=== PATIENT | male | born 1985 | race African-American/Black ===

== ENCOUNTER → 2016-12-22 | Day surgery (SDC) | payer OTHER ==
[~2016-12-22] VITALS: Ht 185.4 cm; Wt 101.6 kg
[~2016-12-22] MED LIST: ACETAMINOPHEN TAB 650MG DOSE (2X325MG) PO PRN; AMBI10TA PO; AMIT100TA PO; AMIT75TA PO; AMLO5TAB2 PO; ATEN25TA PO; D5W/0.2% SODIUM CHLORIDE 250 ML IV SCH; FISH500C PO; FLOM5CAP PO; HYDR-3713 PO; HYDR12.55 PO; LIDOCAINE 1% SDV INJ 30 ML VIAL As Ordered ONE; LIDOCAINE 1% SDV INJ 30 ML VIAL XX ONE; LIDOCAINE 2% INJ 100 MG/5 ML SDV (FOR ANES.) As Ordered ONE; LOTR10CA2 PO; LR 1,000 ML IV SCH; MELA0.02 PO; METF500T PO; METOCLOPRAMIDE INJ 10MG/2ML VIAL (J2765) IV PRN; MIDAZOLAM INJ 5 MG/ML VIAL (J2250) As Ordered ONE; MILK300C PO; MUSCLE RELAXER PO; NATU400T PO; NEUR300C PO; ONDANSETRON 4MG/2ML VIAL (J2405) IV PRN; OXYC1TAB23 PO; PERCOCET 5MG/325MG TAB PO PRN; PROPOFOL 200 MG/20 ML VIAL As Ordered ONE; VITA500046 PO; ZOLO100T PO; [UNRECOGNIZED DRUG - OTHER] PO; fentaNYL 100 MCG/2 ML INJECTION (J3010) As Ordered ONE; fentaNYL 100 MCG/2 ML INJECTION (J3010) IV PRN
--- NOTE | 2016-12-22 14:17 | RO ---
DATE OF PROCEDURE: 12/22/2016 PREOPERATIVE DIAGNOSIS: Recurrent unexplained syncope. POSTOPERATIVE DIAGNOSIS: Recurrent unexplained syncope. PROCEDURE PERFORMED: Implantation of a Medtronic Reveal LINQ implantable loop recorder. SURGEON: Dr. Allen Mercado PARTY DEMONSTRATOR: None. ANESTHESIA: Lidocaine 1% local/monitored anesthetic care. FINDINGS: Recurrent unexplained syncope. SPECIMENS: None. ESTIMATED BLOOD LOSS: Less than 3 mL. BLOOD PRODUCTS REPLACED: None. DRAINS: None. COMPLICATIONS: None. PROCEDURE DESCRIPTION: The patient was prepped and draped over the left anterior chest and sternum. Lidocaine 1% was used for local anesthetic. An incision approximately 1 cm in length was made with a #15 blade through the skin at approximately the fourth interspace one inch lateral to the left parasternal border. The insertion tool with loop recorder was placed so that the guide traveled in the subcutaneous fat roughly parallel to the anterior chest wall at an approximately 45 degree angle from the long axis of the sternum in a caudal-left lateral direction. The insertion tool was rotated 180 degrees and the loop recorder was advanced into the subcutaneous fat using the insertion tool plunger. The plunger was removed and then the insertion tool was removed leaving the loop recorder in place. The initial R wave amplitude was 0.63 mV. The initial settings for the device were VT detection zone 32 beats to 200 beats per minute, bradycardia 30 beats per minute for 12 beats, asystole 4.5 seconds. The implantable loop recorder implanted was a Medtronic Reveal LINQ Model # LNQ11 with serial # [id number].
[2016-12-22 14:45] VITALS: BP 108/57
== END | disposition home or self-care (01) ==
LOC: M SDC 09:52
PROVIDERS: ATTEND Internal Medicine Cardiovascular Disease
DX: R55 Syncope and collapse (principal); I10 Essential (primary) hypertension; G47.30 Sleep apnea, unspecified; F43.10 Post-traumatic stress disorder, unspecified; Z79.899 Other long term (current) drug therapy
CPT/HCPCS: 33282; C1764; J0690; J2250; J3010

== ENCOUNTER → 2017-02-18 | Outpatient (REF) | payer OTHER ==
[~2017-02-18] MED LIST changes: -ACETAMINOPHEN TAB 650MG DOSE (2X325MG) PO PRN; -D5W/0.2% SODIUM CHLORIDE 250 ML IV SCH; -LIDOCAINE 1% SDV INJ 30 ML VIAL As Ordered ONE; -LIDOCAINE 1% SDV INJ 30 ML VIAL XX ONE; -LIDOCAINE 2% INJ 100 MG/5 ML SDV (FOR ANES.) As Ordered ONE; -LR 1,000 ML IV SCH; -METOCLOPRAMIDE INJ 10MG/2ML VIAL (J2765) IV PRN; -MIDAZOLAM INJ 5 MG/ML VIAL (J2250) As Ordered ONE; -ONDANSETRON 4MG/2ML VIAL (J2405) IV PRN; -PERCOCET 5MG/325MG TAB PO PRN; -PROPOFOL 200 MG/20 ML VIAL As Ordered ONE; -fentaNYL 100 MCG/2 ML INJECTION (J3010) As Ordered ONE; -fentaNYL 100 MCG/2 ML INJECTION (J3010) IV PRN
== END ==
LOC: M LAB REF 17:00
PROVIDERS: ATTEND Internal Medicine Nephrology
DX: M62.82 Rhabdomyolysis (principal)

== ENCOUNTER 2017-07-02 09:55 | Emergency (ER) | payer OTHER ==
[~2017-07-02] VITALS: Ht 185.4 cm; Wt 110.5 kg
[2017-07-02 09:55] VITALS: BP 158/97
[~2017-07-02 09:55] MED LIST changes: -MELA0.02 PO; +MELA3TAB49 PO; -METF500T PO; +METF500T13 PO
[2017-07-02] MEDS ORDERED: SUMA5SPR (10:02)
[2017-07-02] MEDS ORDERED: LYRI75CA PO (10:02)
[2017-07-02] MEDS ORDERED: TETRACAINE 0.5% OPHTH SOLN 4ML OD ONE (10:15)
[2017-07-02] MEDS ORDERED: FLUORESCEIN OPHTH 1 MG STRIP OD ONE (10:15)
[2017-07-02] MEDS ORDERED: ERYTHROMYCIN OPHTH OINT OD ONE (10:30)
[2017-07-02] MEDS ORDERED: POLYSOL OP (10:31)
== END 2017-07-02 10:42 | disposition home or self-care (01) ==
LOC: M ED 09:55
DX: S05.01XA Injury of conjunctiva and corneal abrasion without foreign body, right eye, initial encounter (principal); I10 Essential (primary) hypertension; G47.33 Obstructive sleep apnea (adult) (pediatric); G43.909 Migraine, unspecified, not intractable, without status migrainosus; F41.0 Panic disorder [episodic paroxysmal anxiety]; F43.10 Post-traumatic stress disorder, unspecified; Z79.84 Long term (current) use of oral hypoglycemic drugs; Z79.899 Other long term (current) drug therapy; X58.XXXA Exposure to other specified factors, initial encounter; Y92.9 Unspecified place or not applicable; Y99.9 Unspecified external cause status; Y93.9 Activity, unspecified

== ENCOUNTER 2020-12-24 10:47 | Emergency (ER) | payer OTHER ==
[~2020-12-24] VITALS: Ht 185.4 cm; Wt 107.4 kg
[~2020-12-24 10:47] MED LIST changes: +AMLO1TAB24 PO; -AMLO5TAB2 PO; +FLOM0.4C39 PO; -FLOM5CAP PO; +LYRI75CA PO; +POLYSOL OP; +SUMA5SPR
--- OUTSIDE RECORDS SUMMARY | 2020-12-24 10:56 | CCD | Continuity of Care Document ---
Author Author Clint PRITCHARD Organization Unknown Address [id number] [address] [place] [address] Phone [phone] Care Team Providers Care Windows Support Engineer Name Role Phone [facility] [phone] Social History Type Date Description Comments Sex Unknown Assessments Date Code Description Provider 11/12/2020 Z03.818 Encounter for observ ation for suspected exposure to other biological agents ruled out DANIEL Nieves
--- OUTSIDE RECORDS SUMMARY | 2020-12-24 10:58 | CCD ---
Author Author [facility] Organization [facility] Address Unknown Phone Unavailable Care Team Providers Care Payroll Coordinator Name Role Phone Osmin'Jeannette S Brandyn FRANCIS Unavailable Unavailable O'Jeannette, S Brandyn FRANCIS Unavailable Unavailable O'Jeannette, S Brandyn FRANCIS Unavailable Unavailable O'Jeannette, S Brandyn FRANCIS Unavailable Unavailable O'Jeannette, S Brandyn FRANCIS Unavailable Unavailable O'Jeannette, S Brandyn FRANCIS Unavailable Unavailable O'Jeannette, S Brandyn FRANCIS Unavailable Unavailable O'Jeannette, S Brandyn FRANCIS Unavailable Unavailable O'Jeannette, S Brandyn FRANCIS Unavailable Unavailable O'Jeannette, S Brandyn FRANCIS Unavailable Unavailable O'Ejannette, S Brandyn FRANCIS Unavailable Unavailable O'Jeannette, S Brandyn FRANCIS Unavailable Unavailable O'Jeannette, S Brandyn FRANCIS Unavailable Unavailable O'Jeannette, S Brandyn FRANCIS Unavailable Unavailable O'Jeannette, S Brandyn FRANCIS Unavailable Unavailable O'Jeannette, S Brandyn FRANCIS Unavailable Unavailable O'Jeannette, S Brandyn FRANCIS Unavailable Unavailable O'Jeannette, S Brandyn FRANCIS Unavailable Unavailable O'Jeannette, S Brandyn FRANCIS Unavailable Unavailable O'Jeannette, S Brandyn FRANCIS Unavailable Unavailable O'Jeannette, S Brandyn FRANCIS Unavailable Unavailable O'Jeannette, S Brandyn MD Unavailable Unavailable Nereida Prajapati MD Unavailable Unavailable Nereida Prajapati MD Unavailable Unavailable Nereida Prajapati MD Unavailable Unavailable Nereida Prajapati MD Unavailable Unavailable Nereida Prajapati MD Unavailable Unavailable Nereida Prajapati MD Unavailable Unavailable Nereida Prajapati MD Unavailable Unavailable Nereida Prajapati MD Unavailable Unavailable Nereida Prajapati MD Unavailable Unavailable Nereida Prajapati MD Unavailable Unavailable Nereida Prajapati MD Unavailable Unavailable Nereida Prajapati MD Unavailable Unavailable Nereida Prajapati MD Unavailable Unavailable Nereida Prajapati MD Unavailable Unavailable Nereida Prajapati MD Unavailable Unavailable Nereida Prajapati MD Unavailable Unavailable Nereida Prajapati MD Unavailable Unavailable Nereida Prajapati MD Unavailable Unavailable Nereida Prajapati MD Unavailable Unavailable Nereida Prajapati MD Unavailable Unavailable Nereida Prajapati MD Unavailable Unavailable Nereida Prajapati MD Unavailable Unavailable Nereida Prajapati MD Unavailable Unavailable Nereida Prajapati MD Unavailable Unavailable Nereida Prajapati MD Unavailable Unavailable Nereida Prajapati MD Unavailable Unavailable Nereida Prajapati MD Unavailable Unavailable Nereida Prajapati MD Unavailable Unavailable Nereida Prajapati MD Unavailable Unavailable Nereida Prajapati MD Unavailable Unavailable Nereida Prajapati MD Unavailable Unavailable Nereida Prajapati MD Unavailable Unavailable Gore, W Fernandez RPA-C Unavailable Unavailable Gore, W Fernandez RPA-C Unavailable Unavailable Gore, W Fernandez RPA-C Unavailable Unavailable Gore, W Fernandez RPA-C Unavailable Unavailable Gore, W Fernandez RPA-C Unavailable Unavailable Gore, W Fernandez RPA-C Unavailable Unavailable Gore, W Fernandez RPA-C Unavailable Unavailable Gore, W Fernandez RPA-C Unavailable Unavailable Gore, W Fernandez RPA-C Unavailable Unavailable Gore, W Fernandez RPA-C Unavailable Unavailable Gore, W Fernandez RPA-C Unavailable Unavailable Gore, W Fernandez RPA-C Unavailable Unavailable Gore, W Fernandez RPA-C Unavailable Unavailable Goer, W Fernandez RPA-C Unavailable Unavailable Gore, W Fernandez RPA-C Unavailable Unavailable Gore, W Fernandez RPA-C Unavailable Unavailable PONCE, URIAH Unavailable Unavailable PONCE, URIAH Unavailable Unavailable KYLIE HERNÁNDEZ Unavailable Unavailable RADHA, Tiffanie CATHERINE MD Unavailable Unavailable RADHA, Tiffanie CATHERINE MD Unavailable Unavailable RADHA, Tiffanie CATHERINE MD Unavailable Unavailable RADHA, Tiffanie CATHERINE MD Unavailable Unavailable RADHA, Tiffanie CATHERINE MD Unavailable Unavailable RADHA, Tiffanie CATHERINE MD Unavailable Unavailable RADHA, Tiffanie CATHERINE MD Unavailable Unavailable RADHA, Tiffanie CATHERINE MD Unavailable Unavailable RADHA, Tiffanie CATHERINE MD Unavailable Unavailable RADHA, Tiffanie CATHERINE MD Unavailable Unavailable RADHA, Tiffanie CATHERINE MD Unavailable Unavailable RADHA, Tiffanie CATHERINE MD Unavailable Unavailable RADHA, Tiffanie CATHERINE MD Unavailable Unavailable RADHA, Tiffanie CATHERINE MD Unavailable Unavailable RADHA, Tiffanie CATHERINE MD Unavailable Unavailable RADHA, Tiffanie CATHERINE MD Unavailable Unavailable RADHA, Tiffanie CATHERINE MD Unavailable Unavailable RADHA, Tiffanie CATHERINE MD Unavailable Unavailable RADHA, Tiffanie CATHERINE MD Unavailable Unavailable RADHA, Tiffanie CATHERINE MD Unavailable Unavailable RADHA, Tiffanie CATHERINE MD Unavailable Unavailable RADHA, Tiffanie CATHERINE MD Unavailable Unavailable RADHA, Tiffanie CATHERINE MD Unavailable Unavailable RADHA, Tiffanie CATHERINE MD Unavailable Unavailable RADHA, Tiffanie CATHERINE MD Unavailable Unavailable RADHA, Tiffanie CATHERINE MD Unavailable Unavailable RADHA, Tiffanie CATHERINE MD Unavailable Unavailable RADHA, Tiffanie CATHERINE MD Unavailable Unavailable RADHA, Tiffanie CATHERINE MD Unavailable Unavailable RADHA, Tiffanie CATHERINE MD Unavailable Unavailable RADHA, Tiffanie CATHERINE MD Unavailable Unavailable RADHA, Tiffanie CATHERINE MD Unavailable Unavailable RADHA, Tiffanie CATHERINE MD Unavailable Unavailable RADHA, Tiffanie CATHERINE MD Unavailable Unavailable RADHA, Tiffanie CATHERINE MD Unavailable Unavailable RADHA, Tiffanie CATHERINE MD Unavailable Unavailable RADHA, Tiffanie CATHERINE MD Unavailable Unavailable RADHA, Tiffanie CATHERINE MD Unavailable Unavailable RADHA, Tiffanie CATHERINE MD Unavailable Unavailable RADHA, Tiffanie CATHERINE MD Unavailable Unavailable RADHA, Tiffanie CATHERINE MD Unavailable Unavailable RADHA, Tiffanie CATHERINE MD Unavailable Unavailable RADHA, Tiffanie CATHERINE MD Unavailable Unavailable RADHA, Tiffanie CATHERINE MD Unavailable Unavailable RADHA, Tiffanie CATHERINE MD Unavailable Unavailable RADHA, Tiffanie CATHERINE MD Unavailable Unavailable RADHA, Tiffanie CATHERINE MD Unavailable Unavailable RADHA, Tiffanie CATHERINE MD Unavailable Unavailable RADHA, Tiffanie CATHERINE MD Unavailable Unavailable RADHA, Tiffanie CATHERINE MD Unavailable Unavailable RADHA, Tiffanie CATHERINE MD Unavailable Unavailable RADHA, Tiffanie CATHERINE MD Unavailable Unavailable RADHA, Tiffanie CATHERINE MD Unavailable Unavailable RADHA, Tiffanie CATHERINE MD Unavailable Unavailable RADHA, Tiffanie CATHERINE MD Unavailable Unavailable RADHA, Tiffanie CATHERINE MD Unavailable Unavailable RADHA, Tiffanie CATHERINE MD Unavailable Unavailable RADHA, Tiffanie CATHERINE MD Unavailable Unavailable RADHA, Tiffanie CATHERINE MD Unavailable Unavailable RADHA, Tiffanie CATHERINE MD Unavailable Unavailable RADHA, Tiffanie CATHERINE MD Unavailable Unavailable RADHA, Tiffanie CATHERINE MD Unavailable Unavailable RADHA, Tiffanie CATHERINE MD Unavailable Unavailable RADHA, Tiffanie CATHERINE MD Unavailable Unavailable RADHA, Tiffanie CATHERINE MD Unavailable Unavailable RADHA, Tiffanie CATHERINE MD Unavailable Unavailable RADHA, Tiffanie CATHERINE MD Unavailable Unavailable RADHA, Tiffanie CATHERINE MD Unavailable Unavailable RADHA, Tiffanie CATHERINE MD Unavailable Unavailable RADHA, Tiffanie CATHERINE MD Unavailable Unavailable RADHA, Tiffanie CATHERINE MD Unavailable Unavailable RADHA, Tiffanie CATHERINE MD Unavailable Unavailable Simona, Shubekchha Unavailable Unavailable Simona, Shubekchha Unavailable Unavailable RAZA CARRASCO MD, MBBS Unavailable Unavailable RAZA CARRASCO MD, MBBS Unavailable Unavailable RAZA CARRASCO MD, MBBS Unavailable Unavailable RAZA CARRASCO MD, MBBS Unavailable Unavailable RAZA CARRASCO MD, MBBS Unavailable Unavailable RAZA CARRASCO MD, MBBS Unavailable Unavailable RAZA CARRASCO MD, MBBS Unavailable Unavailable RAZA CARRASCO MD, MBBS Unavailable Unavailable RAZA CARRASCO MD, MBBS Unavailable Unavailable RAZA CARRASCO MD, MBBS Unavailable Unavailable RAZA CARRASCO MD, MBBS Unavailable Unavailable RAZA CARRASCO MD, MBBS Unavailable Unavailable CARRASCO, RAZA MD, MBBS Unavailable Unavailable CARRASCO, RAZA MD, MBBS Unavailable Unavailable CARRASCO, RAZA MD, MBBS Unavailable Unavailable CARRASCO, RAZA MD, MBBS Unavailable Unavailable CARRASCO, RAZA MD, MBBS Unavailable Unavailable CARRASCO, RAZA MD, MBBS Unavailable Unavailable CARRASCO, RAZA MD, MBBS Unavailable Unavailable CARRASCO, RAZA MD, MBBS Unavailable Unavailable CARRASCO, RAZA MD, MBBS Unavailable Unavailable CARRASCO, RAZA MD, MBBS Unavailable Unavailable CARRASCO, RAZA MD, MBBS Unavailable Unavailable CARRASCO, RAZA MD, MBBS Unavailable Unavailable CARRASCO, RAZA MD, MBBS Unavailable Unavailable CARRASCO, RAZA MD, MBBS Unavailable Unavailable CARRASCO, RAZA MD, MBBS Unavailable Unavailable CARRASCO, RAZA MD, MBBS Unavailable Unavailable CARRASCO, RAZA MD, MBBS Unavailable Unavailable CARRASCO, RAZA MD, MBBS Unavailable Unavailable El-Khally, A Ziad MD Unavailable Unavailable El-Khally, A Ziad MD Unavailable Unavailable El-Khally, A Ziad MD Unavailable Unavailable El-Khally, A Ziad MD Unavailable Unavailable El-Khally, A Ziad MD Unavailable Unavailable El-Khally, A Ziad MD Unavailable Unavailable El-Khally, A Ziad MD Unavailable Unavailable El-Khally, A Ziad MD Unavailable Unavailable El-Khally, A Ziad MD Unavailable Unavailable El-Khally, A Ziad MD Unavailable Unavailable El-Khally, A Ziad MD Unavailable Unavailable El-Khally, A Ziad MD Unavailable Unavailable El-Khally, A Ziad MD Unavailable Unavailable El-Khally, A Ziad MD Unavailable Unavailable El-Khally, A Ziad MD Unavailable Unavailable El-Khally, A Ziad MD Unavailable Unavailable El-Khally, A Ziad MD Unavailable Unavailable El-Khally, A Ziad MD Unavailable Unavailable El-Khally, A Ziad MD Unavailable Unavailable El-Khally, A Ziad MD Unavailable Unavailable El-Khally, A Ziad MD Unavailable Unavailable El-Khally, A Ziad MD Unavailable Unavailable El-Khally, A Ziad MD Unavailable Unavailable El-Khally, A Ziad MD Unavailable Unavailable El-Khally, A Ziad MD Unavailable Unavailable El-Khally, A Ziad MD Unavailable Unavailable El-Khally, A Ziad MD Unavailable Unavailable El-Khally, A Ziad MD Unavailable Unavailable El-Khally, A Ziad MD Unavailable Unavailable El-Khally, A Ziad MD Unavailable Unavailable El-Khally, A Ziad MD Unavailable Unavailable El-Khally, A Ziad MD Unavailable Unavailable El-Khally, A Ziad MD Unavailable Unavailable El-Khally, A Ziad MD Unavailable Unavailable El-Khally, A Ziad MD Unavailable Unavailable El-Khally, A Ziad MD Unavailable Unavailable El-Khally, A Ziad MD Unavailable Unavailable El-Khally, A Ziad MD Unavailable Unavailable El-Khally, A Ziad MD Unavailable Unavailable IFEANYI, KRISTIE MARCK PA Unavailable Unavailable IFEANYI, KRISTIE MARCK PA Unavailable Unavailable IFEANYI, KRISTIE MARCK PA Unavailable Unavailable IFEANYI, KRISTIE MARCK PA Unavailable Unavailable IFEANYI, KRISTIE MARCK PA Unavailable Unavailable IFEANYI, KRISTIE MARCK PA Unavailable Unavailable IFEANYI, KRISTIE MARCK PA Unavailable Unavailable IFEANYI, KRISTIE MARCK PA Unavailable Unavailable IFEANYI, KRISTIE MARCK PA Unavailable Unavailable IFEANYI, KRISTIE MARCK PA Unavailable Unavailable IFEANYI, KRISTIE MARCK PA Unavailable Unavailable IFEANYI, KRISTIE MARCK PA Unavailable Unavailable IFEANYI, KRISTIE MARCK PA Unavailable Unavailable IFEANYI, KRISTIE MARCK PA Unavailable Unavailable IFEANYI, KRISTIE MARCK PA Unavailable Unavailable IFEANYI, KRISTIE MARCK PA Unavailable Unavailable IFEANYI, KRISTIE MARCK PA Unavailable Unavailable IFEANYI, KRISTIE MARCK PA Unavailable Unavailable IFEANYI, KRISTIE MARCK PA Unavailable Unavailable IFEANYI, KRISTIE MARCK PA Unavailable Unavailable IFEANYI, KRISTIE MARCK PA Unavailable Unavailable Nghia, Walt SCHOOL BUS DISPATCHER Unavailable Unavailable Nghia, Walt SCHOOL BUS DISPATCHER Unavailable Unavailable Nghia, Walt SCHOOL BUS DISPATCHER Unavailable Unavailable Nghia, Walt SCHOOL BUS DISPATCHER Unavailable Unavailable Nghia, Walt SCHOOL BUS DISPATCHER Unavailable Unavailable Nghia, Walt SCHOOL BUS DISPATCHER Unavailable Unavailable Re-disclosure Warning The records that you are about to access may contain information from federally-assisted alcohol or drug abuse programs. If such information is present, then the following federally mandated warning applies: This information has been disclosed to you from records protected by federal confidentiality rules (42 CFR part 2). The federal rules prohibit you from making any further disclosure of this information unless further disclosure is expressly permitted by the written consent of the person to whom it pertains or as otherwise permitted by 42 CFR part 2. A general authorization for the release of medical or other information is NOT sufficient for this purpose. The Federal rules restrict any use of the information to criminally investigate or prosecute any alcohol or drug abuse patient.The records that you are about to access may contain highly sensitive health information, the redisclosure of which is protected by Article 27-F of the [facility] Public Health law. If you continue you may have access to information: Regarding HIV / AIDS; Provided by facilities licensed or operated by the [facility] Office of Mental Health; or Provided by the [facility] Office for People With Developmental Disabilities. If such information is present, then the following [facility] mandated warning applies: This information has been disclosed to you from confidential records which are protected by state law. State law prohibits you from making any further disclosure of this information without the specific written consent of the person to whom it pertains, or as otherwise permitted by law. Any unauthorized further disclosure in violation of state law may result in a fine or long term sentence or both. A general authorization for the release of medical or other information is NOT sufficient authorization for further disc losure. Allergies and Adverse Reactions Type Description Substance Reaction Status Data Source(s ) Drug Class NO KNOWN ALLERGIES NO KNOWN ALLERGIES [facility] Family History Family Member Name Family Member Gender Family Member Status Date o f Status Description Data Source(s) Unknown Female Problem MEDENT ([facility] Unknown Female Problem MEDENT ([facility] Unknown Unknown Problem MEDENT ([facility]) Unknown Unknown Problem MEDENT ([facility] Encounters Encounter Providers Location Date Indications Data Source(s ) Emergency Attender: MARCK SANCHEZ EMERGENCY ROOM-ER 06/10/2020 12:53:00 PM EDT - 06/10/2020 02:35:00 PM EDT [facility] Patient discharged. Inpatient Attender: Antonella Simpson MDA dmitter: Antonella Simpson MDReferrer: Antonella Simpson MD [id number] 06/09/2020 11:14:00 AM EDT - 06/09/2020 05:40:00 PM EDT [facility] Patient discharged. Emergency Attender: MOHINI HERNÁNDEZ EMERGENCY ROOM-ER 2019 03:25:00 AM EDT - 06/09/2020 09:00:00 AM [facility] Patient discharged. Outpatient Attender: URIAH RUIZttender : URIAH Vieiraender: Zelda JarvisAdmitter: Zelda JarvisReferrer: Waltnj Agrawal CARMINA [id number] 05/25/2020 11:34:44 AM EDT - 05/26/2020 05:51:00 PM EDT [facility] Patient discharged. Emergency Attender: MOHINI HERNÁNDEZ EMERGENCY ROOM-ER 2019 06:07:00 AM EDT - 05/25/2020 09:40:00 AM [facility] Patient discharged. Emergency Attender: eFrnandez CASTILLO EMERGENCY ROOM-ER 0 04/12/2020 11:34:00 AM EDT - 04/12/2020 04:55:00 PM [facility] Patient discharged. Inpatient Attender: RAZA CARRASCO MD, M BBSAttender: Brandyn Prajapati MDAdmitter: Brandyn Prajapati MDReferrer: Fernandez THOMASCConsultant: FLORIN GARCIA MD [id number] 04/12/2020 12:00:00 AM EDT - 04/14/2020 01:30:00 PM ED T Essential (primary) hypertension [facility] Essential (primary) hypertension Patient discharged. Emergency Attender: Fernandez CASTILLO EMERGENCY ROOM-ER 0 02/20/2017 12:51:00 PM EDT - 02/19/2017 08:24:00 PM [facility] Medications Medication Brand Name Start Date Product Form Dose Route Admi nistrative Instructions Pharmacy Instructions Status Indications Reaction Description Data Source(s) Spironolactone 25 MG Oral Tablet spironolactone (ALDAC TONE) 25 MG tablet spironolactone (ALDACTONE) 25 MG tablet 06/12/2020 12:00:00 AM EDT 12.5 mg Oral active Take 0.5 tablets (12 .5 mg total) by mouth daily [facility] Hydrochlorothiazide 25 MG Oral Tablet hy drochlorothiazide (HYDRODIURIL) 25 MG tablet hydrochlorothiazide (HYDRODIURIL) 25 MG tablet 12:00:00 AM EDT 25 mg Oral active Take 1 tablet (25 mg total) by mouth daily [facility] Lisinopril 20 MG Oral Tablet lisinopril (PRINIVIL,ZEST RIL) 20 MG tablet lisinopril (PRINIVIL,ZESTRIL) 20 MG tablet 06/12/2020 12:00:00 AM EDT 40 mg Oral active Hypertension Take 2 tablets (4 0 mg total) by mouth daily [facility] Hypertension Aspirin 81 MG Delayed Release Oral Tablet aspirin EC t ablet 81 mg aspirin EC tablet 81 mg 06/10/2020 09:00:00 AM EDT 81 mg Oral activ e 81 mg, Oral, Daily, First dose on Tue06/10/20 at 0900 [facility] Medication administered onsite sodium chloride 0.9% (NS) infusion 3231-1085-85 06/09/2020 04:00:00 P M EDT Intravenous active at 100 mL/hr, Intravenous, Continuous, Starting Tue06/09/20 at 1600, For 2 hours, Post-op [facility] Medication administered onsite iopamidol (ISOVUE-370) 76 % [id number] 06/09/2020 03:20:58 PM EDT active As needed, Starting Tue06/09/20 at 1520, Intra-Procedu re [facility] Medication administered onsite 1 ML heparin sodium, porcine 1000 UNT/ML Injection hep christin (porcine) injection heparin (porcine) injection 06/09/2020 03:12:25 PM EDT active As needed, Starting Tue06/09/20 at 1512, Intra-Procedure [facility] Medication administered onsite 4 ML Verapamil hydrochloride 2.5 MG/ML Injection verap angel (ISOPTIN) injection verapamil (ISOPTIN) injection 06/09/2020 03:12:10 PM EDT active As needed, Starting Tue06/09/20 at 1512, Intra-Procedure [facility] Medication administered onsite 2 ML Midazolam 1 MG/ML Injection midazolam (VERSED) in jection midazolam (VERSED) injection 06/09/2020 03:03:56 PM EDT active As needed, Starting Tue06/09/20 at 1503, Intra-Procedure [facility] Medication administered onsite fentaNYL Citrate (PF) (SUBLIMAZE) injection 4056-1708-42 06/09/2020 03:03:41 PM EDT active As neede d, Starting Tue06/09/20 at 1503, Intra-Procedure [facility] Medication administered onsite normal saline flush 0.9 % injection 3 mL [id number] 06/09/2020 02:00:00 PM EDT 3 mL Intravenous active 3 mL , Intravenous, Every 8 hours (scheduled), First dose on Tue06/09/20 at 1400
flush per protocol, D/C Main IV fluid if appropriate
[facility] Medication administered onsite duloxetine 20 MG Delayed Release Oral Ca psule DULoxetine (CYMBALTA) DR capsule 20 mg DULoxetine (CYMBALTA) DR capsule 20 mg 06/09/2020 01:00:00 PM EDT 20 mg Oral active 20 mg, Oral, 2 times daily, First dose on Tue06/09/20 at 1300 [facility] Medication administered onsite atorvastatin 40 MG Oral Tablet atorvastatin (LIPITOR) tablet 40 mg atorvastatin (LIPITOR) tablet 40 mg 06/09/2020 01:00:00 PM EDT 40 mg Oral active 40 mg, Oral, Daily, First dose on Tue06/09/20 at 1300 [facility] Medication administered onsite clopidogrel 300 MG Oral Tablet clopidogrel (PLAVIX) ta blet 600 mg clopidogrel (PLAVIX) tablet 600 mg 06/09/2020 01:00:00 PM EDT 600 mg Oral completed 600 mg, Oral, Once, Tue06/09/20 at 1300, For [address] [facility] Medication administered onsite sodium chloride 0.9% (NS) infusion 0179-3162-67 06/09/2020 12:00:00 P M EDT Intravenous completed at 100 mL/hr, Intravenous, Continuous, Starting Tue06/09/20 at 1200, For 2 hours [facility] Medication administered onsite Nitroglycerin 0.4 MG Sublingual Tablet n itroglycerin (NITROSTAT) SL tablet 0.4 mg nitroglycerin (NITROSTAT) SL tablet 0.4 mg 06/09/2020 11:53:08 A M EDT 0.4 mg Sublingual active 0.4 mg, S ublingual, Every 5 min PRN, chest pain, Starting Tue06/09/20 at 1153
May administer up to 3 doses per episode.
[facility] Medication administered onsite ondansetron (ZOFRAN) injection 4 mg [id number] 06/09/2020 11:32:4 2 AM EDT 4 mg Intravenous active 4 mg, In travenous, Every 4 hours PRN, nausea, vomiting, Starting Tue06/09/20 at 1132 [facility] Medication administered onsite 10 ML Atropine Sulfate 0.1 MG/ML Prefill ed Syringe atropine sulfate injection 0.5 mg atropine sulfate injection 0.5 mg 06/09/2020 11:32:41 AM EDT 0.5 mg active 0.5 mg, Intrave nous Push, Every 5 min PRN, other, As needed, for heart rate less than 60 BPM and the patient is hemodynamically unstable and/or SBP is less than 90mmHg, Starting Tue06/09/20 at 1132, For 1 day
Not to exceed a total of 3 mg or 0.04 mg/kg.Max of 6 doses
[facility] Medication administered onsite technetium sestamibi (CARDIOLITE) injection 33.2 millicurie 05/26/2020 02:00:00 PM EDT 33.2 mCi Intravenous completed 33.2 millicurie, Intravenous, Once, Tue05/26/20 at 1400, For 1 dose [facility] Medication administered onsite technetium sestamibi (CARDIOLITE) injection 11.1 millicurie 05/26/2020 02:00:00 PM EDT 11.1 mCi Intravenous completed 11.1 millicurie, Intravenous, Once, Tue05/26/20 at 1400, For 1 dose [facility] Medication administered onsite regadenoson (LEXISCAN) solution 0.4 mg [id number] 05/26/2020 06:0 0:00 AM EDT 0.4 mg Intravenous completed 0.4 mg, Intravenous, Once, 05/26/20 at 0600, For 1 dose, [employer]
No Caffeine, Theophylline, or Dipyridamole (Aggrenox) for 12 hours prior to dose. If patient has had any of these, contact MD immediately
[facility] Medication administered onsite Amoxicillin 250 MG Oral Capsule amoxicillin (AMOXIL) c apsule 500 mg amoxicillin (AMOXIL) capsule 500 mg 05/25/2020 10:00:00 PM EDT 500 mg Oral active 500 mg, Oral, 3 times daily, Indications: Prophylaxis for dental procedure that needs to be done but has been delayed due to COVID, First dose on 05/25/20 at 2200 [facility] Medication administered onsite Lisinopril 20 MG Oral Tablet lisinopril (PRINIVIL,ZEST RIL) tablet 40 mg lisinopril (PRINIVIL,ZESTRIL) tablet 40 mg 05/25/2020 07:00:00 PM EDT 40 mg Oral active Hypertension 40 mg, Oral, Daily, First dose on 05/25/20 at 1900 [facility] Hypertension Medication administered onsite Famotidine 20 MG Oral Tablet famotidine (PEPCID) table t 20 mg famotidine (PEPCID) tablet 20 mg 05/25/2020 07:00:00 PM EDT 20 mg Oral active 20 mg, Oral, Daily, First dose on 05/25/20 at 1900 [facility] Medication administered onsite sodium chloride 0.9% (NS) infusion [id number] 05/25/2020 07:00:00 P M EDT Intravenous active at 75 mL/hr, Intravenous, Continuous, Starting 05/25/20 at 1900 [facility] Medication administered onsite Cholecalciferol 1000 UNT Oral Tablet Vit perez D (CHOLECALCIFEROL) tablet 2,000 Units Vitamin D (CHOLECALCIFEROL) tablet 2,000 Units 05/25/2020 07 :00:00 PM EDT 2000 U Oral active 2,000 Units, Ora l, Daily, First dose on 05/25/20 at 1900 [facility] Medication administered onsite duloxetine 30 MG Delayed Release Oral Ca psule DULoxetine (CYMBALTA) DR capsule 30 mg DULoxetine (CYMBALTA) DR capsule 30 mg 05/25/2020 07:00:00 PM EDT 30 mg Oral active 30 mg, Oral, Daily, First dose on 05/25/20 at 1900 [facility] Medication administered onsite atorvastatin 40 MG Oral Tablet atorvastatin (LIPITOR) tablet 40 mg atorvastatin (LIPITOR) tablet 40 mg 05/25/2020 07:00:00 PM EDT 40 mg Oral active 40 mg, Oral, Daily, First dose on 05/25/20 at 1900 [facility] Medication administered onsite Insulin Lispro 100 UNT/ML Injectable Connie ution insulin lispro (HumaLOG) injection 1-6 Units insulin lispro (HumaLOG) injection 1-6 Units 0 05:00:00 PM EDT Subcutaneous active 1-6 Units, Subcutaneous, MEALSS, First dose on Tue05/25/20 at 1700
Frail 3 units Nutritional and Correction Insulin ScaleBlood Glucose (mg/dl) <70 start hypoglycemiaprotocolGlucose Eats >=50% Eats <50%Eats Nothing (mg/dl) of meal of mealor [id number] units 1 units 0 [id number]- 1703 units 2 units 0 [id number] units 2 units 1 - 2704 units 3 units 1 [id number] units 3 units 2 [id number]- 3705 units 4 units 2 [id number] units 4 units 3 units>420 call MD6 units 5 units 3 unitsTest glucose within 30 minutes of insulin administration.Administer insulin within 15 minutes (before or after) of the patient starting to eat.For patients that are NPO, use theNPO (correction) scale to cover POC glucose at 08:00, 12:00, 17:00.
[facility] Medication administered onsite heparin (porcine) injection 5,000 Units [id number] 05/25/20 20 03:00:00 PM EDT 5000 U Subcutaneous active 5,000 Units , Subcutaneous, Every 12 hours (scheduled), First dose on 05/25/20 at 1500
If platelet count is less than 100 or hematocrit is less than 25, or if there is a 5 point decrease in hematocrit, do not give the dose and call physician/designee.
[facility] Medication administered onsite normal saline flush 0.9 % injection 3 mL [id number] 05/25/2020 03:00:00 PM EDT 3 mL Intravenous active 3 mL , Intravenous, Every 8 hours (scheduled), First dose on 05/25/20 at 1500
flush per protocol, D/C Main IV fluid if appropriate
[facility] Medication administered onsite Lorazepam 0.5 MG Oral Tablet LORazepam (ATIVAN) tablet 0.5 mg LORazepam (ATIVAN) tablet 0.5 mg 05/25/2020 02:17:49 PM EDT 0.5 mg Oral acti ve 0.5 mg, Oral, Every 12 hours PRN, anxiety, sleep, Starting 05/25/20 at 1417, For 7 days [facility] Medication administered onsite 30 mg 04/17/2020 12:00:00 AM EDT capsule,delayed release (DR/EC) 90 TAKE ONE CAPSULE BY MOUTH EVERY DAY TAKE ONE CAPSULE BY MOUTH EVERY DAY SOLD: 04/19/2020 [facility] 50 mcg (2,000 unit) 04/17/2020 12:00:00 AM EDT capsule 90 TAKE ONE CAPSULE BY MOUTH EVERY DAY TAKE ONE CAPSULE BY MOUTH EVERY DAY SOLD: 04/19/2020 [facility] Hydrochlorothiazide 25 MG Oral Tablet hy drochlorothiazide (HYDRODIURIL) tablet 25 mg hydrochlorothiazide (HYDRODIURIL) tablet 25 mg 04/15/2020 09 :00:00 AM EDT 25 mg Oral active 25 mg, Oral, Maribel ly Standard, First dose (after last modification) on Tue04/15/20 at 0900, For 30 doses [facility] Medication administered onsite Lisinopril 20 MG Oral Tablet lisinopril (ZESTRIL) tabl et 20 mg lisinopril (ZESTRIL) tablet 20 mg 04/15/2020 09:00:00 AM EDT 20 mg Oral active 20 mg, Oral, Daily Standard, First dose (after last modification) on Tue04/15/20 at 0900, For 30 doses [facility] Medication administered onsite Hydrochlorothiazide 25 MG Oral Tablet hy droCHLOROthiazide 25 MG Oral Tablet (HYDRODIURIL) hydroCHLOROthiazide 25 MG Oral Tablet (HYDRODIURIL) 12:00:00 AM EDT 25 mg Oral active Take 1 t ablet by mouth daily [facility] Aspirin 81 MG Delayed Release Oral Table t Aspirin 81 MG Oral Tablet Delayed Release Aspirin 81 MG Oral Tablet Delayed Release 04/15/2020 12:00:00 AM EDT 81 mg Oral active Take 1 tablet by mouth [facility] Lisinopril 20 MG Oral Tablet Lisinopril 20 MG Oral Tab let (ZESTRIL) Lisinopril 20 MG Oral Tablet (ZESTRIL) 04/15/2020 12:00:00 AM EDT 20 mg Oral active Take 1 tablet by mouth daily [facility] Spironolactone 25 MG Oral Tablet spironolactone (ALDAC TONE) tablet 12.5 mg spironolactone (ALDACTONE) tablet 12.5 mg 04/14/2020 11:00:00 AM EDT 12.5 mg Oral active 12.5 mg, Oral, Daily Standard, First dose on Tue04/14/20 at 1100, For 30 days [facility] Medication administered onsite 24 HR Diltiazem Hydrochloride 120 MG Ext ended Release Oral Capsule dilTIAZem (CARDIZEM CD) 24 hr capsule 120 mg dilTIAZem (CARDIZEM CD) 24 hr capsule 120 mg 04/14/2020 10:15:00 AM EDT 120 mg Oral active 120 mg, Oral, Every 24 hours Standard (Daily), First dose on Tue04/14/20 at 1015, For 30 days [facility] Medication administered onsite atorvastatin 40 MG Oral Tablet Atorvastatin Calcium 40 MG Oral Tablet (LIPITOR) Atorvastatin Calcium 40 MG Oral Tablet (LIPITOR) 04/14/2020 12:00:00 AM EDT 40 mg Oral active Take 1 tablet by mouth e very evening [facility] Famotidine 20 MG Oral Tablet Famotidine 20 MG Oral Tab let (PEPCID) Famotidine 20 MG Oral Tablet (PEPCID) 04/14/2020 12:00:00 AM EDT 20 mg Oral active Take 1 tablet by mouth Two Times Daily [facility] Spironolactone 25 MG Oral Tablet Spironolactone 25 MG Oral Tablet (ALDACTONE) Spironolactone 25 MG Oral Tablet (ALDACTONE) 04/14/2020 12:00:00 AM EDT 12.5 mg Oral active Take 0.5 tablets by mout h daily [facility] Hydrochlorothiazide 25 MG Oral Tablet hy drochlorothiazide (HYDRODIURIL) tablet 12.5 mg hydrochlorothiazide (HYDRODIURIL) tablet 12.5 mg 04/13 09:00:00 PM EDT 12.5 mg Oral aborted 12.5 mg, Oral, 2 Times Daily, First dose (after last modification) on 04/13/20 at 2100, For 30 days [facility] Medication administered onsite Lisinopril 10 MG Oral Tablet lisinopril (ZESTRIL) tabl et 10 mg lisinopril (ZESTRIL) tablet 10 mg 04/13/2020 09:00:00 PM EDT 10 mg Oral aborted 10 mg, Oral, 2 Times Daily, First dose (after last modification) on 04/13/20 at 2100, For 30 doses [facility] Medication administered onsite Monobasic potassium phosphate 0.0408 MEQ /ML Oral Solution potassium phosphate (monobasic) (K-PHOS ORIGINAL) tablet 500 mg potassium phosphate (monobasic) (K- PHOS ORIGINAL) tablet 500 mg 04/13/2020 11:45:00 AM EDT 500 mg Oral completed 500 mg, Oral, Once, 04/13/20 at 1145, For 1 dose
Dissolve tablets in 6-8 oz of water; for best results, soak tablets in water for 2-5 minutes, then stir and give to patient.
Each 500 mg tablet contains: elemental phosphorous 114 mg and potassium 144 mg (3.7 mEq)
[facility] Medication administered onsite Aspirin 81 MG Delayed Release Oral Tablet aspirin EC E C tablet 81 mg aspirin EC EC tablet 81 mg 04/13/2020 09:00:00 AM EDT 81 mg Oral ac tive 81 mg, Oral, Daily Standard, First dose on 04/13/20 at 0900, For 30 days
Do not crush or chew
[facility] Medication administered onsite Lisinopril 10 MG Oral Tablet lisinopril (ZESTRIL) tabl et 10 mg lisinopril (ZESTRIL) tablet 10 mg 04/13/2020 09:00:00 AM EDT 10 mg Oral aborted 10 mg, Oral, Daily Standard, First dose on 04/13/20 at 0900, For 30 days [facility] Medication administered onsite Famotidine 20 MG Oral Tablet famotidine (PEPCID) table t 20 mg famotidine (PEPCID) tablet 20 mg 04/13/2020 09:00:00 AM EDT 20 mg Oral active 20 mg, Oral, 2 Times Daily, First dose on 04/13/20 at 0900, For 30 days [facility] Medication administered onsite duloxetine 30 MG Delayed Release Oral Ca psule DULoxetine (CYMBALTA) DR capsule 30 mg DULoxetine (CYMBALTA) DR capsule 30 mg 04/13/2020 09:00:00 AM EDT 30 mg Oral active 30 mg, Oral, D aily Standard, First dose on 04/13/20 at 0900, For 30 days
Do not crush or chew
[facility] Medication administered onsite potassium chloride (K-DUR) dissolvable tablet 40 mEq 01344-7 [id number] 04/13/2020 09:00:00 AM EDT 40 meq Oral completed 40 mEq, Oral, Once, 04/13/20 at 0900, For 1 dose
May be dissolved in water for patients with a G-Tube or unable to swallow. If concern for clogging G-Tube, may contact Pharmacy to switch formulation to a powder packet.
[facility] Medication administered onsite Hydrochlorothiazide 25 MG Oral Tablet hy drochlorothiazide (HYDRODIURIL) tablet 12.5 mg hydrochlorothiazide (HYDRODIURIL) tablet 12.5 mg 04/13 09:00:00 AM EDT 12.5 mg Oral aborted 12.5 mg, Oral, Daily Standard, First dose on 04/13/20 at 0900, For 30 days [facility] Medication administered onsite Calcium Chloride 0.0014 MEQ/ML / Potassi um Chloride 0.004 MEQ/ML / Sodium Chloride 0.103 MEQ/ML / Sodium Lactate 0.028 MEQ/ML Injectable Solution lactated ringers infusion lactated ringers infusion 04/13/2020 07:45:00 AM EDT 75 mL/h Intravenous aborted at 75 mL/hr, Intravenous, Continuous, Starting 04/13/20 at 0745, For 12 hours [facility] Medication administered onsite Acetaminophen 325 MG Oral Tablet acetaminophen (TYLENO L) tablet 650 mg acetaminophen (TYLENOL) tablet 650 mg 04/13/2020 03:00:00 AM EDT 65 0 mg Oral active 650 mg, Oral, E very 8 hours, First dose (after last modification) on 04/13/20 at 0300, For 89 doses
Maximum daily dose of acetaminophen is 3,000 mg from all sources in 24 hours.
[facility] Medication administered onsite 500 ML heparin sodium, porcine 50 UNT/ML Injection heparin in NaCl 0.45 % infusion 50 units/mL heparin in NaCl 0.45 % infusion 50 units/mL 04/12/2020 09:45:00 PM EDT 1000 U/h Intravenous aborted 1,000 Units/hr (20 mL/hr), Intravenous, at 20 mL/hr, Continuous, Starting 04/12/20 at 2145, For 30 days
Adult Low Dose / With Bolus Protocol.
[facility] Medication administered onsite 1 ML heparin sodium, porcine 1000 UNT/ML Injection heparin (porcine) 1000 units/mL injection 5,000 Units heparin (porcine) 1000 units/mL injectio n 5,000 Units 04/12/2020 09:30:00 PM EDT 5000 U Intravenous comple magda 5,000 Units, Intravenous, Once, 04/12/20 at 2145, For 1 dose
Adult Low Dose / With Bolus Protocol.
[facility] Medication administered onsite atorvastatin 40 MG Oral Tablet atorvastatin (LIPITOR) tablet 40 mg atorvastatin (LIPITOR) tablet 40 mg 04/12/2020 09:00:00 PM EDT 40 mg Oral active 40 mg, Oral, Every evening, First dose on 04/12/20 at 2100, For 30 days [facility] Medication administered onsite Hydralazine Hydrochloride 20 MG/ML Injec table Solution hydrALAZINE (APRESOLINE) injection 10 mg hydrALAZINE (APRESOLINE) injection 10 mg 04/12/2020 07 :45:00 PM EDT 10 mg Intravenous completed 10 mg, Intravenous, Once, 04/12/20 at 1945, For 1 dose
Dilute in 25-50 ml normal saline. Administer over 30 minutes.
[facility] Medication administered onsite Famotidine 0.4 MG/ML Injectable Solution famotidine (PEPCID) in sodium chloride 0.9 % IVPB 20 mg (premix) famotidine (PEPCID) in sodium chloride 0 .9 % IVPB 20 mg (premix) 04/12/2020 07:30:00 PM EDT 20 mg Intravenous a borted 20 mg, Intravenous, Administer over 15 Minutes, Daily Standard, First dose (after last modification) on 04/12/20 at 1930, For 30 days [facility] Medication administered onsite Acetaminophen 325 MG / butalbital 50 MG / Caffeine 40 MG Oral Tablet ygfewbxrpf-ryriqdhzfixfk-jcgwfzgq (FIORICET) per tablet 1 tablet qhybcvjufq-qmuaxtoqgwczj-wvtpukma (FIORICET) per tablet 1 tablet 04/12/2020 07:00:00 PM EDT 1 {tbl} Oral completed 1 tablet, Oral, Once, 04/12/20 at 1900, For 1 dose
Maximum daily dose of acetaminophen is 3,000 mg from all sources in 24 hours.
[facility] Medication administered onsite 24 HR Diltiazem Hydrochloride 120 MG Ext ended Release Oral Capsule dilTIAZem (CARDIZEM CD) 24 hr capsule 120 mg dilTIAZem (CARDIZEM CD) 24 hr capsule 120 mg 04/12/2020 07:00:00 PM EDT 120 mg Oral aborted 120 mg, Oral, Every 24 hours, First dose on 04/12/20 at 1900, For 30 days
Do not crush or chew
[facility] Medication administered onsite magnesium sulfate in dextrose 5 % infusion (premix) 8 mEq [id number] 04/12/2020 07:00:00 PM EDT 8 meq Intravenous completed 8 mEq, Intravenous, Administer over 60 Minutes, Once, 04/12/20 at 1900, For 1 dose
each 8 mEq equivalent to 1 gm
[facility] Medication administered onsite 2 ML Metoclopramide 5 MG/ML Prefilled Sy ringe metoclopramide (REGLAN) injection 10 mg metoclopramide (REGLAN) injection 10 mg 04/12/2020 07:00:00 PM E DT 10 mg Intravenous aborted 10 mg, I ntravenous, Every 6 hours, First dose on 04/12/20 at 1900, For 30 days [facility] Medication administered onsite Benazepril hydrochloride 40 MG Oral Tablet benazepril (LOTENSIN) 40 MG tablet benazepril (LOTENSIN) 40 MG tablet 04/07/2019 12:00:00 AM EDT 40 mg Oral active Take 1 tablet by mouth daily [facility] 24 HR Diltiazem Hydrochloride 120 MG Ext ended Release Oral Capsule dilTIAZem (CARDIZEM CD) 120 MG 24 hr capsule dilTIAZem (CARDIZEM CD) 120 MG 24 hr capsule 04/06/2019 12:00:00 AM EDT 120 mg Oral active Take 1 capsule by mouth every 24 (twenty-four) hours [facility] Docusate Sodium 50 MG / sennosides, MCFP 8.6 MG Oral Tablet senna-docusate (PERICOLACE) 8.6-50 MG senna-docusate (PERICOLACE) 8.6-50 MG 08/29/2017 12:00 :00 AM EDT 1 {tbl} Oral aborted Take 1 t ablet by mouth 2 (two) times a day [facility] methylPREDNISolone (MEDROL) 4 MG tablet [id number] 08/29/20 17 12:00:00 AM EDT aborted follow package d irections [facility] 0.65 ML exenatide 3.08 MG/ML Pen Injector Exenatide ER 2 MG PEN Exenatide ER 2 MG PEN 2 mg Subcutaneous aborted Inj ect 2 mg under the skin once a week on Tuesday [facility] pregabalin 100 MG Oral Capsule pregabalin (LYRICA) 100 MG capsule pregabalin (LYRICA) 100 MG capsule 100 mg Oral aborted Take 100 mg by mouth 2 (two) times a day [facility] Bifidobacterium Infantis 4 MG Oral Capsu le [Align] Probiotic Product (ALIGN) capsule Probiotic Product (ALIGN) capsule 1 {capsule} Oral aborted Take 1 capsule by mouth 2 (two) times a day [facility] zolmitriptan 5 MG/ACTUAT Nasal [place] ZOLMitriptan (ZOM IG) 5 MG nasal solution ZOLMitriptan (ZOMIG) 5 MG nasal solution 1 {spray} Nasal aborted 1 spray into each nostril as needed for migraine [facility] Hydrochlorothiazide 25 MG Oral Tablet hy drochlorothiazide (HYDRODIURIL) 25 MG tablet hydrochlorothiazide (HYDRODIURIL) 25 MG tablet 25 mg O ral aborted Take 25 mg by mouth daily [facility] sildenafil 50 MG Oral Tablet sildenafil (VIAGRA) 50 MG tablet sildenafil (VIAGRA) 50 MG tablet 50 mg Oral aborted Take 50 mg by mouth daily as needed for erectile dysfunction [facility] Tamsulosin hydrochloride 0.4 MG Oral Capsule tamsulosi n (FLOMAX) 0.4 MG CAPS tamsulosin (FLOMAX) 0.4 MG CAPS 0.8 mg Oral aborte d Take 0.8 mg by mouth nightly [facility] 24 HR Metformin hydrochloride 500 MG Ext ended Release Oral Tablet metFORMIN (GLUCOPHATE-XR) 500 MG 24 hr tablet metFORMIN (GLUCOPHATE-XR) 500 MG 24 hr tablet 1000 mg Oral aborted Take 1,000 mg b y mouth daily [facility] POLYETHYLENE GLYCOL 3350 142 MG/ML Oral Solution polyethylene glycol (GLYCOLAX) packet polyethylene glycol (GLYCOLAX) packet 17 g Oral aborted Take 17 g by mouth daily as needed (for constipation) [facility] Atenolol 25 MG Oral Tablet atenolol (TENORMIN) 25 MG t ablet atenolol (TENORMIN) 25 MG tablet 25 mg Oral aborted Take 25 mg by mouth daily [facility] Famotidine 20 MG Oral Tablet famotidine (PEPCID) 20 MG tablet famotidine (PEPCID) 20 MG tablet 20 mg Oral aborted Ta ke 20 mg by mouth daily [facility] Amoxicillin 250 MG Oral Capsule amoxicillin (AMOXIL) 2 50 MG capsule amoxicillin (AMOXIL) 250 MG capsule 500 mg Oral aborted Take 500 mg by mouth 3 (three) times a day [facility] Amlodipine 10 MG / Benazepril hydrochlor abiola 40 MG Oral Capsule amLODIPine- benazepril (LOTREL) 10-40 MG per capsule amLODIPine-benazepril (LOTREL) 10-40 MG per capsule 1 {capsule} Oral aborted Take 1 capsule by mouth daily [facility] Zolpidem tartrate 10 MG Oral Tablet zolpidem (AMBIEN) 10 MG tablet zolpidem (AMBIEN) 10 MG tablet 10 mg Oral aborted Take 10 mg by mouth nightly [facility] ammonium lactate 120 MG/ML Topical Lotio n ammonium lactate (AMMONIUM LACTATE) 12 % lotion ammonium lactate (AMMONIUM LACTATE) 12 % lotion 1 {application} Topical aborted Apply 1 application topically daily [facility] Spironolactone 25 MG Oral Tablet spironolactone (ALDAC TONE) 25 MG tablet spironolactone (ALDACTONE) 25 MG tablet 12.5 mg Oral aborted Take 12.5 mg by mouth daily [facility] Ranitidine 150 MG Oral Tablet ranitidine (ZANTAC) 150 MG tablet ranitidine (ZANTAC) 150 MG tablet 150 mg Oral aborted Take 150 mg by mouth Two Times Daily [facility] Lisinopril 20 MG Oral Tablet lisinopril (PRINIVIL,ZEST RIL) 20 MG tablet lisinopril (PRINIVIL,ZESTRIL) 20 MG tablet 40 mg Oral aborted Hypertension Take [address] [facility] Hypertension Amitriptyline Hydrochloride 100 MG Oral Tablet amitriptyline (ELAVIL) 100 MG tablet amitriptyline (ELAVIL) 100 MG tablet 100 mg Oral aborted Take 100 mg by mouth nightly [facility] Insurance Providers Payer name Policy type / Coverage type Policy ID Covered alliance party ID Covered alliance party's relationship to pickard Policy Pickard Plan Information [facility] [id number] S [id number] Tomasa [id number] U [id number] Self [id number] U [id number] Self [id number] [facility] [id number] S [id number] [facility] [id number] S [id number] [facility] AD[facility] [id number] S [id number] U [id number] Self [id number] [facility] [id number] S [id number] [facility] Claims F [id number] SELF [id number] Tomasa [id number] PI PI [id number] Tomasa [id number] ACTIVE DUTY [id number] SP [id number] [place] F [id number] SELF [id number] 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 Commercial Self [employer] [id number] 0 [id number] [facility] COS[facility] O [id number] S [id number] Problems, Conditions, and Diagnoses Code Display Name Description Problem Type Effective Dates Data Source(s) R07.89 Chest tightness Chest tightness [id number] 06/09/2020 12:0 0:00 AM EDT [facility] R79.89 Troponin level elevated Troponin level elevated [id number] 01 05/25/2020 12:00:00 AM EDT [facility] G43.909 Migraines Migraines [id number] 05/25/2020 12:00:00 AM ED T [facility] R07.9 Chest pain Chest pain [id number] 05/25/2020 12:00:00 AM ED T [facility] F41.9 Anxiety Anxiety [id number] 05/25/2020 12:00:00 AM ED T [facility] F32.9 Depression Depression [id number] 05/25/2020 12:00:00 AM ED T [facility] K21.9 GERD (gastroesophageal reflux disease) G ERD (gastroesophageal reflux disease) [id number] 05/25/2020 12:00:00 AM EDT [facility] I10 Hypertension Hypertension [id number] 05/25/2020 12:00:00 A M EDT [facility] F41.1 Generalized anxiety disorder GENERALIZED ANXIETY DISOR RYAN Diagnosis 06/10/2020 12:53:00 PM [facility] M54.16 Radiculopathy, lumbar region RADICULOPATHY, LUMBAR REG ION Diagnosis 06/10/2020 12:53:00 PM [facility] M54.12 Radiculopathy, cervical region RADICULOPATHY, CERVICAL REGION Diagnosis 06/10/2020 12:53:00 PM [facility] R07.89 Other chest pain OTHER CHEST PAIN Diagnosis 06/10/2020 12 :53:00 PM [facility] R42 Dizziness and giddiness DIZZINESS AND GIDDINESS Diagno sis 06/10/2020 12:53:00 PM [facility] I21.9 Acute myocardial infarction, unspecified Acute myocardial infarction, unspecified Diagnosis 06/09/2020 11:14:00 AM [facility] Z79.899 Other longterm (current) drug therapy 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 Diagnosis 06/09/2020 03:25:00 AM [facility] l Z95.0 Presence of cardiac pacemaker 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 Diagnosis 06/09/2020 03:25:00 AM [facility] 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 ENVIRONMENTAL RESOURCE SPECIALIST (CU RRENT) USE OF ASPIRIN Diagnosis 06/09/2020 03:25:00 AM [facility] 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.2 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 L MONALISA TERM (CURRENT) USE OF ANTIBIOTICS Diagnosis 06/09/2020 03:25:00 AM [facility] l I20.0 Unstable angina UNSTABLE ANGINA Diagnosis 06/09/2020 03:2 5:00 AM [facility] I25.2 Old myocardial infarction OLD MYOCARDIAL INFARCTION Di agnosis 06/09/2020 03:25:00 AM [facility] E11.9 Type 2 diabetes mellitus without complic ations TYPE 2 DIABETES MELLITUS WITHOUT COMPLICATIONS Diagnosis 06/09/2020 03:25:00 AM EDT [facility] [address] I10 Essential (primary) hypertension ESSENTIAL (PRIMARY) H YPERTENSION Diagnosis 06/09/2020 03:25:00 AM [facility] I21.4 Non-ST elevation (NSTEMI) myocardial inf arction NON-ST ELEVATION (NSTEMI) MYOCARDIAL INFARCTION Diagnosis 06/09/2020 03:25:00 AM EDT [facility] [address] R07.9 Chest pain, unspecified CHEST PAIN, UNSPECIFIED Diagno sis 06/09/2020 03:25:00 AM [facility] R07.9 Chest pain, unspecified Chest pain, unspecified Diagno sis 05/25/2020 11:34:44 AM EDT [facility] I21.3 ST elevation (STEMI) myocardial infarcti on of unspecified site ST elevation (STEMI) myocardial infarcti Diagnosis 05/25/2020 11:34:44 AM EDT [facility] I10 Essential (primary) hypertension Essential (primary) h ypertension Diagnosis 04/12/2020 06:55:25 PM EDT [facility] cocaine induced ischemia, elevated trop cocaine induced ischemia, elevated trop Diagnosis 04/12/2020 06:22:30 PM EDT [facility] I11.9 Hypertensive heart disease without heart failure HYPERTENSIVE HEART DISEASE WITHOUT HEART FAILURE Diagnosis 04/12/2020 11:34:00 AM EDT [facility] Surgeries/Procedures Procedure Description Date Indications Data Source(s) CARDIAC CATHETERIZATION CARDIAC CATHETERIZATION Routine 06/09/2020 3:19 PM EDT Acute myocardial infarction 06/09/2020 07:19:25 PM EDT Acute myocardial infarction [facility] Acute myocardial infarction TROPONIN QUANTITATIVE TROPONIN I Timed 06/09/2020 11:52 AM EDT 06/09/2020 03:52:00 PM EDT [facility] BASIC METABOLIC PANEL CALCIUM TOTAL BASIC METABOLIC PANEL STAT 06/09/2020 11:52 AM EDT 06/09/2020 03:52:00 PM EDT [facility] ECG ROUTINE ECG W/LEAST 12 LDS TRCG ONLY W/O I&R ECG 12-LEAD Routine 06/09/2020 11:46 AM EDT 06/09/2020 03:46:59 PM EDT [facility] 2019 NCOV AMPLIFIED 2019 NCOV AMPLIFIED Routine 06/09/2020 11:20 AM EDT 06/09/2020 03:20:00 PM EDT [facility] GLUC BLD GLUC MNTR DEV CLEARED FDA SPEC HOME USE POCT GLUCOSE Routine 05/26/2020 1:40 PM EDT 05/26/2020 05:40:00 PM EDT [facility] MYOCARDIAL SPECT MULTIPLE STUDIES NM CARDIAC GATED SPEC IMG EFW M Routine 05/26/2020 1:07 PM EDT 05/26/2020 05:07:03 PM EDT [facility] GLUC BLD GLUC MNTR DEV CLEARED FDA SPEC HOME USE POCT GLUCOSE Routine 05/26/2020 9:25 AM EDT 05/26/2020 01:25:00 PM EDT [facility] TROPONIN QUANTITATIVE TROPONIN I Routine 05/26/2020 6:59 AM EDT 05/26/2020 10:59:00 AM EDT [facility] TROPONIN QUANTITATIVE TROPONIN I Add-On 05/26/2020 2:05 AM EDT 05/26/2020 06:05:00 AM EDT [facility] BLOOD COUNT COMPLETE AUTOMATED CBC Routine 05/26/2020 2:05 A M EDT 05/26/2020 06:05:00 AM EDT [facility] BASIC METABOLIC PANEL CALCIUM TOTAL BASIC METABOLIC PANEL Routi ne 05/26/2020 2:05 AM EDT 05/26/2020 06:05:00 AM EDT [facility] CV STRS TST XERS&/OR RX CONT ECG PHYS SI&R STRESS TEST, CARDIOV ASCULAR Routine 05/26/2020 1:31 AM EDT 05/26/2020 05:31:06 AM EDT [facility] GLUC BLD GLUC MNTR DEV CLEARED FDA SPEC HOME USE POCT GLUCOSE Routine 05/25/2020 6:35 PM EDT 05/25/2020 10:35:00 PM EDT [facility] URINE CULTURE HOLD SPECIMEN URINE CULTURE HOLD SPECIMEN Routine 05/25/2020 3:30 PM EDT 05/25/2020 07:30:00 PM EDT [facility] DRUG SCR QUAL 1 DRUG CLASS METH EA DRUG CLASS DRUGS O F ABUSE, URINE (STAT, ER/INPATIENT) Routine 05/25/2020 3:30 PM EDT 05/25/2020 0 7:30:00 PM EDT [facility] URNLS DIP STICK/TABLET RGNT AUTO W/O MICROSCOPY URINALYSIS W/O MICRO Routine 05/25/2020 3:30 PM EDT 05/25/2020 07:30:00 PM EDT [facility] GLUC BLD GLUC MNTR DEV CLEARED FDA SPEC HOME USE POCT GLUCOSE Routine 05/25/2020 2:51 PM EDT 05/25/2020 06:51:00 PM EDT [facility] NT PRO BNP NT PRO BNP Routine 05/25/2020 12:59 PM EDT 05/25/2020 04:59:00 PM EDT [facility] TROPONIN QUANTITATIVE TROPONIN I Routine 05/25/2020 12:59 PM EDT 05/25/2020 04:59:00 PM EDT [facility] THROMBOPLASTIN TIME PARTIAL PLASMA/WHOLE BLOOD APTT Routine 05/25/2020 12:59 PM EDT 05/25/2020 04:59:00 PM EDT [facility] SEDIMENTATION RATE RBC AUTOMATED SEDIMENTATION RATE Add-On 05/25/2020 12:59 PM EDT 05/25/2020 04:59:00 PM EDT [facility] PROTHROMBIN TIME PROTIME-INR Routine 05/25/2020 12:59 PM EDT 05/25/2020 04:59:00 PM EDT [facility] FIBRIN DGRADJ PRODUCTS D-DIMER QUANTITATIVE D-DIMER, QUANTITATI VE Routine 05/25/2020 12:59 PM EDT 05/25/2020 04:59:00 PM EDT [facility] BLOOD COUNT COMPLETE AUTO&AUTO DIFRNTL WBC COUNT CBC AND DIFFER ENTIAL Routine 05/25/2020 12:59 PM EDT 05/25/2020 04:59:00 PM EDT [facility] THYROID STIMULATING HORMONE TSH TSH Routine 05/25/2020 12:59 PM EDT 05/25/2020 04:59:[address] [facility] [place] THYROXINE FREE T4, FREE Routine 05/25/2020 12:59 PM EDT 05/25/2020 04:59:00 PM EDT [facility] HEMOGLOBIN GLYCOSYLATED A1C HEMOGLOBIN A1C Add-On 05/25/2020 12:59 PM EDT 05/25/2020 04:59:00 PM EDT [facility] CREATINE KINASE TOTAL CK Routine 05/25/2020 12:59 PM EDT 05/25/2020 04:59:00 PM EDT [facility] COMPREHENSIVE METABOLIC PANEL COMPREHENSIVE METABOLIC PANEL Rou shawn 05/25/2020 12:59 PM EDT 05/25/2020 04:59:00 PM EDT [facility] XR CHEST PORTABLE XR CHEST PORTABLE Routine 05/25/2020 12:40 PM EDT 05/25/2020 04:40:31 PM EDT [facility] ECG ROUTINE ECG W/LEAST 12 LDS TRCG ONLY W/O I&R ECG 12-LEAD Routine 05/25/2020 12:03 PM EDT 05/25/2020 04:03:47 PM EDT [facility] ECG ROUTINE ECG W/LEAST 12 LDS W/I&R ECG 12-LEAD Routine 05/25/2020 11:35 AM EDT 05/25/2020 03:35:17 PM EDT [facility] PHOSPHORUS INORGANIC PHOSPHORUS LEVEL Routine 04/14/2020 3:31 AM E DT 04/14/2020 07:31:00 AM [facility] MAGNESIUM MAGNESIUM LEVEL Routine 04/14/2020 3:31 AM EDT 04/14/2020 07:31:00 AM [facility] HEMOGLOBIN GLYCOSYLATED A1C HEMOGLOBIN A1C Routine 04/14/2020 3:31 AM EDT 04/14/2020 07:31:00 AM [facility] LIPID PANEL LIPID PANEL Routine 04/14/2020 3:31 AM EDT 04/14/2020 07:31:00 AM [facility] BASIC METABOLIC PANEL CALCIUM TOTAL BASIC METABOLIC PANEL Routi ne 04/14/2020 3:31 AM EDT 04/14/2020 07:31:[address] [facility] ECHOCARDIOGRAM STRESS TEST ECHOCARDIOGRAM STRESS TEST Routine 04/14/2020 12:15 AM EDT 04/14/2020 04:15:[address] [facility] ECHO TTHRC R-T 2D W/WOM-MODE COMPL SPEC&COLR DOP ECHOCARDIO GRAM 2D COMPLETE Routine 04/13/2020 7:22 AM EDT 04/13/2020 11:22:45 AM [facility] TROPONIN QUANTITATIVE TROPONIN T Timed 04/13/2020 6:12 AM EDT 04/13/2020 10:12:00 AM [facility] PHOSPHORUS INORGANIC PHOSPHORUS LEVEL Routine 04/13/2020 6:12 AM E DT 04/13/2020 10:12:00 AM [facility] MAGNESIUM MAGNESIUM LEVEL Routine 04/13/2020 6:12 AM EDT 04/13/2020 10:12:00 AM [facility] BASIC METABOLIC PANEL CALCIUM TOTAL BASIC METABOLIC PANEL Routi ne 04/13/2020 6:12 AM EDT 04/13/2020 10:12:[address] [facility] HEPARIN ASSAY ANTI-XA UNFRACTIONATED HEPARIN LEVEL Routine 04/13/2020 4:19 AM EDT 04/13/2020 08:19:[address] [facility] PROTHROMBIN TIME PROTIME INR Routine 04/13/2020 4:19 AM EDT 04/13/2020 08:19:00 AM [facility] BLOOD COUNT COMPLETE AUTOMATED CBC Timed 04/13/2020 4:19 A M EDT 04/13/2020 08:19:00 AM [facility] TROPONIN QUANTITATIVE TROPONIN T Timed 04/13/2020 12:14 AM EDT 04/13/2020 04:14:[address] [facility] [address] HEAD/BRAIN W/O CONTRAST MATERIAL CT HEAD WITHOUT CONTRAST 70 450 STAT 04/12/2020 10:41 PM EDT 04/13/2020 02:41:39 AM [facility] XR CHEST FRONTAL ONLY [id number] XR CHEST FRONTAL ONLY [id number] Urgent 04/12/2020 9:02 PM EDT 04/13/2020 01:02:[address] [facility] EKG 12-LEAD - CMAXX REPORT EKG 12-LEAD - CMAXX REPORT 04/12/2020 7:21 PM EDT 04/12/2020 11:21:[address] [facility] EKG 12-LEAD - CMAXX REPORT EKG 12-LEAD - CMAXX REPORT 04/12/2020 7:21 PM EDT 04/12/2020 11:21:26 PM EDT [facility] EKG 12-LEAD EKG 12-LEAD STAT 04/12/2020 7:21 PM EDT 04/12/2020 11:21:26 PM [facility] URNLS DIP STICK/TABLET REAGENT AUTO MICROSCOPY URINAL YSIS WITH REFLEX URINE CULTURE STAT 04/12/2020 7:08 PM EDT 04/12/2020 11:08 :00 PM [facility] DRUGS OF ABUSE, URINE DRUGS OF ABUSE, URINE Routine 04/12/2020 7 :08 PM EDT 04/12/2020 11:08:00 PM T [facility] PROTHROMBIN TIME PROTIME INR STAT 04/12/2020 7:08 PM EDT 04/12/2020 11:08:00 PM [facility] BLOOD COUNT COMPLETE AUTO&AUTO DIFRNTL WBC COUNT CBC AND DIFFER ENTIAL STAT 04/12/2020 7:08 PM EDT 04/12/2020 11:08:00 PM [facility] TROPONIN QUANTITATIVE TROPONIN T STAT 04/12/2020 7:08 PM EDT 04/12/2020 11:08:00 PM [facility] PHOSPHORUS INORGANIC PHOSPHORUS LEVEL STAT 04/12/2020 7:08 PM E DT 04/12/2020 11:08:00 PM [facility] MAGNESIUM MAGNESIUM LEVEL STAT 04/12/2020 7:08 PM EDT 04/12/2020 11:08:00 PM [facility] COMPREHENSIVE METABOLIC PANEL COMPREHENSIVE METABOLIC PANEL STA T 04/12/2020 7:08 PM EDT 04/12/2020 11:08:[address] [facility] GLUCOSE QUANTITATIVE BLOOD XCPT REAGENT STRIP POCT GLUCOSE, DOC KED Routine 04/12/2020 6:31 PM EDT 04/12/2020 10:31:00 PM [facility] Results ID Date Data Source [id number] 12/01/2020 12:00:00 AM EST [facility] Name Value Range Interpretation Code Description Data Sophie rce(s) Supporting Document(s) SARS-CoV2 Rapid Antigen [facility] This lab was ordered by [facility] and reported by [facility]. ID Date Data Source 0511/12/2020 12:00:00 AM EST [facility] Name Value Range Interpretation Code Description Data Sophie rce(s) Supporting Document(s) SARS-CoV2 Rapid Antigen [facility] This lab was ordered by [facility] and reported by Guru Akbar MD. ID Date Data Source [id number] 10/16/2020 12:00:00 AM EST [facility] Name Value Range Interpretation Code Description Data Sophie rce(s) Supporting Document(s) SARS-CoV2 Rapid Antigen [facility] This lab was ordered by [facility] and reported by [facility]. ID Date Data Source [id number] 07/11/2020 10:55:00 PM EDT [facility] Patient: CLINT ESTRELLA [facility].VisitID: [id number] [place] [address] [phone], MRegistration Date/Time: 06/09/2020 02:37 Weight:95.2 kg (S). Height/Length:73 inches (S). 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 Additional Surgeries:4 cm mass removed from left testicle.Bunion.Dental.Had back surgery- [facility] 08/25/2017.Hammer toe operation.Pacemaker.Ulnar surgery. (B/l nerve replacement with carpal tunnel relief)Vasectomy. Medications:Aspirin Oral 81 mg, daily, last dose yesterday.busPIRone HCl Oral 10 mg, 2x a day as needed, last dose yesterday.Amoxicillin Oral (Capsule 500 mg) 1 capsule, 3x a day, last dose yesterday.Atorvastatin Calcium Oral 40 mg, daily, last dose yesterday.DULoxetine HCl Oral (Capsule Delayed Release Particles 20 mg) 1 capsule, 2x a day, last dose yesterday.hydroCHLOROthiazide Oral (Tablet 25 mg) 1 tablet, daily, last dose yesterday.Lisinopril Oral (Tablet 40 mg) 1 tablet, daily, last dose yesterday.Spironolactone Oral (Tablet 25 mg) 1/2 tablet, daily, last dose yesterday.Vitamin D Oral 5,000 units , 2x a day, last dose yesterday. Allergies:NO KNOWN DRUG ALLERGIES - NKDA. (DONT GIVE NSAIDS DUE TO RHABDOMYOLYSIS). FAMILY HISTORYNo significant family medical history. (Electronically signed by Mohini Hernández M.D. 07/11/2020 22:25) Weight:95.2 kg (S). Height/Length:73 inches (S). BMI:27.7 (Electronically signed by Marck Carroll P.A. 06/09/2020 17:58) Name Value Range Interpretation Code Description Data Sophie rce(s) Supporting Document(s) ID Date Data Source [id number] 06/11/2020 12:43:00 AM EDT [facility] Patient: CLINT ESTRELLA [facility].VisitID: [id number] [place] [address] [phone], MRegistration Date/Time: 06/10/2020 11:17 Weight:95.2 kg (S). Height/Length:73 inches (S). BMI:27.7 PAST HISTORYProblems:Anxiety Reaction [Chronic].Adjustment Disorder [Chronic]."Kidney problems" [Chronic].Pos t-Concussive Syndrome [Chronic].Pacemaker placement [Chronic].PTSD [Chronic].Traumatic Brain Injury [Chronic].Sleep Apnea [Chronic].Hypertension [Chronic].Gastroesophageal Reflux Disease [Chronic].Ventral hernia [Chronic].Migraine Headache [Chronic].Liver dysfunction [Chronic].Back Pain.Arrhythmia.Knee Injury.Dysphagia.Diabetes Mellitus.Chest Pain.Heart Disease.Hypertension.Sick Contact.Recent Travel.Abdominal Pain.Unstable Angina.Tinnitus.Migraine Headache.Hypotension.Acute Myocardial Infarction.Acute Coronary Syndrome.Anxiety Reaction.Syncope [Intermittent].Hypovolemia [Resolved].Rhabdomyolysis [Resolved].Hemorrhoids [Inactive]. Additional Surgeries:4 cm mass removed from left testicle.Bunion.Cardiac Catheterization [06/09/2020].Dental.Had back surgery-DCS 08/25/2017.Hammer toe operation.Pace maker.Ulnar surgery. (B/l nerve replacement with carpal tunnel relief)Vasectomy. Medications:Amoxicillin Oral (Capsule 500 mg) 1 capsule, 3x a day, last dose yesterday.Aspirin Oral 81 mg, daily, last dose 2 days ago on Tuesday.Atorvastatin Calcium Oral 40 mg, daily, last dose 2 days ago on Tuesday.busPIRone HCl Oral 10 mg, 2x a day as needed, last dose 2 days ago on Tuesday.DULoxetine HCl Oral (Capsule Delayed Release Particles 20 mg) 1 capsule, 2x a day, last dose 2 days ago on Tuesday.hydroCHLOROthiazide Oral (Tablet 25 mg) 1 tablet, daily, last dose 2 days ago on Tuesday.Lisinopril Oral (Tablet 20 mg) 2 tablets, daily, last dose 2 days ago on Tuesday.Spironolactone Oral (Tablet 25 mg) 1/2 tablet, daily, last dose 2 days ago on Tuesday.Vitamin D Oral 5,000 units , 2x a day, last dose 2 days ago on Tuesday. Allergies:NO KNOWN DRUG ALLERGIES - NKDA. (DONT GIVE NSAIDS DUE TO RHABDOMYOLYSIS). FAMILY HISTORYNo significant family medical history. (Electronically signed by Marck Carroll P.A. 06/11/2020 00:12) Name Value Range Interpretation Code Description Data [facility](s) Supporting Document(s) ID Date Data Source [id number] 06/10/2020 12:52:00 PM T [facility] BRAIN W/O CONTRAST HISTORY: [place] TECHNIQUE: This CT exam was performed using the following dose reduction techniques:automatic exposure control, adjustment of mA and/or kV according to thepatient's size, and use of iterative reconstruction technique. Standard contiguous axial spiral imaging was obtained from the skull basethrough the vertex without contrast administration and with coronalreformatting. FINDINGS: BRAIN: Ventricles and sulci are normal in size. There are no parenchymal massesmass effect or midline shift nor any extra-axial collections. IMPRESSION: Unremarkable CT scan of the brain Electronically signed in [id number] by: Leatha Connor M.D. 06/10/2020 12:46 EDT Name Value Range Interpretation Code Description Data Sophie rce(s) Supporting Document(s) ID Date Data Source [id number] 06/10/2020 01:52:00 PM EDT [facility] TSYSORDER [id number] Name Value Range Interpretation Code Description Data [facility] rce(s) Supporting Document(s) URINE AMPHETAMINES NEGATIVE <1000 ng/mL [facility] pital THC,URINE NEGATIVE <50 ng/mL [facility] URINE BARBITURATES NEGATIVE <300 ng/mL [facility] ital PCP,URINE NEGATIVE <25 ng/mL [facility] COCAINE, URINE NEGATIVE <300 ng/mL [facility] URINE,OPIATES NEGATIVE <300 ng/mL [facility] URINE,TCA NEGATIVE <1000 ng/mL [facility] IF A NEGATIVE RESULT IS OBTAINED AND ING ESTION OF TRICYCLICANTIDEPRESSANTS IS SUSPECTED, A SERUM SAMPLE SHOULD BEOBTAINED AND TESTED USING AN APPROPRIATE METHOD. URINE BENZODIAZEPINES NEGATIVE <300 ng/mL [facility] ospital THESE TESTS ARE PERFORMED USING AN IMMU NOASSAY FOR THEQUALITATIVE DETERMINATION OF THE PRESENCE OF THE MAJORMETABOLITES OF DRUGS OF ABUSE. THESE TESTS ARE ONLY ASCREENING AND NOT CONFIRMATORY. CLINICAL CONSIDERATION ANDPROFESSIONAL JUDGMENT MUST BE APPLIED TO ANY DRUG OF ABUSETEST RESULT. ID Date Data Source [id number] 06/10/2020 01:41:00 PM EDT [facility] ital TSYSORDER [id number] Name Value Range Interpretation Code Description Data [facility] rce(s) Supporting Document(s) URINE COLOR. PALE [facility] URINE APPEARANCE CLEAR [facility] SPECIFIC GRAVITY,URINE <= 1.005 1.001-1.035 [facility] URINE LEUKOCYTE ESTERASE NEGATIVE NEGATIVE [facility] URINE NITRATE NEGATIVE NEGATIVE [facility] PH,URINE 5.5 5.0-9.0 [facility] URINE PROTEIN NEGATIVE mg/dL NEGATIVE [facility] GLUCOSE (UA) NEGATIVE mg/dL NEGATIVE [facility] URINE KETONE NEGATIVE mg/dL NEGATIVE [facility] al URINE UROBILINOGEN NORMAL(0.2-1) mg/dL 0-1 R [facility] URINE BILIRUBIN NEGATIVE NEGATIVE [facility] URINE BLOOD NEGATIVE NEGATIVE [facility] ID Date Data Source [id number] 06/10/2020 12:38:00 PM EDT [facility] TSYSORDER [id number] Name Value Range Interpretation Code Description Data Sophie rce(s) Supporting Document(s) MAGNESIUM 2.1 mg/dL 1.8-2.4 [facility] ID Date Data Source [id number] 06/10/2020 12:46:00 PM EDT [facility] TSYSORDER [id number] Name Value Range Interpretation Code Description Data Sophie rce(s) Supporting Document(s) CREATINE PHOSPHOKINASE 556 U/L 39-308 H [facility] ospital ID Date Data Source [id number] 06/10/2020 12:38:00 PM EDT [facility] [id number] Name Value Range Interpretation Code Description Data Sophie rce(s) Supporting Document(s) TROPONIN I 0.125 ng/mL 0.0-0.056 *H [facility] CALLED TO ER ([facility]), BY Angela Mac , AT 1238. ID Date Data Source [id number] 06/10/2020 12:38:00 PM EDT [facility] TSYSORDER [id number] Name Value Range Interpretation Code Description Data Sophie rce(s) Supporting Document(s) LIPASE 124 U/L 73-393 [facility] ID Date Data Source [id number] 06/10/2020 12:38:00 PM EDT [facility] TSYSORDER [id number] Name Value Range Interpretation Code Description Data Sophie rce(s) Supporting Document(s) GLUCOSE 144 mg/dL 74-106 H [facility] BLOOD UREA NITROGEN 15 mg/dL 7-18 [facility] CREATININE 1.6 mg/dL 0.7-1.3 H [facility] SODIUM 137 mmol/L 136-145 [facility] POTASSIUM 3.8 mmol/L 3.5-5.1 [facility] CHLORIDE 100 mmol/L 98-107 [facility] CO2 29 mmol/L 21-32 [facility] CALCIUM 9.6 mg/dL 8.5-10.1 [facility] ANION GAP 8.0 mmol/L 5-12 [facility] GLOMERULAR FILTRATION RATE 49 mL/min [facility] GFR IS CALCULATED IN mL/min/1.73m2 BRITTA L FUNCTION: >90MILDLY DECREASED: 60-89MILDY TO MODERATELY DECREASED: 45-59 MODERATELY TO SEVERELY DECREASED: 30-44SEVERELY DECREASED: 15-29RENAL FAILURE: <15 AST 34 U/L 15-37 [facility] ALT 53 U/L 12-78 [facility] ALKALINE PHOSPHATASE 80 U/L 46-116 [facility] pital TOTAL BILIRUBIN 0.7 mg/dL 0.2-1.0 [facility] TOTAL PROTEIN 7.9 g/dl 6.4-8.2 [facility] ALBUMIN 4.0 gm/dL 3.4-5.0 [facility] ID Date Data Source [id number] 06/10/2020 12:22:00 PM EDT [facility] TSYSORDER [id number] Name Value Range Interpretation Code Description Data Sophie rce(s) Supporting Document(s) TSH 1.07 uIU/mL 0.36-3.74 [facility] ID Date Data Source [id number] 06/10/2020 12:09:00 PM EDT [facility] TSYSORDER [id number] Name Value Range Interpretation Code Description Data Sophie rce(s) Supporting Document(s) PARTIAL THROMBOPLASTIN TIME 25.7 SECONDS 21.4-30.2 [facility] ID Date Data Source [id number] 06/10/2020 12:09:00 PM EDT [facility] TSYSORDER [id number] Name Value Range Interpretation Code Description Data Sophie rce(s) Supporting Document(s) PROTHROMBIN TIME (PATIENT) 9.9 SECONDS 9.2-11.6 [facility] INR 0.95 0.87-1.06 [facility] ID Date Data Source [id number] 06/10/2020 12:04:00 PM EDT [facility] TSYSORDER [id number] Name Value Range Interpretation Code Description Data Sophie rce(s) Supporting Document(s) WHITE BLOOD COUNT 4.2 K/mm3 4.0-10.0 [facility] al RED BLOOD COUNT 5.10 M/mm3 4.50-6.00 [facility] HEMOGLOBIN 14.9 gm/dL 14.0-18.0 [facility] HEMATOCRIT 42.5 % 42.0-54.0 [facility] MEAN CELL VOLUME 83.3 fl 80-96 [facility] MEAN CORPUSCULAR HEMOGLOBIN 29.2 pg 27.0-31.0 [facility] MEAN CORPUSCULAR HGB CONC 35.1 g/dl 32.0-36.0 [facility] RED CELL DISTRIBUTION WIDTH 11.7 % 10.0-14.5 [facility] PLATELET COUNT 218 K/mm3 172-450 [facility] MEAN PLATELET VOLUME 10.1 fl 9.0-13.0 [facility] pital GRAN % 37.5 % 50-80.0 L [facility] IG% 0.0 % 0.0-0.2 [facility] LYMPH % 53.0 % 25.0-50.0 H [facility] MONO % 6.7 % 2.0-10.0 [facility] EOS % 2.6 % 0-5.0 [facility] BASO % 0.2 % 0.0-2.0 [facility] GRAN # 1.6 K/mm3 2.0-8.00 L [facility] IG# 0.0 K/mm3 0.0-0.2 [facility] LYMPH # 2.2 K/mm3 1.0-5.0 [facility] MONO # 0.3 K/mm3 0.10-1.20 [facility] EOS # 0.1 K/mm3 0.0-0.5 [facility] BASO # 0.0 K/mm3 0.0-0.2 [facility] ID Date Data Source [id number] 06/09/2020 03:23:16 PM EDT [facility] Name Value Range Interpretation Code Description Data Sophie rce(s) Supporting Document(s) &PDF [facility] JSLPNy0gNtCUVpZg56/COVjhKXAgh4TaFWlhIWe8ZPxwIOOjE1KeiKewBQVBNAOSQBaZCWISRgJZZQHY hdG [file] ICAgICAgICAgICAgICAgICAgICAgICAgICAgICAgICAgICAgICAgICAgICAgICAgICAgICAgICAgICAg ICAgICANCiAgICAgICAgICAgICAgICAgICAgICAgIC AgICAgICAgICAgICAgICAgICAgICAgICAgICAgICAgICAgICAgICAgICAgICAgICAgICAgICAgICAgIC AgICAgICAgICAgICAgICANCiAgICAgICAgICAgICAgICAgICAgICAgICAgICAgICAgICAgICAgICAgIC AgICAgICAgICAgICAgICAgICAgICAgICAgICAgICAg ICAgICAgICAgICAgICAgICAgICAgICAgICANCiAgICAgICAgICAgICAgICAgICAgICAgICAgICAgICAg ICAgICAgICAgICAgICAgICAgICAgICAgICAgICAgICAgICAgICAgICAgICAgICAgICAgICAgICAgICAg ICAgICAgICANCiAgICAgICAgICAgICAgICAgICAgIC AgICAgICAgICAgICAgICAgICAgICAgICAgICAgICAgICAgICAgICAgICAgICAgICAgICAgICAgICAgIC AgICAgICAgICAgICAgICAgICANCiAgICAgICAgICAgICAgICAgICAgICAgICAgICAgICAgICAgICAgIC AgICAgICAgICAgICAgICAgICAgICAgICAgICAgICAg ICAgICAgICAgICAgICAgICAgICAgICAgICAgICANCiAgICAgICAgICAgICAgICAgICAgICAgICAgICAg ICAgICAgICAgICAgICAgICAgICAgICAgICAgICAgICAgICAgICAgICAgICAgICAgICAgICAgICAgICAg ICAgICAgICAgICANCiAgICAgICAgICAgICAgICAgIC AgICAgICAgICAgICAgICAgICAgICAgICAgICAgICAgICAgICAgICAgICAgICAgICAgICAgICAgICAgIC AgICAgICAgICAgICAgICAgICAgICANCiAgICAgICAgICAgICAgICAgICAgICAgICAgICAgICAgICAgIC AgICAgICAgICAgICAgICAgICAgICAgICAgICAgICAg ICAgICAgICAgICAgICAgICAgICAgICAgICAgICAgICANCiAgICAgICAgICAgICAgICAgICAgICAgICAg ICAgICAgICAgICAgICAgICAgICAgICAgICAgICAgICAgICAgICAgICAgICAgICAgICAgICAgICAgICAg ICAgICAgICAgICAgICANCjw/uUSpZ0hbzGDczfI0L8 rqBe1JJm4NZO9uf8IhYTIpQEnsxcIrNrdZGiWaUERvIlmNVni4MGwvJJ5NhLGpU1MvF5SpBZlmCM4QKJ WcWLKplMOpKAHrCQVrJyE3BKDaXJzsKG2YcQJyZFzvEZOdLKCxDaOdLBMdDVFuYILzCB7PDAJtZ931mj JxUq9IRa7NPnBiFK4usq7LWbZwLUZoJijHPnm7SEhf HW4PdPVqbUGqWqMdAQTYNrQaQ9fhl1EdEdPmGLOBZZqdYY5Er0OddGVqDTs+Ia7AAR1ak3FyBQmtJcDw NM7css5CGYgEVpThO8MttAqeGPmtgDwatbBaFR5EJIQbHPFckFGhRUqqOKTKZS4ANDajMYY3ZABafgHt cQHvTRjaPE0JXVDwzhDmIuFjBPJSBYi+Bg1QLT3az0 ZcNHgcLLQnBN9bng5LMAoKGpGcT8O9iAFtT3D6EHxlWl2EHJAqMNUnMoLeIYTJPJvnGK3UJJ1hnxZ9JN 1RxPJjXSJtOUEpnFXcJJd9J74ouRZyQTipFW8ZIVF+Rommel+Rh8XWRFfJGFuVVQuOsTcXCQFPvJgJ1YjQ7 FMs1OmI1MaLH23mUevqkKyUNiyRL0ABP2wYZLvTQSZ IY6OaRMicV3lkrWyKiPzWCKENyYaX04bvIYtTORsILPwXKVvMz4ZMKBqV8MpmjRgbJtojgSaQFFsQGPW JX8THVkuadKgbPJgrRvnGJ73kKmfMP4AOg1CAdRmXX4wrd3LvUIhZs5CBNQvFU3GAFLhBXHcKIWsBGC4 CPPiOhSxRCrmLOKjHDJvHQE0VVRdRHMwNF0BOdRjHR ZdWwK8NvBpTPObTBCscx3EPYBpDCVeAtXzXWNaGXTwOXDrQXobACFtBJGgHBo2UAPjYMSmOR8IVuQrMU OkTPP5YuOtRAXmESUakh2WHCKgORRjSiuwVATwAYXoIDIzDStgLYShGBS7BsfpGDDsUJUjKZ4YUlNlIG UvHXU3RfNcTTPkXPRusb1DFPNpDXPzTdvlHZIfMIHu WNRaYJluMTDoPDK3MGZtJHNwAPFvDI2QPhNvQXSnGAi1VFZoAOErYRScip3IMHAcUSIcMEE5XQPqTGQj HVEsLIkdOALjUTP7DcFgKYZpUMNnRF6UEvTmSMOoMQbxNyXsQFTsFYXuzu0XXPIkMOAqYFLnXNEtOVRa NRUaINbpTJGeHUZ0YbSqDTLhDRFpTQ9DYzGnYXFsUR L9WOLbITVpJZZudx3IZZXmVDQrZFMjEHUxHQVdSCTeOEuvQFXwCHO7PtSuOMPxPGGxUY5WAgBkISFqUj I4DGCsPWTrZJQiuk3XWRJeNUHcMMp5SGUtQDAbUYZqHFrhXCFyUGI7EzX2LSMjGUNgKI9LAvLeYYHhTs R8SASmKRRdLYLlaf0BMXNiVCEbHqLeDFHrSFMcNWIs TTx1lvVysKKuGHg2GG9VC8PxljSkPzESBs9Sm000MSP2QBUyOb8FT4jcOt7mZDPoHXJQQo7HXUo1HCj5 VYUoOHR9ObF6OYP9VdRnRPJsCPxjENKfBCIbPAx+NPo4ViciSHT2DUZzDDE2CgheJqLsMNDgAVQsZjB5 IRHiZW0xBCBMNz0+DCagpEOcgPeeUHLYEpF4DpP8ZKwiPIKZOh4X ID Date Data Source [id number] 06/09/2020 03:31:32 PM EDT [facility] NT INFORMATIONPatient MRN Name Date of Age Gend*PT [id number] Clint Estrella 1985 34 years M SDCXPT Location Admission Date/Time Visit ID Attending [id number] 06/09/20 1114 --- Antonella Simpson MD([id number]) EPI ID CSN Admitting Provider [id number] Antonella Simpson MD([id number])34-year-old man with history of cocaine use and chest pain with elevatedtroponin level 2 weeks ago when he had a stress test that was negative forischemia and showed normal systolic function who presents again with anotherepisode of chest pain. His troponin level was borderline elevated and hisd-dimer was negative. Coronary angiography showed the following1. No angiographic coronary artery disease.2. Normal left ventricular systolic function.The patient will be discharged today to follow with medicine as an outpatient.He has normal coronaries and his d- dimer level is normal. Clint Estrella Medication Instructions LEE ANN:[id number] Printed on:06/09/20 1530Medication Informationaspirin EC 81 MG EC tabletTake 81 mg by mouth dailyatorvastatin (LIPITOR) 40 MG tabletTake 40 mg by mouth dailybusPIRone (BUSPAR) 10 MG tabletTake 10 mg by mouth 2 (two) times a day As neededCholecalciferol (VITAMIN D3) 5000 UNITS capsuleTake 2,000 Units by mouth dailyDULoxetine (CYMBALTA) 30 MG capsuleTake 20 mg by mouth 2 (two) times a dayhydrochlorothiazide (HYDRODIURIL) 25 MG tabletTake 1 tablet (25 mg total) by mouth dailylisinopril (PRINIVIL,ZESTRIL) 20 MG tabletTake 2 tablets (40 mg total) by mouth dailyspironolactone (ALDACTONE) 25 MG tabletTake 0.5 tablets (12.5 mg total) by mouth dailyHe will hold his diuretics and lisinopril for 3 days because of the renalinsufficiency. Name Value Range Interpretation Code Description Data Sophie rce(s) Supporting Document(s) ID Date Data Source [id number] 06/09/2020 01:36:04 PM EDT [facility]PAT[facility] NT INFORMATIONPatient MRN Name Date of Age Gend*PT [id number] Clint Estrella 1985 34 years M SDCXPT Location Admission Date/Time Visit ID Attending [id number] 06/09/20 1114 --- Antonella Simpson MD([id number]) EPI ID CSN Admitting Provider [id number] Antonella Simpson MD([id number]) Attestation signed by Antonella Simpson MD at 06/09/2020 1:36 PMSignature: JODIE Rodriguezate: June 09, 2020Time: 1:35 PM --HISTORY AND PHYSICALName: Clint Estrella Gender: maleDate of : 1985 Age: 34 yearsDate/Time of Admit: 06/09/2020 11:14 AM Code Status: Full CodePrimary Care Provider / Referring Physician: No primary care provider on file.Informant:Current HistoryChief Complaint: Chest burningHPI:This patient is a 34 years old male with the following past medical history:1. Heart block: Pacemaker inserted . Chronic back pain: Status post spine stimulator3. Hypertension4. Rhabdomyolysis5. Anxiety6. Migraines7. GERD8. Diabetes9. CKD stage IIPatient states that yesterday afternoon he noticed some chest tightness leftside of his chest which went away after drinking fluids and resting. At about2:30 AM he woke up with left-sided chest tightness with tingling down the leftarm. States that the chest tightness and burning sensation felt like an "[place]." He also reports some associated nausea without any vomiting. Denies anypalpitations, lightheadedness, dizziness, shortness of breath or difficultybreathing. Patient states he felt great after discharge from the hospital acouple weeks ago. During last hospitalization 2 weeks ago patient stated thathe used cocaine in the previous 2 to 3 weeks. Again patient denies any cocaineuse, last using about 4 to 5 weeks ago. Patient states that he has not triedany nitro to relieve the chest tightness and burning sensation. Outsidefacility gave patient 325 of aspirin and Zofran.Review of Systems:Negative for review of all 10 systems, except as noted above.Past HistoryPast Medical History:Diagnosis Date IKER (acute kidney injury) Anxiety CKD (chronic kidney disease) stage 2, GFR 60-89 ml/min Colon polyp DDD (degenerative disc disease), lumbar Depression Diabetes mellitus Elevated CK Fatty liver GERD (gastroesophageal reflux disease) Hemorrhoids Hypertension Lumbar herniated disc Migraines Panic disorder Peripheral neuropathy Rhabdomyolysis Sleep apnea CPAP Spondylolisthesis, lumbar region SyncopePast Surgical History:Procedure Laterality Date ATRIAL CARDIAC PACEMAKER INSERTION 11/28/2017 BUNIONECTOMY Bilateral CARPAL TUNNEL RELEASE 2016 COLONOSCOPY W/ POLYPECTOMY IMPLANT/EXPLANT LOOP RECORDER implanted 2016 PAIN PROCEDURE N/A 08/25/2017 Procedure: THORICAL LUMBAR SPINAL CORD STIMULATOR IMPLANTATION W GENERATORLEAD AND C ARM; Surgeon: Jonel Henry MD; Laterality: N/A; SPINAL CORD STIMULATOR IMPLANT 11/28/2016 TESTICLAR CYST EXCISION Left VASECTOMY WISDOM TOOTH EXTRACTION 4 of 4Family HistoryProblem Relation Age of Onset Liver cancer Father Diabetes Paternal Grandmother Malig Hyperthermia Neg HxSocial HistorySocial History Narrative Not on fileSocial HistorySocioeconomic History Marital status: Spouse name: Not on file Number of children: Not on file Years of education: Not on file Highest education level: Not on fileOccupational History Not on fileSocial Needs Financial resource strain: Not on file Food insecurity: Worry: Not on file Inability: Not on file Transportation needs: Medical: Not on file Non-medical: Not on fileTobacco Use Smoking status: Never Smoker Smokeless tobacco: Current User Types: Chew Tobacco comment: chewing since 17yrsSubstance and Sexual Activity Alcohol use: Yes Comment: weekend 4-5 glasses Drug use: Yes Types: Cocaine Comment: Have not used 2-3weeks Sexual activity: Not on fileLifestyle Physical activity: Days per week: Not on file Minutes per session: Not on file Stress: Not on fileRelationships Social connections: Talks on phone: Not on file Gets together: Not on file Attends anabaptism service: Not on file Active member of club or organization: Not on file Attends meetings of clubs or organizations: Not on file Relationship status: Not on file Intimate partner violence: Fear of current or ex partner: Not on file Emotionally abused: Not on file Physically abused: Not on file Forced sexual activity: Not on fileOther Topics Concern Not on fileSocial History Narrative Not on fileMedications and AllergiesALLERGIES/SENSITIVITIES:AllergiesAllergen Reactions Acetaminophen Other (See Comments) Contraindicated d/t liver and kidney diseaseScheduled Meds:Continuous Infusions:PRN Meds:.PhysicalBlood Pressure: BP: (!) 147/99 Pulse: Heart Rate: 63Temperature: Temp: 98.2 F Respirations: Resp: 16Admission Weight: Weight: 95.2 kg (209 lb 14.1 oz) O2 Saturation: SpO2: 100 %Today's Weight: Weight: 95.2 kg (209 lb 14.1 oz)Physical ExamPleasant, comfortable, not in acute distress.Awake, alert, oriented times 3.Moves all extremities.Neck: no carotid bruit and no JVDLungs: Clear to auscult ation bilaterally.Chest wall: no tendernessHeart: regular rate and rhythm, S1, S2 normal, no murmur, click, rub or gallopExtremities: No edema.DiagnosticsLabs outside facility:Glucose 104BUN 16Creatinine 1.6Sodium 136Potassium 3.5Chloride 99CO2 31Calcium 9.3Anion gap 6.0GFR 49D-dimer less than 0.19Troponin 0.083, repeat 0.085AST 37ALT T 59Alkaline phosphatase 133WBC 7.2RBC 5.05Hemoglobin 15.0Hematocrit 42.2Platelet 243EKG outside facility: Atrial paced rhythm, some ST elevation in V1 V2 V3 [id number] could be early repolarizationEKG on arrival 06/09/2020: Heart rate 60, unchanged ST segments from outsidefacilityLexiscan nuclear stress test 05/25/2020:Findings: Myocardial Perfusion Imaging: There are no fixed or reversible perfusionabnormalities. Left ventricular chamber size is normal in stress and rest.There is no evidence of transient ischemic dilation. Gated Wall Motion Study and Ejection Fraction: The left ventricular ejectionfraction measures 52 %. There are no focal or diffuse wall motion abnormalitiesidentified. IMPRESSIONIMPRESSION: No evidence of infarct or ischemia. Normal left ventricular wallmotion. Left ventricular ejection fraction is 52 %. Report electronically signed by: LIEN EUCEDA On 05/26/2020 1:50 PMAssessment & PlanPrincipal Problem: Chest tightness1. Chest tightness / unstable angina / troponin elevation: Troponin elevation ismild, 0.083, 0.085. EKG normal sinus rhythm with some ST changes in theprecordial leads which is unchanged from [facility] to EKG on arrival to [facility]. He does report the chest tightness currently. Patient ishemodynamically stable. Patient was given 325 aspirin today. He has not beengiven any other antiplatelets. He has not been started on a heparin drip.Patient does have CKD stage II, creatinine level outside facility 1.6.1. Nitro sublingual2. N.p.o.3. Normal saline 100 mL for 2 hours prior to cath4. Troponin x25. BMP6. Dr. Morena Ibarra will see patient for cardiac catheterization.Signature: [place] PA-C -- CardiologyDate: June 09, 2020Time: 11:39 AMThis document or parts of this document, were dictated using AMDL dictationsoftware. A reasonable attempt at proofreading has been made to minimize errors.Please call with any questions or corrections. Name Value Range Interpretation Code Description Data [facility] Supporting Document(s) ID Date Data Source [id number] 06/09/2020 12:19:05 PM EDT [facility] Name Value Range Interpretation Code Description Data Sophie [facility](s) Supporting Document(s) EKG [facility] [id number] [file] [id number] ID Date Data Source [id number] 06/09/2020 01:54:15 PM EDT [facility] [place] [facility] Name Value Range Interpretation Code Description Data Sophie rce(s) Supporting Document(s) TROPONIN I 0.09 ng/mL (<0.05) H [facility] [place] [facility] Less than 0.05: Myocardial injury unlike lyGreater than or equal to 0.05: Highly suggestive of myocardial injuryCorrelation with rise and/or fall ofserial troponins, clinical symptomsand ECG changes is necessary. ID Date Data Source [id number] 06/09/2020 01:49:48 PM EDT [facility] [place] [facility] Name Value Range Interpretation Code Description Data Sophie rce(s) Supporting Document(s) SODIUM 138 mmol/L (136-145) [facility] [place] [facility] POTASSIUM 5.4 mmol/L (3.6-5.2) H [facility] [place] [facility] CHLORIDE 103 mmol/L (100-108) [facility] [place] [facility] CO2 31 mmol/L (22-31) [facility] [place] [facility] ANION GAP 4 mmol/L (7-16) L [facility] [place] [facility] UREA NITROGEN 14 mg/dL (7-24) [facility] [place] [facility] CREATININE 1.49 mg/dL (0.80-1.30) H [facility] [place] [facility] BUN/CREAT RATIO 9.4 RATIO (10.0-20.0) L [facility] [place] [facility] GLUCOSE 83 mg/dL (70-99) [facility] [place] [facility] CALCIUM 9.4 mg/dL (8.4-10.2) [facility] [place] [facility] GFR 54 ml/min/1.73m2 (>59) L [facility] [place] [facility] GFR ( AMER) >60 ml/min/1.73m2 (>59) [facility] [place] [facility] GFR INTERPRETATION Lab [facility] [place] --NORMAL KIDNEY FUNCTION OR MILD DISEASE - GFR >OR= 60CHRONIC KIDNEY DISEASE - GFR 15 - 59RENAL FAILURE - GFR <15 Est. GFR calculation based on the MDRDstudy equation, which assumes a steadystate for creatinine. Est. GFR should notbe used for medication dosing. ID Date Data Source [id number] 06/09/2020 11:20:00 AM [facility] Name Value Range Interpretation Code Description Data [facility]) Supporting Document(s) SARS coronavirus 2 RNA [Presence] in Res piratory specimen by JAS with probe detection [facility] This lab was reported by [facility] [place] [facility]. ID Date Data Source [id number] 06/09/2020 03:13:47 PM EDT [facility] [place] Name Value Range Interpretation Code Description Data [facility]) Supporting Document(s) SPECIMEN DESCRIPTION Lab [facility] [place] COVID19 RESULT (NDET) Lab [facility] THIS ASSAY AMPLIFIES AND DETECTSTHE TARG ET RNA USING REAL-TIME PCR.NEGATIVE 2019_NCOV RT-PCR RESULTS DONOT PRECLUDE 2019_NCOV INFECTION ANDSHOULD NOT BE USED THE SOLE BASISFOR PATIENT MANAGEMENT DECISIONS. COMMENT [facility] [place] [facility] UNDER AN EMERGENCY USE AUTHORIZATION(EUA ) FOR THE DETECTION AND/OR DIAGNOSISOF THE VIRUS THAT CAUSES COVID-19.EMAILED TO AT 14:46 ON 06/09/20 [id number]. ID Date Data Source [id number] 06/09/2020 06:16:00 AM EDT [facility] TSYS[facility] [id number] Name Value Range Interpretation Code Description Data Sophie rce(s) Supporting Document(s) TROPONIN I 0.085 ng/mL 0.0-0.056 *H [facility] ID Date Data Source [id number] 06/09/2020 03:36:00 AM EDT [facility] [id number] Name Value Range Interpretation Code Description Data Sophie rce(s) Supporting Document(s) DDIMER < 0.19 mg/LFEU 0.19-0.60 L [facility] ID Date Data Source [id number] 06/09/2020 03:27:00 AM EDT [facility] TSYSORDER [id number] Name Value Range Interpretation Code Description Data Sophie rce(s) Supporting Document(s) TROPONIN I 0.083 ng/mL 0.0-0.056 *H [facility] ID Date Data Source [id number] 06/09/2020 03:27:00 AM EDT [facility] TSYSORDER [id number] Name Value Range Interpretation Code Description Data Sophie rce(s) Supporting Document(s) GLUCOSE 104 mg/dL 74-106 [facility] BLOOD UREA NITROGEN 16 mg/dL 7-18 [facility] ital CREATININE 1.6 mg/dL 0.7-1.3 H [facility] SODIUM 136 mmol/L 136-145 [facility] POTASSIUM 3.5 mmol/L 3.5-5.1 [facility] CHLORIDE 99 mmol/L 98-107 [facility] CO2 31 mmol/L 21-32 [facility] CALCIUM 9.3 mg/dL 8.5-10.1 [facility] ANION GAP 6.0 mmol/L 5-12 [facility] GLOMERULAR FILTRATION RATE 49 mL/min [facility] GFR IS CALCULATED IN mL/min/1.73m2 BRITTA L FUNCTION: >90MILDLY DECREASED: 60-89MILDY TO MODERATELY DECREASED: 45-59 MODERATELY TO SEVERELY DECREASED: 30-44SEVERELY DECREASED: 15-29RENAL FAILURE: <15 AST 37 U/L 15-37 [facility] ALT 59 U/L 12-78 [facility] ALKALINE PHOSPHATASE 133 U/L 46-116 H [facility] TOTAL BILIRUBIN 0.4 mg/dL 0.2-1.0 [facility] TOTAL PROTEIN 7.8 g/dl 6.4-8.2 [facility] ALBUMIN 4.0 gm/dL 3.4-5.0 [facility] ID Date Data Source [id number] 06/09/2020 03:05:00 AM EDT [facility] TSYSORDER [id number] Name Value Range Interpretation Code Description Data Sophie rce(s) Supporting Document(s) WHITE BLOOD COUNT 7.2 K/mm3 4.0-10.0 [facility] al RED BLOOD COUNT 5.05 M/mm3 4.50-6.00 [facility] HEMOGLOBIN 15.0 gm/dL 14.0-18.0 [facility] HEMATOCRIT 42.2 % 42.0-54.0 [facility] MEAN CELL VOLUME 83.6 fl 80-96 [facility] MEAN CORPUSCULAR HEMOGLOBIN 29.7 pg 27.0-31.0 [facility] MEAN CORPUSCULAR HGB CONC 35.5 g/dl 32.0-36.0 [facility] RED CELL DISTRIBUTION WIDTH 11.7 % 10.0-14.5 [facility] PLATELET COUNT 243 K/mm3 172-450 [facility] MEAN PLATELET VOLUME 9.7 fl 9.0-13.0 [facility] pital GRAN % 29.5 % 50-80.0 L [facility] IG% 0.0 % 0.0-0.2 [facility] LYMPH % 59.6 % 25.0-50.0 H [facility] MONO % 7.5 % 2.0-10.0 [facility] EOS % 3.1 % 0-5.0 [facility] BASO % 0.3 % 0.0-2.0 [facility] GRAN # 2.1 K/mm3 2.0-8.00 [facility] IG# 0.0 K/mm3 0.0-0.2 [facility] LYMPH # 4.3 K/mm3 1.0-5.0 [facility] MONO # 0.5 K/mm3 0.10-1.20 [facility] EOS # 0.2 K/mm3 0.0-0.5 [facility] BASO # 0.0 K/mm3 0.0-0.2 [facility] ID Date Data Source [id number] 05/29/2020 08:29:00 PM EDT [facility] Patient: CLINT ESTRELLA [facility].VisitID: [id number] [place] [address] [phone], MRegistration Date/Time: 05/25/2020 05:10 Weight:95.2 kg (S). Height/Length:73 inches (S). BMI:27.7 FAMILY HISTORYNo significant family medical history. (Electronically signed by Mohini Hernández M.D. 05/29/2020 20:25) Weight:95.2 kg (S). Height/Length:73 inches (S). BMI:27.7 PAST HISTORYProblems:"Kidney problems" [Chronic].Adjustment Disorder [Chronic].Anxiety Reaction [Chronic].PTSD [Chronic].Post-Concussive Syndrome [Chronic].Sleep Apnea [Chronic].Ventral hernia [Chronic].Traumatic Brain Injury [Chronic].Pacemaker placement [Chronic].Gastroesophageal Reflux Disease [Chronic].Hemorrhoids [Chronic].Hypertension [Chronic].Migraine Headache [Chronic].Liver dysfunction [Chronic]. Additional Surgeries:4 cm mass removed from left testicle.Bunion.Dental.Had back surgery-DCS 08/25/2017.Hammer toe operation.Pacemaker.Vasectomy. Medications:Amoxicillin Oral (Capsule 500 mg) 1 capsule, 3x a day, last dose 05/24/20pm.Famotidine Oral (Tablet 20 mg) 1 tablet, daily, last dose 05/24/20.Atorvastatin Calcium Oral 40 mg, daily, last dose 05/24/20.Spironolactone Oral (Tablet 25 mg) 1 tablet, daily, last dose 05/24/20.hydroCHLOROthiazide Oral (Tablet 25 mg) 1 tablet, daily, last dose 05/24/20.Lisinopril Oral (Tablet 40 mg) 1 tablet, daily, last dose 05/24/20.DULoxetine HCl Oral (Capsule Delayed Release Particles 30 mg), daily, last dose 05/24/20.Lotrel Oral (Capsule 10-40 mg) 1 capsule, daily, last dose 05/24/20 (Patient has been off of this medication since November, restarted 2 days ago ).Vitamin D Oral 5,000 units , 2x a day, last dose 05/24/20. Allergies:NO KNOWN DRUG ALLERGIES - NKDA. (DONT GIVE NSAIDS DUE TO RHABDOMYOLYSIS). (Electronically signed by Leana Whitney 05/25/2020 14:12) Name Value Range Interpretation Code Description Data Sophie rce(s) Supporting Document(s) ID Date Data Source [id number] 05/27/2020 11:32:18 AM EDT [facility] NT INFORMATIONPatient MRN Name Date of Age Gend*PT [id number] SameerClint 1985 34 years M OBSPT Location Admission Date/Time Visit ID Attending [id number] 05/25/20 1134 --- --- EPI ID CSN Admitting Provider [id number] Zelda Jarvis MD([id number]) [facility] DISCHARGE SUMMARYPatient Name: Clint Estrella of : 1985 Age 34 yearsPrimary Physician: Antonio Stanton MD PCP Ckxupdlug Date: 05/25/2020 Discharge Date: 05/26/2020He will be discharged from [facility] to [facility] Diagnoses:Principal Problem: Chest painActive Problems: Chronic low back pain CKD (chronic kidney disease) Type 2 diabetes mellitus with complication, without long-term current use ofinsulin PTSD (post-traumatic stress disorder) Hypertension GERD (gastroesophageal reflux disease) Depression Anxiety Migraines Troponin level elevatedResolved Problems: * No resolved hospital problems. *Discharge Medications:Discharge Medication List as of 05/26/2020 3:54 PMCONTINUE these medications which have NOT CHANGED DetailsamLODIPine- benazepril (LOTREL) 10-40 MG per capsule Take 1 capsule by mouthdaily, Until Discontinued, Historical Medamoxicillin (AMOXIL) 250 MG capsule Take 500 mg by mouth 3 (three) times a day,Historical Medatorvastatin (LIPITOR) 40 MG tablet Take 40 mg by mouth daily, Historical MedCholecalciferol (VITAMIN D3) 5000 UNITS capsule Take 5,000 Units by mouth Twicedaily after meals , Historical MedDULoxetine (CYMBALTA) 30 MG capsule Take 30 mg by mouth daily, Historical Medfamotidine (PEPCID) 20 MG tablet Take 20 mg by mouth daily, Historical Medhydrochlorothiazide (HYDRODIURIL) 25 MG tablet Take 25 mg by mouth daily, UntilDiscontinued, Historical Medlisinopril (PRINIVIL,ZESTRIL) 20 MG tablet Take 40 mg by mouth daily, HistoricalMedspironolactone (ALDACTONE) 25 MG tablet Take 25 mg by mouth daily, HistoricalMedFollow Up Instructions:The patient was given an after visit summary.Patient will follow up with PMD in 7 days.Items needing special attention: noneBrief Hospital Course:34 year old male with medical history significant for history of syncope likelyrelated to sinus node dysfunction s/p PPM in 2018, sleep apnea, CKD,rhabdomyolysis, hypertension, type 2 diabetes, PTSD/anxiety /depression,migraine, cocaine use disorder patient was a transfer from [facility]. Hestates for the past 3 days whenever he goes up the stairs which is about 8-10steps he developed chest tightness, dizziness and nausea, with tingliness in hisleft arm and sometimes leg, which resolved with rest. This morning around 4 AMhe woke up and smelled burning toast, his boyfriend was concerned that he washaving a stroke and he decided to go to the hospital for evaluation. Chestx-ray was negative, EKG did showed EKG changes, troponin was 0.109 (0.0-0.056)case was discussed with pan shover Dr Salgado, who [facility] Patient has history of cocaine use, urinetox was positive for cocaine he states he last used it 2 to 3 weeks ago. Healso chews tobacco. He denies chest pain, nausea, vomiting, abdominal pain,dizziness, headache.Patient was admitted for evaluation of chest pain. EKG changes with mildlyelevated troponin. Stress test was performed, negative for infarct or ischemia.He remained asymptomatic. Cardiology cleared patient. He will f/u with PMDwithin 1 week after discharge.Discharge Exam:Blood Pressure: BP: 128/68 Pulse: Heart Rate: 60Temperature: Temp: 97.6 F Respirations: Resp: 18Admission Weight: Weight: 95.3 kg (210 lb) O2 Saturation: SpO2: 100 %Discharge Weight: Weight: 95.3 kg (210 lb) BMI: Body mass index is 27.71 kg/m .Physical Exam General well developed, well nourished, in no apparent distress HEENT PERRLA, EOMI, fundi benign Lungs clear to auscultation Heart regular rate and rhythm Abdomen soft, non-tender, non-distended, no organomegaly or masses Musculoskeletal Spine ROM normal. Muscular strength intact. Neuro normal without focal findings, mental status, speech normal, alert andoriented x3, MICHAELA and reflexes normal and symmetricOther Pertinent Findings: noneDiagnostics:Imaging:Nm Cardiac Gated Spect Imaging With Ef And WmResult Date: 05/26/2020IMPRESSION: No evidence of infarct or ischemia. Normal left ventricular wallmotion. Left ventricular ejection fraction is 52 %. Report electronicallysigned by: LIEN EUCEDA On 05/26/2020 1:50 PM Workstation ID: [id number] Chest PortableResult Date: 05/25/2020IMPRESSION: No acute disease in the chest. Report electronically signed by:LIEN EUCEDA On 05/25/2020 1:21 PM Workstation ID: [id number]:Stress testConsultants:CardiologyRecent Labs:BMP:Lab ResultsComponent Value Date NA 138 05/26/2020 K 4.2 05/26/2020 CL 106 05/26/2020 CO2 26 05/26/2020 ANIONGAP 6 (L) 05/26/2020 CALCIUM 8.5 05/26/2020 GLU 86 05/26/2020 BUN 19 05/26/2020 CREATININE 1.62 (H) 05/26/2020 GFRAA 59 (L) 05/26/2020 GFRNONAA 49 (L) 05/26/2020CBC with Diff:Lab ResultsComponent Value Date WBC 5.6 05/26/2020 RBC 4.69 05/26/2020 HGB 14.0 05/26/2020 HCT 40.0 (L) 05/26/2020 MCV 85.4 05/26/2020 MCH 29.8 05/26/2020 MCHC 34.9 05/26/2020 RDW 12.3 05/26/2020 PLT 231 05/26/2020 MPV 7.7 05/26/2020 LYMPHOPCT 55.3 (H) 05/25/2020 MONOPCT 6.7 05/25/2020 EOSPCT 1.9 05/25/2020 BASOPCT 0.9 05/25/2020 NEUTROABS 2.0 05/25/2020 MONOABS 0.4 05/25/2020 BASOSABS 0.1 05/25/2020Uriah Ponce MD11:30 AMTotal time spent for discharge on date of discharge: >45 minutes Name Value Range Interpretation Code Description Data Sophie rce(s) Supporting Document(s) ID Date Data Source [id number] 05/26/2020 01:50:24 PM EDT [address] [address]Pesnefh Name: CLINT ESTRELLADOB: 1985Sex: MOrdering Provider: MT Bush Prov: MT Macias Provider: Procedure Performed: NM CARDIAC GATED SPEC IMG EFWMExam Date: 05/26/2020 13:07MRN: [id number] Number: [id number] Class: OutpatientAccount #: [id number] for Exam: Chest tightness or burning, high prob, uninterpretable ECG or cannot exerciseTechnique: Pharmacologic stress test was performed. LEXISCAN was administered under the direction of the Cardiology Department. For the resting study the patient received 11.1 mCi of CARDIOLITE intravenously. For the pharmacologic stress portion the patient received 33.2 mCi of CARDIOLITE intravenously. SPECT imaging was performed at rest and stress (gated).Gated wall motion study and ejection fraction were also performed.Comparison: NoneFindings:Myocardial Perfusion Imaging: There are no fixed or reversible perfusion abnormalities. Left ventricular chamber size is normal in stress and rest. There is no evidence of transient ischemic dilation.Gated Wall Motion Study and Ejection Fraction: The left ventricular ejection fraction measures 52 %. There are no focal or diffuse wall motion abnormalities identified.IMPRESSION: No evidence of infarct or ischemia. Normal left ventricular wall motion. Left ventricular ejection fraction is 52 %.Report electronically signed by: LIEN EUCEDA On 05/26/2020 1:50 PMWorkstation ID: [id number] Name Value Range Interpretation Code Description Data Sophie rce(s) Supporting Document(s) ID Date Data Source [id number] 05/26/2020 02:13:22 PM EDT [facility] Name Value Range Interpretation Code Description Data Sophie rce(s) Supporting Document(s) POC NOVA GLU 86 mg/dL (70-99) [facility] PERFORMED BY [facility] CLINICAL STAFF ID Date Data Source [id number] 05/26/2020 09:26:45 AM EDT [facility] Name Value Range Interpretation Code Description Data Sophie rce(s) Supporting Document(s) POC NOVA GLU 69 mg/dL (70-99) L [facility] BY [facility] CLINICAL STAFF ID Date Data Source [id number] 05/26/2020 08:40:54 AM EDT [facility] Name Value Range Interpretation Code Description Data Sophie rce(s) Supporting Document(s) EKG [facility] LTWVBr1oPuPVHqXdz5KxWnBjYFOfGB9kkrb2P6S1dLWkI7ZqmKMmq7maR3MsO9OzZDNzVRCNDG4ZqASt jb2 [file] CRO7BEGOYKPQNZDqPDNrCADyPUVvBWJ5JNE9HCCUZAVXUNWjIIYuFVPvVPAeMIT6XZT3GPWFIIUHQUBy FOInPPZkMLBeMND7IYV9PXTJRCOHUNFsPCJvRWZtODQwHTQ3ATV5EEPBGCTZEJAxFOIxIQZrSOMmHRK0 KGX7HZPYMSLGNMIpAQQvMUQvSHWpMJY0GJL2QYQXTL YVREMnVPOoPWZuBPXoXSU0JJB3EJBPKPHGAzuTtvJtiPg96QQEH+1rAjt3wsK7WFbOMWKYrX2nFHprXz JwAAjqaRjZp2oDJA5U0VGnSrbfGSoRs0pPf5eBWD2P5UUTV3mLUnoRp6hIj3kL8R/L67OMpitZJKtajU ZIj5E2Zo5Z8HbzpMt473Gqag55bwVYW/FnKZyI+NJB pJ+uGBZHYLH4jPgNhhe0EIKMOHI1w+zVnuSF2n/qkEjuMwZ9eJUZw1YsNWKwH+gZrGlDSA4IOvDkmzpV TTST+2w1a13ct0Nc8c/cuQlvEgMtrJRMR9F4JKSoD/gCkJcnTNQMNiUD2fyZmrtj1+9zF1i20lczP/Sod Farmer [file] tzEFGKJ1WoACbP5CgAVy/PlQQKcbUhKT2+0wLvl9kA11+Sarthak/GBacMcTXKzBBX4/8xjHS8Yqx1k/mhFe XkIxxI4yUP4kUscare8f2kmqi+yhF6IIrjWB0QoJtnm5p91NdR5m/XekPoOcLmibwfOv3LsZJeSWXHRD 6gyD7SSwfNJt+hGHCpfyye2xoTcMaJhz5M4MZ2J139 vJ76o3+XrQzdK/HzKspP8jQ/abOMfADrUivAovVFwTsajIvDR11frEtjPB0O7gjVificaW5zS01hHzYG 7l+1ZTw1GeItvWdZZTtXrSVuLv2PYXiCi+FkrPP1FHkkeXqfN9UQiWfLFrJbR7QfiIWeAuGn1Frv1Vfs wMNZigRvRTglCgYwzIrIg9bBKmHxI0lWta/ABELAu4 jNMSKA20JcGc6I2ANOwbZmFVWP8B8I26ZG4/ITF6sYiYV10OidBMEuwOHMg68M7FteeDBbOTAGspGvZs jQ7I4nwBpNBs9uXbwFVi/ggmzJskbOiIwlNJSJn7ZiVI7n2aut2kMXmCj4JNLSYOCXb9kqRubOJ0srPR MPxAHRHu5wkYFfPiWwBPfEgFMfR1kSBR1suLDiEl9U 6QhogxlYXRDqazm3kCGGXq+PcaOmS2ddDqsZ1HJeMD6jjALo0RcCdXMZV7TCDl1nAPhoIKPIssRfpgHR 2LQ9RJc6Kx6GlD9nl8OSNzwnPSipLCOwSS4rTF7EjWzn60stKyFytr8YgN10moObwE7DMAdKBo78qCo6 u1xp+fuwWeak5AS/nlir6Uy0JBoh9rmL/s3llUO33P NdmHbb6iEFzzlMw1dJSfza29mXaHn6Ym4n3zk3B+8GdVJ/R/vws1mzVK5AfljxGw4VrytF4qSYSh/1NE 6uyn1Gany1f25GZ8egvfQEqjqSIj0Hce0gIttxXSmT+r1XV//Sg+X+1Vpk2XF76NObxElCzIeXYVUqz tcpnnQUmB2lIE/hpCavM9S6LcSfL2X29Z0TgC0FG6I xp94Vu8lhuZ+h4B5OYeliRaoTZdKVZ24QBJZx/R+mJz9pYmJs6BbfH66y5bz/GgR70Z/U+VJvBujXmkO X4EyoLfqIRywRK98Uuo9scxj1xwR0GhJKbb9dh4XAWUeLi3ysn62hTSXFakT6IPf6gQ66L58icZFh73z oHGSNU/myJ72AF1jb9Dzc2em6vsG5HwGJi/5sTo5u1 Ym5Xp8iCwgXIS/WckUU2T07Ovyi9571jp9s4BbX3R5Xu30a6/w76K/rfHGtZO+[place]/uCt7mBh6wd7lvO+ 0hS0I1WVhJeNxpTs4vpJK+wLzyjEYgu0OulV0xWPus7iq+XeoE/aiF6FBuu8R/3iioR7f7ltLA3MrbBF 7WQCNobtwZAc1AymT/7orj411n4Hcyrk+Y3dDundre UxnjZY7DKV2DAOG8lg3v82u3rbL203H+ip9uVxBV8tyCgSq4I+1YVr9dC0psVCYV6XCyuy0hjz1V+GC1 tB6YLls+CpmO34AsC96ni8v4JK/t5qzGGHJZS+96dzRWKpt0k41ivptze46Pdaf3XwLmNP574f0EDghP 9O8CiW/6dy+lf4ezxGnKj+7TtHK1ib5wv2gA5dL3hm +aqSkFoar1LHK6mLx0CzZNcAgwYalGMmKvj8tVKf8fCdSQ0cKZz/b6beLhbmaR3jF8uw+w0/lecturer in marketing/l3d/ Nv7lEGp/lgOHdzy434R+IsAOloaS1aB93sg+498dI+0ti9s8f7k8oCI1/6Qrwbvc/T0ad8VFjz0PbD5h V+0jiPrt/VqHqZhFrA155zcB7UBO802Q7c+SU3hBpc DUq/z7fd1VrrxtMc2lUOt+zLSHIZ+w8LSztKR9+g65E4NjwoxEQLzXFb9Yp7rCtTt3DoNnemDmJL2J15 xS/cyn6M1txa/Kpt1p6d/e3jx81E6mNhh1UeJ4SYvoqhDWqMd5R6vQjD2rHhGyq/8cqug665nbrruVN7 e5WoNZUlnOeS1Ljl5QMcR74Ym/bUuNrmezXOj+/V4F dHlG8zOEa3UYWIcxxCuctaCj2vhZIfOq30I1dx4O7dSm4k5QktMgzywd9G90zTYoeO9zX3Nd/G/IB3H2 Irp5j33ixX6qkddpbVejgpgx2fmuLa9JqzO0tML/dWWUfP1g185Fe2c9Slfm+p9iAR1fFBgSANq6gU9J 1+703/bvQA/67rHg574xqy6njItz/YFjo8gSkDfbCy HNHpwy1fkCnjEFw+m6DSCaCqPbeGpSuNE4HNlT+18v9hIcyfxjZrlq7g/I1wKrQWZjEjFRlOo/Q+7L1l G7uLf4iIet0qYXi6xrX2TkySV/MxaMP4eIPHi1VH0xUbSPdeSaVU35ovNoxvDs+Lai+/t9jvz7ejJsUjC [file] ID Date Data Source [id number] 05/26/2020 08:40:03 AM EDT [facility] Name Value Range Interpretation Code Description Data Sophie rce(s) Supporting Document(s) EKG [facility] BKZUXu7lDpDDNoCjh7OrQwHwSAEzRA5wdxo7Y3Z3bNJiR1QznGKgn8snI1HxU3AoJQOeQAQRKG8RsWNm jb2 [file] QgNSAwIFIKCj4+SqN7PHW6vKJaQojoINE6XsATUFIDJ2Z= ID Date Data Source [id number] 05/26/2020 08:45:36 AM EDT [facility] Name Value Range Interpretation Code Description Data Sophie rce(s) Supporting Document(s) TROPONIN I 0.09 ng/mL (<0.05) H [facility] Less than 0.05: Myocardial injury unlike lyGreater than or equal to 0.05: Highly suggestive of myocardial injuryCorrelation with rise and/or fall ofserial troponins, clinical symptomsand ECG changes is necessary. ID Date Data Source [id number] 05/26/2020 04:03:44 AM EDT [facility] Name Value Range Interpretation Code Description Data Sophie rce(s) Supporting Document(s) TROPONIN I 0.08 ng/mL (<0.05) H [facility] Less than 0.05: Myocardial injury unlike lyGreater than or equal to 0.05: Highly suggestive of myocardial injuryCorrelation with rise and/or fall ofserial troponins, clinical symptomsand ECG changes is necessary. ID Date Data Source [id number] 05/26/2020 03:31:07 AM EDT [facility] Name Value Range Interpretation Code Description Data Sophie rce(s) Supporting Document(s) SODIUM 138 mmol/L (136-145) [facility] POTASSIUM 4.2 mmol/L (3.6-5.2) [facility] CHLORIDE 106 mmol/L (100-108) [facility] CO2 26 mmol/L (22-31) [facility] ANION GAP 6 mmol/L (7-16) L [facility] UREA NITROGEN 19 mg/dL (7-24) [facility] CREATININE 1.62 mg/dL (0.80-1.30) H [facility] BUN/CREAT RATIO 11.7 RATIO (10.0-20.0) [facility] GLUCOSE 86 mg/dL (70-99) [facility] CALCIUM 8.5 mg/dL (8.4-10.2) [facility] GFR 49 ml/min/1.73m2 (>59) L [facility] GFR ( AMER) 59 ml/min/1.73m2 (>59) L [facility] GFR INTERPRETATION [facility] --NORMAL KIDNEY FUNCTION OR MILD DISEASE - GFR >OR= 60CHRONIC KIDNEY DISEASE - GFR 15 - 59RENAL FAILURE - GFR <15 Est. GFR calculation based on the MDRDstudy equation, which assumes a steadystate for creatinine. Est. GFR should notbe used for medication dosing. ID Date Data Source [id number] 05/26/2020 03:16:33 AM EDT [facility] Name Value Range Interpretation Code Description Data Sophie rce(s) Supporting Document(s) WBC 5.6 10*3/uL (4.1-11.0) [facility] RBC 4.69 10*6/uL (4.60-6.10) [facility] HGB 14.0 g/dL (13.5-18.0) [facility] HCT 40.0 % (41.0-53.0) L [facility] PERFORMED AT [address] [place] [address] N [place] [address] MCV 85.4 fL (80.0-95.0) [facility] MCH 29.8 pg (27.0-32.0) [facility] MCHC 34.9 g/dL (32.0-36.0) [facility] RDW 12.3 % (10.5-14.5) [facility] PLT 231 10*3/uL (150-450) [facility] MPV 7.7 fL (7.1-10.7) [facility] ID Date Data Source [id number] 05/25/2020 06:37:19 PM EDT [facility] Name Value Range Interpretation Code Description Data Sophie rce(s) Supporting Document(s) POC NOVA GLU 96 mg/dL (70-99) [facility] CLINICAL STAFF ID Date Data Source [id number] 05/25/2020 04:58:04 PM EDT [facility] NT INFORMATIONPatient MRN Name Date of Age Gend*PT [id number] Clint Estrella 1985 34 years M OBSPT Location Admission Date/Time Visit ID Attending [id number] 05/25/20 1134 --- Zelda Jarvis MD([id number]) EPI ID CSN Admitting Provider [id number] Zelda Jarvis MD([id number]) Attestation signed by Zelda Jarvis MD at 05/25/2020 4:58 PMEMR reviewed. Assessment and plan discussed with Cody Agrawal NPPatient presented here with chest pain. Will obtain serial troponin and stresstest . Cards on board. ------Inpatient History & PhysicalLuqurohini EstrellaMRN:[id number] and Plan:Principal Problem: Chest painActive Problems: Chronic low back pain CKD (chronic kidney disease) Type 2 diabetes mellitus with complication, without long-term current use ofinsulin PTSD (post-traumatic stress disorder) Hypertension GERD (gastroesophageal reflux disease) Depression Anxiety MigrainesHPI: Mr. Clint Estrella is a 34 year old male with medical history significant forhistory of syncope likely related to sinus node dysfunction s/p PPM in 2018,sleep apnea, CKD, rhabdomyolysis, hypertension, type 2 diabetes, PTSD/anxiety/depression, migraine, cocaine use disorder patient was a transfer from [facility]. He states for the past 3 days whenever he goes up the stairs which isabout 8-10 steps he developed chest tightness, dizziness and nausea, withtingliness in his left arm and sometimes leg, which resolved with rest. Thismorning around 4 AM he woke up and smelled burning toast, his boyfriend wasconcerned that he was having a stroke and he decided to go to the hospital forevaluation. Chest x-ray was negative, EKG did showed EKG changes, troponin was0.109 (0.0-0.056) case was discussed with pan shover Dr Salgado, who wantedpatient [facility]. Patient has history ofcocaine use, urine tox was positive for cocaine he states he last used it 2 to 3weeks ago. He also chews tobacco. He denies chest pain, nausea, vomiting,abdominal pain, dizziness, headache.Assessment and planChest pain-EKG changes with mildly elevated troponin,-Cardiology consulted, check d-dimer, lipid panel, TSH/Free T4, NT BNPDiabetes type 2-Get hemoglobin O0f-Wzpvs for scale insulin sliding scaleCKD-Renal function stableHypertension-Continue home meds after med recPTSD/anxiety/depression-Complaining of anxiety, PRN AtivanSleep apnea-Awaiting for his CPAP machine, needs to be authorized by VADVT prophylaxis: Heparin subqCode status: FCD/w Dr. Jarvis is in agreement with the above plan.Past Medical History:Past Medical History:Diagnosis Date IKER (acute kidney injury) Anxiety CKD (chronic kidney disease) stage 2, GFR 60-89 ml/min Colon polyp DDD (degenerative disc disease), lumbar Depression Diabetes mellitus Elevated CK Fatty liver GERD (gastroesophageal reflux disease) Hemorrhoids Hypertension Lumbar herniated disc Migraines Panic disorder Peripheral neuropathy Rhabdomyolysis Sleep apnea CPAP Spondylolisthesis, lumbar region SyncopePast Surgical History:Past Surgical History:Procedure Laterality Date ATRIAL CARDIAC PACEMAKER INSERTION 11/28/2017 BUNIONECTOMY Bilateral CARPAL TUNNEL RELEASE 2017 COLONOSCOPY W/ POLYPECTOMY IMPLANT/EXPLANT LOOP RECORDER implanted 2016 PAIN PROCEDURE N/A 08/25/2017 Procedure: THORICAL LUMBAR SPINAL CORD STIMULATOR IMPLANTATION W GENERATORLEAD AND C ARM; Surgeon: Jonel Henry MD; Laterality: N/A; SPINAL CORD STIMULATOR IMPLANT 11/28/2016 TESTICLAR CYST EXCISION Left VASECTOMY WISDOM TOOTH EXTRACTION 4 of 4Medications:Medications Prior to AdmissionMedication Sig Dispense Refill Last Dose amitriptyline (ELAVIL) 100 MG tablet Take 100 mg by mouth nightly Past Weekat Unknown time amLODIPine-benazepril (LOTREL) 10-40 MG per capsule Take 1 capsule by mouthdaily 08/24/2017 at 0900 ammonium lactate (AMMONIUM LACTATE) 12 % lotion Apply 1 application topicallydaily Unknown at Unknown time atenolol (TENORMIN) 25 MG tablet Take 25 mg by mouth daily 08/24/2017 at 0900 Cholecalciferol (VITAMIN D3) 5000 UNITS capsule Take 5,000 Units by mouthdaily Past Week at Unknown time Exenatide ER 2 MG PEN Inject 2 mg under the skin once a week on Tuesday PastWeek at Unknown time hydrochlorothiazide (HYDRODIURIL) 25 MG tablet Take 25 mg by mouth daily08/24/2017 at 0900 metFORMIN (GLUCOPHATE-XR) 500 MG 24 hr tablet Take 1,000 mg by mouth daily08/24/2017 at 0900 methylPREDNISolone (MEDROL) 4 MG tablet follow package directions 21 tablet 0 polyethylene glycol (GLYCOLAX) packet Take 17 g by mouth daily as needed (forconstipation) Unknown at Unknown time pregabalin (LYRICA) 100 MG capsule Take 100 mg by mouth 2 (two) times a day08/24/2017 at 2230 Probiotic Product (ALIGN) capsule Take 1 capsule by mouth 2 (two) times a day08/24/2017 at 2230 senna-docusate (PERICOLACE) 8.6-50 MG Take 1 tablet by mouth 2 (two) times aday 20 tablet 0 sildenafil (VIAGRA) 50 MG tablet Take 50 mg by mouth daily as needed forerectile dysfunction Unknown at Unknown time tamsulosin (FLOMAX) 0.4 MG CAPS Take 0.8 mg by mouth nightly 08/24/2017 [id number] ZOLMitriptan (ZOMIG) 5 MG nasal solution 1 spray into each nostril as neededfor migraine Unknown at Unknown time zolpidem (AMBIEN) 10 MG tablet Take 10 mg by mouth nightly 08/24/2017 at 2230Allergies:AcetaminophenFamily History:Family HistoryProblem Relation Age of Onset Liver cancer Father Diabetes Paternal Grandmother Malig Hyperthermia Neg HxSocial History:Social HistoryTobacco Use Smoking status: Never Smoker Smokeless tobacco: Current User Types: Chew Tobacco comment: chewing since 17yrsSubstance Use Topics Alcohol use: Yes Comment: weekend 4-5 glasses Drug use: Yes Types: Cocaine Comment: Have not used 2-3weeksReview of Systems:Review of SystemsNeurological: Negative for dizziness, weakness and light-headedness.Psychiatric/Behavioral: The patient is nervous/anxious.Physical Exam:Vital Signs: Temp: [97.8 F] 97.8 FPhysical ExamConstitutional: He is oriented to person, place, and time. No distress.HENT:Head: Normocephalic and atraumatic.Eyes: EOM are normal.Neck: Normal range of motion. Neck supple.Cardiovascular: Normal rate and regular rhythm.Pulmonary/Chest: Effort normal and breath sounds normal.Abdominal: Soft. Bowel sounds are normal.Musculoskeletal: He exhibits no edema.Neurological: He is alert and oriented to person, place, and time.Skin: Skin is warm and dry.Psychiatric: He has a normal mood and affect.Labs, Imaging and Other Diagnostics:Diagnostic tests reviewed:Signature: Walt AgrawalCARMINADate: May 25, 2020Time: 1:41 PMPhone number: [phone] Name Value Range Interpretation Code Description Data Sophie rce(s) Supporting Document(s) ID Date Data Source [id number] 05/25/2020 04:28:02 PM EDT [facility] Name Value Range Interpretation Code Description Data Sophie rce(s) Supporting Document(s) AMPHETAMINES,URINE (NEG) [facility] BARBITURATES,URINE (NEG) [facility] BENZODIAZEPINE,URINE (NEG) [facility] CANNABINOIDS,URINE (NEG) [facility] COCAINE,URINE (NEG) A [facility] OPIATES,URINE (NEG) [facility] NOTE: Oxycodone is not sufficientlydetec magda by this screening assay. A moresensitive assay is available upon request. PHENCYCLIDINE,URINE (NEG) [facility] PLEASE NOTE: [facility] ARE REPORTED POSITIVE WHEN THE RESULT SEXCEED THE THRESHOLD (CUTOFF) INDICATED. ALIST OF POTENTIAL INTERFERENCES FOR EACHMETHOD CAN BE MADE AVAILABLE UPON REQUEST.CONFIRMATION OF A POSITIVE SCREEN CAN BE PERFORMED BY A REFERENCE LABORATORY IFREQUEST IS MADE WITHIN 48 [place] [address] ID Date Data Source [id number] 05/25/2020 04:12:59 PM EDT [facility] Name Value Range Interpretation Code Description Data Sophie rce(s) Supporting Document(s) COLOR [facility] APPEARANCE [facility] SPEC GRAV URINE 1.025 (1.003-1.030) [facility] PH URINE 7.0 (5.0-7.5) [facility] LEUK ESTERASE (NEG) [facility] NITRITE URINE (NEG) [facility] PROTEIN URINE (NEG) [facility] GLUCOSE URINE (NEG) [facility] KETONE URINE (NEG) [facility] UROBILINOGEN 0.2 mg/dL (0-1.0) [facility] BILIRUBIN URINE (NEG) [facility] BLOOD/HGB URINE (NEG) [facility] ID Date Data Source [id number] 05/25/2020 04:04:02 PM EDT [facility] Name Value Range Interpretation Code Description Data Sophie rce(s) Supporting Document(s) URN CULTURE HOLD [facility] FOR ADD ON CULTURE ID Date Data Source [id number] 05/25/2020 02:58:15 PM EDT [facility] NT INFORMATIONPatient MRN Name Date of Age Gend*PT [id number] Clint Estrella Ameer 1985 34 years M OBSPT Location Admission Date/Time Visit ID Attending ProviderD-[id number] 05/25/20 1134 --- Zelda Jarvis MD([id number]) EPI ID CSN Admitting Provider [id number] Zelda Jarvis MD([id number]) Attestation signed by Gerardo Durham MD at 05/25/2020 2:58 PMI saw and evaluated the patient and reviewed Mt's note. I agree with thehistory, physical and medical decision making with the following additions,exceptions, and/or observations: I believe his ST segments represent earlyrepolarization or J-point elevation. They do not appear ischemic. Histroponin is only borderline elevated. With no history of coronary disease, julio negative stress test 2 years ago, if the troponin is no higher, I wouldrecommend repeating a nuclear stress test. If it shows further elevation, thencatheterization would be indicated. We will follow the patient with you.Signature: JODIE Hessate: May 25, 2020Time: 2:57 PM --Cardiology ConsultName: Clint Estrella Gender: maleDate of : 1985 Age: 34 yearsDate/Time of Admit: 05/25/2020 11:34 AM Code Status: PriorPrimary Care Provider / Referring Physician: No PCPInformant:Current HistoryChief Complaint: Episode of chest tightness while in the EDHPI:This patient is a 34 years male with the following past medical history:1. Heart block: Pacemaker inserted . Chronic back pain: Status post spine stimulator3. Hypertension4. Rhabdomyolysis5. Anxiety6. Migraines7. GERD8. Diabetes9. CKD [facility] 4 AM noticing the smell of burnttoast. His boyfriend thought that he may be having a stroke due to smellingburnt toast symptom. At that time patient had no episodes of chest pain, chesttightness, chest pressure, shortness of breath, palpitations, lightheadedness,dizziness, sweats, nausea or vomiting. The only symptom that prompted him to goto the emergency department was burnt toast and to be evaluated for stroke.Patient has since been ruled out for stroke. Patient states that while he wasinside the emergency department he noticed chest tightness. Patient states thathe has history of anxiety and thought that maybe he was very anxious. Statesthat he was certainly nervous about the possibility of having a stroke. Patientalso states that during interview he is experiencing some chest tightness whichhas gone away at completion of the interview after being reassured. Patient'stroponin at outside facility was 0.109, ST elevations located in V1, V2, V3, V4.Cannot visualize any pacer spikes. Patient also has history of cocaine use,last use was 3 weeks ago. Patient completely denies using cocaine in the lastday. Patient states that he has history of high blood pressure, was told thathe had high cholesterol, kidney disease, diabetes. Denies any history ofstroke, liver disease, or any family history of heart disease. Patient statesthat pacemaker was inserted in 2018 after having syncopal episodes and found tohave heart block. He states that around that time he had stress test which wasnegative. Patient's pan shover is the [place] system.Review of Systems:Negative for review of all 10 systems, except as noted above.Past HistoryPast Medical History:Diagnosis Date IKER (acute kidney injury) Anxiety CKD (chronic kidney disease) stage 2, GFR 60-89 ml/min Colon polyp DDD (degenerative disc disease), lumbar Depression Diabetes mellitus Elevated CK Fatty liver GERD (gastroesophageal reflux disease) Hemorrhoids Hypertension Lumbar herniated disc Migraines Panic disorder Peripheral neuropathy Rhabdomyolysis Sleep apnea CPAP Spondylolisthesis, lumbar region SyncopePast Surgical History:Procedure Laterality Date ATRIAL CARDIAC PACEMAKER INSERTION 11/28/2017 BUNIONECTOMY Bilateral CARPAL TUNNEL RELEASE 2017 COLONOSCOPY W/ POLYPECTOMY IMPLANT/EXPLANT LOOP RECORDER implanted 2016 PAIN PROCEDURE N/A 08/25/2017 Procedure: THORICAL LUMBAR SPINAL CORD STIMULATOR IMPLANTATION W GENERATORLEAD AND C ARM; Surgeon: Jonel Henry MD; Laterality: N/A; SPINAL CORD STIMULATOR IMPLANT 11/28/2016 TESTICLAR CYST EXCISION Left VASECTOMY WISDOM TOOTH EXTRACTION 4 of 4Family HistoryProblem Relation Age of Onset Liver cancer Father Diabetes Paternal Grandmother Malig Hyperthermia Neg HxSocial HistorySocial History Narrative Not on fileSocial HistorySocioeconomic History Marital status: Spouse name: Not on file Number of children: Not on file Years of education: Not on file Highest education level: Not on fileOccupational History Not on fileSocial Needs Financial resource strain: Not on file Food insecurity: Worry: Not on file Inability: Not on file Transportation needs: Medical: Not on file Non-medical: Not on fileTobacco Use Smoking status: Never Smoker Smokeless tobacco: Current User Types: Chew Tobacco comment: chewing since 17yrsSubstance and Sexual Activity Alcohol use: Yes Comment: weekend 4-5 glasses Drug use: Yes Types: Cocaine Comment: Have not used 2-3weeks Sexual activity: Not on fileLifestyle Physical activity: Days per week: Not on file Minutes per session: Not on file Stress: Not on fileRelationships Social connections: Talks on phone: Not on file Gets together: Not on file Attends anabaptism service: Not on file Active member of club or organization: Not on file Attends meetings of clubs or organizations: Not on file Relationship status: Not on file Intimate partner violence: Fear of current or ex partner: Not on file Emotionally abused: Not on file Physically abused: Not on file Forced sexual activity: Not on fileOther Topics Concern Not on fileSocial History Narrative Not on fileMedications and AllergiesALLERGIES/SENSITIVITIES:AllergiesAllergen Reactions Acetaminophen Other (See Comments) Contraindicated d/t liver and kidney diseaseScheduled Meds:Continuous Infusions:PRN Meds:.PhysicalBlood Pressure: Pulse:Temperature: Temp: 97.8 F Respirations:Admission Weight: Weight: 95.3 kg (210 lb) O2 Saturation:Today's Weight: Weight: 95.3 kg (210 lb)Physical ExamPleasant, comfortable, not in acute distress.Awake, alert, oriented times 3.Moves all extremities.Neck: no carotid bruit and no JVDLungs: Clear to auscultation bilaterally.Chest wall: no tendernessHeart: regular rate and rhythm, S1, S2 normal, no murmur, click, rub or gallopExtremities: No edema.Pulses: 2+ and symmetricThe remainder of the physical exam is noncontributory.DiagnosticsLabResults from last 7 daysLab Units 05/25/896791ZSI 10*3/uL 5.5HEMOGLOBIN g/dL 15.1HEMATOCRIT % 43.7PLATELETS 10*3/uL 239Results from last 7 daysLab Units 05/25/201259INR 1.04Invalid input(s): CREKG: Sinus with ST elevations V1, V2, V3, V4. Cannot visualize any pacingspikes.Assessment & PlanPrincipal Problem: Chest painActive Problems: Chronic low back pain CKD (chronic kidney disease) Type 2 diabetes mellitus with complication, without long-term current use ofinsulin PTSD (post-traumatic stress disorder) Hypertension GERD (gastroesophageal reflux disease) Depression Anxiety Migraines1. Troponin elevation: Troponin mildly elevated at outside facility, 0.109.Patient does have ST elevations V1, V2, V3, V4. This was evaluated by Dr Bronson prior to patient's transfer, not thought to be ST elevation MS. Patientexperienced chest tightness while he was in the emergency department. This wasthe reason troponin was drawn per patient. Patient never had episode of chestpain waking him up in the middle the night. Patient has history of anxiety andalso states that he was very nervous in the emergency department and thought hischest tightness was anxiety. He has a history of having negative stress test inthe last couple years per patient. This was after work-up for heart block whichhe received a pacemaker. Patient does have some risk factors including highblood pressure, kidney disease, diabetes.1. Trend troponins2. CK, ESR, CRP3. Continue aspirin 81 mg daily4. Continue amlodipine-benazepril5. Dr. Durham to see the patientPatient's pan shover is the [place] system.Signature: [place] PA-C -- CardiologyDate: May 25, 2020Time: 1:57 PM Name Value Range Interpretation Code Description Data Sophie rce(s) Supporting Document(s) ID Date Data Source [id number] 05/25/2020 02:53:15 PM EDT [facility] [place] Name Value Range Interpretation Code Description Data Sophie elias(s) Supporting Document(s) POC NOVA GLU 79 mg/dL (70-99) [facility] [place] [facility] PERFORMED BY [facility] CLINICAL STAFF ID Date Data Source [id number] 05/25/2020 01:21:23 PM EDT [address], [place] [address]Tgxblbl Name: CLINT ESTRELLADOB: 1985Sex: MOrdering Provider: WALT Leyva Prov: WALT Overton Provider: Procedure Performed: XR CHEST PORTABLEExam Date: 05/25/2020 12:40MRN: [id number] Number: [id number] Class: OutpatientAccount #: [id number] for Exam: chest painTechnique: AP portable view obtained.Comparison: NoneFindings: The lungs are clear of active disease. The cardiac and mediastinal contours are within normal limits for an AP portable radiograph of the chest. There are no pleural effusions. Dual-chamber cardiac pacemaker is in satisfactory position.Patient is status post dorsal column stimulator placement.IMPRESSION: No acute disease in the chest.Report electronically signed by: LIEN EUCEDA On 05/25/2020 1:21 PMWorkstation ID: [id number] Name Value Range Interpretation Code Description Data Sophie rce(s) Supporting Document(s) ID Date Data Source [id number] 05/26/2020 06:05:34 PM EDT [facility] [place] [facility] Name Value Range Interpretation Code Description Data Sophie rce(s) Supporting Document(s) CHOLESTEROL @ 118 mg/dL (0-200) [facility] [place] [facility] TRIGLYCERIDE @ 71 mg/dL (30-200) [facility] [place] [facility] HDL CHOLESTEROL @ 59 mg/dL (>40) [facility] [place] [facility] PER NCEP ATP III GUIDELINES:RESULTS LOWE R THAN 40 MG/DL ARE SUGGESTIVEOF INCREASED RISK FOR CORONARY ARTERYDISEASE. RESULTS > OR = TO 60 MG/DL ARECONSIDERED A NEGATIVE RISK FACTOR. CHOL/HDL RATIO 2.0 RATIO [facility] [place] [facility] INTERPRETATION OF CHOL-HDL RATIO CHD RISK FEMALE MALEVERY HIGH >8.3 >14.3HIGH 5.6- 8.3 6.7- 14.3AVERAGE 3.7- 5.6 4.0- 6.7BELOW AVERAGE 2.5- 3.7 2.7- 4.0PROTECTED <2.5 <2.7 LDL CHOL (CALC) 45 mg/dL (<130) [facility] [place] [facility] PER NCEP ATP III GUIDELINES: OPTIMAL < 100 NEAR OPTIMAL 100 - 129BORDERLINE HIGH 130 - 159 HIGH 160 - 189 VERY HIGH > 189 ID Date Data Source [id number] 05/26/2020 06:05:34 PM EDT [facility] [place] [facility] [place] Name Value Range Interpretation Code Description Data Sophie rce(s) Supporting Document(s) C REACTIVE PROTEIN @ <0.3 mg/dL (0.0-0.5) [facility] [facility] [place] ID Date Data Source [id number] 05/25/2020 03:27:32 PM EDT [facility] [place] [facility] [place] Name Value Range Interpretation Code Description Data Sophie rce(s) Supporting Document(s) ESR 0 mm/h (0-15) [facility] [place] [facility] [place] ID Date Data Source [id number] 05/25/2020 03:01:36 PM EDT [facility] [place] [facility] [place] Name Value Range Interpretation Code Description Data Sophie rce(s) Supporting Document(s) HEMOGLOBIN A1C @ 5.8 % (4.0-6.0) [facility] [place] [facility] Performed using Siemens Quinton immunoassa y.Care must be taken when interpreting [id number] in patients with a hemoglobin variantor decreased erythrocyte lifespan. Values 5.7 - 6.4% suggest prediabetes.Values >=6.5% are diagnostic for diabetes.REFERENCE: DIABETES CARE 2018: 41(S13-S27).PERFORMED AT [address] [place] [address] EST AVERAGE GLUCOSE 120 mg/dL [facility] [place] ID Date Data Source [id number] 05/25/2020 02:19:29 PM EDT [facility] [place] [facility] [place] Name Value Range Interpretation Code Description Data Sophie rce(s) Supporting Document(s) TSH,ULTRASENSITIVE @ 0.596 mIU/L (0.360-4.170) [facility] [place] [facility] [place] PERFORMED AT [address] [place] [address] Y [address] ID Date Data Source [id number] 05/25/2020 02:07:48 PM EDT [facility] [place] [facility] [place] Name Value Range Interpretation Code Description Data Sophie rce(s) Supporting Document(s) NT PRO BNP 64 pg/mL (0-125) [facility] [place] [facility] [place] ID Date Data Source [id number] 05/25/2020 02:07:48 PM EDT [facility] [place] [facility] [place] Name Value Range Interpretation Code Description Data Sophie rce(s) Supporting Document(s) FREE THYROXINE @ 1.07 ng/dL (0.76-1.46) [facility] [place] [facility] PERFORMED AT [address] [place] [address] [place] [address] ID Date Data Source [id number] 05/25/2020 02:07:48 PM EDT [facility] [place] [facility] Name Value Range Interpretation Code Description Data Sophie rce(s) Supporting Document(s) TROPONIN I 0.08 ng/mL (<0.05) H [facility] [place] [facility] Less than 0.05: Myocardial injury unlike lyGreater than or equal to 0.05: Highly suggestive of myocardial injuryCorrelation with rise and/or fall ofserial troponins, clinical symptomsand ECG changes is necessary. ID Date Data Source [id number] 05/25/2020 02:07:48 PM EDT [facility] [place] [facility] Name Value Range Interpretation Code Description Data Sophie rce(s) Supporting Document(s) CK 544 U/L (39-308) H [facility] [place] [facility] ID Date Data Source [id number] 05/25/2020 02:07:48 PM EDT [facility] [place] [facility] Name Value Range Interpretation Code Description Data Sophie rce(s) Supporting Document(s) SODIUM 138 mmol/L (136-145) [facility] [place] [facility] POTASSIUM 3.8 mmol/L (3.6-5.2) [facility] [place] [facility] CHLORIDE 105 mmol/L (100-108) [facility] [place] [facility] CO2 28 mmol/L (22-31) [facility] [place] [facility] ANION GAP 5 mmol/L (7-16) L [facility] [place] [facility] UREA NITROGEN 20 mg/dL (7-24) [facility] [place] [facility] CREATININE 1.64 mg/dL (0.80-1.30) H [facility] [place] [facility] BUN/CREAT RATIO 12.2 RATIO (10.0-20.0) [facility] GLUCOSE 95 mg/dL (70-99) [facility] [place] [facility] CALCIUM 9.3 mg/dL (8.4-10.2) [facility] [place] [facility] TOTAL PROTEIN 8.2 g/dL (6.4-8.2) [facility] [place] [facility] ALBUMIN 4.0 g/dL (3.5-4.6) [facility] [place] [facility] GLOBULIN 4.2 g/dL (2.7-4.3) [facility] [place] [facility] ALB/GLOB RATIO 1.0 RATIO [facility] [place] [facility] ALKALINE PHOSPHATASE 90 U/L (45-117) [facility] [place] BILIRUBIN,TOTAL 1.1 mg/dL (0.0-1.0) H [facility] [place] [facility] PLEASE NOTE:Total bilirubin results may be falselyelevated in patients taking Eltrombopag. AST (SGOT) 33 U/L (11-39) [facility] [place] [facility] ALT (SGPT) 55 U/L (12-78) [facility] [place] [facility] GFR 48 ml/min/1.73m2 (>59) L [facility] [place] [facility] GFR ( AMER) 58 ml/min/1.73m2 (>59) L [facility] [place] [facility] GFR INTERPRETATION Lab [facility] [place] --NORMAL KIDNEY FUNCTION OR MILD DISEASE - GFR >OR= 60CHRONIC KIDNEY DISEASE - GFR 15 - 59RENAL FAILURE - GFR <15 Est. GFR calculation based on the MDRDstudy equation, which assumes a steadystate for creatinine. Est. GFR should notbe used for medication dosing. ID Date Data Source [id number] 05/25/2020 01:51:00 PM EDT Lab [facility] [place] Name Value Range Interpretation Code Description Data [facility] rce(s) Supporting Document(s) D-DIMER,SENSITIVE <0.19 mg/L (<0.50) [facility] [place] [place] ID Date Data Source [id number] 05/25/2020 01:51:00 PM EDT [facility] [place] [facility] [place] Name Value Range Interpretation Code Description Data Sophie rce(s) Supporting Document(s) PT 10.9 s (9.2-11.9) [facility] [place] [facility] [place] INR 1.04 [facility] [place] [facility] [place] SUGGESTED THERAPEUTIC RANGES USING INR F ORSTABILIZED ANTICOAGULATED PATIENTS:STANDARD DOSE THERAPY INR 2.0-3.0 DVT, PE, PREVENT DVT OR EMBOLISMHIGH DOSE THERAPY INR 2.5-3.5 PREVENT EMBOLISM FROM MECHANICAL HEART VALVE ID Date Data Source [id number] 05/25/2020 01:51:00 PM EDT [facility] [place] [facility] Name Value Range Interpretation Code Description Data Sophie rce(s) Supporting Document(s) APTT 28.0 s (22.0-34.3) [facility] [place] [facility] ID Date Data Source [id number] 05/25/2020 01:37:17 PM EDT [facility] [place] [facility] Name Value Range Interpretation Code Description Data Sophie rce(s) Supporting Document(s) WBC 5.5 10*3/uL (4.1-11.0) [facility] [place] [facility] [place] RBC 5.12 10*6/uL (4.60-6.10) [facility] [place] [facility] HGB 15.1 g/dL (13.5-18.0) [facility] [place] [facility] HCT 43.7 % (41.0-53.0) [facility] [place] [facility] PERFORMED AT [address] [place] [address] [place] [address] MCV 85.4 fL (80.0-95.0) [facility] [place] [facility] MCH 29.5 pg (27.0-32.0) [facility] [place] [facility] MCHC 34.5 g/dL (32.0-36.0) [facility] [place] [facility] RDW 12.7 % (10.5-14.5) [facility] [place] [facility] PLT 239 10*3/uL (150-450) [facility] [place] [facility] MPV 7.7 fL (7.1-10.7) [facility] [place] [facility] NEUT % 35.2 % (35.0-75.0) [facility] [place] [facility] LYMPH % 55.3 % (16.0-52.0) H [facility] [place] [facility] MONO % 6.7 % (0.0-8.0) [facility] [place] [facility] EOS % 1.9 % (0.0-5.0) [facility] [place] [facility] BASO % 0.9 % (0.0-4.0) [facility] [place] [facility] NEUT # 2.0 10*3/uL (1.8-7.7) [facility] [place] [facility] LYMPH # 3.1 10*3/uL (1.2-4.8) [facility] [place] [facility] MONO # 0.4 10*3/uL (0.0-0.8) [facility] [place] [facility] Eosinophils [#/volume] in Blood by Automated count 0.1 10*3/uL (0.0-0 .5) [facility] [place] [facility] [place] BASO # 0.1 10*3/uL (0.0-0.2) [facility] [place] [facility] ID Date Data Source [id number] 05/25/2020 09:23:00 AM EDT [facility] TSYSORDER [id number] Results called to HONEA PATHTiffanie on [facility] Name Value Range Interpretation Code Description Data Sophie rce(s) Supporting Document(s) TROPONIN I 0.127 ng/mL 0.0-0.056 *H [facility] ID Date Data Source [id number] 05/25/2020 08:21:00 AM EDT [facility] DATE OF EXAMINATION: 05/25/2020 7:15 EDT CHEST 1 VIEW HISTORY: Chest pain TECHNIQUE: Single frontal radiograph of chest COMPARISON: 12/23/2018 FINDINGS: Dual-lead pacemaker in stable position. Epidural stimulator at the mid thoraciclevel. No evidence of focal consolidation, pneumothorax or large pleuraleffusion. Lungs are clear. Mediastinal structures are unremarkable. Noaggressive osseous lesions. IMPRESSION: No focal consolidation. Electronically signed in [id number] by: Ryan Ron M.D. 05/25/2020 8:14 EDT Name Value Range Interpretation Code Description Data Sophie rce(s) Supporting Document(s) ID Date Data Source [id number] 05/25/2020 07:55:00 AM EDT [facility] TSYSORDER [id number] Name Value Range Interpretation Code Description Data Sophie rce(s) Supporting Document(s) Adenovirus Not Detected Detected [facility] Coronavirus 229E Not Detected Detected Not [facility] Coronavirus HKU1 Not Detected Detected Not [facility] Coronavirus NL63 Not Detected Detected Not [facility] Coronavirus OC43 Not Detected Detected Not [facility] Sars Cov 2 Not Detected Detected [facility] Metapneumovirus Not Detected Detected Not [facility] Human Rhinovirus Not Detected Detected Not [facility] Influenza A Not Detected Detected Not [facility] Influenza B Not Detected Detected Not [facility] Parainfluenza Virus 1 Not Detected Detected Not [facility] Parainfluenza Virus 2 Not Detected Detected Not [facility] Parainfluenza Virus 3 Not Detected Detected Not [facility] Parainfluenza Virus 4 Not Detected Detected Not [facility] Respiratory Syncytial Virus Not Detected Detected Not [facility] Bordetella parapertus ([id number]) Not Detected Detected Not [facility] Bordetella pertussis (ptxP) Not Detected Detected Not [facility] Chlamydia pneumoniae Not Detected Detected Not [facility] Mycoplasma pneumoniae Not Detected Detected Not [facility] The Above results have been determined b y using the [facility] FilmArray system.FilmArray is an automated in vitro diagnostic system thatutilizes nested multiplex Polymerase Chain Reaction (PCR)and high-resolution melting analysis to detect and identifymultiple nucleic acid targets from clinical specimens. ID Date Data Source [id number] 05/25/2020 07:18:00 AM EDT [facility] TSYSORDER [id number] Name Value Range Interpretation Code Description Data Sophie rce(s) Supporting Document(s) URINE AMPHETAMINES NEGATIVE <1000 ng/mL [facility] pital THC,URINE NEGATIVE <50 ng/mL [facility] URINE BARBITURATES NEGATIVE <300 ng/mL [facility] ital PCP,URINE NEGATIVE <25 ng/mL [facility] COCAINE, URINE POSITIVE <300 ng/mL H [facility] URINE,OPIATES NEGATIVE <300 ng/mL [facility] URINE,TCA NEGATIVE <1000 ng/mL [facility] IF A NEGATIVE RESULT IS OBTAINED AND ING ESTION OF TRICYCLICANTIDEPRESSANTS IS SUSPECTED, A SERUM SAMPLE SHOULD BEOBTAINED AND TESTED USING AN APPROPRIATE METHOD. URINE BENZODIAZEPINES NEGATIVE <300 ng/mL [facility] ospital THESE TESTS ARE PERFORMED USING AN IMMU NOASSAY FOR THEQUALITATIVE DETERMINATION OF THE PRESENCE OF THE MAJORMETABOLITES OF DRUGS OF ABUSE. THESE TESTS ARE ONLY ASCREENING AND NOT CONFIRMATORY. CLINICAL CONSIDERATION ANDPROFESSIONAL JUDGMENT MUST BE APPLIED TO ANY DRUG OF ABUSETEST RESULT. ID Date Data Source [id number] 05/25/2020 09:22:00 AM EDT [facility] TSYSORDER [id number] Name Value Range Interpretation Code Description Data Sophie rce(s) Supporting Document(s) CREATINE PHOSPHOKINASE 610 U/L 39-308 [facility] ID Date Data Source [id number] 05/25/2020 06:16:00 AM EDT [facility] [id number] Name Value Range Interpretation Code Description Data Sophie rce(s) Supporting Document(s) TROPONIN I 0.109 ng/mL 0.0-0.056 *H [facility] ID Date Data Source [id number] 05/25/2020 06:16:00 AM EDT [facility] TSYSORDER [id number] Name Value Range Interpretation Code Description Data Sophie rce(s) Supporting Document(s) GLUCOSE 104 mg/dL 74-106 [facility] BLOOD UREA NITROGEN 24 mg/dL 7-18 H [facility] ital CREATININE 1.8 mg/dL 0.7-1.3 H [facility] SODIUM 138 mmol/L 136-145 [facility] POTASSIUM 3.6 mmol/L 3.5-5.1 [facility] CHLORIDE 99 mmol/L 98-107 [facility] CO2 33 mmol/L 21-32 H [facility] CALCIUM 9.7 mg/dL 8.5-10.1 [facility] ANION GAP 6.0 mmol/L 5-12 [facility] GLOMERULAR FILTRATION RATE 43 mL/min [facility] GFR IS CALCULATED IN mL/min/1.73m2 BRITTA L FUNCTION: >90MILDLY DECREASED: 60-89MILDY TO MODERATELY DECREASED: 45-59 MODERATELY TO SEVERELY DECREASED: 30-44SEVERELY DECREASED: 15-29RENAL FAILURE: <15 AST 39 U/L 15-37 H [facility] ALT 54 U/L 12-78 [facility] ALKALINE PHOSPHATASE 102 U/L 46-116 [facility] pital TOTAL BILIRUBIN 0.4 mg/dL 0.2-1.0 [facility] TOTAL PROTEIN 7.5 g/dl 6.4-8.2 [facility] ALBUMIN 4.0 gm/dL 3.4-5.0 [facility] ID Date Data Source [id number] 05/25/2020 05:40:00 AM T [facility] TSYSORDER [id number] Name Value Range Interpretation Code Description Data Sophie rce(s) Supporting Document(s) WHITE BLOOD COUNT 7.1 K/mm3 4.0-10.0 [facility] RED BLOOD COUNT 4.95 M/mm3 4.50-6.00 [facility] HEMOGLOBIN 14.3 gm/dL 14.0-18.0 [facility] HEMATOCRIT 41.4 % 42.0-54.0 L [facility] MEAN CELL VOLUME 83.6 fl 80-96 [facility] MEAN CORPUSCULAR HEMOGLOBIN 28.9 pg 27.0-31.0 [facility] MEAN CORPUSCULAR HGB CONC 34.5 g/dl 32.0-36.0 [facility] RED CELL DISTRIBUTION WIDTH 11.5 % 10.0-14.5 [facility] PLATELET COUNT 251 K/mm3 172-450 [facility] MEAN PLATELET VOLUME 9.4 fl 9.0-13.0 [facility] pital GRAN % 31.0 % 50-80.0 L [facility] IG% 0.0 % 0.0-0.2 [facility] LYMPH % 58.6 % 25.0-50.0 H [facility] MONO % 8.2 % 2.0-10.0 [facility] EOS % 2.1 % 0-5.0 [facility] BASO % 0.1 % 0.0-2.0 [facility] GRAN # 2.2 K/mm3 2.0-8.00 [facility] IG# 0.0 K/mm3 0.0-0.2 [facility] LYMPH # 4.2 K/mm3 1.0-5.0 [facility] MONO # 0.6 K/mm3 0.10-1.20 [facility] EOS # 0.2 K/mm3 0.0-0.5 [facility] BASO # 0.0 K/mm3 0.0-0.2 [facility] ID Date Data Source [id number] 05/25/2020 12:00:00 AM EDT [facility] Name Value Range Interpretation Code Description Data Sophie rce(s) Supporting Document(s) 2019 Novel Coronavirus RNA [facility] This lab was ordered by [facility] L aboratory and reported by [facility] Laboratory. ID Date Data Source [id number] 04/16/2020 11:33:55 PM EDT [facility] Name Value Range Interpretation Code Description Data Sophie rce(s) Supporting Document(s) Discharge Summary [facility] MEFVCz4qElSSQqMe68/TQJxyOWDyi2SwZHqlCUx4DWmiFTLcF6JzOWR4fS6gDHJ7PNoTAnYeDrAsCOT[facility] TgZkmBEyLbYZVwBgnEUkUjPCehQysaeWMpLR2SzZG6QMMpL87cXBCdRRCeM0QmFZRaNSR+Vh1NOJRsrT HgTV0MFuhT3D2Ja8l4Na1zan7JuIvq0VTghTefyE39XasWCdh9bO1KTAEcUMh4vAcFrv4M+T4kn8d93V eBBCnFk+TBQhFEo+7fsXGEew32PZ4Oo5Jcieryiuzm Ft2j8w3/G8G0nw65GZ8DS/KPpErxnZ7Opwgv4uy+ckBBL7yqVd4tPhgHs3RlEdKlgZdkPGy9FO0ipd/E +/Lb5BNqQvVum1QxR+I0fJkI3aTq1+Lyv+H4url2PMXj+x5vsL4IxfKgpSDulrrqMWci1P6jQxu3xpDM o730qmrvdNkpZ5zs+2IhaAtoGkJQDHUfMC1THOawTM 6v8q7W2FugQfIeuByXv+UKnsLLdvOb4PdL/Tra7OewYxLZ+v6qxUboYM1EarTVK0+CZYjlBwnhPPZnkY iBnxDPKhQjQ+g2EM6YtwoQm2nhvR9x1NbVR6bggeY2bG1dnDqrj6GwqAYSAHWO3jwPrbApb1/mUMmHzl HA8pUdLf0buZo848+QX0OzJ2HsrWpa8CIyzMk3bMJE 8AOwFoiSi6QadkmJQZriGeCjHm5z7/eD3y8/kWtQ64Y0fWgvOgrt1udpJgI5eSDgmXqQtpeU97Ik/[place] [file] r9KF2KYCGtBOAkUTQTLrQpMVOeLE6CHSItOdDyHLMB MiChQFDrCK9PYcKvALCzUIHCDxXfSZAyWM1OEkXtSlSiXVS+Ua4ZJKLkZD9SK1BkORQ2SHf9FP9+DQog JELuV6A4eKkPmEJ0JAF3YC2GSmIPLeXoAZd0G4E0kOLqF2C5nOdDnSS1TX3GEH2DKOYeHR0+YmIxH8FT SPsKVHE1YQ6ReFDpBF9BnBMKT3FbxCKzIh0vVFBbfV lwbHk+CeCbR3SDAAKBOTA1VV2RtDReIV9PhTPRA3SgnLMeJs5dXGqqInMgKH5sHE9+LY9GFXJCRzJUAf BvQHkrCZomDAAeTHs4I6L4DGUxK0JWH9Y8P2x5q1fuey0+CL9UGIWfMV0GPiTZCJfNGII3OW2RaCMlWQ 4PoIQPH5RxsPGrSg8mUXgvcAKvxx7+PG9HMXEsRGX+ Le6PCBB+Wz9ZYM4xb7EkRJyqUVYcQF7xym9ABNqnMOBvD5OiQJAqBWqbG9LmjMrjZA4VKOadKSlzUV9C SCPiAGY9DI7+SHvsxMRmZI7JZxs/nUDhK9dlzPBvSEowcf0f52g/GvMjKI4fQeWLOR3oA6ZbpLz1rsRM cp5TF8xdOkeiFg0+CFhjTDx6FygkeK9xiRJhyXs4pV W3vd5qNv4pVAdePWimkE1syqZ5yF5uGGBlKdS8udQ8eMM8UK5pRl3AXZFtQMwwPUN2LmSWTDqxbO3aMl NwIq6bfMM4cZzxW2q4zh61Zt8gwyvnJHz5BW9gVx8fHk8lMLPfp9zycES7UJ3kGyf+JEqwSUWuAJ3tXA L1SiBPAu1UEMB7A4m2kV1csDT4WW3OEhYaNBShFSLv ICAgICAgICAgICAgICAgICAgICAgICAgICAgICAgICAgICAgICAgICAgICAgICAgICAgICAgICAgICAg ICAgICAgICAgICAgICAgICAgICAgICAgICAgICAgICANCiAgICAgICAgICAgICAgICAgICAgICAgICAg ICAgICAgICAgICAgICAgICAgICAgICAgICAgICAgIC AgICAgICAgICAgICAgICAgICAgICAgICAgICAgICAgICAgICAgICAgICANCiAgICAgICAgICAgICAgIC AgICAgICAgICAgICAgICAgICAgICAgICAgICAgICAgICAgICAgICAgICAgICAgICAgICAgICAgICAgIC AgICAgICAgICAgICAgICAgICAgICAgICANCiAgICAg ICAgICAgICAgICAgICAgICAgICAgICAgICAgICAgICAgICAgICAgICAgICAgICAgICAgICAgICAgICAg ICAgICAgICAgICAgICAgICAgICAgICAgICAgICAgICAgICANCiAgICAgICAgICAgICAgICAgICAgICAg ICAgICAgICAgICAgICAgICAgICAgICAgICAgICAgIC AgICAgICAgICAgICAgICAgICAgICAgICAgICAgICAgICAgICAgICAgICAgICANCiAgICAgICAgICAgIC AgICAgICAgICAgICAgICAgICAgICAgICAgICAgICAgICAgICAgICAgICAgICAgICAgICAgICAgICAgIC AgICAgICAgICAgICAgICAgICAgICAgICAgICANCiAg ICAgICAgICAgICAgICAgICAgICAgICAgICAgICAgICAgICAgICAgICAgICAgICAgICAgICAgICAgICAg ICAgICAgICAgICAgICAgICAgICAgICAgICAgICAgICAgICAgICANCiAgICAgICAgICAgICAgICAgICAg ICAgICAgICAgICAgICAgICAgICAgICAgICAgICAgIC AgICAgICAgICAgICAgICAgICAgICAgICAgICAgICAgICAgICAgICAgICAgICAgICANCiAgICAgICAgIC AgICAgICAgICAgICAgICAgICAgICAgICAgICAgICAgICAgICAgICAgICAgICAgICAgICAgICAgICAgIC AgICAgICAgICAgICAgICAgICAgICAgICAgICAgICAN CiAgICAgICAgICAgICAgICAgICAgICAgICAgICAgICAgICAgICAgICAgICAgICAgICAgICAgICAgICAg ICAgICAgICAgICAgICAgICAgICAgICAgICAgICAgICAgICAgICAgICANCjw/oTJjM2nfbCBgiuP3O8bg Cg4NHh5QMH0xa2CuEJXjHRrukoRuGhjOIdYiTSXxMb pTIir0NHgyLR0CsMSiO1QrQ7CkQTqsKE0YQRPiXDYthIMcVBEjOHOlLfF2DBTmMSqaQX0RiTEtLSelWQ QqJFQpKbOnDFYqZUYnGUOcNWQhXMBRBF9KAwEeQ3MwcV08ERNUTj0+PZwzbkSmKdbPVvV5GIFfw8CwJX d2BT3CLBOmHzypg7LhMminQCEWWYhdUX1HBEF6BLX3 XQAwAc8IRIGkP739mrGySK1POu2BYgBoZJ0rmq4VPtcfRGTbXlxDScp6RBjyLP1ZuVMbGKlBpWVotHUa O1LuC0ZdeCWasLWnjFNVv93xG6QrUaIJIIPphGwbSIMeFKBaGL8rBM7sHWMmIOZtMmNnXLZAAZ0NHNWc EFHzfQEpOKCzHYPGMK7KVOwlOGP9LWZopaGljQKmSM cmPV8UNQAtwgSgLmYtZUTFIIg+Cn6CDW6ls7EdFNthJMJiLV2csu1GGHqYYgHtK2H8uAGmE1M5WSzfSk 4GSSBnXZXwXaYsPXBKEZaiMP6KEQ2viiN4HO8DtJDjJESoBTWkpSXdMVp4V07qjPGfRQsnFW5DQCG+Pi A+Kc6RQTSzQMIhBXMfOeVyUMAITrMeZ6SbG4FVs6Eb R3ImER75jWmrbtBiIDbjPT1URI1tDDRtTFHTHZ4JwEAsjE5foiNyIaDgHVIREgSiJ14vyHJyLZPuHDO7 HUTnGf8QGUMsP9DywuVvwNxfykWmFURqHQEGUR9XOUdzvwErnZTimFxfPO13dOadSS1RDl6QNfJfKF0m qs0BgMCwQi1LLKYrHB9NJQJeSUUaDEEtTHJ1NACrVy ChRDhwWRSaZQFtICH6OTCsRGBbEG5PUtSsEIScEiGvHQBzSHXpJTIfjz8WTGRbFSPsFHk1LEHfMLBzQQ NcOAblCKWpMQQeRVE9DAEaIBKzDD7GPuXrUJGyRFNpFZOyYCRjEWBmww8THGIbHYJbSLO9PdYiLWKdHB WuSTbpQREbGHP8WXv4GJGcDSWjVZ6QPaJtRBHpWYkr PVnfMZZyWSNjlu9NIMLeNGIjTFx2FVFyZUCcSHFuKRslJEBfACTjSQWeGBXmKEBuBQ2DFmQcUZYbGUY7 IBLrMRToLPLbru0WLFNuUQQoCEd6NwYnOBKuTPXjBRtgLGTfIUO8UxP2XIClBKKpHE6HAbYjGRIzVYD1 OGQnREEbKBJhpp3HDILsHMUgKdDiGyMbGPXiAIXgFV mqPZYfTVV8YHx2ZNEaIYZtDH8DBlRhHTAcNGibEBiuSUNqHDIfho9RAEJpIOJvTkG8IuTkGYDeRSUzYC dyKPJoOVQ6VOM1EHHtQJWaNO4RDpWoAKEyZCv7LLExCZRxHMLhgr3IAPUqNKQyMWbcEoZwQQGwGRGwMZ epWDXrTTN3Hfk5DRLlMFTcGZ9CCpFbUDXdDQa9VSQt IEJmDASehv9BIPLqJYGfMOC0FSOcHNLkIZRbVYxtGZVtETLhYmBnYOAtYNUtIA3QJfTdIWUmAgZaWkvf BZVmZLEvaz8IZWErOQUtBfE3RIZsXCPjODSdWWncYRIxLVDnTwVsFUWqDZKgPP6OUlAoLKkiSFDWEqz3 TBonI5o7JEKpHU8ZD6Zis5KjIutfKVURSJjhIS0kcd AbJWHfMp8KD6gLZnxfZpMxFuyzOPdxQLZsGXD8FrDdW9F2JWCqRLezZBJ6Ox3nKZR1OoY7BYAhK6L7ZG Q3MRWyOJZxWfenRMY9ROXeGbs1OrNiPC9BMh0LQrX0HCX6ySFyWh0ERtH7RKXPRcNlQR8DGUu= ID Date Data Source [id number] 04/14/2020 12:45:37 PM EDT [facility] Name Value Range Interpretation Code Description Data Sophie rce(s) Supporting Document(s) Consultation [facility] BCHLQm1lMlKPJdQc47/XTEokCCUks6KiJUfhXPz7CQcxCZJxW5SvWTV8hD3uJDT2LOfBTyWtXjHjLHF4 lbm [file] IdNxZOQyJjVvGA9zFKQZPr0+KPyxbHWcuCizLKZSHkmkTDSZKmQyJC6GLMa= ID Date Data Source [id number] 04/14/2020 04:16:07 AM [facility] Value Range Interpretation Code Description Data Sophie rce(s) Supporting Document(s) Cholesterol [Mass/volume] in Serum or Plasma 154 mg/dL <200 [facility] Triglyceride [Mass/volume] in Serum or Plasma 87 mg/dL <150 [facility] Cholesterol in HDL [Mass/volume] in Serum or Plasma 62 mg/dL >40 [facility] Cholesterol in LDL [Mass/volume] in Serum or Plasma by calcu lation 74 mg/dL <100 [facility] Cholesterol in VLDL [Mass/volume] in Serum or Plasma by calc ulation 17 mg/dl 16-42 [facility] Cholesterol non HDL [Mass/volume] in Serum or Plasma 92 mg/dL <130 [facility] ID Date Data Source [id number] 04/14/2020 04:16:07 AM [facility] Value Range Interpretation Code Description Data Sophie rce(s) Supporting Document(s) Magnesium [Mass/volume] in Serum or Plasma 2.3 mg/dL 1.6-2.6 [facility] ID Date Data Source [id number] 04/14/2020 04:16:07 AM [facility] Value Range Interpretation Code Description Data Sophie rce(s) Supporting Document(s) Phosphate [Mass/volume] in Serum or Plasma 3.2 mg/dL 2.5-4.5 [facility] ID Date Data Source [id number] 04/14/2020 08:02:49 AM [facility] Value Range Interpretation Code Description Data Sophie rce(s) Supporting Document(s) Bicarbonate [Moles/volume] in Serum 22 mmol/L 22-29 [facility] Chloride [Moles/volume] in Serum or Plasma 98 mmol/L 98-107 [facility] Creatinine [Mass/volume] in Serum or Plasma 1.65 mg/dL 0.70-1.20 H [facility] Glucose [Mass/volume] in Serum or Plasma 101 mg/dL 70-140 [facility] Potassium [Moles/volume] in Serum or Plasma 3.7 mmol/L 3.4-5.1 [facility] Sodium [Moles/volume] in Serum or Plasma 135 mmol/L 136-145 L [facility] Urea nitrogen [Mass/volume] in Serum or Plasma 15 mg/dL 6-20 [facility] Anion gap 3 in Serum or Plasma 15 mmol/L 8-15 [facility] Osmolality of Serum or Plasma by calculation 281 mosm/kg 275-300 [facility] Creatinine/Urea nitrogen [Mass Ratio] in Serum or Plasma 9 [facility] Calcium [Mass/volume] in Serum or Plasma 8.7 mg/dL 8.6-10.0 [facility] Glomerular filtration rate/1.73 sq M pre dicted among non-blacks [Volume Rate/Area] in Serum or Plasma by Creatinine-based formula (MDRD) 52 mL/min/1.73m2 >60 L [facility] Glomerular filtration rate/1.73 sq M pre dicted among blacks [Volume Rate/Area] in Serum or Plasma by Creatinine-based formula (MDRD) 61 mL/min/1.73m2 >60 [facility] ID Date Data Source [id number] 04/14/2020 04:05:47 AM [facility] Name Value Range Interpretation Code Description Data Sophie rce(s) Supporting Document(s) Hemoglobin A1c/Hemoglobin.total in Blood by HPLC 5.7 % 4.0-6.0 [facility] (NOTE)<5.7% Average risk of diabetes (ADA)5.7-6.4% Increased risk of diabetes(ADA)>/= 6.5% Diagnostic for diabetes(ADA) Glucose mean value [Mass/volume] in Blood Estimated fr om glycated hemoglobin 117 mg/dL <126 [facility] ID Date Data Source [id number] 04/13/2020 05:19:00 PM [facility] Name Value Range Interpretation Code Description Data Sophie rce(s) Supporting Document(s) History and Physical [facility] DZXBKj4rFlJICaYh24/RGSjaVWPft0VkOGiaJMt2VJhhGUVvW5ErBHY8lK6lKNY4PLlOJgZqDjQaWXG6 lbm [file] ICAgICAgICAgICAgICAgICAgICAgICAgICAgICAgIC AgICAgICAgICAgICAgICAgICAgICAgICAgICANCiAgICAgICAgICAgICAgICAgICAgICAgICAgICAgIC AgICAgICAgICAgICAgICAgICAgICAgICAgICAgICAgICAgICAgICAgICAgICAgICAgICAgICAgICAgIC AgICAgICAgICANCiAgICAgICAgICAgICAgICAgICAg ICAgICAgICAgICAgICAgICAgICAgICAgICAgICAgICAgICAgICAgICAgICAgICAgICAgICAgICAgICAg ICAgICAgICAgICAgICAgICAgICANCiAgICAgICAgICAgICAgICAgICAgICAgICAgICAgICAgICAgICAg ICAgICAgICAgICAgICAgICAgICAgICAgICAgICAgIC AgICAgICAgICAgICAgICAgICAgICAgICAgICAgICANCiAgICAgICAgICAgICAgICAgICAgICAgICAgIC AgICAgICAgICAgICAgICAgICAgICAgICAgICAgICAgICAgICAgICAgICAgICAgICAgICAgICAgICAgIC AgICAgICAgICAgICANCiAgICAgICAgICAgICAgICAg ICAgICAgICAgICAgICAgICAgICAgICAgICAgICAgICAgICAgICAgICAgICAgICAgICAgICAgICAgICAg ICAgICAgICAgICAgICAgICAgICAgICANCiAgICAgICAgICAgICAgICAgICAgICAgICAgICAgICAgICAg ICAgICAgICAgICAgICAgICAgICAgICAgICAgICAgIC AgICAgICAgICAgICAgICAgICAgICAgICAgICAgICAgICANCiAgICAgICAgICAgICAgICAgICAgICAgIC AgICAgICAgICAgICAgICAgICAgICAgICAgICAgICAgICAgICAgICAgICAgICAgICAgICAgICAgICAgIC AgICAgICAgICAgICAgICANCiAgICAgICAgICAgICAg ICAgICAgICAgICAgICAgICAgICAgICAgICAgICAgICAgICAgICAgICAgICAgICAgICAgICAgICAgICAg ICAgICAgICAgICAgICAgICAgICAgICAgICANCiAgICAgICAgICAgICAgICAgICAgICAgICAgICAgICAg ICAgICAgICAgICAgICAgICAgICAgICAgICAgICAgIC AgICAgICAgICAgICAgICAgICAgICAgICAgICAgICAgICAgICANCjw/eRNpH0jwwGZaviN1N6zyEc4MBx 1IYE3zu0XyIHMuATvviqAzTshJAvPzGJClJsrBTht5GJnaLE8GrJIrE8LxH7IfWGmfRJ7DFFDmGUBikU XqEVYlNKZuMzS0OMSuNGpfRX2EuCEyLYsmSILvYMVf KzYnZPXvEFZoWOXsWMFbFEHQOUWtBBKkKtLvFEknCT7Vc6OqwPK3QYn+Vl9WAL7lj3KjHNgyDzUoXB5l zr7DPXbBVeDdJ0YycdI0KGI6LYEnUa7KRZKpFJXfdGOqDjQyGUNHEeJsJ6SaaP80IDZZNf6+DQplbmRv AeoLAbK6PWFnm7BiCRo1HP0NGHUzUGv4mPCeRBNETV A5XMXwewbgfbciF0EjBUZxaaxcAIMTYhUqwGZ7OxF7NdUqNfGkUDB7UUdrMB3eTTpxTY9JUWW7NZmyBF JqQMIbW8jYJfVaYMWwWfWdiNceNT5UKxYcV6XiziHorYRtFuOiCEVXEc6+XBkyrpUlZlqMEyK5XTSud4 LiEGi6HY6IAAIhZTvxWN5HEFWucW8xCAnxZE9IIkXs MRDeNLEXRjHgT02jrHXdXKj4L3BeRcZbUANeZbcoWMHkFYhoLwRpKFRwTxIiVYrfAY8+ID4+GVqnYX8A NZwndyCgYRPoOs8XEWDeCMLnCL0zHUEgGFNzK1A2wPieWPPBStKsK6vzrhagKT9gQRIrH225gZlnbzAf CZU3CYJeFh6AXYXjUBF9QQQykWNxEyQeDYQBZEejCM 3RmQQzKRQ7xI5rJChxTCOaJPKnF8fZWpFylLpiBH16wJnwufKvuPOvNQy+Tw7UEM8cx5JrMZx5hhNqXC ynJNG8IXrcJHVpEQOtPSCbNYY5JTH1UKHEPeXnRTIjCMOdQTymLMOhBVMagl0OOPElKXDxLls2SaQkIF NyROSxWVvkBAXzPHU1ZrOzERTdJGAhFZ4KMmQxJGMw LRHfNVvxIPQjUYSotk6ERNEfTOSgPGW4ZNZjWMIwZAXzXKfyCVFoUGV6Whu7YMAbYVAmNJ8VLaJnMDFg ORd4JAegLZFmNTBibb2MERWuJYBvVRR3GhFlUACrRYRaBOgzYWJgAXBpVVa5KCIaWTVvVW1QWuPjQDUo LCNtOFhkDMZjVVClvv6JVUTzODSbCVD1AQEoODPjTY KcDUfsICRyQMJ7Nmv4WFZyXCUcAO0GUkOcUPEbINu1XsNjBRLlLEWvba5VWVYbPTUuZxc3RRQbDAVsBR WoTKnpMRGcDDJ3AYF3EUBkOYRwJP8YVnXcNWZeSYvjJsQlRNIvJWDyqj9KABGhQQVqCXPnOIHoXNFyPA GpYZjfNFFiKAJmFxS7UZHiXZQbSD5TLcWtESNwNxH1 BiAmBIPvYFUrqf0OAFNxGYPgNZM0WPFvPWUxDGQgDErqPJTfXFAxMaM0ICSxTAJjMT0LBaUvTWAfLcL2 ACOdSESoPTStkt3BYMVgMRFiKTy1RBGiFWLfOHFnMDhsJDAlCBYzSnmuKAGfRENePS4TAbTbROAkXaE6 OZYkXEKaAGUfqh1PLDTvGHZwAfxrCPUiDYDnZNDsWB rrUXUeAKB8GWK6IBBsJZZcKV8RUnXiCGDmRhNeEBGnTOXaVGWadx7VNGMqNYJcVARqXLScDEFpQSAjYK olGAPePLJ6WND0EXTsAJVgKQ7PItBuKDSqWtF2OBZkSOClJYIpjr9YMRPvHTVdEmY5OVNlOPHiGANtKL tsODIbXXO2HqWwNEZuNHSzTA0DSmRlYZRyByQ3KfFi VEBcASCarz1GJLZhFWYuWyE1VcDnGIPpDUIaFLkbACDwEMB3TWP1MECyIPHiYE3DMxThCBWmOjl8JKfk GTFeEQJpte6UZKMmKNUbQSS1EUAhDMThLIIgFJv1jwQosQUdSAv4UP0CA6TfjnDdSbjUKf5Pz662ZYR6 VXRwVy6PO8inHf8dYTBfHRPSUn0GUFh5HsJnOfykXm VhOTljYzlhNzcwNjYzNzgwOTVkMDFkNzk+QYc8CfDdINSkKGJ0HWBcFRP9RwY2WjA5GOK3ORGxCXV5UV 6pHXJVVh2+EVkwaTNlbYcjFXVENoD3BitcVUzeTDBFEs1H ID Date Data Source [id number] 04/13/2020 03:41:[address] [facility] CONTRAST [id number] RESU LTInterpreted by:Penelope Ruth MBBSEXAMINATION: CT head without contrastCLINICAL INDICATION: Evaluate for bleed .TECHNIQUE: Contiguous axial CT images of the head were acquired from the base of the skull to the vertex without intravenous contrast administration and submitted for interpretation. Automated dose lowering techniques and/or adjustment according to patient size were utilized for this examination.COMPARISON: None at our institution at the time of this dictation.FINDINGS: The brain parenchyma is normal in attenuation. There is no a cute intracranial hemorrhage or evidence of acute territorial infarction. No shift of the midline structures or extra-axial abnormalities are shown. The ventricles and sulci are normal in size and configuration. The basal cisterns are patent. Slightly prominent retrocerebellar CSF space is seen. Minimal mucosal thickening is seen in ethmoidal air cells. Imaged portions of the remaining paranasal sinuses and mastoid air cells are clear. There are no intraocular or extraocular masses shown. Bony calvarium is intact.IMPRESSION: No acute intracranial abnormality seen.Mildly prominent retrocerebellar CSF space could a small arachnoid cyst, less likely pankaj cisterna magna.This document has been electronically signed by JACKI Ruth on 04/13/2020 3:39 PM Name Value Range Interpretation Code Description Data Sophie rce(s) Supporting Document(s) ID Date Data Source [id number] 04/13/2020 11:24:32 AM [facility] Name Value Range Interpretation Code Description Data Sophie rce(s) Supporting Document(s) [facility] MDNGVc0dHkMRJwCiu3OlUfHbADHzVF3kgfp9W3I5ySAiV1LfxYJci1nwX9XcG3NiAAQhSEKVCC8VhDNf jb2 [file] gpPUSO5TRLG4IXTD4AMCUSGCVWggK7rNRrcjKN5DWgHqKUVQXLhyBFCxEZkP9AQqZfUJcBQAVArQUANL EkF0bEwH5aRURLMvivYPrJKrYe2PQ+JE0A8c+36Zye9NFk/LUyASRILIJIJ+7WsxwS221+kZm7pQLBxq cODsovnx2qhyxL311+iFj21Sg1UhKuLEhCib5nwBVb XXKvB8XUu0VUo7MHr9MRj7BZq3KXt5QTe8XZd7KXt1KHsbjYKYerqBIGrrFykVwP4L4V+U/MFYB0QwMF fEjrBokYmUeCTnW2WLeCyNFABuWG8IcCk00LZixtjNZ295bwMElEfWFq2VvMq13OU4sbZmsSYLAp8dBN qadKZC4qZarBsDQ1wphvPTFPrpSAFZaCEBLMy4gz12 6oWa8iHl1vKs0sOj1cKm9pXo6bVr3oDdw14wLz0GyxqLrx+dnftYnPtYnN+dnd+dnd+dnd+dnd+dnd+d VMp80Bcs1caQojmTkjmEhgmHteuMnhjJmrca9xceTs1OvmYrVrtAkaNmv0P7lzz823W1hFblYWQsNyCX 6YRYhkZ8oCxJwZyOWdRWfOqbzXR+egKaPp4GKK+Zj6 WEqMzHkpErNPOxlPaU+TiY9295MMZJTe1B1ykrT8azu5yMbRQpuKeUxkUaWjaLGwCgkYUm+TeJhZ20MW bAsQPGcrJF3O+UN6b3NvajGGqz19fSUn/k5iW7IM7/cddn+Dn2vnqPHWX/02AOKj7IOoHxN7xaqU+lvi 4cKdMjEow9WKjoQ+BqoC6GrP5od6d4xhM4NgUXSk0B 0090+leY640U095MuWnUb3HjKwNkx3OFEgzHyCoTCeCRwEFRpVLlZVzMPDTXCOQLQI6rNr/LKRARIkJE tNWiB6grHh260ghPD0t80lFiU7vv3xju4AHxZQzll15J3E6tYw12c858bal3FffjmG//3iipnu8qo//2 6f98e//rku2LML3NmQGldr55269+9vbNj//847sP+N WKb3p+2iTQN2ldOT1PT/rG5cZd5uInT//23W9+oeShrvv5KnPE8ew71nfJs//13XowT40/v3m0s39/ff v+q6+/zBmO233gbh96+48/fP3pNz+QT294eT948osKS007//bx/aePX7//2sdpqtMT67T3P/uMbt6qKy MdrCt9/eHHH94+/hr6e3235oi/uMy0ouH2X0H53lt/ 6hp3nQy/+bbyiues33287/7tm/f/1Bsx5rq4Ejs9/sM37z7+4b929m18+ht/larhxx8+/e6i3039++eP b9+/+/Tp/ccPb19/hIo7cs5//vKX73/33Cmkp3/4e90vt49p9iPDM/21Qdhju463+OrHLz99/d2Ht6/e f/PuNz89/YrodZ9+3RD/d5zNxw29//13L9PX/9u7dc J3v/vv6dap418oUbiztSD0UELcn7t++Swny4udnxd+/Zdf/4ZBX086Kkzp3+/x/6/f//BT429+dt/9D1 9/9u7g9epcBe52MCjgx6fy7bfNT7n6o/d/k/oVwPb+yT712/svf/z0emT3ERiH/uVX7z+8rvzt9+8+vv 8qK/76w9t3//G2vorJRu9W/sLiZ3/jNPfI+0kv+dW7 B782ylt44cfG6679/+Jdp767tBBC0j/9y/7tu//1/bhjgw5eQ7dB6+Vf/vzvf/jrn37/b2///X++/frr g70T4zA0w94+9gynGr55++rdh6/ff/P2r/9N4l///u1jd36as1Auk1xcaPnkaC3mWcecw/+ls8u+VfU/ /ekf/4PXniEHlusF/+eRnK6QVF2b7gwN/wtwvY4+4P pP4z2F4PCq1Nbnl/mS54hdc2NoIl4+7MKkKO4Ro9563P36B3Nrjg0Ie//33//1r4uxL+6x/4v3Hz+9/f QyREc7Eeh06H+H51/c/ynyDgggj76eTz4w2XtdMyRRYGEHowesRohQxg45H//jU7f50bl/+osMhx0qXL 4mFqL9pk+qpNy8XM+u8tOzb/D7j29/+PN//v6v//dv //g3Tr8Z/ho9bl8WS/6Ne9/YP3/84e3f/sfr3v/wlz//5UPosw4NAu+neLB//vSP//cvl8hkrMgyrot/ Pcily23sE7stpW/r36Wb7Z08GqYjH1GEf2/e1sa+//kQa984++3/8/v/+K+Z13k4w27+4btf//yOPvMa gK9n9P/867/+/U9+vRvi29/+8bMGnp+hv/jjb3/3f/ 9ve8tdRY/480//+4yWa/7xv//X/v16zgcHO/26glgCmiTkH7c2/eYvv/jUVuWa9BNmeyi/8On3v/s//v yH3/3ht3/+4vLbh3m00a8Y//LZcz5/v7Kq5O//6b4g2a8mqedqi3uK0NdbO0f7cZQlafv8alk71YYknx sL+f//yf3OqW+jHl/f//Z///2dhX6y58/kMy/hdl6e SeIj9p0i5rb37++/+hXVBv8i+u2J16fEm0pSI6vZl8IR913YI10650iOm7/u/FplNhEn7X2kc4xr0Vuq ncDpmNHkUK1HRD5vi5YjFlH6WLDnk9HaEDoqMPw3oAGyHGvxgaIzb6GlmkbvB1Kfb9MwWzIiFJHuXtUz Qlf6DDYfYnX7oEHgMuSxEHHoR4FkSPKsUbX9ShSgTD JKFT2PNWJjeeUwMyNgYIN+GhOrKS1pgcupIZNyy7HbVZnoWRxcAVUxJ9W2qLdkTVSbD3FsxS69VAScP5 LpntE2VYI4JJItSeTnLPAqrHRzIJHeBEK+KrRfML2vnpeuFCEcs5MsAUjbOUW7sW4dKFxJWPURXHoPEL mxWpX7e97dslXHDKMaCUSlFD9PabBblUukysTtzTTc ALU8TeOhISW1PHjnNVM2TUCAEWOmXGGmQKEaTAEtV1SmkVwtLPoHTRLAHHyLLYvxSaLfc9G7QITsjfAA YSmMGCzkIYYCLNNUNOK9EyG1OJWdHN3DbXMdBLH0DIkMSXALCSvWVBnzGkZww3J2XUAyD8YrCLDzwgEx PUEGIEjkDrcfWO0bgQqfwcykF4RwbXMjRPHBXYZnPI JxRLJcTVCrG4Req3M6P9AyEVzYLWIWMPjSKBgvKpB4h58navGMZLKxWCBmIC8+TA2go3SsIu0ZVUPmGB 3rsnk9LN3BqDGxCZ9TQWbguhDrF6xxwyKcFsZkKKTRGY4cI4KbeP90JUU+TzBpMR6yqff5fuJpWvZmPL KjOQBvRXDzCUwzCODqIDGvLEHoGEK3KMC1YEQjWcQa MLGhPmL6IWJeZYQbPMMvvsNMGXHqPEB1IXXiZBWcFYRjKSVzFZabLVZhHXO3QsooUZVtXXPdZZ5kWxVz YRPwVGZhXHBdGaJ2WyJlRqPPPTYjPLYaRXLfJhAzXWGlVOOyIVmlPTGfOFGeIAw6QWMvIZZgFE8dEhEp OPGrJPXxPGXgIGBaJCYioiLBPZDjLOJyMDD0CYIcAJ WeNUHvERgkNGMiFRKfNCI6FFNlXOXpHG6bJdRsPFWoDLM0BeJbRHQdFIOggsJTRMElEIRsJJX1KYSrYY ZgQHSlJLzxAYQsCOJpLjN8KOFkILYqSC4mOhDuQHFuXNF9TKMfDAUjIVYzoxUSQNFtOGKiBPb0WyQfYM PxBXGkXBkrNQEhDZTpDDoyMXIeSSVdJW3rCpJvZDWt HGSyJCObUTHtFEHrdaHTEDYtDNKdHPN2NsRkZVYsGECzWMvbFAYsOTLmINF0DYGfYVExRN4mYeTyLSYk SuXcQsTdFOFmUIGdmdCPWLJbSUSeFAKyHFIfAGLaKILtJYxgHHOdLZCsXhJ9RHUuWVOgMT3aYeTvAJGe YNF3MSXbFPVgTELxeoDUVQUaOROhNMTnNPK7ZVMcYC DhICe0tkJvhKEgQzc2Er9FnBroDRC2Em8LchXySDRoFIBCGg9Io025LIMzBZQRSms+PgpzdGFydHhyZW YJJfY7TAMSOTRFF8C= ID Date Data Source [id number] 04/13/2020 06:54:21 AM EDT [facility] Name Value Range Interpretation Code Description Data Sophie rce(s) Supporting Document(s) Troponin T.cardiac [Mass/volume] in Serum or Plasma <0.01 [facility] ID Date Data Source [id number] 04/13/2020 07:03:10 AM [facility] Name Value Range Interpretation Code Description Data Sophie rce(s) Supporting Document(s) Bicarbonate [Moles/volume] in Serum 25 mmol/L 22-29 [facility] Chloride [Moles/volume] in Serum or Plasma 102 mmol/L 98-107 [facility] Creatinine [Mass/volume] in Serum or Plasma 1.57 mg/dL 0.70-1.20 H [facility] Glucose [Mass/volume] in Serum or Plasma 105 mg/dL 70-140 [facility] Potassium [Moles/volume] in Serum or Plasma 3.4 mmol/L 3.4-5.1 [facility] Sodium [Moles/volume] in Serum or Plasma 139 mmol/L 136-145 [facility] Urea nitrogen [Mass/volume] in Serum or Plasma 16 mg/dL 6-20 [facility] Anion gap 3 in Serum or Plasma 13 mmol/L 8-15 [facility] Osmolality of Serum or Plasma by calculation 289 mosm/kg 275-300 [facility] Creatinine/Urea nitrogen [Mass Ratio] in Serum or Plasma 10 [facility] Calcium [Mass/volume] in Serum or Plasma 8.8 mg/dL 8.6-10.0 [facility] Glomerular filtration rate/1.73 sq M pre dicted among non-blacks [Volume Rate/Area] in Serum or Plasma by Creatinine-based formula (MDRD) 56 mL/min/1.73m2 >60 L [facility] Glomerular filtration rate/1.73 sq M pre dicted among blacks [Volume Rate/Area] in Serum or Plasma by Creatinine-based formula (MDRD) 64 mL/min/1.73m2 >60 [facility] ID Date Data Source [id number] 04/13/2020 08:37:14 AM [facility] Name Value Range Interpretation Code Description Data Sophie rce(s) Supporting Document(s) Magnesium [Mass/volume] in Serum or Plasma 2.4 mg/dL 1.6-2.6 [facility] ID Date Data Source [id number] 04/13/2020 08:37:14 AM [facility] Value Range Interpretation Code Description Data Sophie rce(s) Supporting Document(s) Phosphate [Mass/volume] in Serum or Plasma 2.5 mg/dL 2.5-4.5 [facility] ID Date Data Source [id number] 04/13/2020 04:53:09 AM [facility] Value Range Interpretation Code Description Data Sophie rce(s) Supporting Document(s) Leukocytes [#/volume] in Blood by Automated count 9.7 10*3/uL 4-10 [facility] Erythrocytes [#/volume] in Blood by Automated count 4.77 10*6/uL 4.6- 6.1 [facility] Hemoglobin [Mass/volume] in Blood 14.6 g/dL 13.5-18 [facility] Hematocrit [Volume Fraction] of Blood by Automated count 41.7 % 4 1-53 [facility] Erythrocyte mean corpuscular volume [Entitic volume] by Auto mated count 87.4 fL 80-96 [facility] Erythrocyte mean corpuscular hemoglobin [Entitic mass] by Automated count 30.5 pg 27-33 [facility] Erythrocyte mean corpuscular hemoglobin concentration [Mass/volume] by Automated count 34.9 g/[facility] 32.0-[facility] width [Ratio] by Automated count 13.0 % 11.5-14.5 [facility] Platelets [#/volume] in Blood by Automated count 220 10*3/uL 150-400 [facility] ID Date Data Source [id number] 04/13/2020 05:01:14 AM [facility] Value Range Interpretation Code Description Data Sophie rce(s) Supporting Document(s) Prothrombin time (PT) 12.9 s 12.5-14.9 [facility] INR in Platelet poor plasma by Coagulation assay 0.97 [facility] Routine intensity oral anticoagulation I NR is typically 2.0-3.0. Target INR must be clinically individualized. ID Date Data Source [id number] 04/13/2020 05:06:38 AM EDT [facility] Name Value Range Interpretation Code Description Data Sophie rce(s) Supporting Document(s) Heparin unfractionated [Units/volume] in Platelet poor plasma by Chromogenic method 0.38 U/ml [facility] ID Date Data Source [id number] 04/13/2020 01:53:00 AM EDT [facility] Patient: CLINT ESTRELLA [facility].VisitID: [id number] [place] [address] [phone], MRegistration Date/Time: 04/12/2020 11:16 Weight:95.2 kg (S). Height/Length:73 inches (S). BMI:27.7 FAMILY HISTORYNo significant family medical history. (Electronically signed by Fernandez Gore PA 04/13/2020 01:49) Name Value Range Interpretation Code Description Data Sophie rce(s) Supporting Document(s) ID Date Data Source [id number] 04/13/2020 12:56:32 AM EDT [facility] Name Value Range Interpretation Code Description Data Sophie rce(s) Supporting Document(s) Troponin T.cardiac [Mass/volume] in Serum or Plasma <0.01 [facility] ID Date Data Source [id number] 04/12/2020 10:11:36 PM EDT [facility] XR CHEST FRONTAL ONLY [id number] RESULTI nterpreted by:Nannette Quick, MDPROCEDURE INFORMATION: Exam: XR Chest, 1 View Exam date and time: 04/12/2020 8:52 PM Age: 34 years old Clinical indication: Other: Evaluate for pneumonia TECHNIQUE: Imaging protocol: XR of the chest Views: 1 view. COMPARISON: CR Chest 04/12/2020 11:43 AM FINDINGS: Tubes, catheters and devices: Pacemaker is present, with right atrial and right ventricular leads. Lungs: Lungs are diffusely hypoexpanded. No evidence of pulmonary edema. No focal consolidation or parenchymal lung mass. Pleural space: No pleural effusion. No pneumothorax. Heart/Mediastinum: Heart and mediastinal contours are normal, given the degree of inflation. Bones/joints: Osseous structures show no concerning abnormality. Soft tissues: No asymmetry of the extrathoracic soft tissues. Other findings: Spinal stimulator device is present. IMPRESSION: No acute or concerning focal thoracic abnormalityTHIS DOCUMENT HAS BEEN ELECTRONICALLY SIGNED BY NANNETTE QUICK MDThis document has been electronically signed by Nannette Quick MD on 04/12/2020 10:11 PM Name Value Range Interpretation Code Description Data Sophie rce(s) Supporting Document(s) ID Date Data Source [id number] 04/12/2020 07:29:41 PM [facility] Name Value Range Interpretation Code Description Data Sophie rce(s) Supporting Document(s) Leukocytes [#/volume] in Blood by Automated count 7.2 10*3/uL 4-10 [facility] Erythrocytes [#/volume] in Blood by Automated count 4.71 10*6/uL 4.6- 6.1 [facility] Hemoglobin [Mass/volume] in Blood 14.1 g/dL 13.5-18 [facility] Hematocrit [Volume Fraction] of Blood by Automated count 41.0 % 4 1-53 [facility] Erythrocyte mean corpuscular volume [Entitic volume] by Auto mated count 87.2 fL 80-96 [facility] Erythrocyte mean corpuscular hemoglobin [Entitic mass] by Automated count 30.0 pg 27-33 [facility] Erythrocyte mean corpuscular hemoglobin concentration [Mass/volume] by Automated count 34.4 g/dL 32.0-[facility] width [Ratio] by Automated count 12.8 % 11.5-14.5 [facility] Platelets [#/volume] in Blood by Automated count 200 10*3/uL 150-400 [facility] Differential cell count method - Blood [facility] Neutrophils/100 leukocytes in Blood by Automated count 52 % [facility] Lymphocytes/100 leukocytes in Blood by Automated count 37 % [facility] Monocytes/100 leukocytes in Blood by Automated count 9 % [facility] Eosinophils/100 leukocytes in Blood by Automated count 1 % [facility] Basophils/100 leukocytes in Blood by Automated count 1 % [facility] Neutrophils [#/volume] in Blood by Automated count 3.73 10*3/uL 1.8-7 .0 [facility] Lymphocytes [#/volume] in Blood by Automated count 2.67 10*3/uL 1.2-4 .0 [facility] Monocytes [#/volume] in Blood by Automated count 0.67 10*3/uL 0-0.8 [facility] Eosinophils [#/volume] in Blood by Automated count 0.09 10*3/uL 0-0.5 [facility] Basophils [#/volume] in Blood by Automated count 0.07 10*3/uL 0-0.2 [facility] Nucleated erythrocytes/100 leukocytes [Ratio] in Blood by Automated count 0 /100{WBCs} 0-0 [facility] ID Date Data Source [id number] 04/12/2020 07:47:34 PM [facility] Name Value Range Interpretation Code Description Data Sophie rce(s) Supporting Document(s) Prothrombin time (PT) 13.6 s 12.5-14.9 [facility] INR in Platelet poor plasma by Coagulation assay 1.03 [facility] Routine intensity oral anticoagulation I NR is typically 2.0-3.0. Target INR must be clinically individualized. ID Date Data Source [id number] 04/12/2020 07:53:11 PM [facility] Value Range Interpretation Code Description Data Sophie rce(s) Supporting Document(s) Albumin [Mass/volume] in Serum or Plasma by Bromocresol green (BCG) dye binding method 4.4 g/dL 3.5-5.2 [facility] Bilirubin.total [Mass/volume] in Serum or Plasma 2.1 mg/dL <1.2 [facility] Calcium [Mass/volume] in Serum or Plasma 8.6 mg/dL 8.6-10.0 [facility] Chloride [Moles/volume] in Serum or Plasma 100 mmol/L 98-107 [facility] Creatinine [Mass/volume] in Serum or Plasma 1.60 mg/dL 0.70-1.20 [facility] Glucose [Mass/volume] in Serum or Plasma 88 mg/dL 70-140 [facility] Alkaline phosphatase [Enzymatic activity/volume] in Serum or Plasma 89 U/L 40-129 [facility] Potassium [Moles/volume] in Serum or Plasma 3.8 mmol/L 3.4-5.1 [facility] Hemolyzed Protein [Mass/volume] in Serum or Plasma 7.4 g/dL 6.4-8.3 [facility] Sodium [Moles/volume] in Serum or Plasma 140 mmol/L 136-145 [facility] Aspartate aminotransferase [Enzymatic activity/volume] in Serum or Plasma 44 U/L <40 [facility] Hemolyzed Urea nitrogen [Mass/volume] in Serum or Plasma 15 mg/dL 6-20 [facility] Osmolality of Serum or Plasma by calculation 290 mosm/kg 275-300 [facility] Creatinine/Urea nitrogen [Mass Ratio] in Serum or Plasma 9 [facility] Bicarbonate [Moles/volume] in Serum 25 mmol/L 22-29 [facility] Alanine aminotransferase [Enzymatic activity/volume] in Seru m or Plasma 31 U/L <41 [facility] Hemolyzed Anion gap 3 in Serum or Plasma 15 mmol/L 8-15 [facility] Albumin/Globulin [Mass Ratio] in Serum or Plasma 1.5 [facility] Glomerular filtration rate/1.73 sq M pre dicted among non-blacks [Volume Rate/Area] in Serum or Plasma by Creatinine-based formula (MDRD) 54 mL/min/1.73m2 >60 L [facility] Glomerular filtration rate/1.73 sq M pre dicted among blacks [Volume Rate/Area] in Serum or Plasma by Creatinine-based formula (MDRD) 63 mL/min/1.73m2 >60 [facility] ID Date Data Source [id number] 04/12/2020 07:53:11 PM [facility] Name Value Range Interpretation Code Description Data Sophie rce(s) Supporting Document(s) Magnesium [Mass/volume] in Serum or Plasma 2.2 mg/dL 1.6-2.6 [facility] ID Date Data Source [id number] 04/12/2020 07:53:11 PM [facility] Name Value Range Interpretation Code Description Data Sophie rce(s) Supporting Document(s) Troponin T.cardiac [Mass/volume] in Serum or Plasma <0.01 [facility] ID Date Data Source [id number] 04/12/2020 07:53:11 PM [facility] Name Value Range Interpretation Code Description Data Sophie rce(s) Supporting Document(s) Phosphate [Mass/volume] in Serum or Plasma 2.7 mg/dL 2.5-4.5 [facility] ID Date Data Source [id number] 04/12/2020 07:31:21 PM [facility] Name Value Range Interpretation Code Description Data Sophie rce(s) Supporting Document(s) Color of Urine [facility] Clarity of Urine [facility] Specific gravity of Urine by Refractometry automated 1.020 1.003 -1.030 [facility] pH of Urine by Automated test strip 6.0 5.0-8.0 [facility] Protein [Mass/volume] in Urine by Automated test strip 30 mg/dL Neg [facility] Glucose [Mass/volume] in Urine by Automated test strip Neg [facility] Ketones [Mass/volume] in Urine by Automated test strip 20 mg/dL Neg [facility] Bilirubin.total [Presence] in Urine by Automated test strip Negative [facility] Hemoglobin [Presence] in Urine by Automated test strip Neg [facility] Leukocyte esterase [Presence] in Urine by Automated test strip Negative [facility] Nitrite [Presence] in Urine by Automated test strip Negati [facility] Leukocytes [#/area] in Urine sediment by Automated count 0 /HPF 0 -5 [facility] Erythrocytes [#/area] in Urine sediment by Automated count 7 /HPF 0-3 H [facility] Service comment [facility] Epithelial cells.squamous [#/area] in Urine sediment by Automate d count None [facility] Mucus [#/area] in Urine sediment by Microscopy low power field None [facility] ID Date Data Source [id number] 04/12/2020 07:47:06 PM [facility] Name Value Range Interpretation Code Description Data Sophie rce(s) Supporting Document(s) Amphetamine [Presence] in Urine by Screen method Negative [facility] (NOTE)Positive results are presumptive a nd unconfirmed;confirmatorytesting can be ordered at the [facility] at [phone] [facility] at [phone] within 5 days of collection. Benzodiazepines [Presence] in Urine by Screen method Negat [facility] Cannabinoids [Presence] in Urine by Screen method Negative [facility] Benzoylecgonine [Presence] in Urine by Screen method [facility] ([facility])Positive results are presumptive a nd unconfirmed;confirmatorytesting can be ordered at the [facility] at [phone] [place] [address] at [phone] within 5 days of collection. Methadone [Presence] in Urine by Screen method Negative [facility] Opiates [Presence] in Urine by Screen method Negative [facility] (NOTE)Positive results are presumptive a nd unconfirmed;confirmatorytesting can be ordered at the [facility] at [facility] [place] [address] at [phone] within 5 days of collection. Oxycodone [Presence] in Urine by Screen method Negative [facility] Fentanyl+Norfentanyl [Presence] in Urine by Screen method Negative [facility] (NOTE)Positive results are presumptive a nd unconfirmed;confirmatorytesting can be ordered at the [facility] at [facility] [place] [address] at [phone] within 5 days of collection. Service comment [facility] Results below the indicated cutoff (ng/m L), are reported as"Negative." Note: for medical purposes only; not valid for legalor employment testing. ID Date Data Source [id number] 04/12/2020 06:33:23 PM EDT [facility] Name Value Range Interpretation Code Description Data Sophie rce(s) Supporting Document(s) Glucose [Mass/volume] in Capillary blood by Glucometer 90 mg/dL 70- 140 [facility] ID Date Data Source [id number] 04/12/2020 04:10:35 PM [facility] Name Value Range Interpretation Code Description Data Sophie rce(s) Supporting Document(s) Progress Note [facility] [id number] [file] [id number] ID Date Data Source [id number] 04/12/2020 03:43:00 PM EDT [facility] TSYSORDER [id number] Name Value Range Interpretation Code Description Data Sophie rce(s) Supporting Document(s) POTASSIUM 3.3 mmol/L 3.5-5.1 [facility] ID Date Data Source [id number] 04/12/2020 01:01:00 PM EDT [facility] DATE OF EXAMINATION: 04/12/2020 11:26 EDT CHEST 1 VIEW HISTORY: Chest pain TECHNIQUE: Single frontal radiograph of chest COMPARISON: 04/05/2019 FINDINGS: No evidence of focal consolidation, pneumothorax or large pleural effusion.Lungs are clear. Mediastinal structures are unremarkable. No aggressive osseouslesions. Left-sided dual-lead pacer as well as dorsal column stimulators arenoted. Calcified granulomas are seen scattered within both lungs. IMPRESSION: No focal consolidation. Electronically signed in PS360 by: Leatha Connor M.D. 04/12/2020 12:55 EDT Name Value Range Interpretation Code Description Data Sophie rce(s) Supporting Document(s) ID Date Data Source [id number] 04/12/2020 12:29:00 PM EDT [facility] TSYSORDER [id number] Name Value Range Interpretation Code Description Data Sophie rce(s) Supporting Document(s) URINE RBC 0-1 /hpf 0-3 [facility] ID Date Data Source [id number] 04/12/2020 12:15:00 PM EDT [facility] TSYSORDER [id number] Name Value Range Interpretation Code Description Data Sophie rce(s) Supporting Document(s) URINE COLOR. [facility] URINE APPEARANCE CLEAR [facility] SPECIFIC GRAVITY,URINE 1.010 1.001-1.035 [facility] URINE LEUKOCYTE ESTERASE NEGATIVE NEGATIVE [facility] URINE NITRATE NEGATIVE NEGATIVE [facility] PH,URINE 7.0 5.0-9.0 [facility] URINE PROTEIN NEGATIVE mg/dL NEGATIVE [facility] GLUCOSE (UA) NEGATIVE mg/dL NEGATIVE [facility] URINE KETONE NEGATIVE mg/dL NEGATIVE [facility] UROBILINOGEN NORMAL(0.2-1) mg/dL 0-1 R [facility] URINE BILIRUBIN NEGATIVE NEGATIVE [facility] URINE BLOOD TRACE NEGATIVE [facility] ID Date Data Source [id number] 04/12/2020 12:19:00 PM EDT [facility] TSYSORDER [id number] Name Value Range Interpretation Code Description Data Sophie rce(s) Supporting Document(s) URINE AMPHETAMINES NEGATIVE <1000 ng/mL [facility] pital THC,URINE NEGATIVE <50 ng/mL [facility] URINE BARBITURATES NEGATIVE <300 ng/mL [facility] ital PCP,URINE NEGATIVE <25 ng/mL [facility] COCAINE, URINE POSITIVE <300 ng/mL [facility] URINE,OPIATES NEGATIVE <300 ng/mL [facility] URINE,TCA NEGATIVE <1000 ng/mL [facility] IF A NEGATIVE RESULT IS OBTAINED AND ING ESTION OF TRICYCLICANTIDEPRESSANTS IS SUSPECTED, A SERUM SAMPLE SHOULD BEOBTAINED AND TESTED USING AN APPROPRIATE METHOD. URINE BENZODIAZEPINES NEGATIVE <300 ng/mL [facility] ospital THESE TESTS ARE PERFORMED USING AN IMMU NOASSAY FOR THEQUALITATIVE DETERMINATION OF THE PRESENCE OF THE MAJORMETABOLITES OF DRUGS OF ABUSE. THESE TESTS ARE ONLY ASCREENING AND NOT CONFIRMATORY. CLINICAL CONSIDERATION ANDPROFESSIONAL JUDGMENT MUST BE APPLIED TO ANY DRUG OF ABUSETEST RESULT. ID Date Data Source [id number] 04/12/2020 12:54:00 PM EDT [facility] CALLED K+ TO KRISTIE 1231 Name Value Range Interpretation Code Description Data Sophie rce(s) Supporting Document(s) ETHYL ALCOHOL 0.00 % 0-0.01 [facility] ID Date Data Source [id number] 04/12/2020 12:54:00 PM EDT [facility] CALLED K+ TO K[place]STIE 1231 Name Value Range Interpretation Code Description Data Sophie rce(s) Supporting Document(s) MAGNESIUM 2.3 mg/dL 1.8-2.4 [facility] ID Date Data Source [id number] 04/12/2020 12:54:00 PM [facility] [place] [id number] Name Value Range Interpretation Code Description Data Sophie rce(s) Supporting Document(s) TROPONIN I 0.289 ng/mL 0.0-0.056 *H [facility] ID Date Data Source [id number] 04/12/2020 12:54:00 PM [facility] CALL[facility] K+ TO [place] [id number] Name Value Range Interpretation Code Description Data Sophie rce(s) Supporting Document(s) GLUCOSE 119 mg/dL 74-106 H [facility] BLOOD UREA NITROGEN 21 mg/dL 7-18 H [facility] CREATININE 1.9 mg/dL 0.7-1.3 H [facility] SODIUM 135 mmol/L 136-145 L [facility] POTASSIUM 2.8 mmol/L 3.5-5.1 L [facility] CHLORIDE 96 mmol/L 98-107 L [facility] CO2 28 mmol/L 21-32 [facility] CALCIUM 9.2 mg/dL 8.5-10.1 [facility] ANION GAP 11.0 mmol/L 5-12 [facility] GLOMERULAR FILTRATION RATE 41 mL/min [facility] GFR IS CALCULATED IN mL/min/1.73m2 BRITTA L FUNCTION: >90MILDLY DECREASED: 60-89MILDY TO MODERATELY DECREASED: 45-59 MODERATELY TO SEVERELY DECREASED: 30-44SEVERELY DECREASED: 15-29RENAL FAILURE: <15 AST 43 U/L 15-37 H [facility] ALT 45 U/L 12-78 [facility] ALKALINE PHOSPHATASE 107 U/L 46-116 [facility] pital TOTAL BILIRUBIN 1.5 mg/dL 0.2-1.0 H [facility] TOTAL PROTEIN 8.4 g/dl 6.4-8.2 H [facility] ALBUMIN 4.4 gm/dL 3.4-5.0 [facility] ID Date Data Source [id number] 04/12/2020 12:09:00 PM EDT [facility] [id number] Name Value Range Interpretation Code Description Data Sophie rce(s) Supporting Document(s) PROTHROMBIN TIME (PATIENT) 10.6 SECONDS 9.2-11.6 [facility] INR 1.02 0.87-1.06 [facility] ID Date Data Source [id number] 04/12/2020 11:54:00 AM EDT [facility] [id number] Name Value Range Interpretation Code Description Data Sophie rce(s) Supporting Document(s) WHITE BLOOD COUNT 5.3 K/mm3 4.0-10.0 [facility] RED BLOOD COUNT 4.98 M/mm3 4.50-6.00 [facility] HEMOGLOBIN 14.9 gm/dL 14.0-18.0 [facility] HEMATOCRIT 41.2 % 42.0-54.0 L [facility] MEAN CELL VOLUME 82.7 fl 80-96 [facility] MEAN CORPUSCULAR HEMOGLOBIN 29.9 pg 27.0-31.0 [facility] MEAN CORPUSCULAR HGB CONC 36.2 g/dl 32.0-36.0 H [facility] RED CELL DISTRIBUTION WIDTH 11.9 % 10.0-14.5 [facility] PLATELET COUNT 231 K/mm3 172-450 [facility] MEAN PLATELET VOLUME 10.3 fl 9.0-13.0 [facility] pital GRAN % 51.6 % 50-80.0 [facility] IG% 0.2 % 0.0-0.2 [facility] LYMPH % 35.8 % 25.0-50.0 [facility] MONO % 11.8 % 2.0-10.0 H [facility] EOS % 0.2 % 0-5.0 [facility] BASO % 0.4 % 0.0-2.0 [facility] GRAN # 2.8 K/mm3 2.0-8.00 [facility] IG# 0.0 K/mm3 0.0-0.2 [facility] LYMPH # 1.9 K/mm3 1.0-5.0 [facility] MONO # 0.6 K/mm3 0.10-1.20 [facility] EOS # 0.0 K/mm3 0.0-0.5 [facility] BASO # 0.0 K/mm3 0.0-0.2 [facility] Procedure Social History Code Duration Value Status Description Data Source(s ) Alcohol intake 06/09/2020 12:00:00 AM EDT Yes completed [facility] Smoking 06/09/2020 12:00:00 AM EDT Never smoker completed Never [facility] Alcohol intake 05/25/2020 12:00:00 AM EDT Yes completed [facility] Smoking 05/25/2020 12:00:00 AM EDT Never smoker completed Never [facility] Alcohol intake 04/12/2020 12:00:00 AM EDT Current drinker of al cohol (finding) completed Current drinker of alcohol (finding) [facility] Smoking 04/12/2020 12:00:00 AM EDT Never smoker completed Never [facility] Vital Signs ID Date Data Source [id number] Name Value Range Interpretation Code Description Data Source(s) Oxygen saturation in Arterial blood by Pulse oximetry 98 % 98 % [facility] Respiratory rate 18 /min 18 /min [facility] Body temperature 36.17 Meg 36.17 Meg [facility] Heart rate 60 /min 60 /min [facility] Diastolic blood pressure 81 mm[Hg] 81 mm[Hg] [facility] Systolic blood pressure 129 mm[Hg] 129 mm[Hg] [facility] Body mass index (BMI) [Ratio] 27.69 kg/m2 27.69 kg/m2 [facility] Body weight 95.2 kg 95.2 kg [facility] Body height 185.4 cm 185.4 cm [facility] Oxygen saturation in Arterial blood by Pulse oximetry 100 % 100 % [facility] Body temperature 36.44 Meg 36.44 Meg [facility] Heart rate 60 /min 60 /min [facility] Diastolic blood pressure 68 mm[Hg] 68 mm[Hg] [facility] Systolic blood pressure 128 mm[Hg] 128 mm[Hg] [facility] Respiratory rate 18 /min 18 /min [facility] Body mass index (BMI) [Ratio] 27.71 kg/m2 27.71 kg/m2 [facility] Body weight 95.255 kg 95.255 kg [facility] Body height 185.4 cm 185.4 cm [facility] ID Date Data Source [id number] 04/17/2020 02:18:11 PM [facility] Name Value Range Interpretation Code Description Data Source(s) WEIGHT RECORDED 209 lb 209 lb [facility] Body height Measured 73 in 73 in [facility] Patient Treatment Plan of Care Planned Activity Planned Date Details Description Data Source (s) Spironolactone 25 MG Oral Tablet 06/12/2020 12:00:00 AM [facility] Hydrochlorothiazide 25 MG Oral Tablet 06/12/2020 12:00:00 AM [facility] Lisinopril 20 MG Oral Tablet 06/12/2020 12:00:00 AM [facility] Lisinopril 20 MG Oral Tablet 04/15/2020 09:00:00 AM [facility] Hydrochlorothiazide 25 MG Oral Tablet 04/15/2020 09:00:00 AM [facility] Lisinopril 20 MG Oral Tablet 04/15/2020 12:00:00 AM [facility] Hydrochlorothiazide 25 MG Oral Tablet 04/15/2020 12:00:00 AM [facility] Aspirin 81 MG Delayed Release Oral Tablet 04/15/2020 12:00:00 AM [facility] Spironolactone 25 MG Oral Tablet 04/14/2020 12:00:00 AM [facility] atorvastatin 40 MG Oral Tablet 04/14/2020 12:00:00 AM [facility] Famotidine 20 MG Oral Tablet 04/14/2020 12:00:00 AM [facility] Benazepril hydrochloride 40 MG Oral Tablet 04/07/2019 12:00:00 AM [facility] 24 HR Diltiazem Hydrochloride 120 MG Extended Release Oral Capsule 04/06/2019 12:00:[address] [facility] ospital Docusate Sodium 50 MG / sennosides, MCFP 8.6 MG Oral Ta blet 08/29/2017 12:00:00 AM EDT [facility] methylPREDNISolone (MEDROL) 4 MG tablet 08/29/2017 12:00:00 AM EDT [facility] Amoxicillin 250 MG Oral Capsule [facility] Famotidine 20 MG Oral Tablet [facility] Spironolactone 25 MG Oral Tablet [facility] Lisinopril 20 MG Oral Tablet [facility] Hydrochlorothiazide 25 MG Oral Tablet [facility] Amlodipine 10 MG / Benazepril hydrochloride 40 MG Oral Capsule [facility] Amitriptyline Hydrochloride 100 MG Oral Tablet [facility] zolmitriptan 5 MG/ACTUAT Nasal [place] [facility] Tamsulosin hydrochloride 0.4 MG Oral Capsule [facility] sildenafil 50 MG Oral Tablet [facility] 0.65 ML exenatide 3.08 MG/ML Pen Injector [facility] Bifidobacterium Infantis 4 MG Oral Capsule [Align] [facility] pregabalin 100 MG Oral Capsule [facility] POLYETHYLENE GLYCOL 3350 142 MG/ML Oral Solution [facility] 24 HR Metformin hydrochloride 500 MG Extended Release Oral Tablet [facility] Atenolol 25 MG Oral Tablet S [facility] ammonium lactate 120 MG/ML Topical Lotion [facility] Zolpidem tartrate 10 MG Oral Tablet [facility] Ranitidine 150 MG Oral Tablet [facility]
[2020-12-24] MEDS ORDERED: LISI30TA4 (11:25)
[2020-12-24] MEDS ORDERED: NAPR220C14 PO (11:25)
[2020-12-24] MEDS ORDERED: ONDANSETRON 4MG/2ML VIAL IV ONE (11:45)
[2020-12-24] MEDS ORDERED: NS 1,000 ML IV ONE (11:45)
--- NOTE | 2020-12-24 11:49 | REP ---
INDICATION: abd distention, slowed bowel movements. 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 TECHNIQUE: Single view supine abdomen. KUB. FINDINGS: Bowel gas pattern is normal. Psoas margins and flank stripes are intact. No mass, organomegaly, or pathologic calcification is seen. The power plant for what appears to be a dorsal column stimulator is seen projecting over the left flank. IMPRESSION: Normal bowel gas pattern. Power plant for dorsal column stimulator visible. <Electronically signed by Nickolas Chandler > 12/24/20 [id number]
[2020-12-24 12:08] LABS: BASO # 0.1 10^3/uL (0.0-0.2); BASO % 1.1 % (0.0-1.0); EOS # 0.1 10^3/uL (0.0-0.5); EOS % 1.9 % (0.0-3.0); HEMATOCRIT 50.1 % (42.0-52.0); HEMOGLOBIN 16.6 g/dl (13.5-17.5); LYMPH # 2.3 10^3/uL (1.5-5.0); LYMPH % 49.5 % (24.0-44.0); MEAN CORPUSCULAR HEMOGLOBIN 28.9 pg (27.0-33.0); MEAN CORPUSCULAR HGB CONC 33.1 g/dl (32.0-36.5); MEAN CORPUSCULAR VOLUME 87.1 fl (80.0-96.0); MONO # 0.5 10^3/uL (0.0-0.8); NEUTROPHILS # 1.8 10^3/uL (1.5-8.5); NEUTROPHILS % 37.3 % (36.0-66.0); PLATELET COUNT, AUTOMATED 245 10^3/uL (150-450); RED BLOOD COUNT 5.75 10^6/uL (4.30-6.10); WHITE BLOOD COUNT 4.7 10^3/uL (4.0-10.0)
--- NOTE | 2020-12-24 12:23 | REP ---
INDICATION: ruq pain, nausea r/o gallbladder disease COMPARISON: None. TECHNIQUE: Real time jackson scale ultrasound examination using curved array transducer. FINDINGS: Liver appears hyperechoic suggesting fatty infiltration with focal fatty sparing adjacent to the gallbladder fossa less likely representing mass. Liver measures 17 cm in craniocaudal length. Gallbladder is without wall thickening, gallstones or pericholecystic fluid. No biliary ductal dilatation is appreciated and the common bile duct measures 3 mm diameter. The pancreas is incompletely evaluated due to interposed bowel gas but visualized portions appear normal. The right kidney is normal in reniform shape without hydronephrosis and measures 10.0 x 5.7 x 5.7 cm. No ascites. IMPRESSION: 1. Hepatosteatosis. Low-density area adjacent to the gallbladder fossa likely represents focal fatty sparing and less likely mass lesion. Consider follow-up contrast-enhanced CT of the abdomen if necessary. 2. No gallstones, or evidence for acute cholecystitis by ultrasound. <Electronically signed by Ryan Ron > 12/24/20 [id number]
--- OUTSIDE RECORDS SUMMARY | 2020-12-24 12:32 | CCD ---
Author Author [facility] Organization [facility] Address Unknown Phone Unavailable Care Team Providers Care Heavy Equipment Plumbing Supervisor Name Role Phone Osmin'Nereida Machado MD Unavailable Unavailable O'Jeannette, S Brandyn FRANCIS Unavailable Unavailable O'Jeannette, S Brandyn FRANCIS Unavailable Unavailable O'Jeannette, S Brandyn FRANCIS Unavailable Unavailable O'Jeannette, S Brandyn FRANCIS Unavailable Unavailable O'Jeannette, S Brandyn FRANCIS Unavailable Unavailable O'Jeannette, S Brandyn FRANCIS Unavailable Unavailable O'Jeannette, S Brandyn FRANCIS Unavailable Unavailable O'Jenanette, S Brandyn FRANCIS Unavailable Unavailable O'Jeannette, S [...] Unavailable O'Jeannette, S Brandyn FRANCIS Unavailable Unavailable Nereida Prajapati MD Unavailable Unavailable [...] KRISTIE MARCK PA Unavailable Unavailable Nghia, Walt PACKAGE LIFT OPERATOR Unavailable Unavailable Nghia, Walt PACKAGE LIFT OPERATOR Unavailable Unavailable Nghia, Walt PACKAGE LIFT OPERATOR Unavailable Unavailable Nghia, Walt PACKAGE LIFT OPERATOR Unavailable Unavailable Nghia, Wlat PACKAGE LIFT OPERATOR Unavailable Unavailable Nghia, Walt PACKAGE LIFT OPERATOR Unavailable Unavailable Re-disclosure Warning The records that [...] is protected by Article 27-F of the [facility] Public Health law. If you continue you may have access to information: Regarding HIV / AIDS; Provided by facilities licensed or operated by the [facility] Office of Mental Health; or Provided by the [facility] Office for People With Developmental Disabilities. If such information is present, then the following [facility] mandated warning applies: This information has been [...] law may result in a fine or alf sentence or both. A general authorization for the release of medical or other information is NOT sufficient authorization for further disc losure. Allergies and Adverse Reactions Type Description Substance Reaction Status Data Source(s ) Drug Class NO KNOWN ALLERGIES NO KNOWN ALLERGIES [facility] Family History Family Member Name Family Member Gender Family Member Status Date o f Status Description Data Source(s) Unknown Female Problem MEDENT ([facility] Unknown Female Problem MEDENT ([facility] Unknown Unknown Problem MEDENT ([facility] Unknown Unknown Problem MEDENT ([facility] Encounters Encounter Providers Location Date Indications Data Source(s ) Emergency Attender: MARCK SANCHEZ EMERGENCY ROOM-ER 06/10/2020 12:53:00 PM EDT - 06/10/2020 02:35:00 PM EDT [facility] Patient discharged. Inpatient Attender: Antonella Simpson MDA dmitter: Antonella Simpson MDReferrer: Antonella Simpson MD [id number] 06/09/2020 11:14:00 AM EDT - 06/09/2020 05:40:00 PM EDT [facility] Patient discharged. Emergency Attender: MOHINI HERNÁNDEZ EMERGENCY ROOM-ER 2019 03:25:00 AM EDT - 06/09/2020 09:00:00 AM [facility] Patient discharged. Outpatient Attender: URIAH Vieiraender : URIAH Vieiraender: Zelda JarvisAdmitter: Zelda JarvisReferrer: Walt Agrawal NP [id number] 05/25/2020 11:34:44 AM EDT - 05/26/2020 05:51:00 PM EDT [facility] Patient discharged. Emergency Attender: MOHINI HERNÁNDEZ EMERGENCY ROOM-ER 2019 06:07:00 AM EDT - 05/25/2020 09:40:00 AM [facility] Patient discharged. Emergency Attender: Fernandez CASTILLO EMERGENCY ROOM-ER 0 04/12/2020 11:34:00 AM EDT - 04/12/2020 04:55:00 PM [facility] Patient discharged. Inpatient Attender: RAZA CARRASCO MD, M BBSAttender: Brandyn Prajapati MDAdmitter: Brandyn Prajapati MDReferrer: Fernandez THOMASCConsultant: FLORIN GARCIA MD [id number] 04/12/2020 12:00:00 AM EDT - 04/14/2020 01:30:00 PM ED T Essential (primary) hypertension [facility] Essential (primary) hypertension Patient discharged. Emergency Attender: [...] (12 .5 mg total) by mouth daily [facility] Hydrochlorothiazide 25 MG Oral Tablet hy drochlorothiazide (HYDRODIURIL) 25 MG tablet hydrochlorothiazide (HYDRODIURIL) 25 MG tablet 12:00:00 AM EDT 25 mg Oral active Take 1 tablet (25 mg total) by mouth daily [facility] Lisinopril 20 MG Oral Tablet lisinopril (PRINIVIL,ZEST RIL) 20 MG tablet lisinopril (PRINIVIL,ZESTRIL) 20 MG tablet 06/12/2020 12:00:00 AM EDT 40 mg Oral active Hypertension Take 2 tablets (4 0 mg total) by mouth daily [facility] Hypertension Aspirin 81 MG Delayed Release Oral Tablet aspirin EC t ablet 81 mg aspirin EC tablet 81 mg 06/10/2020 09:00:00 AM EDT 81 mg Oral activ e 81 mg, Oral, Daily, First dose on Tue06/10/20 at 0900 [facility] Medication administered onsite sodium chloride 0.9% (NS) infusion 9960-5502-63 06/09/2020 04:00:00 P M EDT Intravenous active at 100 mL/hr, Intravenous, Continuous, Starting Tue06/09/20 at 1600, For 2 hours, Post-op [facility] Medication administered onsite iopamidol (ISOVUE-370) 76 % [id number] 06/09/2020 03:20:58 PM EDT active As needed, Starting Tue06/09/20 at 1520, Intra-Procedu re [facility] Medication administered onsite 1 ML heparin sodium, porcine 1000 UNT/ML Injection hep christin (porcine) injection heparin (porcine) injection 06/09/2020 03:12:25 PM EDT active As needed, Starting Tue06/09/20 at 1512, Intra-Procedure [facility] Medication administered onsite 4 ML Verapamil hydrochloride 2.5 MG/ML Injection verap angel (ISOPTIN) injection verapamil (ISOPTIN) injection 06/09/2020 03:12:10 PM EDT active As needed, Starting Tue06/09/20 at 1512, Intra-Procedure [facility] Medication administered onsite 2 ML Midazolam 1 MG/ML Injection midazolam (VERSED) in jection midazolam (VERSED) injection 06/09/2020 03:03:56 PM EDT active As needed, Starting Tue06/09/20 at 1503, Intra-Procedure [facility] Medication administered onsite fentaNYL Citrate (PF) (SUBLIMAZE) injection [id number] 06/09/2020 03:03:41 PM EDT active As neede d, Starting Tue06/09/20 at 1503, Intra-Procedure [facility] Medication administered onsite normal saline flush 0.9 % injection 3 mL [id number] 06/09/2020 02:00:00 PM EDT 3 mL Intravenous active 3 mL , Intravenous, Every 8 hours (scheduled), First dose on Tue06/09/20 at 1400
flush per protocol, D/C Main IV fluid if appropriate
[facility] Medication administered onsite duloxetine 20 MG Delayed Release Oral Ca psule DULoxetine (CYMBALTA) DR capsule 20 mg DULoxetine (CYMBALTA) DR capsule 20 mg 06/09/2020 01:00:00 PM EDT 20 mg Oral active 20 mg, Oral, 2 times daily, First dose on Tue06/09/20 at 1300 [facility] Medication administered onsite atorvastatin 40 MG Oral Tablet atorvastatin (LIPITOR) tablet 40 mg atorvastatin (LIPITOR) tablet 40 mg 06/09/2020 01:00:00 PM EDT 40 mg Oral active 40 mg, Oral, Daily, First dose on Tue06/09/20 at 1300 [facility] Medication administered onsite clopidogrel 300 MG Oral Tablet clopidogrel (PLAVIX) ta blet 600 mg clopidogrel (PLAVIX) tablet 600 mg 06/09/2020 01:00:00 PM EDT 600 mg Oral completed 600 mg, Oral, Once, Tue06/09/20 at 1300, For 1 dose [facility] Medication administered onsite sodium chloride 0.9% (NS) infusion [id number] 06/09/2020 12:00:00 P M EDT Intravenous completed at 100 mL/hr, Intravenous, Continuous, Starting Tue06/09/20 at 1200, For 2 hours [facility] Medication administered onsite Nitroglycerin 0.4 MG Sublingual Tablet n itroglycerin (NITROSTAT) SL tablet 0.4 mg nitroglycerin (NITROSTAT) SL tablet 0.4 mg 06/09/2020 11:53:08 A M EDT 0.4 mg Sublingual active 0.4 mg, S ublingual, Every 5 min PRN, chest pain, Starting Tue06/09/20 at 1153
May administer up to 3 doses per episode.
[facility] Medication administered onsite ondansetron (ZOFRAN) injection 4 mg [id number] 06/09/2020 11:32:4 2 AM EDT 4 mg Intravenous active 4 mg, In travenous, Every 4 hours PRN, nausea, vomiting, Starting Tue06/09/20 at 1132 [facility] Medication administered onsite 10 ML Atropine [...] mg or 0.04 mg/kg.Max of 6 doses
[facility] Medication administered onsite technetium sestamibi (CARDIOLITE) injection 33.2 millicurie 05/26/2020 02:00:00 PM EDT 33.2 mCi Intravenous completed 33.2 millicurie, Intravenous, Once, Tue05/26/20 at 1400, For 1 dose [facility] Medication administered onsite technetium sestamibi (CARDIOLITE) injection 11.1 millicurie 05/26/2020 02:00:00 PM EDT 11.1 mCi Intravenous completed 11.1 millicurie, Intravenous, Once, Tue05/26/20 at 1400, For 1 dose [facility] Medication administered onsite regadenoson (LEXISCAN) solution 0.4 mg [id number] 05/26/2020 06:0 0:00 AM EDT 0.4 mg Intravenous completed 0.4 mg, Intravenous, Once, 05/26/20 at 0600, For 1 dose, Pigment Pusher
No Caffeine, Theophylline, or Dipyridamole (Aggrenox) for 12 hours prior to dose. If patient has had any of these, contact MD immediately
[facility] Medication administered onsite Amoxicillin 250 MG Oral Capsule amoxicillin (AMOXIL) c apsule 500 mg amoxicillin (AMOXIL) capsule 500 mg 05/25/2020 10:00:00 PM EDT 500 mg Oral active 500 mg, Oral, 3 times daily, Indications: Prophylaxis for dental procedure that needs to be done but has been delayed due to COVID, First dose on 05/25/20 at 2200 [facility] Medication administered onsite Lisinopril 20 MG Oral Tablet lisinopril (PRINIVIL,ZEST RIL) tablet 40 mg lisinopril (PRINIVIL,ZESTRIL) tablet 40 mg 05/25/2020 07:00:00 PM EDT 40 mg Oral active Hypertension 40 mg, Oral, Daily, First dose on 05/25/20 at 1900 [facility] Hypertension Medication administered onsite Famotidine 20 MG Oral Tablet famotidine (PEPCID) table t 20 mg famotidine (PEPCID) tablet 20 mg 05/25/2020 07:00:00 PM EDT 20 mg Oral active 20 mg, Oral, Daily, First dose on 05/25/20 at 1900 [facility] Medication administered onsite sodium chloride 0.9% (NS) infusion [id number] 05/25/2020 07:00:00 P M EDT Intravenous active at 75 mL/hr, Intravenous, Continuous, Starting 05/25/20 at 1900 [facility] Medication administered onsite Cholecalciferol 1000 UNT Oral Tablet Vit perez D (CHOLECALCIFEROL) tablet 2,000 Units Vitamin D (CHOLECALCIFEROL) tablet 2,000 Units 05/25/2020 07 :00:00 PM EDT 2000 U Oral active 2,000 Units, Ora l, Daily, First dose on 05/25/20 at 1900 [facility] Medication administered onsite duloxetine 30 MG Delayed Release Oral Ca psule DULoxetine (CYMBALTA) DR capsule 30 mg DULoxetine (CYMBALTA) DR capsule 30 mg 05/25/2020 07:00:00 PM EDT 30 mg Oral active 30 mg, Oral, Daily, First dose on 05/25/20 at 1900 [facility] Medication administered onsite atorvastatin 40 MG Oral Tablet atorvastatin (LIPITOR) tablet 40 mg atorvastatin (LIPITOR) tablet 40 mg 05/25/2020 07:00:00 PM EDT 40 mg Oral active 40 mg, Oral, Daily, First dose on 05/25/20 at 1900 [facility] Medication administered onsite Insulin Lispro 100 UNT/ML Injectable Connie ution insulin lispro (HumaLOG) injection 1-6 Units insulin lispro (HumaLOG) injection 1-6 Units 0 05:00:00 PM EDT Subcutaneous active 1-6 Units, Subcutaneous, MEALSS, First dose on Tue05/25/20 at 1700
Frail 3 units Nutritional and Correction Insulin ScaleBlood Glucose (mg/dl) <70 start hypoglycemiaprotocolGlucose Eats >=50% Eats <50%Eats Nothing (mg/dl) of meal of mealor [id number] units 1 units 0 [id number]- 1703 units 2 units 0 [id number] units 2 units 1 bziec914- 2704 units 3 units 1 -3527 units 3 units 2 [id number]- 3705 units 4 units 2 -8287 units 4 units 3 units>420 call MD6 units 5 units 3 unitsTest glucose within 30 minutes of insulin administration.Administer insulin within 15 minutes (before or after) of the patient starting to eat.For patients that are NPO, use theNPO (correction) scale to cover POC glucose at 08:00, 12:00, 17:00.
[facility] Medication administered onsite heparin (porcine) injection 5,000 Units [id number] 05/25/20 20 03:00:00 PM EDT 5000 U Subcutaneous active 5,000 Units , Subcutaneous, Every 12 hours (scheduled), First dose on 05/25/20 at 1500
If platelet count is less than 100 or hematocrit is less than 25, or if there is a 5 point decrease in hematocrit, do not give the dose and call physician/designee.
[facility] Medication administered onsite normal saline flush 0.9 % injection 3 mL [id number] 05/25/2020 03:00:00 PM EDT 3 mL Intravenous active 3 mL , Intravenous, Every 8 hours (scheduled), First dose on 05/25/20 at 1500
flush per protocol, D/C Main IV fluid if appropriate
[facility] Medication administered onsite Lorazepam 0.5 MG Oral Tablet LORazepam (ATIVAN) tablet 0.5 mg LORazepam (ATIVAN) tablet 0.5 mg 05/25/2020 02:17:49 PM EDT 0.5 mg Oral acti ve 0.5 mg, Oral, Every 12 hours PRN, anxiety, sleep, Starting 05/25/20 at 1417, For 7 days [facility] Medication administered onsite 30 mg 04/17/2020 [...] on Tue04/15/20 at 0900, For 30 doses [facility] Medication administered onsite Lisinopril 20 MG Oral Tablet lisinopril (ZESTRIL) tabl et 20 mg lisinopril (ZESTRIL) tablet 20 mg 04/15/2020 09:00:00 AM EDT 20 mg Oral active 20 mg, Oral, Daily Standard, First dose (after last modification) on Tue04/15/20 at 0900, For 30 doses [facility] Medication administered onsite Hydrochlorothiazide 25 MG Oral Tablet hy droCHLOROthiazide 25 MG Oral Tablet (HYDRODIURIL) hydroCHLOROthiazide 25 MG Oral Tablet (HYDRODIURIL) 12:00:00 AM EDT 25 mg Oral active Take 1 t ablet by mouth daily [facility] Aspirin 81 MG Delayed Release Oral Table t Aspirin 81 MG Oral Tablet Delayed Release Aspirin 81 MG Oral Tablet Delayed Release 04/15/2020 12:00:00 AM EDT 81 mg Oral active Take [facility] Lisinopril 20 MG Oral Tablet Lisinopril 20 MG Oral Tab let (ZESTRIL) Lisinopril 20 MG Oral Tablet (ZESTRIL) 04/15/2020 12:00:00 AM EDT 20 mg Oral active Take 1 tablet by mouth daily [facility] Spironolactone 25 MG Oral Tablet spironolactone (ALDAC TONE) tablet 12.5 mg spironolactone (ALDACTONE) tablet 12.5 mg 04/14/2020 11:00:00 AM EDT 12.5 mg Oral active 12.5 mg, Oral, Daily Standard, First dose on Tue04/14/20 at 1100, For 30 days [facility] Medication administered onsite 24 HR Diltiazem Hydrochloride 120 MG Ext ended Release Oral Capsule dilTIAZem (CARDIZEM CD) 24 hr capsule 120 mg dilTIAZem (CARDIZEM CD) 24 hr capsule 120 mg 04/14/2020 10:15:00 AM EDT 120 mg Oral active 120 mg, Oral, Every 24 hours Standard (Daily), First dose on Tue04/14/20 at 1015, For 30 days [facility] Medication administered onsite atorvastatin 40 MG Oral Tablet Atorvastatin Calcium 40 MG Oral Tablet (LIPITOR) Atorvastatin Calcium 40 MG Oral Tablet (LIPITOR) 04/14/2020 12:00:00 AM EDT 40 mg Oral active Take 1 tablet by mouth e very evening [facility] Famotidine 20 MG Oral Tablet Famotidine 20 MG Oral Tab let (PEPCID) Famotidine 20 MG Oral Tablet (PEPCID) 04/14/2020 12:00:00 AM EDT 20 mg Oral active Take 1 tablet by mouth Two Times Daily [facility] Spironolactone 25 MG Oral Tablet Spironolactone 25 MG Oral Tablet (ALDACTONE) Spironolactone 25 MG Oral Tablet (ALDACTONE) 04/14/2020 12:00:00 AM EDT 12.5 mg Oral active Take 0.5 tablets by mout h daily [facility] Hydrochlorothiazide 25 MG Oral Tablet hy drochlorothiazide (HYDRODIURIL) tablet 12.5 mg hydrochlorothiazide (HYDRODIURIL) tablet 12.5 mg 04/13 09:00:00 PM EDT 12.5 mg Oral aborted 12.5 mg, Oral, 2 Times Daily, First dose (after last modification) on 04/13/20 at 2100, For 30 days [facility] Medication administered onsite Lisinopril 10 MG Oral Tablet lisinopril (ZESTRIL) tabl et 10 mg lisinopril (ZESTRIL) tablet 10 mg 04/13/2020 09:00:00 PM EDT 10 mg Oral aborted 10 mg, Oral, 2 Times Daily, First dose (after last modification) on 04/13/20 at 2100, For 30 doses [facility] Medication administered onsite Monobasic potassium phosphate 0.0408 [...] mg and potassium 144 mg (3.7 mEq)
[facility] Medication administered onsite Aspirin 81 MG Delayed Release Oral Tablet aspirin EC E C tablet 81 mg aspirin EC EC tablet 81 mg 04/13/2020 09:00:00 AM EDT 81 mg Oral ac tive 81 mg, Oral, Daily Standard, First dose on 04/13/20 at 0900, For 30 days
Do not crush or chew
[facility] Medication administered onsite Lisinopril 10 MG Oral Tablet lisinopril (ZESTRIL) tabl et 10 mg lisinopril (ZESTRIL) tablet 10 mg 04/13/2020 09:00:00 AM EDT 10 mg Oral aborted 10 mg, Oral, Daily Standard, First dose on 04/13/20 at 0900, For 30 days [facility] Medication administered onsite Famotidine 20 MG Oral Tablet famotidine (PEPCID) table t 20 mg famotidine (PEPCID) tablet 20 mg 04/13/2020 09:00:00 AM EDT 20 mg Oral active 20 mg, Oral, 2 Times Daily, First dose on 04/13/20 at 0900, For 30 days [facility] Medication administered onsite duloxetine 30 MG Delayed Release Oral Ca psule DULoxetine (CYMBALTA) DR capsule 30 mg DULoxetine (CYMBALTA) DR capsule 30 mg 04/13/2020 09:00:00 AM EDT 30 mg Oral active 30 mg, Oral, D aily Standard, First dose on 04/13/20 at 0900, For 30 days
Do not crush or chew
[facility] Medication administered onsite potassium chloride (K-DUR) dissolvable tablet 40 mEq [id number] 04/13/2020 09:00:00 AM EDT 40 meq Oral completed 40 mEq, Oral, Once, 04/13/20 at 0900, For 1 dose
May be dissolved in water for patients with a G-Tube or unable to swallow. If concern for clogging G-Tube, may contact Pharmacy to switch formulation to a powder packet.
[facility] Medication administered onsite Hydrochlorothiazide 25 MG Oral Tablet hy drochlorothiazide (HYDRODIURIL) tablet 12.5 mg hydrochlorothiazide (HYDRODIURIL) tablet 12.5 mg 04/13 09:00:00 AM EDT 12.5 mg Oral aborted 12.5 mg, Oral, Daily Standard, First dose on 04/13/20 at 0900, For 30 days [facility] Medication administered onsite Calcium Chloride 0.0014 MEQ/ML / Potassi um Chloride 0.004 MEQ/ML / Sodium Chloride 0.103 MEQ/ML / Sodium Lactate 0.028 MEQ/ML Injectable Solution lactated ringers infusion lactated ringers infusion 04/13/2020 07:45:00 AM EDT 75 mL/h Intravenous aborted at 75 mL/hr, Intravenous, Continuous, Starting 04/13/20 at 0745, For 12 hours [facility] Medication administered onsite Acetaminophen 325 MG Oral Tablet acetaminophen (TYLENO L) tablet 650 mg acetaminophen (TYLENOL) tablet 650 mg 04/13/2020 03:00:00 AM EDT 65 0 mg Oral active 650 mg, Oral, E very 8 hours, First dose (after last modification) on 04/13/20 at 0300, For 89 doses
Maximum daily dose of acetaminophen is 3,000 mg from all sources in 24 hours.
[facility] Medication administered onsite 500 ML heparin sodium, porcine 50 UNT/ML Injection heparin in NaCl 0.45 % infusion 50 units/mL heparin in NaCl 0.45 % infusion 50 units/mL 04/12/2020 09:45:00 PM EDT 1000 U/h Intravenous aborted 1,000 Units/hr (20 mL/hr), Intravenous, at 20 mL/hr, Continuous, Starting 04/12/20 at 2145, For 30 days
Adult Low Dose / With Bolus Protocol.
[facility] Medication administered onsite 1 ML heparin sodium, porcine 1000 UNT/ML Injection heparin (porcine) 1000 units/mL injection 5,000 Units heparin (porcine) 1000 units/mL injectio n 5,000 Units 04/12/2020 09:30:00 PM EDT 5000 U Intravenous comple magda 5,000 Units, Intravenous, Once, 04/12/20 at 2145, For 1 dose
Adult Low Dose / With Bolus Protocol.
[facility] Medication administered onsite atorvastatin 40 MG Oral Tablet atorvastatin (LIPITOR) tablet 40 mg atorvastatin (LIPITOR) tablet 40 mg 04/12/2020 09:00:00 PM EDT 40 mg Oral active 40 mg, Oral, Every evening, First dose on 04/12/20 at 2100, For 30 days [facility] Medication administered onsite Hydralazine Hydrochloride 20 MG/ML Injec table Solution hydrALAZINE (APRESOLINE) injection 10 mg hydrALAZINE (APRESOLINE) injection 10 mg 04/12/2020 07 :45:00 PM EDT 10 mg Intravenous completed 10 mg, Intravenous, Once, 04/12/20 at 1945, For 1 dose
Dilute in 25-50 ml normal saline. Administer over 30 minutes.
[facility] Medication administered onsite Famotidine 0.4 MG/ML Injectable Solution famotidine (PEPCID) in sodium chloride 0.9 % IVPB 20 mg (premix) famotidine (PEPCID) in sodium chloride 0 .9 % IVPB 20 mg (premix) 04/12/2020 07:30:00 PM EDT 20 mg Intravenous a borted 20 mg, Intravenous, Administer over 15 Minutes, Daily Standard, First dose (after last modification) on 04/12/20 at 1930, For 30 days [facility] Medication administered onsite Acetaminophen 325 MG / butalbital 50 MG / Caffeine 40 MG Oral Tablet mvrasgfjqb-ducajzlyvfgtr-peshyyep (FIORICET) per tablet 1 tablet dxnycvqnhe-dxuncbyhhxhbn-bybuotth (FIORICET) per tablet 1 tablet 04/12/2020 07:00:00 PM EDT 1 {tbl} Oral completed 1 tablet, Oral, Once, 04/12/20 at 1900, For 1 dose
Maximum daily dose of acetaminophen is 3,000 mg from all sources in 24 hours.
[facility] Medication administered onsite 24 HR Diltiazem Hydrochloride 120 MG Ext ended Release Oral Capsule dilTIAZem (CARDIZEM CD) 24 hr capsule 120 mg dilTIAZem (CARDIZEM CD) 24 hr capsule 120 mg 04/12/2020 07:00:00 PM EDT 120 mg Oral aborted 120 mg, Oral, Every 24 hours, First dose on 04/12/20 at 1900, For 30 days
Do not crush or chew
[facility] Medication administered onsite magnesium sulfate in dextrose 5 % infusion (premix) 8 mEq [id number] 04/12/2020 07:00:00 PM EDT 8 meq Intravenous completed 8 mEq, Intravenous, Administer over 60 Minutes, Once, 04/12/20 at 1900, For 1 dose
each 8 mEq equivalent to 1 gm
[facility] Medication administered onsite 2 ML Metoclopramide 5 MG/ML Prefilled Sy ringe metoclopramide (REGLAN) injection 10 mg metoclopramide (REGLAN) injection 10 mg 04/12/2020 07:00:00 PM E DT 10 mg Intravenous aborted 10 mg, I ntravenous, Every 6 hours, First dose on 04/12/20 at 1900, For 30 days [facility] Medication administered onsite Benazepril hydrochloride 40 MG Oral Tablet benazepril (LOTENSIN) 40 MG tablet benazepril (LOTENSIN) 40 MG tablet 04/07/2019 12:00:00 AM EDT 40 mg Oral active Take 1 tablet by mouth daily [facility] 24 HR Diltiazem Hydrochloride 120 MG Ext ended Release Oral Capsule dilTIAZem (CARDIZEM CD) 120 MG 24 hr capsule dilTIAZem (CARDIZEM CD) 120 MG 24 hr capsule 04/06/2019 12:00:00 AM EDT 120 mg Oral active Take 1 capsule by mouth every 24 (twenty-four) hours [facility] Docusate Sodium 50 MG / sennosides, LONG-TERM 8.6 MG Oral Tablet senna-docusate (PERICOLACE) 8.6-50 MG senna-docusate (PERICOLACE) 8.6-50 MG 08/29/2017 12:00 :00 AM EDT 1 {tbl} Oral aborted Take 1 t ablet by mouth 2 (two) times a day [facility] methylPREDNISolone (MEDROL) 4 MG tablet [id number] 08/29/20 17 12:00:00 AM EDT aborted follow package d irections [facility] 0.65 ML exenatide 3.08 MG/ML Pen Injector Exenatide ER 2 MG PEN Exenatide ER 2 MG PEN 2 mg Subcutaneous aborted Inj ect 2 mg under the skin once a week on Tuesday [facility] pregabalin 100 MG Oral Capsule pregabalin (LYRICA) 100 MG capsule pregabalin (LYRICA) 100 MG capsule 100 mg Oral aborted Take 100 mg by mouth 2 (two) times a day [facility] Bifidobacterium Infantis 4 MG Oral Capsu le [Align] Probiotic Product (ALIGN) capsule Probiotic Product (ALIGN) capsule 1 {capsule} Oral aborted Take 1 capsule by mouth 2 (two) times a day [facility] zolmitriptan 5 MG/ACTUAT Nasal [place] ZOLMitriptan (ZOM IG) 5 MG nasal solution ZOLMitriptan (ZOMIG) 5 MG nasal solution 1 {spray} Nasal aborted 1 spray into each nostril as needed for migraine [facility] Hydrochlorothiazide 25 MG Oral Tablet hy drochlorothiazide (HYDRODIURIL) 25 MG tablet hydrochlorothiazide (HYDRODIURIL) 25 MG tablet 25 mg O ral aborted Take [address] [facility] sildenafil 50 MG Oral Tablet sildenafil (VIAGRA) 50 MG tablet sildenafil (VIAGRA) 50 MG tablet 50 mg Oral aborted Take 50 mg by mouth daily as needed for erectile dysfunction [facility] Tamsulosin hydrochloride 0.4 MG Oral Capsule tamsulosi n (FLOMAX) 0.4 MG CAPS tamsulosin (FLOMAX) 0.4 MG CAPS 0.8 mg Oral aborte d Take 0.8 mg by mouth nightly [facility] 24 HR Metformin hydrochloride 500 MG Ext ended Release Oral Tablet metFORMIN (GLUCOPHATE-XR) 500 MG 24 hr tablet metFORMIN (GLUCOPHATE-XR) 500 MG 24 hr tablet 1000 mg Oral aborted Take 1,000 mg b y mouth daily [facility] POLYETHYLENE GLYCOL 3350 142 MG/ML Oral Solution polyethylene glycol (GLYCOLAX) packet polyethylene glycol (GLYCOLAX) packet 17 g Oral aborted Take 17 g by mouth daily as needed (for constipation) [facility] Atenolol 25 MG Oral Tablet atenolol (TENORMIN) 25 MG t ablet atenolol (TENORMIN) 25 MG tablet 25 mg Oral aborted Take 25 mg by mouth daily [facility] Famotidine 20 MG Oral Tablet famotidine (PEPCID) 20 MG tablet famotidine (PEPCID) 20 MG tablet 20 mg Oral aborted Ta ke 20 mg by mouth daily [facility] Amoxicillin 250 MG Oral Capsule amoxicillin (AMOXIL) 2 50 MG capsule amoxicillin (AMOXIL) 250 MG capsule 500 mg Oral aborted Take 500 mg by mouth 3 (three) times a day [facility] Amlodipine 10 MG / Benazepril hydrochlor abiola 40 MG Oral Capsule amLODIPine- benazepril (LOTREL) 10-40 MG per capsule amLODIPine-benazepril (LOTREL) 10-40 MG per capsule 1 {capsule} Oral aborted Take 1 capsule by mouth daily [facility] Zolpidem tartrate 10 MG Oral Tablet zolpidem (AMBIEN) 10 MG tablet zolpidem (AMBIEN) 10 MG tablet 10 mg Oral aborted Take 10 mg by mouth nightly [facility] ammonium lactate 120 MG/ML Topical Lotio n ammonium lactate (AMMONIUM LACTATE) 12 % lotion ammonium lactate (AMMONIUM LACTATE) 12 % lotion 1 {application} Topical aborted Apply 1 application topically daily [facility] Spironolactone 25 MG Oral Tablet spironolactone (ALDAC TONE) 25 MG tablet spironolactone (ALDACTONE) 25 MG tablet 12.5 mg Oral aborted Take 12.5 mg by mouth daily [facility] Ranitidine 150 MG Oral Tablet ranitidine (ZANTAC) 150 MG tablet ranitidine (ZANTAC) 150 MG tablet 150 mg Oral aborted Take 150 mg by mouth Two Times Daily [facility] Lisinopril 20 MG Oral Tablet lisinopril (PRINIVIL,ZEST RIL) 20 MG tablet lisinopril (PRINIVIL,ZESTRIL) 20 MG tablet 40 mg Oral aborted Hypertension Take 40 mg by mouth daily [facility] Hypertension Amitriptyline Hydrochloride 100 MG Oral Tablet amitriptyline (ELAVIL) 100 MG tablet amitriptyline (ELAVIL) 100 MG tablet 100 mg Oral aborted Take 100 mg by mouth nightly [facility] Insurance Providers Payer name Policy type / Coverage type Policy ID Covered libertarian ID Covered libertarian's relationship to pickard Policy Pickard Plan Information ACTIVE DUTY [id number] [facility] [id number] S [id number] Tomasa [id number] U [id number] Self [id number] U [id number] Self [id number] [facility] [id number] S [id number] [facility] [id number] S [id number] [employer] [id number] S [id number] U [id number] Self [id number] [place] WPS [id number] S [id number] [place] Claims F [id number] SELF [id number] Tomasa [id number] PI PI [id number] Tomasa [id number] [place] F [id number] SELF [id number] 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 Commercial Self [employer] [id number] [facility] [place] [employer] O [id number] S [id number] Problems, Conditions, and Diagnoses Code Display Name Description Problem Type Effective Dates Data Source(s) R07.89 Chest tightness Chest tightness [id number] 06/09/2020 12:0 0:00 AM EDT [facility] R79.89 Troponin level elevated Troponin level elevated [id number] 05/25/2020 12:00:00 AM EDT [facility] G43.909 Migraines Migraines [id number] 05/25/2020 12:00:00 AM ED T [facility] R07.9 Chest pain Chest pain [id number] 05/25/2020 12:00:00 AM ED T [facility] F41.9 Anxiety Anxiety [id number] 05/25/2020 12:00:00 AM ED [facility] F32.9 Depression Depression [id number] 05/25/2020 12:00:00 AM ED T [facility] K21.9 GERD (gastroesophageal reflux disease) G ERD (gastroesophageal reflux disease) [id number] 05/25/2020 12:00:00 AM T [facility] I10 Hypertension Hypertension [id number] 05/25/2020 12:00:[facility] F41.1 Generalized anxiety disorder GENERALIZED ANXIETY [...] myocardial infarction, unspecified Diagnosis 06/09/2020 11:14:00 AM [facility] Z79.899 Other long-term (current) drug therapy O THER INTERMEDIATE (CURRENT) DRUG THERAPY Diagnosis 06/09/2020 03:25:00 AM [facility] l Z95.0 Presence of cardiac pacemaker 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 Diagnosis 06/09/2020 03:25:00 AM [facility] 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 INTERMEDIATE (CU RRENT) USE OF ASPIRIN Diagnosis 06/09/2020 03:25:00 AM [facility] Z79.2 MCFP (current) use of antibiotics L MONALISA TERM (CURRENT) USE OF ANTIBIOTICS Diagnosis 06/09/2020 03:25:00 AM [facility] l I20.0 Unstable angina UNSTABLE ANGINA Diagnosis 06/09/2020 03:2 5:00 AM [facility] I25.2 Old myocardial infarction OLD MYOCARDIAL INFARCTION Di agnosis 06/09/2020 03:25:00 AM [facility] E11.9 Type 2 diabetes mellitus without complic ations TYPE 2 DIABETES MELLITUS WITHOUT COMPLICATIONS Diagnosis 06/09/2020 03:25:00 AM EDT [facility] I10 Essential (primary) hypertension ESSENTIAL (PRIMARY) H YPERTENSION Diagnosis [facility]/09[facility]2020 [facility] Non-ST elevation (NSTEMI) myocardial inf arction NON-ST ELEVATION (NSTEMI) MYOCARDIAL INFARCTION Diagnosis 06/09/2020 03:25:00 AM EDT [facility] R07.9 Chest pain, unspecified CHEST PAIN, UNSPECIFIED Diagno sis 06/09/2020 03:25:00 AM [facility] R07.9 Chest pain, unspecified Chest pain, unspecified Diagno sis 05/25/2020 11:34:44 AM EDT [facility] I21.3 ST elevation (STEMI) myocardial infarcti on of unspecified site ST elevation (STEMI) myocardial infarcti Diagnosis 05/25/2020 11:34:44 AM EDT [facility] I10 Essential (primary) hypertension Essential (primary) h ypertension Diagnosis 04/12/2020 06:55:25 PM EDT [facility] cocaine induced ischemia, elevated trop cocaine induced ischemia, elevated trop Diagnosis 04/12/2020 06:22:30 PM EDT [facility] I11.9 Hypertensive heart disease without heart failure HYPERTENSIVE HEART DISEASE WITHOUT HEART FAILURE Diagnosis 04/12/2020 11:34:00 AM EDT [facility] Surgeries/Procedures Procedure Description Date Indications Data Source(s) CARDIAC CATHETERIZATION CARDIAC CATHETERIZATION Routine 06/09/2020 3:19 PM EDT Acute myocardial infarction 06/09/2020 07:19:25 PM EDT Acute myocardial infarction [facility] Acute myocardial infarction TROPONIN QUANTITATIVE TROPONIN I Timed 06/09/2020 11:52 AM EDT 06/09/2020 03:52:00 PM EDT [facility] BASIC METABOLIC PANEL CALCIUM TOTAL BASIC METABOLIC PANEL STAT 06/09/2020 11:52 AM EDT 06/09/2020 03:52:00 PM EDT [facility] ECG ROUTINE ECG W/LEAST 12 LDS TRCG ONLY W/O I&R ECG 12-LEAD Routine 06/09/2020 11:46 AM EDT 06/09/2020 03:46:59 PM EDT [facility] 2019 NCOV AMPLIFIED 2018 NCOV AMPLIFIED Routine 06/09/2020 11:20 AM EDT 06/09/2020 03:20:00 PM EDT [facility] GLUC BLD GLUC MNTR DEV CLEARED FDA SPEC HOME USE POCT GLUCOSE Routine 05/26/2020 1:40 PM EDT 05/26/2020 05:40:00 PM EDT [facility] MYOCARDIAL SPECT MULTIPLE STUDIES NM CARDIAC GATED SPEC IMG EFW M Routine 05/26/2020 1:07 PM EDT 05/26/2020 05:07:03 PM EDT [facility] GLUC BLD GLUC MNTR DEV CLEARED FDA SPEC HOME USE POCT GLUCOSE Routine 05/26/2020 9:25 AM EDT 05/26/2020 01:25:00 PM EDT [facility] TROPONIN QUANTITATIVE TROPONIN I Routine 05/26/2020 6:59 AM EDT 05/26/2020 10:59:00 AM EDT [facility] TROPONIN QUANTITATIVE TROPONIN I Add-On 05/26/2020 2:05 AM EDT 05/26/2020 06:05:00 AM EDT [facility] BLOOD COUNT COMPLETE AUTOMATED CBC Routine 05/26/2020 2:05 A M EDT 05/26/2020 06:05:00 AM EDT [facility] BASIC METABOLIC PANEL CALCIUM TOTAL BASIC METABOLIC PANEL Routi ne 05/26/2020 2:05 AM EDT 05/26/2020 06:05:00 AM EDT [facility] CV STRS TST XERS&/OR RX CONT ECG PHYS SI&R STRESS TEST, CARDIOV ASCULAR Routine 05/26/2020 1:31 AM EDT 05/26/2020 05:31:06 AM EDT [facility] GLUC BLD GLUC MNTR DEV CLEARED FDA SPEC HOME USE POCT GLUCOSE Routine 05/25/2020 6:35 PM EDT 05/25/2020 10:35:00 PM EDT [facility] URINE CULTURE HOLD SPECIMEN URINE CULTURE HOLD SPECIMEN Routine 05/25/2020 3:30 PM EDT 05/25/2020 07:30:00 PM EDT [facility] DRUG SCR QUAL 1 DRUG CLASS METH EA DRUG CLASS DRUGS O F ABUSE, URINE (STAT, ER/INPATIENT) Routine 05/25/2020 3:30 PM EDT 05/25/2020 0 7:30:00 PM EDT [facility] URNLS DIP STICK/TABLET RGNT AUTO W/O MICROSCOPY URINALYSIS W/O MICRO Routine 05/25/2020 3:30 PM EDT 05/25/2020 07:30:00 PM EDT [facility] GLUC BLD GLUC MNTR DEV CLEARED FDA SPEC HOME USE POCT GLUCOSE Routine 05/25/2020 2:51 PM EDT 05/25/2020 06:51:00 PM EDT [facility] NT PRO BNP NT PRO BNP Routine 05/25/2020 12:59 PM EDT 05/25/2020 04:59:00 PM EDT [facility] TROPONIN QUANTITATIVE TROPONIN I Routine 05/25/2020 12:59 PM EDT 05/25/2020 04:59:00 PM EDT [facility] THROMBOPLASTIN TIME PARTIAL PLASMA/WHOLE BLOOD APTT Routine 05/25/2020 12:59 PM EDT 05/25/2020 04:59:00 PM EDT [facility] SEDIMENTATION RATE RBC AUTOMATED SEDIMENTATION RATE Add-On 05/25/2020 12:59 PM EDT 05/25/2020 04:59:00 PM EDT [facility] PROTHROMBIN TIME PROTIME-INR Routine 05/25/2020 12:59 PM EDT 05/25/2020 04:59:00 PM EDT [facility] FIBRIN DGRADJ PRODUCTS D-DIMER QUANTITATIVE D-DIMER, QUANTITATI VE Routine 05/25/2020 12:59 PM EDT 05/25/2020 04:59:00 PM EDT [facility] BLOOD COUNT COMPLETE AUTO&AUTO DIFRNTL WBC COUNT CBC AND DIFFER ENTIAL Routine 05/25/2020 12:59 PM EDT 05/25/2020 04:59:00 PM EDT [facility] THYROID STIMULATING HORMONE TSH TSH Routine 05/25/2020 12:59 PM EDT 05/25/2020 04:59:00 PM EDT [facility] THYROXINE FREE T4, FREE Routine 05/25/2020 12:59 PM EDT 05/25/2020 04:59:00 PM EDT [facility] HEMOGLOBIN GLYCOSYLATED A1C HEMOGLOBIN A1C Add-On 05/25/2020 12:59 PM EDT 05/25/2020 04:59:00 PM EDT [facility] CREATINE KINASE TOTAL CK Routine 05/25/2020 12:59 PM EDT 05/25/2020 04:59:00 PM EDT [facility] COMPREHENSIVE METABOLIC PANEL COMPREHENSIVE METABOLIC PANEL Rou shawn 05/25/2020 12:59 PM EDT 05/25/2020 04:59:00 PM EDT [facility] XR CHEST PORTABLE XR CHEST PORTABLE Routine 05/25/2020 12:40 PM EDT 05/25/2020 04:40:31 PM EDT [facility] ECG ROUTINE ECG W/LEAST 12 LDS TRCG ONLY W/O I&R ECG 12-LEAD Routine 05/25/2020 12:03 PM EDT 05/25/2020 04:03:47 PM EDT [facility] ECG ROUTINE ECG W/LEAST 12 LDS W/I&R ECG 12-LEAD Routine 05/25/2020 11:35 AM EDT 05/25/2020 03:35:17 PM EDT [facility] PHOSPHORUS INORGANIC PHOSPHORUS LEVEL Routine 04/14/2020 3:31 AM E DT 04/14/2020 07:31:00 AM [facility] MAGNESIUM MAGNESIUM LEVEL Routine 04/14/2020 3:31 AM EDT 04/14/2020 07:31:00 AM [facility] HEMOGLOBIN GLYCOSYLATED A1C HEMOGLOBIN A1C Routine 04/14/2020 3:31 AM EDT 04/14/2020 07:31:00 AM [facility] LIPID PANEL LIPID PANEL Routine 04/14/2020 3:31 AM EDT 04/14/2020 07:31:00 AM [facility] BASIC METABOLIC PANEL CALCIUM TOTAL BASIC METABOLIC PANEL Routi ne 04/14/2020 3:31 AM EDT 04/14/2020 07:31:00 AM EDT [facility] ECHOCARDIOGRAM STRESS TEST ECHOCARDIOGRAM STRESS TEST Routine 04/14/2020 12:15 AM EDT 04/14/2020 04:15:10 AM EDT [facility] ECHO TTHRC R-T 2D W/WOM-MODE COMPL SPEC&COLR DOP ECHOCARDIO GRAM 2D COMPLETE Routine 04/13/2020 7:22 AM EDT 04/13/2020 11:22:45 AM [facility] TROPONIN QUANTITATIVE TROPONIN T Timed 04/13/2020 6:12 AM EDT 04/13/2020 10:12:00 AM [facility] PHOSPHORUS INORGANIC PHOSPHORUS LEVEL Routine 04/13/2020 6:12 AM E DT 04/13/2020 10:12:00 AM [facility] MAGNESIUM MAGNESIUM LEVEL Routine 04/13/2020 6:12 AM EDT 04/13/2020 10:12:00 AM [facility] BASIC METABOLIC PANEL CALCIUM TOTAL BASIC METABOLIC PANEL Routi ne 04/13/2020 6:12 AM EDT 04/13/2020 10:12:00 AM EDT [facility] HEPARIN ASSAY ANTI-XA UNFRACTIONATED HEPARIN LEVEL Routine 04/13/2020 4:19 AM EDT 04/13/2020 08:19:00 AM EDT [facility] PROTHROMBIN TIME PROTIME INR Routine 04/13/2020 4:19 AM EDT 04/13/2020 08:19:00 AM [facility] BLOOD COUNT COMPLETE AUTOMATED CBC Timed 04/13/2020 4:19 A M EDT 04/13/2020 08:19:00 AM [facility] TROPONIN QUANTITATIVE TROPONIN T Timed 04/13/2020 12:14 AM EDT 04/13/2020 04:14:00 AM [facility] CT HEAD/BRAIN W/O CONTRAST MATERIAL CT HEAD WITHOUT CONTRAST 70 450 STAT 04/12/2020 10:41 PM EDT 04/13/2020 02:41:39 AM [facility] XR CHEST FRONTAL ONLY 96419 XR CHEST FRONTAL ONLY 87380 Urgent 04/12/2020 9:02 PM EDT 04/13/2020 01:02:00 AM EDT [facility] EKG 12-LEAD - CMAXX REPORT EKG 12-LEAD - CMAXX REPORT 04/12/2020 7:21 PM EDT 04/12/2020 11:21:26 PM EDT [facility] EKG 12-LEAD - CMAXX REPORT EKG 12-LEAD - CMAXX REPORT 04/12/2020 7:21 PM EDT 04/12/2020 11:21:26 PM EDT [facility] EKG 12-LEAD EKG 12-LEAD STAT 04/12/2020 7:21 PM EDT 04/12/2020 11:21:26 PM [facility] URNLS DIP STICK/TABLET REAGENT AUTO MICROSCOPY URINAL YSIS WITH REFLEX URINE CULTURE STAT 04/12/2020 7:08 PM EDT 04/12/2020 11:08 :00 PM [facility] DRUGS OF ABUSE, URINE DRUGS OF ABUSE, URINE Routine 04/12/2020 7 :08 PM EDT 04/12/2020 [facility] PROTIME INR STAT 04/12/2020 7:08 PM EDT 04/12/2020 11:08:00 PM [facility] BLOOD COUNT COMPLETE AUTO&AUTO DIFRNTL WBC COUNT CBC AND DIFFER ENTIAL STAT 04/12/2020 7:08 PM EDT 04/12/2020 11:08:00 PM [facility] TROPONIN QUANTITATIVE TROPONIN T STAT 04/12/2020 7:08 PM EDT 04/12/2020 11:08:00 PM [facility] PHOSPHORUS INORGANIC PHOSPHORUS LEVEL STAT 04/12/2020 7:08 PM E DT 04/12/2020 11:08:00 PM [facility] MAGNESIUM MAGNESIUM LEVEL STAT 04/12/2020 7:08 PM EDT 04/12/2020 11:08:00 PM [facility] COMPREHENSIVE METABOLIC PANEL COMPREHENSIVE METABOLIC PANEL STA T 04/12/2020 7:08 PM EDT 04/12/2020 11:08:00 PM EDT [facility] GLUCOSE QUANTITATIVE BLOOD XCPT REAGENT STRIP POCT GLUCOSE, DOC KED Routine 04/12/2020 6:31 PM EDT 04/12/2020 10:31:00 PM [facility] Results ID Date Data Source [id number] 12/01/2020 12:00:00 AM EST [facility] Name Value Range Interpretation Code Description Data Sophie rce(s) Supporting Document(s) SARS-CoV2 Rapid Antigen [facility] This lab was ordered by [facility] and reported by [facility]. ID Date Data Source 0511/12/2020 12:00:00 AM EST [facility] Name Value Range Interpretation Code Description Data Sophie rce(s) Supporting Document(s) SARS-CoV2 Rapid Antigen [facility] This lab was ordered by [facility] and reported by Guru Akbar MD. ID Date Data Source [id number] 10/16/2020 12:00:00 AM EST [facility] Name Value Range Interpretation Code Description Data Sophie rce(s) Supporting Document(s) SARS-CoV2 Rapid Antigen [facility] This lab was ordered by [facility] and reported by [facility]. ID Date Data Source [id number] 07/11/2020 10:55:00 PM EDT [facility] Patient: CLINT ESTRELLA [facility] - [facility].VisitID: [id number] [place] [address] [phone], MRegistration Date/Time: 06/09/2020 02:37 Weight:95.2 kg (S). [...] rce(s) Supporting Document(s) ID Date Data Source [id number] 06/11/2020 12:43:00 AM EDT [facility] Patient: CLINT ESTRELLA Tiffanie Cruz eport - [facility].VisitID: [id number] [place] [address] [phone], MRegistration Date/Time: 06/10/2020 11:17 Weight:95.2 kg (S). [...] family medical history. (Electronically signed by Marck Carroll, PElbertAElbert 06/11/2020 00:12) Name Value Range Interpretation Code Description Data Sophie rce(s) Supporting Document(s) ID Date Data Source [id number] 06/10/2020 12:52:00 PM [facility] l BRAIN W/O CONTRAST HISTORY: Tingling TECHNIQUE: [...] rce(s) Supporting Document(s) ID Date Data Source [id number] 06/10/2020 01:52:00 PM EDT [facility] [id number] Name Value Range Interpretation Code Description Data [facility] rce(s) Supporting Document(s) URINE AMPHETAMINES NEGATIVE <1000 ng/mL [facility] pital THC,URINE NEGATIVE <50 ng/mL [facility] URINE BARBITURATES NEGATIVE <300 ng/mL [facility] ital PCP,URINE NEGATIVE <25 ng/mL [facility] COCAINE, URINE NEGATIVE <300 ng/mL [facility] URINE,OPIATES NEGATIVE <300 ng/mL [facility] URINE,TCA NEGATIVE <1000 ng/mL [facility] IF A NEGATIVE RESULT IS OBTAINED AND ING ESTION OF TRICYCLICANTIDEPRESSANTS IS SUSPECTED, A SERUM SAMPLE SHOULD BEOBTAINED AND TESTED USING AN APPROPRIATE METHOD. URINE BENZODIAZEPINES NEGATIVE <300 ng/mL [facility] ospital THESE TESTS ARE PERFORMED USING AN IMMU NOASSAY FOR THEQUALITATIVE DETERMINATION OF THE PRESENCE OF THE MAJORMETABOLITES OF DRUGS OF ABUSE. THESE TESTS ARE ONLY ASCREENING AND NOT CONFIRMATORY. CLINICAL CONSIDERATION ANDPROFESSIONAL JUDGMENT MUST BE APPLIED TO ANY DRUG OF ABUSETEST RESULT. ID Date Data Source [id number] 06/10/2020 01:41:00 PM EDT [facility] ital TSYSORDER [id number] Name Value Range Interpretation Code Description Data [facility] rce(s) Supporting Document(s) URINE COLOR. PALE [facility] URINE APPEARANCE CLEAR [facility] l SPECIFIC GRAVITY,URINE <= 1.005 1.001-1.035 [facility] URINE LEUKOCYTE ESTERASE NEGATIVE NEGATIVE [facility] URINE NITRATE NEGATIVE NEGATIVE [facility] PH,URINE 5.5 5.0-9.0 [facility] URINE PROTEIN NEGATIVE mg/dL NEGATIVE [facility] GLUCOSE (UA) NEGATIVE mg/dL NEGATIVE [facility] URINE KETONE NEGATIVE mg/dL NEGATIVE [facility] UROBILINOGEN NORMAL(0.2-1) mg/dL 0-1 R [facility] URINE BILIRUBIN NEGATIVE NEGATIVE [facility] URINE BLOOD NEGATIVE NEGATIVE [facility] ID Date Data Source [id number] 06/10/2020 12:38:00 PM EDT [facility] TSYSORDER [id number] Name Value Range Interpretation Code Description Data Sophie rce(s) Supporting Document(s) MAGNESIUM 2.1 mg/dL 1.8-2.4 [facility] ID Date Data Source [id number] 06/10/2020 12:46:00 PM EDT [facility] TSYSORDER [id number] Name Value Range Interpretation Code Description Data Sophie rce(s) Supporting Document(s) CREATINE PHOSPHOKINASE 556 U/L 39-308 H [facility] ospital ID Date Data Source [id number] 06/10/2020 12:38:00 PM EDT [facility] TSYSORDER [id number] Name Value Range Interpretation Code Description Data Sophie rce(s) Supporting Document(s) TROPONIN I 0.125 ng/mL 0.0-0.056 *H [facility] CALLED TO ER (MARCK), BY Angela Mac , AT 1238. ID Date Data Source [id number] 06/10/2020 12:38:00 PM EDT [facility] TSYSORDER [id number] Name Value Range Interpretation Code Description Data Sophie rce(s) Supporting Document(s) LIPASE 124 U/L 73-393 [facility] ID Date Data Source [id number] 06/10/2020 12:38:00 PM EDT [facility] TSYSORDER [id number] Name Value Range Interpretation Code Description Data Sophie rce(s) Supporting Document(s) GLUCOSE 144 mg/dL 74-106 H [facility] BLOOD UREA NITROGEN 15 mg/dL 7-18 [facility] ital CREATININE 1.6 mg/dL 0.7-1.3 H [facility] SODIUM 137 mmol/L 136-145 [facility] POTASSIUM 3.8 mmol/L 3.5-5.1 [facility] CHLORIDE 100 mmol/L 98-107 [facility] CO2 29 mmol/L 21-32 [facility] CALCIUM 9.6 mg/dL 8.5-10.1 [facility] ANION GAP 8.0 mmol/L 5-12 [facility] GLOMERULAR FILTRATION RATE 49 mL/min [facility] GFR IS CALCULATED IN mL/min/1.73m2 BRITTA L FUNCTION: >90MILDLY DECREASED: 60-89MILDY TO MODERATELY DECREASED: 45-59 MODERATELY TO SEVERELY DECREASED: 30-44SEVERELY DECREASED: 15-29RENAL FAILURE: <15 AST 34 U/L 15-37 [facility] ALT 53 U/L 12-78 [facility] ALKALINE PHOSPHATASE 80 U/L 46-116 [facility] pital TOTAL BILIRUBIN 0.7 mg/dL 0.2-1.0 [facility] TOTAL PROTEIN 7.9 g/dl 6.4-8.2 [facility] ALBUMIN 4.0 gm/dL 3.4-5.0 [facility] ID Date Data Source [id number] 06/10/2020 12:22:00 PM EDT [facility] l TSYSORDER [id number] Name Value Range Interpretation Code Description Data Sophie rce(s) Supporting Document(s) TSH 1.07 uIU/mL 0.36-3.74 [facility] ID Date Data Source [id number] 06/10/2020 12:09:00 PM EDT [facility] l TSYSORDER [id number] Name Value Range Interpretation Code Description Data Sophie rce(s) Supporting Document(s) PARTIAL THROMBOPLASTIN TIME 25.7 SECONDS 21.4-30.2 [facility] ID Date Data Source [id number] 06/10/2020 12:09:00 PM EDT [facility] l TSYSORDER [id number] Name Value Range Interpretation Code Description Data Sophie rce(s) Supporting Document(s) PROTHROMBIN TIME (PATIENT) 9.9 SECONDS 9.2-11.6 [facility] INR 0.95 0.87-1.06 [facility] ID Date Data Source [id number] 06/10/2020 12:04:00 PM EDT [facility] TSYSORDER [id number] Name Value Range Interpretation Code Description Data Sophie rce(s) Supporting Document(s) WHITE BLOOD COUNT 4.2 K/mm3 4.0-10.0 [facility] al RED BLOOD COUNT 5.10 M/mm3 4.50-6.00 [facility] HEMOGLOBIN 14.9 gm/dL 14.0-18.0 [facility] HEMATOCRIT 42.5 % 42.0-54.0 [facility] MEAN CELL VOLUME 83.3 fl 80-96 [facility] MEAN CORPUSCULAR HEMOGLOBIN 29.2 pg 27.0-31.0 [facility] MEAN CORPUSCULAR HGB CONC 35.1 g/dl 32.0-36.0 [facility] RED CELL DISTRIBUTION WIDTH 11.7 % 10.0-14.5 [facility] PLATELET COUNT 218 K/mm3 172-450 [facility] MEAN PLATELET VOLUME 10.1 fl 9.0-13.0 [facility] pital GRAN % 37.5 % 50-80.0 L [facility] IG% 0.0 % 0.0-0.2 [facility] LYMPH % 53.0 % 25.0-50.0 H [facility] MONO % 6.7 % 2.0-10.0 [facility] EOS % 2.6 % 0-5.0 [facility] BASO % 0.2 % 0.0-2.0 [facility] GRAN # 1.6 K/mm3 2.0-8.00 L [facility] IG# 0.0 K/mm3 0.0-0.2 [facility] LYMPH # 2.2 K/mm3 1.0-5.0 [facility] MONO # 0.3 K/mm3 0.10-1.20 [facility] EOS # 0.1 K/mm3 0.0-0.5 [facility] BASO # 0.0 K/mm3 0.0-0.2 [facility] ID Date Data Source [id number] 06/09/2020 03:23:16 PM EDT [facility] Name Value Range Interpretation Code Description Data Sophie rce(s) Supporting Document(s) &PDF [facility] BXAHDk0jNyAMGgPl32/MMYiyFUSpw7NlXCfoMVa2QDlsGNWxX1PqyAogUFIEVQWYNAwZVKGRMqDPKWYT hdG [file] ICAgICAgICAgICAgICAgICAgICAgICAgICAgICAgICAgICAgICAgICAgICAgICAgICAgICAgICAgICAg ICAgICANCiAgICAgICAgICAgICAgICAgICAgICAgIC AgICAgICAgICAgICAgICAgICAgICAgICAgICAgICAgICAgICAgICAgICAgICAgICAgICAgICAgICAgIC AgICAgICAgICAgICAgICANCiAgICAgICAgICAgICAgICAgICAgICAgICAgICAgICAgICAgICAgICAgIC AgICAgICAgICAgICAgICAgICAgICAgICAgICAgICAg ICAgICAgICAgICAgICAgICAgICAgICAgICANCiAgICAgICAgICAgICAgICAgICAgICAgICAgICAgICAg ICAgICAgICAgICAgICAgICAgICAgICAgICAgICAgICAgICAgICAgICAgICAgICAgICAgICAgICAgICAg ICAgICAgICANCiAgICAgICAgICAgICAgICAgICAgIC AgICAgICAgICAgICAgICAgICAgICAgICAgICAgICAgICAgICAgICAgICAgICAgICAgICAgICAgICAgIC AgICAgICAgICAgICAgICAgICANCiAgICAgICAgICAgICAgICAgICAgICAgICAgICAgICAgICAgICAgIC AgICAgICAgICAgICAgICAgICAgICAgICAgICAgICAg ICAgICAgICAgICAgICAgICAgICAgICAgICAgICANCiAgICAgICAgICAgICAgICAgICAgICAgICAgICAg ICAgICAgICAgICAgICAgICAgICAgICAgICAgICAgICAgICAgICAgICAgICAgICAgICAgICAgICAgICAg ICAgICAgICAgICANCiAgICAgICAgICAgICAgICAgIC AgICAgICAgICAgICAgICAgICAgICAgICAgICAgICAgICAgICAgICAgICAgICAgICAgICAgICAgICAgIC AgICAgICAgICAgICAgICAgICAgICANCiAgICAgICAgICAgICAgICAgICAgICAgICAgICAgICAgICAgIC AgICAgICAgICAgICAgICAgICAgICAgICAgICAgICAg ICAgICAgICAgICAgICAgICAgICAgICAgICAgICAgICANCiAgICAgICAgICAgICAgICAgICAgICAgICAg ICAgICAgICAgICAgICAgICAgICAgICAgICAgICAgICAgICAgICAgICAgICAgICAgICAgICAgICAgICAg ICAgICAgICAgICAgICANCjw/sGZvZ4pzoRKkzkJ8X9 fkPo6DBm8QVV0et2CdEBJeYTfdrnJvZnnGJhXlGDOvRskEIiy6VQnxSK2DfMMqT6TmA9UwOAqtJP3NDT EmSAXppABkEYIiFMLtZlB6PBIoGMlmVV4HfYJzEGjqUWVzRFAgCeJuDSWkJHFbZSQuVB8XEHUsT239on BuAs1GYu7WRlPpGI6bvr0UTnDuVFChEcmBBwr2KYiw FG5PuALtpFNxSsYqEGZSUcGgQ8tyi6WpLoHzOSFKRQjoDK9Vv1LejLKqYRi+Ys8RNA3ro1RgBJhsEuSu XL8uho6HWZjUKgOhL5SyvIovOZftuFonnkXvKY3ITXWkYQKwnMYpCUvmCNLUVZ0UJUsqQSO3JWNsnfDz fSUbMSekDZ4GGBRpstOfLiViJCUHHZs+Jv1NJV8ij7 YjHFjlQKIaPK7ezf1RRLvNKkRtE6A0jBSyK3G1NVmdCt2NUCMhJJTqTyEhYKFVNJnsTF9CMX8fzxP6WG 3GdFVtYGEsQJIwdNKqCXe2H38mxDPuFFekCS4VIFB+Rommel+Rd3AAJVzTABhKVMeKvHfPGPSZiVwI4EbX3 UVt0TwT4IpWH46cLrmisUlXLgoIQ7QSF8iVDPsFFWQ OY0AhXVntF1inyYfZcWsFTISXaDkW27sgXTvIOHdZFNsUZQqGq2SZDZkB5TlkjWxbFbyynQcWVFoKYXD NC1AAMwgusKmdTNpjQmtLB08vBlxNV1CQf8SBmUmUC3coq8DnEUyZa4BFLWoAZ6HSINaNWUgKVXrYNF8 TMUrRvNoKFueQQWeIGQbVIF1IQHnWIRcAW9DOsLhJI LeCyL6VmCdMOBmZRAgba7BECFtPXLqQmVsHGWdQZEbHYIbZLraTJCcQTTnIBg8EQDfKBTdXX7RQpOqVS ZoKLN3NlMgMXNxACTuwm9CJLRgUWFkYuavMURpWFPtINRbPFveMFDmWMH2BvxnSQYsNPUlII7JYjMzIZ FdERZ3SePuBUGaIBEpes1EVGYaCBTyPxozFSXfMCEk ASRnKRjbXGCvSEI3DFPaLPCdEPRqCH9INrYfCHXoNKr9UGSvGKVoOPBhwl1EGKGiGSWtBXA8RYHwTQAt LDOvLEyzGGVgJWJ6XuLlWRDiPQVaYR3ZHwShVBAkUGvsIsVpUVBkUGXhim1HTBUsLSAlIGNeFEYrMZUv WNSuAIusCHPpUQC7YsLxDSWcTSOiNF1VFvYlDJZcWP K0BHVxVUJqUTOexy8DSMFfGSBmHDZjIHWpZSXmVLHbZGwiKHZdAVA8FlWlWSMeMCNsQL7NQsKyNSPyLs B5TAJnYFSjMLDmmo5SCATcHJVlZDc3IBEtKNXzUWGvYJlgVTLqYQI2DwP3NDPlXMZgIO1KHpCrCEIkXx A6JFAmIRYbUHTlti6WBEWrZBZhNvXiYFYuFHYtQKBo IZg0msPyuKLtWXl7BW4EA4RxncNbVbSXKs7Ah899JYT3ZYAkUv3LV7kaGo9qEAOgMUWMGt3LJEl6QKb9 BYDiODU5CzV4VPD8MeBhNXQoDSmsBXSwCAQhOSo+BEn3XbgfYWJ3AHSfKQZ3GbhlGbGgRTEiRSCxWaF0 CIOfQL8uRZCWYc2+UZyciRJbvIloQOKYPcP5FbA7QZwsPZSSJk8X ID Date Data Source [id number] 06/09/2020 03:31:32 PM [facility]T [facility] Name Date of Age Gend*PT [id number] Clint Estrella Amgibson 1985 34 years M SDCXPT Location Admission Date/Time Visit ID Attending [id number] 06/09/20 1114 --- Antonella Simpson MD([id number]) EPI ID CSN Admitting Provider [id number] Antonella Simpson MD([id number])34-year-old man with history of cocaine use and [...] is normal. Clint Estrella Medication Instructions LEE ANN:[id number] Printed on:06/09/20 1530Medication Informationaspirin EC 81 MG [...] rce(s) Supporting Document(s) ID Date Data Source [id number] 06/09/2020 01:36:04 PM EDT [facility]FORMATIONPatient MRN Name Date of Age Gend*PT [id number] Clint Estrella 1985 34 years M SDCXPT Location Admission Date/Time Visit ID Attending [id number] 06/09/20 1114 --- Antonella Simpson MD([id number]) EPI ID CSN Admitting Provider [id number] Antonella Simpson MD([id number]) Attestation signed by Antonella Simpson MD at [...] file Gets together: Not on file Attends scientology service: Not on file Active member of [...] some ST elevation in V1 V2 V3 N7ivgwn could be early repolarizationEKG on arrival 06/09/2020: [...] in theprecordial leads which is unchanged from [facility] to EKG [facility] to [facility]. He does report the chest tightness currently. [...] parts of this document, were dictated using [employer]. A reasonable attempt at proofreading has been made to minimize errors.Please call with any questions or corrections. Name Value Range Interpretation Code Description Data Sophie rce(s) Supporting Document(s) ID Date Data Source [id number] 06/09/2020 12:19:05 PM EDT [facility] Name Value Range Interpretation Code Description Data Sophie e(s) Supporting Document(s) EKG [facility] IIESUo7lLyLAFcFzd1WhEsUpZCHiMG9dquj3F7U4dDYqP0QyfBVpq3pfW5PdK0UoZRQkNFTUSV4TwYSg jb2 [file] Qgi1JvcxFWbsHVWQCh== ID Date Data Source [id number] 06/09/2020 01:54:15 PM EDT [facility] Name Value Range Interpretation Code Description Data Sophie rce(s) Supporting Document(s) TROPONIN I 0.09 ng/mL (<0.05) H [facility] Less than 0.05: Myocardial injury unlike lyGreater than or equal to 0.05: Highly suggestive of myocardial injuryCorrelation with rise and/or fall ofserial troponins, clinical symptomsand ECG changes is necessary. ID Date Data Source [id number] 06/09/2020 01:49:48 PM EDT [facility] Name Value Range Interpretation Code Description Data Sophie rce(s) Supporting Document(s) SODIUM 138 mmol/L (136-145) [facility] POTASSIUM 5.4 mmol/L (3.6-5.2) H [facility] CHLORIDE 103 mmol/L (100-108) [facility] CO2 31 mmol/L (22-31) [facility] ANION GAP 4 mmol/L (7-16) L [facility] UREA NITROGEN 14 mg/dL (7-24) [facility] CREATININE 1.49 mg/dL (0.80-1.30) H [facility] BUN/CREAT RATIO 9.4 RATIO (10.0-20.0) L [facility] GLUCOSE 83 mg/dL (70-99) [facility] CALCIUM 9.4 mg/dL (8.4-10.2) [facility] GFR 54 ml/min/1.73m2 (>59) L [facility] GFR ( AMER) >60 ml/min/1.73m2 (>59) [facility] GFR INTERPRETATION Lab [facility] [place] --NORMAL KIDNEY FUNCTION OR MILD DISEASE - GFR >OR= 60CHRONIC KIDNEY DISEASE - GFR 15 - 59RENAL FAILURE - GFR <15 Est. GFR calculation based on the MDRDstudy equation, which assumes a steadystate for creatinine. Est. GFR should notbe used for medication dosing. ID Date Data Source [id number] 06/09/2020 11:20:00 AM EDT [facility] Name Value Range Interpretation Code Description Data Sophie rce(s) Supporting Document(s) SARS coronavirus 2 RNA [Presence] in Res piratory specimen by JAS with probe detection [facility] This lab was [facility] by [facility]. ID Date Data Source [id number] 06/09/2020 03:13:47 PM EDT [facility] Name Value Range Interpretation Code Description Data Sophie rce(s) Supporting Document(s) SPECIMEN DESCRIPTION [facility] [place] COVID19 RESULT (NDET) Lab [facility] THIS ASSAY AMPLIFIES AND DETECTSTHE TARG ET RNA USING REAL-TIME PCR.NEGATIVE 2019_NCOV RT-PCR RESULTS DONOT PRECLUDE 2019_NCOV INFECTION ANDSHOULD NOT BE USED THE SOLE BASISFOR PATIENT MANAGEMENT DECISIONS. COMMENT [facility] [place] [facility] UNDER AN EMERGENCY USE AUTHORIZATION(EUA ) FOR THE DETECTION AND/OR DIAGNOSISOF THE VIRUS THAT CAUSES COVID-19.EMAILED TO AT 14:46 ON 06/09/20 [id number]. ID Date Data Source [id number] 06/09/2020 06:16:00 AM EDT [facility] TSYS[facility] [id number] Name Value Range Interpretation Code Description Data Sophie rce(s) Supporting Document(s) TROPONIN I 0.085 ng/mL 0.0-0.056 *H [facility] ID Date Data Source [id number] 06/09/2020 03:36:00 AM EDT [facility] T[facility] [id number] Name Value Range Interpretation Code Description Data Sophie rce(s) Supporting Document(s) DDIMER < 0.19 mg/LFEU 0.19-0.60 [facility] ID Date Data Source [id number] 06/09/2020 03:27:00 AM EDT [facility] TSYSORDER [id number] Name Value Range Interpretation Code Description Data Sophie rce(s) Supporting Document(s) TROPONIN I 0.083 ng/mL 0.0-0.056 *[facility] ID Date Data Source [id number] 06/09/2020 03:27:00 AM EDT [facility] TSYSORDER [id number] Name Value Range Interpretation Code Description Data Sophie rce(s) Supporting Document(s) GLUCOSE 104 mg/dL 74-106 [facility] BLOOD UREA NITROGEN 16 mg/dL 7-18 [facility] ital CREATININE 1.6 mg/dL 0.7-1.3 H [facility] SODIUM 136 mmol/L 136-145 [facility] POTASSIUM 3.5 mmol/L 3.5-5.1 [facility] CHLORIDE 99 mmol/L 98-107 [facility] CO2 31 mmol/L 21-32 [facility] CALCIUM 9.3 mg/dL 8.5-10.1 [facility] ANION GAP 6.0 mmol/L 5-12 [facility] GLOMERULAR FILTRATION RATE 49 mL/min [facility] GFR IS CALCULATED IN mL/min/1.73m2 BRITTA L FUNCTION: >90MILDLY DECREASED: 60-89MILDY TO MODERATELY DECREASED: 45-59 MODERATELY TO SEVERELY DECREASED: 30-44SEVERELY DECREASED: 15-29RENAL FAILURE: <15 AST 37 U/L 15-37 [facility] ALT 59 U/L 12-78 [facility] ALKALINE PHOSPHATASE 133 U/L 46-116 H [facility] TOTAL BILIRUBIN 0.4 mg/dL 0.2-1.0 [facility] TOTAL PROTEIN 7.8 g/dl 6.4-8.2 [facility] ALBUMIN 4.0 gm/dL 3.4-5.0 [facility] ID Date Data Source [id number] 06/09/2020 03:05:00 AM EDT [facility] TSYSORDER [id number] Name Value Range Interpretation Code Description Data Sophie rce(s) Supporting Document(s) WHITE BLOOD COUNT 7.2 K/mm3 4.0-10.0 [facility] al RED BLOOD COUNT 5.05 M/mm3 4.50-6.00 [facility] HEMOGLOBIN 15.0 gm/dL 14.0-18.0 [facility] HEMATOCRIT 42.2 % 42.0-54.0 [facility] MEAN CELL VOLUME 83.6 fl 80-96 [facility] MEAN CORPUSCULAR HEMOGLOBIN 29.7 pg 27.0-31.0 [facility] MEAN CORPUSCULAR HGB CONC 35.5 g/dl 32.0-36.0 [facility] RED CELL DISTRIBUTION WIDTH 11.7 % 10.0-14.5 [facility] PLATELET COUNT 243 K/mm3 172-450 [facility] MEAN PLATELET VOLUME 9.7 fl 9.0-13.0 [facility] pital GRAN % 29.5 % 50-80.0 L [facility] IG% 0.0 % 0.0-0.2 [facility] LYMPH % 59.6 % 25.0-50.0 H [facility] MONO % 7.5 % 2.0-10.0 [facility] EOS % 3.1 % 0-5.0 [facility] BASO % 0.3 % 0.0-2.0 [facility] GRAN # 2.1 K/mm3 2.0-8.00 [facility] IG# 0.0 K/mm3 0.0-0.2 [facility] LYMPH # 4.3 K/mm3 1.0-5.0 [facility] MONO # 0.5 K/mm3 0.10-1.20 [facility] EOS # 0.2 K/mm3 0.0-0.5 [facility] BASO # 0.0 K/mm3 0.0-0.2 [facility] ID Date Data Source [id number] 05/29/2020 08:29:00 PM EDT [facility] l Patient: CLINT ESTRELLA Josue R [facility].VisitID: [id number] [place] [address] [phone], MRegistration Date/Time: 05/25/2020 05:10 Weight:95.2 kg (S). [...] rce(s) Supporting Document(s) ID Date Data Source [id number] 05/27/2020 11:32:18 AM EDT [facility] INFORMATIONPatient MRN Name Date of Age Gend*PT [id number] SameerClint 1985 34 years M OBSPT Location Admission Date/Time Visit ID Attending [id number] 05/25/20 1134 --- --- EPI ID CSN Admitting Provider [id number] Zelda Jarvis MD([id number]) [facility] DISCHARGE SUMMARYPatient Name: Clint Estrella of : 1985 Age 34 yearsPrimary Physician: Antonio Stanton MD PCP Wsgorlrsw Date: 05/25/2020 Discharge Date: 05/26/2020He will be discharged from [facility] to [facility] Diagnoses:Principal Problem: Chest painActive Problems: Chronic low [...] use disorder patient was a transfer from [facility]. Hestates for the past 3 days whenever [...] troponin was 0.109 (0.0-0.056)case was discussed with billing associate Dr Salgado, who wanted patient [facility]. Patient has history of cocaine use, [...] EUCEDA On 05/26/2020 1:50 PM Workstation ID: [id number] Chest PortableResult Date: 05/25/2020IMPRESSION: No acute disease in the chest. Report electronically signed by:LIEN EUCEDA On 05/25/2020 1:21 PM Workstation ID: [id number]:Stress testConsultants:CardiologyRecent Labs:BMP:Lab ResultsComponent Value Date NA 138 [...] rce(s) Supporting Document(s) ID Date Data Source [id number] 05/26/2020 01:50:24 PM EDT [address] [address]Pnhtusy Name: CLINT ESTRELLADOB: 1985Sex: MOrdering Provider: MT Bush Prov: MT Macias Provider: Procedure Performed: NM CARDIAC GATED SPEC IMG EFWMExam Date: 05/26/2020 13:07MRN: [id number] Number: [id number] Class: OutpatientAccount #: [id number] for Exam: Chest tightness or burning, high [...] LIEN EUCEDA On 05/26/2020 1:50 PMWorkstation ID: [id number] Name Value Range Interpretation Code Description Data Sophie rce(s) Supporting Document(s) ID Date Data Source [id number] 05/26/2020 02:13:22 PM EDT [facility] Name Value Range Interpretation Code Description Data Sophie rce(s) Supporting Document(s) POC NOVA GLU 86 mg/dL (70-99) [facility] [place] [facility] CLINICAL STAFF ID Date Data Source [id number] 05/26/2020 09:26:45 AM EDT [facility] Name Value Range Interpretation Code Description Data Sophie rce(s) Supporting Document(s) POC NOVA GLU 69 mg/dL (70-99) L [facility] [place] [facility] CLINICAL STAFF ID Date Data Source [id number] 05/26/2020 08:40:54 AM EDT [facility] Name Value Range Interpretation Code Description Data Sophie rce(s) Supporting Document(s) EKG [facility] MTTHFv5yVtPRWnUbs1VlTuQbSMHyDS5lhlp9S2U9ePZnB1NjcHKim1crU1SxQ9ShEBAoCGKHXW5AoKVr jb2 [file] UTF9BVIJRORXTWRkAKZbOAInQQWhZSJ2WXZ8RZERIUBPIPLnLMYcYVOkEZLaEUB1TEH1HUAITGQUWTPm MVFcYUCpHYGxGCX1PGH8WMORFCSXTWHgJPXuQUPtVWLhLXS2QOR5CNVINYHXADReSGGoZGArQYXqDJM9 MDK8ARKVZNAEYMZwIJJrWOYbYGCbXYE3JAF0HVNZJB FHAJYpTVHeVPXkWSZfTMG2ETY9ZZSUHUMDCmdYmnYvnMk39OMLI+6iOse4fqO0LElVGFOFbK9rVKgvFc EgRGywvKoCq5lTLN2Y7ZIeKmzgGPuTa4jZu6bFIT3K1VLYS5iRKlkLs3gGx4wX8O/T40BVbvmVCRkhsL NPp7M8Bk9U6JwikNg877Zlfb34ftXCN/FnKZyI+NJB pJ+tJCVQHOW9rOfNpwg5FSJFOMY8f+dAavMI2s/cjBgnLuS2aVTAy0ViNLDhV+kXdFzPOL3FIrExekhW TTST+1y1c20um0Mn9w/jnKwvAcNamIOQG3X8HXAtQ/mGoYzvYEQDEmRD0zdQgjkd7+6zD9x57mkiD/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 [file] qwXAJWH5KcGJmU9AxUQz/PlQQKcbUhKT2+2dTdl5mN00+Sarthak/GBacMcTXKzBBX4/7cjSF6Ugv7x/mhFe NuYbzK2hIT9iYxxcew7a6qzsj+raQ3GBccOW2XdKrpy4h61HnY0a/WpbAwKdQtojayMj0VpDToNGGLRA 0vjX2KYuyXAf+vUBXzheso6bfNaKiRxm6Y9EN4Q919 vJ76o3+XrQzdK/OkRijW6vD/ifLPwPJcBrwUxgIOrEaqlBmXH23fvKwpLL0H3rsKaxkjtM4vK64mXwZQ 7l+4IRh1TlCziYjGLHcYpIJqVh5YKHzAh+YymAA0ZSuueUegD4VXpKyTKjCvN1UfsYNzOzDw5Lgg2Rkd rDAOfzGyGCbrXaNpyJrUe6hXUgPeJ2rBby/ABELAu4 cFCQZG50CmBv3K9YZYxzQrGLYN5A6S99WS7/EFU6lFcPL26HurVYHsbOKHd72F3FcyoXQjRLJCmgDlZb rE5W2uaTnKWs3jPksNQl/tamjCsowPoCkoWHQLm3IhDO9v5mkg4vGEmTm6ICMPGJPMk4ixWbxDZ0tqSM ZKkZUWMm9ebHBdEqHoRSuLdYDvU1gNZR8mmFShQt6O 9SarzfdFBJMitlo3sHYBRq+VfpKwC2rqDaeS7KBfDN5lgANj8CjNpAJXG8ZCHj5xIKfyTMMWbiOyfwYY 1ZK5UXo0Us7QbV2if2DUPkpsESwoVNToJW7xVB6LaNko29keXbVtcn6DnJ45qqRmtY7PCXcWLm46hQs8 u1xp+vhoBmly3QL/burl0Ex2QZcx0ouS/c6lfVO70O IerOsq0fYYsdvJm2zDVmpj18uAtGo8Bb7a7zf7O+8GdVJ/R/adh9hyUF7LxjmoDz8WannF2gGJAl/1NE 4kgx6Baoi3n42XU4vhetMQyccZKy3Uwp3jSoteXFdP+r1XV//Sg+X+1Ddl0BY71KGlrLlYwNpOWYPik lmtkeDWgQ7fEP/whMprK2L5YhMrS4O27Y0StE4SE7V qm28Uu8tviS+n0S8TXoeqOmkEOtBEV90NKOEd/R+qSw0rYuJd9MhuX31y6jh/GgR70Z/U+VJvBujXmkO P2PglMdfBIkpWO58Hio4wegl8fjV2YxNZfj5rr4VPQRxLo7qkl83tOYJIsdI2UXr3zL75E80lcFXz05z oHGSNU/njT53AG3qg7Fnq7bz4uxL2RbNQb/8iHf9z3 Pu7Lk8jRayAIC/LsfWQ5H00Jshr3457vp7q2ZtB6E4Th02v1/w76K/rfHGtZO+[place]/tIs8oGv5ta2xgC+ 0aL6X6ZQiDmShcAq8zqUS+bAtonUIad8YqfT1pDJve7ed+XeoE/pgG1CQev1O/3vdaJ1r5vaIO6OcxRU 4BVUJqgozFJg0JzoP/0pam740r3Kgebk+K6aZqkbji LefsOX7OBE4UNSK2bz9t17e0doP334J+rp2qEzSC2xhMkIo8Y+7UCm3sH4vkSAME2VJaep6ciz5U+GC1 oR1AJyv+RmiM41EjF02hf2v9LB/n8znYXKXMO+20qdVZBxy3c60lgvccu94Zsnq9DoLeBY881z7CQjiD 9O8CiW/6dy+cj1fnlDcBd+5OfXQ7ja8kh6hC8zW6zl +nvEsHnix9YMN3bEm2BeEFnGlkXotHJiAdy0bRLd7iWyKE5gPQi/c6eqVwweeX7rD6nr+w0/hazardous waste technician/l3d/ Rx5hNUx/lkARhjz224W+QrUEizaJ0vK55dn+498dI+3if1x0w4z6rBD4/6Qrwbvc/W4jf8IFwd9RqF6x V+0jiPrt/LgFmJpBrZ624voS7QBD967R5j+MH5sIuu DUq/l1sx4YhifiLr8uXRm+zLSHIZ+v1NSzkTG0+p35R3IpqpwRLRsKTw7Ar0fIbGc0FbUtdfWmMM3E15 xS/smj6A4hal/Kou7r4s/c9ms34O4jKyc6TqI3KUjtvsGRyHn7E9eJgV7xDbSbg/8aden979fkhwiLN8 h3AaYJUnjOfE0Lco3OCfR54Bl/bUuNrmezXOj+/V4F bMrK5uVZl4JVZSjhoBepgfAx8sqMZwDv74R4ws4E9sZu6w2UrnTyhlnf0Y65iNPwlD3bB3Bm/G/IB3H2 Fuj1o20zrG4zbmvmbEogfhis4gixKp0FcyW0eJE/mNQLjE9l156Oa2i8Tcdc+f8xMG2lVKxGHKd2sC3D 1+703/bvQA/98rOh206tmj4jfFjb/NFna6nCbWugZd PACuak8jeThjSUe+s6VVTnQzJsuPpLjWA5UOoG+47g0vXanvezAtbs6c/G8sKuUUJnSaOQjMj/Q+7L1l T2zLj0sZgh4vCPt7sfB5OqcQA/ZdiEC6xVXDk8DR2kXlVAgmKzRK52yqAkowUy+Lai+/q3cyo6jhTnAtF [file] ID Date Data Source [id number] 05/26/2020 08:40:03 AM EDT [facility] Name Value Range Interpretation Code Description Data Sophie rce(s) Supporting Document(s) EKG [facility] MUXTOb9bNcSRFvVrh6CwWiKxHTWlLM7hnok9H7X0xKFmI9WgxNDwy6ouE7SoJ0VhZNDqNUAEME3SsPNk jb2 [file] 1Y/v2v//Phk7HQMuuZy/7zf//5H/9n/M9//lathe set up person//vnf//lX4ON/4L//XD0fgj3ey9TQP/waRPrFS+Bf/T F+PPIxfH7CH/MM+8q+ouKKWfOTXT7vKxR3FfxCz71TI7o22Qra7iup5VWkH/idiT/t1qRiqM41gQ+uR5 LfTMuDdPMrwW+ZCz4LgiNP39Ueim1H/EJ/NurfyO+o H+MrB/jT+efzfHnm0/htkVdL3Aye+zMF+Jr2zS7kQt/Ij/Fd7aG1t3+h1jcxdwlkqkz1V58g2fNFd/o0 Xp+bU0oYeWxIAy1khK5h44X+fn/rB8Tbs94u4KrzJ1/uK9IL+QT6reJatlGq/KqjP+BXT+FT34vR0Qvz Ic36e5fDt+rdPryaXqeBB7+oaagmzt0X150V1ahuM+ hGmsim8r++/I76D+o/Xf+t7423O+C9ZI3mDevkz7vOjlhy+ZQTZCewjfgominQ13A6ummhnA8C3k4b2C Hoe4COq7KM12i9cRihBb9o94zyf6rVE3eH2a9RbY2RuccsN42vuajatq/q22Nv3Pk4B+t3H/CF+exPy9 +ehq4twM78g7189YE8A3bINv9I3IF5rxh5vLB/9oV6 WH22Q6pTa/Yg0GhBn7Y8L8v4LO1sOWcN15C+H+zPB9/fg+/IEd3LVA10QZP/rp1u3bu0JU9Kic/8GRLy 0Qj5NOPta3FJsr3gjN3//QlPkRrHcBSpdsNPpNZXuIl8+Nhsu7BV+aMgB7IfTuZeW30t/8NB5Mu/nq6z m4jxRdE3o1/xP1c7clWck0aeX/S6OvaoaL/2h2qefj K/unHpC9YxhSkQS+Urv7BoF8TptT8V2aC8DxLWtUprBE7N65uv62raM/hdmQ5+z5VXs9OD88eiIg/qV1 bp7k/lAdoBxIQx0K8De0mdII9Vh/He3yoFY+uidkwfO8E+9rcN0hcvhG3I36S9ekR1+NL9/WYJpF9Nuz RfSzaSEVkydnctR8a8Z8fuEwxGyOYynTvpfpbD3I6x iPsRa8kqPem/veUze/3KBL+nM04Y96cP9s3MU56K3NjB+jLrk23kUBFTIP4Jy9F7FXwNW9Y7Ypmg2C2q Szl9Pj2+/P70pEz/+J6qSSt82aW1rXt/FWco//u8u4ti43xfzbz+h8sr60EztT3fZ//w/aQG2Kxe/PO+ hXbxovbBF4Jd7hhvJ/0nKhDJtVP+sx/Ewt6bknCb5m rt+nfRm7mfkf3Pg4Vcp5S/fvyazmt6+vSDqcb91gydduvAJbTcFqq1p/hs3HWX+lWlsV+t/h7J6u+vQL +A2Q8fNXA/yj68+vQ1T2fzKb2FV3cdO91Y2Dadw877Nb/GN/SrmhsL+5FqYvbMzRhws5n/qV9l/tSvMn /nFfqb9xY+clGZA8W/+D2ZJ+wlSgWrNf9W+zvdk7CY 1jd7IkeI31Mu1L/jU7/K+lO/me9rzzR4vxneFZ17nS1N+If5BohOe1IlcEzwU/W4O/o86ojdb9O+Bx78 hvhPcVjkqdNWFxRmkgceI66o9E2y5jgz8pskxt/EfXngubz0xcbZeVGwuRfpL4396uedEPs/SKM/jvzv fvWk/o2Lz3amxEJ35lSpLNqAnvUZF1+e+LE3BXm6ZY wIFr99Ve9t+6Vf/Gc3RyaSUJlHVHh69a+/YlmkqJp7KV/42E/Cn7EMifCM2cmAG34w5si1SVxUMyqaf6 VsjjZAOzzrKv60g3+IaDKMciDqJt5Pi5OwC59/q6FzZ99o3rVblMPgBZ/8/cDR1qy8VVmyuUP1+sXPTL /6gcGm5p3+i29b47O/KeFAYbmfh/+EzV3pF++Zfvmd sTbDeeLiX/2q0/blefWrDz+6/le/uu2++tWXnoF/Ra06g8Uzm+MlwW+W5tjcKDe8+kV2htqCj+eT7atf /eSf/Cmodz0r3hj3B+Yh4PcMl6y/pzVVAh5iL/Q81nf8QiVnMU+T28mxtJ99Oh3ClI/M1K9y/qR+5ZUG ttihrxlJX2e1iGj1n2ChK+pXN/3psTPtVzkHUr+aif uAwih9V/lP50/9KmUC/CbyweX4PadI+fDcKtC2pQAf4+rh5xm2qCiIcHN+CdbQv5WscdNEhqU+VemDel rfmNb/+9PaPjmt/39n2a+pQOHpUnS6dTAcJ45xNz1M/Rm6bn29Xub+Qah7ovr45UhjZEQ47tfFu/E1jC /0q7n6/9dfblQ5/h+cq/9O6rLrvz4Bn0v/fqD1hgG5 g6tuWB4K+Ct2rWYg96f43U2PO54Qo1u+Ur+Favian//nHY1b1YV1/3c2t7ajEz/B+fu/8G5+95lzg6794Id fFO/jehZ0GE98fyOd2Bk29t3r17u9Sg0FenP+pVU7Ec3bG+S00LlGc6M9mpKz44oikBk2Kw0g+yPg9+0 X1UerF/H+nXsVw5+HePrWL/b2mfv6K/oVOuj3i3BWF /m8+n/wXkwnw/GN+1X2f+2D2838422G5KU3qdD+4F3UDyhAhnB/v7/jUev46Sz8+dl+rQ9R9N+FeOoT4 9yQTB8xRy7nfcHY6/u40Yk8Vv1qWm6XTc5mz+GQ8KH7/SEf9wSu771o339QNzA/oN+3bdy0b6Akzwi1Q 83nR5pbV1+H4bllxT9EmS+VmHx8my3wMWYA2euc7v5 x6iI48QPc7a4fkjU9tr7BBN+qPIA3/Yclf7/TSXjB22ijH/otuP4Jqv7FvFVg/jifFDTflXpns+K80EV R34H/iB/72V7ox1vh+2TOgfwGN+Y4A06sidDTM/GC7ImxRzaV2R2+xKB1rSt9Jk5+mTG4R4r/YWBJ13l x8OIb0GfjwmN4+kjwf3nuyO4t5rrO9eM43TtLDxsC+ yBsbrG1ZH/0K9UMZ/zfDD+84OqxsLgB9F+uyzaHKrwg8Bb+7Ma+G33Hs1P0ZEDclAuCtoAHrbck9zaSj vZLszNwyNrK8jb7Qby1KR+BfxGPzG+gV7gx7jm4H9d+rAPnvsGt67W0phBdtZDv0VdmHRm9DqFUb+9RV O/duy0wzS3r8U/iVmWcjrLgGkaGQZzCm1d2kKhLfbe dqVpA8Uc1T+ixYvZvL3pu0IaEp83iZW+jndJzFqxPeSoRfa4Wr8h3nIcC/AL9bc+hVgrq041ZHZ21D6v 985267fwQV9t7/2mNt8x6zN/jkniNmEqy7u7OqYt8tA5Vr3LR4XbuOE3vasH9u8/Ju9mR8z2xcj+fI+g X+qcf0qy8Amic4S/hjU22gWIE6hUufp9uNlhwkJa2f R9Uk/wByN7o3sHFeNb8aue4q/+ZD3+5pU68Fhf3r//78el/rIbxJ3+vdbAdw2b6yVw118/xxyIC/3mYX +I+/iwmjc6tA8/8Ndit7cRnTeu572u7bz1l/8iDdeI24V8lw66dV1tpc729l2sp5xc2T6t8nj0nC9fFk vsaXGJ/7cPZrv+7lJy0zUkP7+oHx7c8Na/Zcahp6IL 9lhL/IdocmzwksV0gaLaUSp3AqQ79p0O1/bL/hm39st+Fhw9fu8Da/wWHzkz0tS91b8yNmPo4zq6ig+V UaphSD79i6Dkmqr3y3mFOnFF1Btk37PXcg12ja8M9eTbJG/q/wa6YxIt5McYu4Mwwsjffb7a07a/umng B88X2h6VR7fbuA/nc06jf1I1y/M5Bmbn4ENH/0sv5F /Ab+Tf1nkc/Ql+c87Mg/phr416+PmR7wZ4gVJ+KM2RRW57xKw/N2a70U4/8NM6rU/nFsPTkZS9U/Us5G 97u+B9HXY70JI8BbfKM1uIN/e1j8V9+91BQZuIqi454wb+Delfi6Un5+NYsWzpcdO+08Drt0/GNfuyl8 Yt+06/+Jl5wt4+E5/28aeA7ehiquGvoxojH3IPy9gr K3rjRvt2180/swd1L499+Lha/1Ej0c6G56ueHAyqb06g4+p/PCc+9e2s68Dao9W+SH/664aAM8bo1q3+ 45j6Qft5TVkzr3yumg5dmCwh/9Jtb4+i9C811P7X0g6Az3611qP4+bJsxbhI6r2Wja5+PlFf/tD8w5z6 0H2l9a7G+n8MpNT7w5xLk2yTi1767qmOxT1ipQDmcz vr1a/s7WUrjz+x2zG+1Qfv+uSFu1U0vq367/EQi45RNyzmx/U8ZOyDx9g/R1x6P/HZ+6Iyo3E8nUW35D p8MPPn/ond4IhQyegg5hcmekBugM642Y7XW623s6S122hJ3mb3/vnG2NU0BYk0Y9WXg2ywle1sU2/fsl 5nMpLS7+uO9uh7idpT5Dh8nEM60nckqvrB8la/0YL9 jqB0VqrqfyivE1zoSn7GB/AT+Lv4nl637Fg09D/vevp+yaa1qRhErX0c4I+Ok21N66Qf7JO+O63RIzDj 7Wu0/vlYRW4WpkB+ifytP6/R/6zl0Aos7RK209fBc/+RSimULc6Qxfm4ZuD8+xPAf9z7M+nuyXJfe5h3 f7Vw/2oJ+M48zaLq34B2nbGqP+1XO/E6Z7iIt5e4Uz 4F/AYe/Dy0pcff6N/tP10ulW+uszDj0DndZ2SPyE/6fnj4nD6A9ZjOP/xlVlpYWqyB6RvWx/GdG/VjPk /R13lylW9HCbCiUKsrcwGxWrbcS/aJzCxgiDeZtkzUu7JcUpqcYtaJU+6CGf633+uWbuAd+dvevnA+uL T/f5f1/++yttetPB+8aeAF+SuSHnx47GYU/H0+uAz7 smM1fOg2swlyzkW5tf7k9Y05J4wW/ez/svH9HNHp8McC0F2/Ssniu82kmWaNartTK3fUc5mHH+AN+LbH rrXQH/T8xD0o5KLCS/L4eB5wy628+/9q6aT2B+QX4Nv+bQeAn3Y1S/esFtvxAPC72KxR795VvqXOgfxi jpC5620jnL++kV14qW70P10/ajKt90CmodcGh67T8R WzJ1de0+po3sz6X18Nj7t0+PX/P0SEA1SE93I005Y90V2VlxGmZlnwi4hhlXRnB/UTcSGcnwkESXEWhe lifmXfrudq/0F/T+kX1sH+Pdi/B/v3oL+u1HPg3anjL/47RC9c7d1H56L+Qj+7oc644oEpfOkv3Ffb+3 iMV8DC1zHf+d1P9Xc/tX/3U/qj/jO60edmwaxj4+// 2z491nstZga3Vlld+Yz0a9++9DzreSF/+HbrG8Y7xV/aT+l/64Oytm999i964l7xi78zb80iBE/53ZBf wcpzfxC38pzv5g282z8u/108I55f+5mStlb3wjoz9sjMq479F/6Deuq+gKxwO4L4lP8ZS3BW/WrjfrVb B0pnkrwhN4nLlWQschMw6G6waKnRiYJ/uGHfvlvpuz f8B3er/vzbmbJUig1e5bm79l071+67Yivc26lzr7VR5k2BFxC/mKk6iuRX/Kv2S1/Ij/92Ap76e0Y65q /aX/uHMm9uma8zp6N0f+wK22zSU/eNjfvVjvtVzOkoefsedX/eo/CFa3Y5jM+K8ZU432+X4SEs8aF/un JwUiesogr98a+H12i6kzex927Ah587+B730cnc/Mq9 H37FxwzFkrhuSyrA+1o5r8z0Mf4+FyQ59NxuSCq7c4MK7GO+0v2cdzx7kD7Q4RU3rWjBxo/93qfOwyu/ Ow2wbcNpBe33G/92B89y8Qec7J+V12NcQhA+eUkO02H2bRX/q+7Pe9X/0S5jD6oXeKN70PmXy9P+/co8 9yp5+4Z9+14R9tE41utt6ppJBe+/lyP/AT9w4635rc [file] QgNSAwIFIKCj4+SzO2XGW0tTUqUwpzVRZ1VgGKBARRX1L= ID Date Data Source [id number] 05/26/2020 08:45:36 AM EDT [facility] Name Value Range Interpretation Code Description Data Sophie rce(s) Supporting Document(s) TROPONIN I 0.09 ng/mL (<0.05) H [facility] Less than 0.05: Myocardial injury unlike lyGreater than or equal to 0.05: Highly suggestive of myocardial injuryCorrelation with rise and/or fall ofserial troponins, clinical symptomsand ECG changes is necessary. ID Date Data Source [id number] 05/26/2020 04:03:44 AM EDT [facility] Name Value Range Interpretation Code Description Data Sophie rce(s) Supporting Document(s) TROPONIN I 0.08 ng/mL (<0.05) H [facility] Less than 0.05: Myocardial injury unlike lyGreater than or equal to 0.05: Highly suggestive of myocardial injuryCorrelation with rise and/or fall ofserial troponins, clinical symptomsand ECG changes is necessary. ID Date Data Source [id number] 05/26/2020 03:31:07 AM EDT [facility] Name Value Range Interpretation Code Description Data Sophie rce(s) Supporting Document(s) SODIUM 138 mmol/L (136-145) [facility] POTASSIUM 4.2 mmol/L (3.6-5.2) [facility] CHLORIDE 106 mmol/L (100-108) [facility] CO2 26 mmol/L (22-31) [facility] ANION GAP 6 mmol/L (7-16) L [facility] UREA NITROGEN 19 mg/dL (7-24) [facility] CREATININE 1.62 mg/dL (0.80-1.30) H [facility] BUN/CREAT RATIO 11.7 RATIO (10.0-20.0) [facility] GLUCOSE 86 mg/dL (70-99) [facility] CALCIUM 8.5 mg/dL (8.4-10.2) [facility] GFR 49 ml/min/1.73m2 (>59) L [facility] GFR ( AMER) 59 ml/min/1.73m2 (>59) L [facility] GFR INTERPRETATION [facility] --NORMAL KIDNEY FUNCTION OR MILD DISEASE - GFR >OR= 60CHRONIC KIDNEY DISEASE - GFR 15 - 59RENAL FAILURE - GFR <15 Est. GFR calculation based on the MDRDstudy equation, which assumes a steadystate for creatinine. Est. GFR should notbe used for medication dosing. ID Date Data Source [id number] 05/26/2020 03:16:33 AM EDT [facility] [place] Name Value Range Interpretation Code Description Data Sophie rce(s) Supporting Document(s) WBC 5.6 10*3/uL (4.1-11.0) [facility] RBC 4.69 10*6/uL (4.60-6.10) [facility] HGB 14.0 g/dL (13.5-18.0) [facility] HCT 40.0 % (41.0-53.0) L [facility] PERFORMED AT [address] [place] [address] [place] [address] MCV 85.4 fL (80.0-95.0) [facility] MCH 29.8 pg (27.0-32.0) [facility] MCHC 34.9 g/dL (32.0-36.0) [facility] RDW 12.3 % (10.5-14.5) [facility] PLT 231 10*3/uL (150-450) [facility] MPV 7.7 fL (7.1-10.7) [facility] ID Date Data Source [id number] 05/25/2020 06:37:19 PM EDT [facility] [place] Name Value Range Interpretation Code Description Data Sophie rce(s) Supporting Document(s) POC NOVA GLU 96 mg/dL (70-99) [facility] [place] [facility]MED [facility] CLINICAL STAFF ID Date Data Source [id number] 05/25/2020 04:58:04 PM EDT [facility] INFORMATIONPatient MRN Name Date of Age Gend*PT [id number] Clint Estrella 1985 34 years M OBSPT Location Admission Date/Time Visit ID Attending [id number] 05/25/20 1134 --- Zelda Jarvis MD([id number]) EPI ID CSN Admitting Provider [id number] Zelda Jarvis MD([id number]) Attestation signed by Zelda Jarvis MD at 05/25/2020 4:58 PMEMR reviewed. Assessment and plan discussed with Cody Agrawal NPPatient presented here with chest pain. Will obtain serial troponin and stresstest . Cards on board. ------Inpatient History & PhysicalLuqurohini EstrellaMRN:[id number] and Plan:Principal Problem: Chest painActive Problems: Chronic [...] use disorder patient was a transfer from [facility]. He states for the past 3 days [...] troponin was0.109 (0.0-0.056) case was discussed with billing associate Dr Salgado, who wantedpatient [facility]. Patient has history ofcocaine use, urine tox was positive for cocaine he states he last used it 2 to 3weeks ago. He also chews tobacco. He denies chest pain, nausea, vomiting,abdominal pain, dizziness, headache.Assessment and planChest pain-EKG changes with mildly elevated troponin,-Cardiology consulted, check d-dimer, lipid panel, TSH/Free T4, NT BNPDiabetes type 2-Get hemoglobin Q8e-Dcvas for scale insulin sliding scaleCKD-Renal function stableHypertension-Continue [...] Take 0.8 mg by mouth nightly 08/24/2017 [id number] ZOLMitriptan (ZOMIG) 5 MG nasal solution 1 [...] AgrawalCARMINADate: May 25, 2020Time: 1:41 PMPhone number: [phone] Name Value Range Interpretation Code Description Data Sophie rce(s) Supporting Document(s) ID Date Data Source [id number] 05/25/2020 04:28:02 PM EDT [facility] Name Value Range Interpretation Code Description Data Sophie rce(s) Supporting Document(s) AMPHETAMINES,URINE (NEG) [facility] BARBITURATES,URINE (NEG) [facility] BENZODIAZEPINE,URINE (NEG) [facility] CANNABINOIDS,URINE (NEG) [facility] COCAINE,URINE (NEG) A [facility] OPIATES,URINE (NEG) [facility] NOTE: Oxycodone is not sufficientlydetec magda by this screening assay. A moresensitive assay is available upon request. PHENCYCLIDINE,URINE (NEG) [facility] PLEASE NOTE: [facility] ARE REPORTED POSITIVE WHEN THE RESULT SEXCEED THE THRESHOLD (CUTOFF) INDICATED. ALIST OF POTENTIAL INTERFERENCES FOR EACHMETHOD CAN BE MADE AVAILABLE UPON REQUEST.CONFIRMATION OF A POSITIVE SCREEN CAN BE PERFORMED BY A REFERENCE LABORATORY IFREQUEST IS MADE WITHIN 48 HRS. PERFORMEDBY [address] [place] [address] ID Date Data Source [id number] 05/25/2020 04:12:59 PM EDT [facility] Name Value Range Interpretation Code Description Data Sophie rce(s) Supporting Document(s) COLOR [facility] APPEARANCE [facility] SPEC GRAV URINE 1.025 (1.003-1.030) [facility] PH URINE 7.0 (5.0-7.5) [facility] LEUK ESTERASE (NEG) [facility] NITRITE URINE (NEG) [facility] PROTEIN URINE (NEG) [facility] GLUCOSE URINE (NEG) [facility] KETONE URINE (NEG) [facility] UROBILINOGEN 0.2 mg/dL (0-1.0) [facility] BILIRUBIN URINE (NEG) [facility] BLOOD/HGB URINE (NEG) [facility] ID Date Data Source [id number] 05/25/2020 04:04:02 PM EDT [facility] Name Value Range Interpretation Code Description Data Sophie rce(s) Supporting Document(s) URN CULTURE HOLD [facility] FOR ADD ON CULTURE ID Date Data Source [id number] 05/25/2020 02:58:15 PM [facility]FORMATIONPatient MRN Name Date of Age Gend*PT [id number] Clint Estrella Ameer 1985 34 years M OBSPT Location Admission Date/Time Visit ID Attending [id number] 05/25/20 1134 --- Zelda Jarvis MD([id number]) EPI ID CSN Admitting Provider [id number] Zelda Jarvis MD([id number]) Attestation signed by Gerardo Durham MD at [...] Migraines7. GERD8. Diabetes9. CKD stage [facility] [...] he had stress test which wasnegative. [place].Review of Systems:Negative for review of all [...] file Gets together: Not on file Attends scientology service: Not on file Active member of [...] is noncontributory.DiagnosticsLabResults from last 7 daysLab Units 05/25/201259WBC 10*3/uL 5.5HEMOGLOBIN g/dL 15.1HEMATOCRIT % 43.7PLATELETS 10*3/uL [...] transfer, not thought to be ST elevation [place]. Patientexperienced chest tightness while he was in [...] amlodipine-benazepril5. Dr. Durham to see the patientPatient's billing associate is the [place].Signature: [place] PA-C -- CardiologyDate: May 25, 2020Time: 1:57 PM Name Value Range Interpretation Code Description Data Sophie rce(s) Supporting Document(s) ID Date Data Source [id number] 05/25/2020 02:53:15 PM EDT [facility] Name Value Range Interpretation Code Description Data Sophie elias(s) Supporting Document(s) POC NOVA GLU 79 mg/dL (70-99) [facility] PERFORMED BY [facility] CLINICAL STAFF ID Date Data Source [id number] 05/25/2020 01:21:23 PM EDT [facility] [address]C[place] Name: CLINT ESTRELLADOB: 1985Sex: MOrdering Provider: WALT Leyva Prov: WALT Overton Provider: Procedure Performed: XR CHEST PORTABLEExam Date: 05/25/2020 12:40MRN: [id number] Number: [id number] Class: OutpatientAccount #: [id number] for Exam: chest painTechnique: AP portable view [...] LIEN EUCEDA On 05/25/2020 1:21 PMWorkstation ID: [id number] - [id number] Name Value Range Interpretation Code Description Data Sophie rce(s) Supporting Document(s) ID Date Data Source [id number] 05/26/2020 06:05:34 PM EDT [facility] Name Value Range Interpretation Code Description Data Sophie rce(s) Supporting Document(s) CHOLESTEROL @ 118 mg/dL (0-200) [facility] TRIGLYCERIDE @ 71 mg/dL (30-200) [facility] HDL CHOLESTEROL @ 59 mg/dL (>40) [facility] PER NCEP ATP III GUIDELINES:RESULTS LOWE R THAN 40 MG/DL ARE SUGGESTIVEOF INCREASED RISK FOR CORONARY ARTERYDISEASE. RESULTS > OR = TO 60 MG/DL ARECONSIDERED A NEGATIVE RISK FACTOR. CHOL/HDL RATIO 2.0 RATIO [facility] INTERPRETATION OF CHOL-HDL RATIO CHD RISK FEMALE MALEVERY HIGH >8.3 >14.3HIGH 5.6- 8.3 6.7- 14.3AVERAGE 3.7- 5.6 4.0- 6.7BELOW AVERAGE 2.5- 3.7 2.7- 4.0PROTECTED <2.5 <2.7 LDL CHOL (CALC) 45 mg/dL (<130) [facility] PER NCEP ATP III GUIDELINES: OPTIMAL < 100 NEAR OPTIMAL 100 - 129BORDERLINE HIGH 130 - 159 HIGH 160 - 189 VERY HIGH > 189 ID Date Data Source [id number] 05/26/2020 06:05:34 PM EDT [facility] [place] Name Value Range Interpretation Code Description Data Sophie rce(s) Supporting Document(s) C REACTIVE PROTEIN @ <0.3 mg/dL (0.0-0.5) [facility] [place] ID Date Data Source [id number] 05/25/2020 03:27:32 PM EDT [facility] [place] Name Value Range Interpretation Code Description Data Sophie rce(s) Supporting Document(s) ESR 0 mm/h (0-15) [facility] [place] ID Date Data Source [id number] 05/25/2020 03:01:36 PM EDT [facility] [place] Name Value Range Interpretation Code Description Data Sophie rce(s) Supporting Document(s) HEMOGLOBIN A1C @ 5.8 % (4.0-6.0) [facility] [place] Performed using Siemens Velma immunoassa y.Care must be taken when interpreting YhF1shlohzuj in patients with a hemoglobin variantor decreased erythrocyte lifespan. Values 5.7 - 6.4% suggest prediabetes.Values >=6.5% are diagnostic for diabetes.REFERENCE: DIABETES CARE 2018: 41(S13-S27).PERFORMED AT [address] [place] [address] EST AVERAGE GLUCOSE 120 mg/dL [facility] [place] ID Date Data Source [id number] 05/25/2020 02:19:29 PM EDT [facility] [place] Name Value Range Interpretation Code Description Data Sophie rce(s) Supporting Document(s) TSH,ULTRASENSITIVE @ 0.596 mIU/L (0.360-4.170) [facility] [place] PERFORMED AT [address] [place] [address] Y [address] ID Date Data Source [id number] 05/25/2020 02:07:48 PM EDT [facility] [place] Name Value Range Interpretation Code Description Data Sophie rce(s) Supporting Document(s) NT PRO BNP 64 pg/mL (0-125) [facility] [place] ID Date Data Source [id number] 05/25/2020 02:07:48 PM EDT [facility] [place] Name Value Range Interpretation Code Description Data Sophie rce(s) Supporting Document(s) FREE THYROXINE @ 1.07 ng/dL (0.76-1.46) [facility] PERFORMED AT [address] [place] [address] [place] [address] ID Date Data Source [id number] 05/25/2020 02:07:48 PM EDT [facility] Name Value Range Interpretation Code Description Data Sophie rce(s) Supporting Document(s) TROPONIN I 0.08 ng/mL (<0.05) H [facility] Less than 0.05: Myocardial injury unlike lyGreater than or equal to 0.05: Highly suggestive of myocardial injuryCorrelation with rise and/or fall ofserial troponins, clinical symptomsand ECG changes is necessary. ID Date Data Source [id number] 05/25/2020 02:07:48 PM EDT [facility] Name Value Range Interpretation Code Description Data Sophie rce(s) Supporting Document(s) CK 544 U/L (39-308) H [facility] ID Date Data Source [id number] 05/25/2020 02:07:48 PM EDT [facility] Name Value Range Interpretation Code Description Data Sophie rce(s) Supporting Document(s) SODIUM 138 mmol/L (136-145) [facility] POTASSIUM 3.8 mmol/L (3.6-5.2) [facility] CHLORIDE 105 mmol/L (100-108) [facility] CO2 28 mmol/L (22-31) [facility] ANION GAP 5 mmol/L (7-16) L [facility] UREA NITROGEN 20 mg/dL (7-24) [facility] CREATININE 1.64 mg/dL (0.80-1.30) H [facility] BUN/CREAT RATIO 12.2 RATIO (10.0-20.0) [facility] GLUCOSE 95 mg/dL (70-99) [facility] CALCIUM 9.3 mg/dL (8.4-10.2) [facility] TOTAL PROTEIN 8.2 g/dL (6.4-8.2) [facility] ALBUMIN 4.0 g/dL (3.5-4.6) [facility] GLOBULIN 4.2 g/dL (2.7-4.3) [facility] ALB/GLOB RATIO 1.0 RATIO [facility] ALKALINE PHOSPHATASE 90 U/L (45-117) [facility] [place] BILIRUBIN,TOTAL 1.1 mg/dL (0.0-1.0) H [facility] PLEASE NOTE:Total bilirubin results may be falselyelevated in patients taking Eltrombopag. AST (SGOT) 33 U/L (11-39) [facility] ALT (SGPT) 55 U/L (12-78) [facility] GFR 48 ml/min/1.73m2 (>59) L [facility] GFR ( AMER) 58 ml/min/1.73m2 (>59) L [facility] GFR INTERPRETATION Lab [facility] [place] --NORMAL KIDNEY FUNCTION OR MILD DISEASE - GFR >OR= 60CHRONIC KIDNEY DISEASE - GFR 15 - 59RENAL FAILURE - GFR <15 Est. GFR calculation based on the MDRDstudy equation, which assumes a steadystate for creatinine. Est. GFR should notbe used for medication dosing. ID Date Data Source [id number] 05/25/2020 01:51:00 PM EDT [facility] [place] Name Value Range Interpretation Code Description Data Sophie rce(s) Supporting Document(s) D-DIMER,SENSITIVE <0.19 mg/L (<0.50) [facility] [place] ID Date Data Source [id number] 05/25/2020 01:51:00 PM EDT [facility] [place] Name Value Range Interpretation Code Description Data Sophie rce(s) Supporting Document(s) PT 10.9 s (9.2-11.9) [facility] [place] INR 1.04 [facility] [place] SUGGESTED THERAPEUTIC RANGES USING INR F ORSTABILIZED ANTICOAGULATED PATIENTS:STANDARD DOSE THERAPY INR 2.0-3.0 DVT, PE, PREVENT DVT OR EMBOLISMHIGH DOSE THERAPY INR 2.5-3.5 PREVENT EMBOLISM FROM MECHANICAL HEART VALVE ID Date Data Source [id number] 05/25/2020 01:51:00 PM EDT [facility] Name Value Range Interpretation Code Description Data Sophie rce(s) Supporting Document(s) APTT 28.0 s (22.0-34.3) [facility] ID Date Data Source [id number] 05/25/2020 01:37:17 PM EDT [facility] Name Value Range Interpretation Code Description Data Sophie rce(s) Supporting Document(s) WBC 5.5 10*3/uL (4.1-11.0) [facility] [place] RBC 5.12 10*6/uL (4.60-6.10) [facility] HGB 15.1 g/dL (13.5-18.0) [facility] HCT 43.7 % (41.0-53.0) [facility] PERFORMED AT [address] [place] [address] [place] [address] MCV 85.4 fL (80.0-95.0) [facility] MCH 29.5 pg (27.0-32.0) [facility] MCHC 34.5 g/dL (32.0-36.0) [facility] RDW 12.7 % (10.5-14.5) [facility] PLT 239 10*3/uL (150-450) [facility] MPV 7.7 fL (7.1-10.7) [facility] NEUT % 35.2 % (35.0-75.0) [facility] LYMPH % 55.3 % (16.0-52.0) H [facility] MONO % 6.7 % (0.0-8.0) [facility] EOS % 1.9 % (0.0-5.0) [facility] BASO % 0.9 % (0.0-4.0) [facility] NEUT # 2.0 10*3/uL (1.8-7.7) [facility] LYMPH # 3.1 10*3/uL (1.2-4.8) [facility] MONO # 0.4 10*3/uL (0.0-0.8) [facility] Eosinophils [#/volume] in Blood by Automated count 0.1 10*3/uL (0.0-0 .5) [facility] BASO # 0.1 10*3/uL (0.0-0.2) [facility] ID Date Data Source [id number] 05/25/2020 09:23:00 AM EDT [facility] TSYSORDER [id number] Results called to OGEMATiffanie on [facility] Name Value Range Interpretation Code Description Data Sophie rce(s) Supporting Document(s) TROPONIN I 0.127 ng/mL 0.0-0.056 *H [facility] ID Date Data Source [id number] 05/25/2020 08:21:00 AM EDT [facility] [...] rce(s) Supporting Document(s) ID Date Data Source [id number] 05/25/2020 07:55:00 AM EDT [facility] TSYSORDER [id number] Name Value Range Interpretation Code Description Data Sophie rce(s) Supporting Document(s) Adenovirus Not Detected Detected [facility] Coronavirus 229E Not Detected Detected [facility] Coronavirus HKU1 Not Detected Detected [facility] Coronavirus NL63 Not Detected Detected Not R [facility] Coronavirus OC43 Not Detected Detected Not [facility] Sars Cov 2 Not Detected Detected [facility] Metapneumovirus Not Detected Detected Not [facility] Human Rhinovirus Not Detected Detected Not [facility] Influenza A Not Detected Detected Not [facility] Influenza B Not Detected Detected Not [facility] Parainfluenza Virus 1 Not Detected Detected Not [facility] Parainfluenza Virus 2 Not Detected Detected Not [facility] Parainfluenza Virus 3 Not Detected Detected Not [facility] Parainfluenza Virus 4 Not Detected Detected Not [facility] Respiratory Syncytial Virus Not Detected Detected Not [facility] Bordetella parapertus ([id number]) Not Detected Detected Not [facility] Bordetella pertussis (ptxP) Not Detected Detected Not [facility] Chlamydia pneumoniae Not Detected Detected Not [facility] Mycoplasma pneumoniae Not Detected Detected Not [facility] The Above results have been determined b y using the [facility] [employer] system.FilmArray is an automated in vitro diagnostic system thatutilizes nested multiplex Polymerase Chain Reaction (PCR)and high-resolution melting analysis to detect and identifymultiple nucleic acid targets from clinical specimens. ID Date Data Source [id number] 05/25/2020 07:18:00 AM EDT [facility] TSYSORDER [id number] Name Value Range Interpretation Code Description Data Sophie rce(s) Supporting Document(s) URINE AMPHETAMINES NEGATIVE <1000 ng/mL [facility] pital THC,URINE NEGATIVE <50 ng/mL [facility] URINE BARBITURATES NEGATIVE <300 ng/mL [facility] ital PCP,URINE NEGATIVE <25 ng/mL [facility] COCAINE, URINE POSITIVE <300 ng/mL H [facility] URINE,OPIATES NEGATIVE <300 ng/mL [facility] URINE,TCA NEGATIVE <1000 ng/mL [facility] IF A NEGATIVE RESULT IS OBTAINED AND ING ESTION OF TRICYCLICANTIDEPRESSANTS IS SUSPECTED, A SERUM SAMPLE SHOULD BEOBTAINED AND TESTED USING AN APPROPRIATE METHOD. URINE BENZODIAZEPINES NEGATIVE <300 ng/mL [facility] ospital THESE TESTS ARE PERFORMED USING AN IMMU NOASSAY FOR THEQUALITATIVE DETERMINATION OF THE PRESENCE OF THE MAJORMETABOLITES OF DRUGS OF ABUSE. THESE TESTS ARE ONLY ASCREENING AND NOT CONFIRMATORY. CLINICAL CONSIDERATION ANDPROFESSIONAL JUDGMENT MUST BE APPLIED TO ANY DRUG OF ABUSETEST RESULT. ID Date Data Source [id number] 05/25/2020 09:22:00 AM EDT [facility] l TSYSORDER [id number] Name Value Range Interpretation Code Description Data Sophie rce(s) Supporting Document(s) CREATINE PHOSPHOKINASE 610 U/L 39-308 [facility] ID Date Data Source [id number] 05/25/2020 06:16:00 AM EDT [facility] [id number] Name Value Range Interpretation Code Description Data Sophie rce(s) Supporting Document(s) TROPONIN I 0.109 ng/mL 0.0-0.056 *H [facility] ID Date Data Source [id number] 05/25/2020 06:16:00 AM EDT [facility] [id number] Name Value Range Interpretation Code Description Data Sophie rce(s) Supporting Document(s) GLUCOSE 104 mg/dL 74-106 [facility] BLOOD UREA NITROGEN 24 mg/dL 7-18 H [facility] ital CREATININE 1.8 mg/dL 0.7-1.3 H [facility] SODIUM 138 mmol/L 136-145 [facility] POTASSIUM 3.6 mmol/L 3.5-5.1 [facility] CHLORIDE 99 mmol/L 98-107 [facility] CO2 33 mmol/L 21-32 H [facility] CALCIUM 9.7 mg/dL 8.5-10.1 [facility] ANION GAP 6.0 mmol/L 5-12 [facility] GLOMERULAR FILTRATION RATE 43 mL/min [facility] GFR IS CALCULATED IN mL/min/1.73m2 BRITTA L FUNCTION: >90MILDLY DECREASED: 60-89MILDY TO MODERATELY DECREASED: 45-59 MODERATELY TO SEVERELY DECREASED: 30-44SEVERELY DECREASED: 15-29RENAL FAILURE: <15 AST 39 U/L 15-37 H [facility] ALT 54 U/L 12-78 [facility] ALKALINE PHOSPHATASE 102 U/L 46-116 [facility] pital TOTAL BILIRUBIN 0.4 mg/dL 0.2-1.0 [facility] TOTAL PROTEIN 7.5 g/dl 6.4-8.2 [facility] ALBUMIN 4.0 gm/dL 3.4-5.0 [facility] ID Date Data Source [id number] 05/25/2020 05:40:00 AM EDT [facility] [id number] Name Value Range Interpretation Code Description Data Sophie rce(s) Supporting Document(s) WHITE BLOOD COUNT 7.1 K/mm3 4.0-10.0 [facility]LOOD [facility] 4.95 M/mm3 4.50-6.00 [facility] HEMOGLOBIN 14.3 gm/dL 14.0-18.0 [facility] HEMATOCRIT 41.4 % 42.0-54.0 L [facility] MEAN CELL VOLUME 83.6 fl 80-96 [facility] MEAN CORPUSCULAR HEMOGLOBIN 28.9 pg 27.0-31.0 [facility] MEAN CORPUSCULAR HGB CONC 34.5 g/dl 32.0-36.0 [facility] RED CELL DISTRIBUTION WIDTH 11.5 % 10.0-14.5 [facility] PLATELET COUNT 251 K/mm3 172-450 [facility] MEAN PLATELET VOLUME 9.4 fl 9.0-13.0 [facility] pital GRAN % 31.0 % 50-80.0 L [facility] IG% 0.0 % 0.0-0.2 [facility] LYMPH % 58.6 % 25.0-50.0 [facility] MONO % 8.2 % 2.0-10.0 [facility] [facility] EOS % 2.1 % 0-5.0 [facility] BASO % 0.1 % 0.0-2.0 [facility] GRAN # 2.2 K/mm3 2.0-8.00 [facility] IG# 0.0 K/mm3 0.0-0.2 [facility] LYMPH # 4.2 K/mm3 1.0-5.0 [facility] MONO # 0.6 K/mm3 0.10-1.20 [facility] EOS # 0.2 K/mm3 0.0-0.5 [facility] BASO # 0.0 K/mm3 0.0-0.2 [facility] ID Date Data Source [id number] 05/25/2020 12:00:00 AM EDT [facility] Name Value Range Interpretation Code Description Data Sophie rce(s) Supporting Document(s) 2019 Novel Coronavirus RNA [facility] This lab was ordered by [facility] L aboratory and reported by [facility]. ID Date Data Source [id number] 04/16/2020 11:33:55 PM EDT [facility] Name Value Range Interpretation Code Description Data Sophie rce(s) Supporting Document(s) Discharge Summary [facility] TGZCDh0vEmKOFfPr34/OBKjzGHWss5MzJSjzCZv4DHbtKJFgA3QyPQP1oA1hHOG1CBqEJiXwEkLbMSTa [facility]. [facility] LrYkeCYtWeWGFfRbxKTwBwOYetJekovDPyZV4AdRH5ZDRqV53eQXTcPLNbM5LgJDClDFQ+Ca1HHNCdtO ChHK6LBrdL1N5Iq3g0Po4woo7ByUpt1OZgaRydoR26MwtBDsy6nY5IUBQaKGo1zLmNzg1H+J3ku3w68S eBBCnFk+TBQhFEo+8hqVSJst57UN8Ft6Hllmimappv Oh0x5s8/X7S2hk86PW7DM/ULsAxjvM0Gqcsw2zz+hqRHM5maAv3wKfmXr6EnXdFjkEwhDTf9AB4uxl/E +/Te2DQrPbWvo4VuH+C1vOjM7iUr1+Lyv+H5lbp4EBTm+z3kwI8YtfFqfTAdufadKWho4I8lWoc9vrLA p726dwmdhDxgG0ue+2DhySsmAiRREIXiSF4OSEgqHL 7e7p3Q7OvzIfGcmNtCo+OIyoAPxsDz6AtT/Oyh4DmuHhHZ+y4eeXwqKU4OkgXJQ0+CZYjlBwnhPPZnkY iBnxDPKhQjQ+f8XG4DbnoBu3ojdY1x8UxJT5ygeqT3qG4qfBfke8QvbQLEZMQZ1osVcdQof3/mUMmHzl MF2nIoDu4aoVg766+RG0PeZ0YoxIif8BQspBn6vPJR 2OZyHkfZe6AilwlXZMndVsGsVo0f9/eD3y8/sMuM72A6tNslToyj3ddwOvQ6kOUchIfYmysM17Zy/[place] [file] q9SR8FVKSjDAWmQTRMQsMgGQXnQX8JNVZvTkUjHELU FrCyFMHyVW7RUhNaYZSgMBAJUbYcFGPnFH9QGiJdXqOkFVL+Vn0CKZOzLF3JJ7RbTVI0MKa6XZ1+DQog KBQjD3G0xYnGmVQ4PWX7SF1PBpIGMqXqJSv7N4O6kHUyE5I1rYeHnOQ0PJ1AHB1FDCYbKS0+FuXwC2XE NOnMMRP6RK7ZzRPfQE2OuJQET9QioFVaVz6qDTOioR lwbHk+HuWgB5TLBBECZQJ4TA2XfJGoBH8JtOFYN2JrjROzZy1uUClsFyZiHN0rBW6+AX9JKOKKEgKQCn CgQEjzNPqaSOReXTp9Q2W7NBNcQ0RZB7Z1B7z9v6vhgp5+FU5HOUOeLI4KBiQTCXeRIBT1AO7CmXPaOA 2NtETZK7LieGShVj6cOVzovPXrjo6+UX8UARCyUYG+ Qk8XUWZ+Xd5SRR1aa0BfGVmjOEHmLY5hnu6XPZhiRTOrJ0JzVXRuYYdaH5ExcJklAM4GPGupOPcyKO2M DSGoCBE3QB9+WAazwCSdTI3CIck/rAFuG8csuWYqHFvpxp5k31y/OcQkZE5aGjGKEY5cE8TxwKh5jbBE st5HI4giZzxtPn6+RYqbEYy1UrzsjK1meAHgzWj0mS M8ka9jJe6wJLlrFZrckA3oenA8jE8qMFOdZyE3nsJ1cWL8AE1dBb1ENOGzYDxoUJD3NuLBZKembS8zIb KpIb9kbNY3wVqmT8k9wp72Cb7xmwqgOEx5UE2xVf7mIs6zFDEev9vstZJ1FD2nAba+LEqnYYKhEN9jEU D4GrFPGx8ZHJR5Q3f7fG5giOW8TI0NViKiOGTfZXBj ICAgICAgICAgICAgICAgICAgICAgICAgICAgICAgICAgICAgICAgICAgICAgICAgICAgICAgICAgICAg ICAgICAgICAgICAgICAgICAgICAgICAgICAgICAgICANCiAgICAgICAgICAgICAgICAgICAgICAgICAg ICAgICAgICAgICAgICAgICAgICAgICAgICAgICAgIC AgICAgICAgICAgICAgICAgICAgICAgICAgICAgICAgICAgICAgICAgICANCiAgICAgICAgICAgICAgIC AgICAgICAgICAgICAgICAgICAgICAgICAgICAgICAgICAgICAgICAgICAgICAgICAgICAgICAgICAgIC AgICAgICAgICAgICAgICAgICAgICAgICANCiAgICAg ICAgICAgICAgICAgICAgICAgICAgICAgICAgICAgICAgICAgICAgICAgICAgICAgICAgICAgICAgICAg ICAgICAgICAgICAgICAgICAgICAgICAgICAgICAgICAgICANCiAgICAgICAgICAgICAgICAgICAgICAg ICAgICAgICAgICAgICAgICAgICAgICAgICAgICAgIC AgICAgICAgICAgICAgICAgICAgICAgICAgICAgICAgICAgICAgICAgICAgICANCiAgICAgICAgICAgIC AgICAgICAgICAgICAgICAgICAgICAgICAgICAgICAgICAgICAgICAgICAgICAgICAgICAgICAgICAgIC AgICAgICAgICAgICAgICAgICAgICAgICAgICANCiAg ICAgICAgICAgICAgICAgICAgICAgICAgICAgICAgICAgICAgICAgICAgICAgICAgICAgICAgICAgICAg ICAgICAgICAgICAgICAgICAgICAgICAgICAgICAgICAgICAgICANCiAgICAgICAgICAgICAgICAgICAg ICAgICAgICAgICAgICAgICAgICAgICAgICAgICAgIC AgICAgICAgICAgICAgICAgICAgICAgICAgICAgICAgICAgICAgICAgICAgICAgICANCiAgICAgICAgIC AgICAgICAgICAgICAgICAgICAgICAgICAgICAgICAgICAgICAgICAgICAgICAgICAgICAgICAgICAgIC AgICAgICAgICAgICAgICAgICAgICAgICAgICAgICAN CiAgICAgICAgICAgICAgICAgICAgICAgICAgICAgICAgICAgICAgICAgICAgICAgICAgICAgICAgICAg ICAgICAgICAgICAgICAgICAgICAgICAgICAgICAgICAgICAgICAgICANCjw/aMAxD5cplDNqnrH4B4bo Bs8ZVt8FNF1rj1ZuHCFuRFqivtChTxnQPcBxSHRxSt lFDod1ZVzrGM2MbFEwE0WpP8TkCWsmZO1JQLGgLLUebIHzWGSsETOqGgV9SGMaLViuBE0FuAVuHWatMS XiZOTeDqQzIMZgAZFeHFFbSALtESGUHW7THzXtX1HtoL16YHBFUm6+HKxvngLeGpwOHsS8QISxe2OoNS g2UC0SRVDfXunlh7SgFtkwZTUAWYzxOF9FOAX0OGR8 GDFcGc3SIXXpU132xwYiID1ERw6CTrUuIF9vrp4AWrueJMYzPbaSTqp9WScrDY2WsPDwKQcWpWUynOOo Q1WiV3PxtSParEUboQCZr01pT8NtSnOHETSoiEkzEXWaOLLnPS2xAY3jZEKuQQPcCvHgASEWCE4IJYBj WZTtjMEcUKUjQJZDSE4BLIjmKVH0NRTooqLnpKMwZE jyBG4AENStwbHwAhUpBQZAGXt+Cv5RGU5mj6PvPVdxZWGyYD0rgw6RMMbWYgFvK3W4fUPoD5R7KSffHx 7CTVOpDJRdTgBmZFHCHMijZN0HSY7pckA8FI7BnFFkVVWcJWEbqDPqZIp9Y09zmFJkVEwjXB3PUDL+Pi A+Fc7LTCDhKZTwGEQwTiFiSEDKSyVdK7TrX0EPr5Df T9JjXJ70sYqtyuJdBTlnSX0WXI9qOMAvOMBJLZ1WyQRfzL4giePiQlPdPXWUEoOcC55biPNzGNNzADA1 ORNrOf0UXBIbP3RdzeFvbNvfdmYhXGVfGPTMOG3KBWzgsfFpnDZpqHhuYD57dJmsWS4JLu6PZkQfJP1q zh2HhLXxNq9WBZMgBD7CJBGeBPXgJDZzMGC7VKIwIf YnQZtrTOIrEDOwOGA5PXHqPLSrZC6WYkYxWVZgMkAnCWCfXCMeQTTpse1MATCcQCQeSZf3IGDsNVCxML KaRPvfSSTuTHFsNZC0SWPiWLErUV3KEoRhYPLrSTHxLXFcEOJuCRWmlp8BWTOjNYHwXIG1QfInVYMhPV FcNZigCHGuSVD9OTq3QDIrQDLdIP5JNaEoCGPnIOpa CZmqSFIvVIKawl8QWSSyPLCsNUg2COXkUGLaMWYwAAddCJJwBUUiLOIuHGGuICOjMO1TRuBsFQXnXRH2 TSYxBBFfBSCouk7LBIPxRCZoNPg6KhXuEHRlFSFnKPgxJOCrEZJ6CvA3IIZmLRGwPS2TPfBiQXRuYYC8 YCBvTROdDRKqda8YAEUfOENlAmZyVkOiYALbSRCvQY lhIFVaWNL0DNc1QQDmPEShAF8BYeEtBXWtUAkhCXlbCJPnZQUtnp9MGLCkZQKvOdW6HfEhKKWbQZViQX ygBSCkCZO8KWM4PKSqPEMyTW5MZsMmJTVkFAk5RCAqTBKmBFRhjz3VMOQsDKJjDEstDkXhYMUpVLTlBP omICYgAOL0Alp5IWVpRBYpEQ4DVwCmJTQeHSv5SMSi QKKcLRXiye5PEZWyPTYiMDF7ARRtYPRuKPBqTTaqAJOsNQTkRaDuSWVsXNVuDG9QQsZtGFBfWdUtXjri GMRgMICuct0HVISzWJCcBxU1CXDpLTLaYXRgUApbZPEcUTHpEuCeBNOqRTYmCN3HXmJdNIhqVFICVyw3 RXipW3n3QKOjSH8TY8Fky2XqYyxsBAIZHUrjFO1rse EpQZMfAf6IK4cNEcncOoGzSwwwPTweHZSlLCO9FrZeC7I9OWBjQWaiLLK7El4cXGS0JqM8FDXoE3C4QB J4HPIuDSEaUutdFRD8QKTkTvu6SzGmAD9CZc6LKuI7AUW9bLVyXs4QEgS5KUSTWoYsRZ1BMLr= ID Date Data Source [id number] 04/14/2020 12:45:[address] [facility] Name Value Range Interpretation Code Description Data Sophie rce(s) Supporting Document(s) Consultation [facility] TIVYZo3eNeANTnEu97/TFVmbMGTjk3AlKNyvKJi9ZZpyTGAvG3XsOQA4rA2lVPK8THpSPaBiVhIlUJM0 lbm [file] NePyMGLvLyPrAU7iPJWLFa1+GZgxfCJwtXgeAPOJFdauFSYARwVuDI8BGWm= ID Date Data Source [id number] 04/14/2020 04:16:07 AM [facility] Value Range Interpretation Code Description Data Sophie rce(s) Supporting Document(s) Cholesterol [Mass/volume] in Serum or Plasma 154 mg/dL <200 [facility] Triglyceride [Mass/volume] in Serum or Plasma 87 mg/dL <150 [facility] Cholesterol in HDL [Mass/volume] in Serum or Plasma 62 mg/dL >40 [facility] Cholesterol in LDL [Mass/volume] in Serum or Plasma by calcu lation 74 mg/dL <100 [facility] Cholesterol in VLDL [Mass/volume] in Serum or Plasma by calc ulation 17 mg/dl 16-42 [facility] Cholesterol non HDL [Mass/volume] in Serum or Plasma 92 mg/dL <130 [facility] ID Date Data Source [id number] 04/14/2020 04:16:07 AM [facility] Value Range Interpretation Code Description Data Sophie rce(s) Supporting Document(s) Magnesium [Mass/volume] in Serum or Plasma 2.3 mg/dL 1.6-2.6 [facility] ID Date Data Source [id number] 04/14/2020 04:16:07 AM [facility] Value Range Interpretation Code Description Data Sophie rce(s) Supporting Document(s) Phosphate [Mass/volume] in Serum or Plasma 3.2 mg/dL 2.5-4.5 [facility] ID Date Data Source [id number] 04/14/2020 08:02:49 AM [facility] Value Range Interpretation Code Description Data Sophie rce(s) Supporting Document(s) Bicarbonate [Moles/volume] in Serum 22 mmol/L 22-29 [facility] Chloride [Moles/volume] in Serum or Plasma 98 mmol/L 98-107 [facility] Creatinine [Mass/volume] in Serum or Plasma 1.65 mg/dL 0.70-1.20 H [facility] Glucose [Mass/volume] in Serum or Plasma 101 mg/dL 70-140 [facility] Potassium [Moles/volume] in Serum or Plasma 3.7 mmol/L 3.4-5.1 [facility] Sodium [Moles/volume] in Serum or Plasma 135 mmol/L 136-145 L [facility] Urea nitrogen [Mass/volume] in Serum or Plasma 15 mg/dL 6-20 [facility] Anion gap 3 in Serum or Plasma 15 mmol/L 8-15 [facility] Osmolality of Serum or Plasma by calculation 281 mosm/kg 275-300 [facility] Creatinine/Urea nitrogen [Mass Ratio] in Serum or Plasma 9 [facility] Calcium [Mass/volume] in Serum or Plasma 8.7 mg/dL 8.6-10.0 [facility] Glomerular filtration rate/1.73 sq M pre dicted among non-blacks [Volume Rate/Area] in Serum or Plasma by Creatinine-based formula (MDRD) 52 mL/min/1.73m2 >60 L [facility] Glomerular filtration rate/1.73 sq M pre dicted among blacks [Volume Rate/Area] in Serum or Plasma by Creatinine-based formula (MDRD) 61 mL/min/1.73m2 >60 [facility] ID Date Data Source [id number] 04/14/2020 04:05:47 AM [facility] Name Value Range Interpretation Code Description Data Sophie rce(s) Supporting Document(s) Hemoglobin A1c/Hemoglobin.total in Blood by HPLC 5.7 % 4.0-6.0 [facility] (NOTE)<5.7% Average risk of diabetes (ADA)5.7-6.4% Increased risk of diabetes(ADA)>/= 6.5% Diagnostic for diabetes(ADA) Glucose mean value [Mass/volume] in Blood Estimated fr om glycated hemoglobin 117 mg/dL <126 [facility] ID Date Data Source [id number] 04/13/2020 05:19:00 PM [facility] Name Value Range Interpretation Code Description Data Sophie rce(s) Supporting Document(s) History and Physical [facility] LUPBOb4rMbRIRoZo20/ABXlnFFXsi8YbTNuqWGs5PAoyNTUaY0WhCKQ4uD1gBAJ6HYrSZmSyIpBoPUY6 lbm [file] ICAgICAgICAgICAgICAgICAgICAgICAgICAgICAgIC AgICAgICAgICAgICAgICAgICAgICAgICAgICANCiAgICAgICAgICAgICAgICAgICAgICAgICAgICAgIC AgICAgICAgICAgICAgICAgICAgICAgICAgICAgICAgICAgICAgICAgICAgICAgICAgICAgICAgICAgIC AgICAgICAgICANCiAgICAgICAgICAgICAgICAgICAg ICAgICAgICAgICAgICAgICAgICAgICAgICAgICAgICAgICAgICAgICAgICAgICAgICAgICAgICAgICAg ICAgICAgICAgICAgICAgICAgICANCiAgICAgICAgICAgICAgICAgICAgICAgICAgICAgICAgICAgICAg ICAgICAgICAgICAgICAgICAgICAgICAgICAgICAgIC AgICAgICAgICAgICAgICAgICAgICAgICAgICAgICANCiAgICAgICAgICAgICAgICAgICAgICAgICAgIC AgICAgICAgICAgICAgICAgICAgICAgICAgICAgICAgICAgICAgICAgICAgICAgICAgICAgICAgICAgIC AgICAgICAgICAgICANCiAgICAgICAgICAgICAgICAg ICAgICAgICAgICAgICAgICAgICAgICAgICAgICAgICAgICAgICAgICAgICAgICAgICAgICAgICAgICAg ICAgICAgICAgICAgICAgICAgICAgICANCiAgICAgICAgICAgICAgICAgICAgICAgICAgICAgICAgICAg ICAgICAgICAgICAgICAgICAgICAgICAgICAgICAgIC AgICAgICAgICAgICAgICAgICAgICAgICAgICAgICAgICANCiAgICAgICAgICAgICAgICAgICAgICAgIC AgICAgICAgICAgICAgICAgICAgICAgICAgICAgICAgICAgICAgICAgICAgICAgICAgICAgICAgICAgIC AgICAgICAgICAgICAgICANCiAgICAgICAgICAgICAg ICAgICAgICAgICAgICAgICAgICAgICAgICAgICAgICAgICAgICAgICAgICAgICAgICAgICAgICAgICAg ICAgICAgICAgICAgICAgICAgICAgICAgICANCiAgICAgICAgICAgICAgICAgICAgICAgICAgICAgICAg ICAgICAgICAgICAgICAgICAgICAgICAgICAgICAgIC AgICAgICAgICAgICAgICAgICAgICAgICAgICAgICAgICAgICANCjw/eSTgD2cjpEBhnxW9Y3afAq1BZt 7QDB3ah7QrSNUqPXzzgsSoErkHMoVqCYDvLqsTYew1ATrwHN3ReQHxP3QnQ1PnWSneOE7ISBYkGUZmbM AbPXHeJUIlDkQ9GIQjOFltJK1DdHQkKRugLZXfBESn IyIwYOGwFTInXBVoRDBcKGMDILBgOCWjEiIjHFcoDG4Ba1VzyQN7EGc+Vd3MON2az7TkBJjxAiZdCF8v gb6DQUuGSnPiG8TwxzU1YML6MCWrTp2YUCRyPIXkwABpAyXdPOYKGkGsB8CszX63BMNJOb1+DQplbmRv NpgTDyX2VENvq6XmIYd4EW9ROTVkKDu3cLMuPOABAN X7LNDopekfzalxK5OjRRHhwdsjENYOXxIznUK5SrH1JfBnVcZxIZZ6YTexZZ4ePGsmZW4MQGL2QEsqWD LhZHLlC1mJPmYoZLSvFlHdhNikNW2FDkIoZ4SbopUvkSMwWhMqQFFKPe6+WNppdvWoHaoSGvD1VKYrf0 WhDCi6KP6WYPYpXMigVD4PAXFvpN9pKVrqHT7QTzVi MTRsNGEZHvUoK66xaZDwTWf5Q5RpNxHfMOWkXoksCGTjDMqqDfUrQSYoChSrUNqiKF4+ID4+GJqtSE3B EWxoowAoFFQuWq2IULMwZMKhCN5lNFUwZVLvC8V2oMbtUCCSRqPhR5sggjgxIS9oVJGrB328nDojwlBl XOP4CLCaEz2QITGbMEU8DDOtqPOvNwYlNGOVAEjwBQ 2ImYSfGAT6wH4lXYyhUFXkXOFuX6yHQvHakTlwGK89wIhfbuPcaWWnKOo+Au0BRC1pg9FaIOc7fyYgAR yiSKU1FVyvOCDlDRKpBIHrECR0XVK3LZUHSrRiVWJpJLHtCLysPJCbSFJgas2FDBMwYQClYfc1JqTnVK MyPHOkDSunRHDeJMU5BdWdTIDsIUKfUD6WFtGxBRKc YMEdAGxfFWYeDRHpar2LGOZwCFQtEXI3JPIjBSRdRXRbLKsuBVXeYUL4Okv7TLPrOOYeUH8SXuGxMMIy VMj9MXjwMFUtRNSsoy4YVWYoUUZzDTH0IuYmDDSoSBJcQXwdVXSuTMXrORg6CJHcHGRyDQ6CMxVeRRPm AEOoTUydBXVxECXwzj6WNWJpLEVcMLP3QTJvGFLnPS UqYYzhGNXmMRI3Ann6SQYeJVGwOB0VRsBdJINvXTd4PnKnTIWvIACbvt4FEUJkABYjCzq8PUZpRHDiNE HfAGewLNJxWUQ2RIY0XXEmLCDzNH5NFaKmXTElAJwtKdJpCTEbLGDypa9ZHMWsBPZgYSFnPQUiSSBoHL ScMPnlLEUiZFMiRiQ1VOVjZFSvGE7XEaAvQFYjHaQ3 UwMzWHFoYRTrre0GPAShFWUmZGG7EUJqWMTeIWSqPIpqFMKlATZcWqA1ZFBfZGBnBK9HRzEnZWIaVgR1 FLUpRHYfGGJllf6DKHJgNAOlRAq0BBGzFQPzDDAvTGclILAsUTCiIlhqABEdQMTnJF1ENvWbVHAmVyZ9 XXMkDVOgYPPffp6TWMNgADWwQjwbJWDlCSYkVGYcXE ztCKStJXC8JZY8KXOfTSTyDK3WRqCwCATuItCvULVvPJCxVDBvsn3FNNHsIBJiOAVxELPvSJLlAUByKP izDIZdOYH1RGT4QJKpVNCoNG9ZYaVvQEWvRlH9DCIvNZNbYJPykx3FOYGiPBWqByW5AUZzKJPqZOBbLE bgBMXzDPT0UfJtCLZiULBrNI7JRaKvGKJdKiA3CwIj WRLgXTWwkw8ZSTZvQYZvGiL9FfHsNKUbZEDoHUraSIQaLLA2SYO7KQJlFPGtSI1AQtGzIVAlEpl3WUkb UNQqNEBjmv6SAFZuXGFaVTG6QVDpDHZhJWPxYMj1eoVglCWvYYa5KB8GZ8JgmmNmGsdIRb6Kj872ICX0 JINiCa0GU4hiIq4gYGFoJBRMCv5DSOg1GxJqMlcnEl VhOTljYzlhNzcwNjYzNzgwOTVkMDFkNzk+LYb8GnKzMHYgNBM9DCCqVYB8IxP4FhG1ZRQ6ZUIhGBW3XZ 6qHKMNMt4+BIpciVAouTzwPWZTPuW5HooiHDdwXVHYIl4O ID Date Data Source [id number] 04/13/2020 03:41:28 PM EDT [facility] CT HEAD WITHOUT CONTRAST [id number] RESU LTInterpreted by:Penelope Ruth MBBSEXAMINATION: CT head [...] rce(s) Supporting Document(s) ID Date Data Source [id number] 04/13/2020 11:24:32 AM T [facility] Name Value Range Interpretation Code Description Data Sophie rce(s) Supporting Document(s) [facility] HOXMOi5mIfQRYdEep6HlTyVjIPZeZF4sqqj4Z3J7mURaY3OzvUDba1peO0TzP9BfDTXzXQZMSD5BvZJm jb2 [file] zeBWQM3BUXW9AQFV1ZKUJRTEZKshK5hGJxjiDW5FWmPjJAVMYRvsJREdDEpT6MSiTxXQlQGDYQyHZQWC RxJ2uMxB6aFBUDYmvpMTsXFrIj8NG+JE0A8c+82Ynn5LIn/LUyASRILIJIJ+2OfajP805+vDb7cCRKwa hKHmpmax8ycecJ247+gPx61Mp8UcWkVFgYkf1vfETz KJEtA3RFh9HJt6FDo4FUp5BBo6OQv1JVx3EWw0LMn9DIiksTTEnhxVXZgyDtjEiQ9H1V+U/QVQM6DpUS cWeaMlaBkIrJGaE9EQrLuQPXPmEH3EcTr39SRjaqaEF772leZDwInFPt7YsIu06PF2jmRnzMORYr9hMG seuGXZ6hYfoOvJW1pljqFFYSwcEMFGvYWYZKf8hc76 6xNp6iMh0rDm7jEw2gSx5nHy9kUg7dTka70mCr3TvxdXhn+dnftYnPtYnN+dnd+dnd+dnd+dnd+dnd+d GJf93Xeq0ixIqdkJjvnWzzdQmzgClfpHpkmf1nncLy0TatFhDoqXhpZpn4G2rxj339U9dQunHLZmJzUS 8JMXkzN6dWgPmPvNLsQBoZuelNZ+pbItLt3TZW+Zj6 WEqMzHkpErNPOxlPaU+TiH5942JDQIBl8H7lfoP9hif1eMrMOraIqGaqMvJiqZWnGzxVXb+HpQfC60AD cEaIXYvdQU6U+FV1q4ZjzfYNet75qCOo/o5eW0AA7/cddn+Px4ycsABCH/49ONYh0GWhMhF9hapM+lvi 2zHpZpYjk7SCtuT+OepY8MyG4fl8o3fmC6FpPURm2Y 0090+qbJ871A504SdNuLk9WvSzUxm5ACYuqTgFyNBiQKmRRNlKRsWBuBAPUGNSEIEY4iKu/LKRARIkJE kVImT4nuJf371aoBB8e25qWjK7pl9vwu6SSpDQyfq53Y1K3bAa86t128zry5XhmqaF//9tauji4qc//2 6f98e//kiv4NZT1StVIzcj63600+9vbNj//847sP+N WKb3p+5tIWZ2mlAF7XQ/kW2fUs0gLpJ//23W9+ndHfbzv6QcKV1wg75mzXm//66TcpM17/k0d0b13/ff v+q6+/uQoW479vky19+48/fP3pNz+OP503fG775xoIE692//bx/aePX7//8lofcbEE34Z3K/bTte5qDf MdrCt9/eHHH94+/pt2t3599dv/dVx1jvK9C8X36qq/ 7rf4bHy/+ndkyhzf13980/7tm/f/2Rni5jf3Anw9/sM37z7+9z727c19+ht/larhxx8+/d1o0337++eP b9+/+/Tp/ccPb19/nXj7iw2//vKX73/00Ajtv8/7a63st65y6wGTC/11Neoxj136+OrHLz99/d2Ht6/e f/PuNz89/YrodZ9+3RD/t0gDnk32//13L9PX/9u7dc J3v/yu9orr543xNqyspGU5EEJce2e++Lqim6pbahz+/Zdf/8KMH666Fzqn2+/x/6/f//BT429+dt/9D1 9/6q6i3fxpDm18MIqhp2lp9bsQD0m5m/d/k/oVwPb+yT712/svf/o6dbZ8XLmS/uVX7z+8rvzt9+8+vv 8qK/76w9t3//R0bqcKTi1C/sLiZ3/jNPfI+0kv+dW7 I133jwi75keE3163/+Ava433kVXF8b/9y/7tu//1/zneco1cW5fM2+Vf/vzvf/jrn37/b2///X++/frr k71U2jS7w29+0wyuLt60++rdh6/ff/P2r/9N4l///i6rb57pf0Ytv8ejlPsuxX8sXmraf/+ls8u+VfU/ /ekf/4PXniEHlusF/+gUfJ8TBA6j6avP/wtwvY4+4P eI1b6J3PJo4Jtxr/zR56xjo3PtFz5+5JEoGO1Rv6683A89K7Soup1Av//33//1r4uxL+6x/4v3Hz+9/f UoOAc8Hke09Z+H51/c/eluZtezm03wBq7e3WbdXvMNXSJEdivzSswRox85T//mV1y12bz/+glFkt9pSU 2pBrT7ns+qnTn6RR+u8tOzb/D7j29/+PN//v6v//dv //g3Tr8Z/cr3cp6PH/6Ne9/YP3/84e3f/sfr3v/wlz//7MVwoi1MKm+neLB//vSP//oih8zncTjayus/ Vqjth27yU3mrjT/r75Ml6N74HbRkT0AHc1/e1sa+//tDq670++3/8/v/+K+H17d7p19+4btf//yOPvMa gK9n9P/867/+/U9+vRvi29/+8bMGnp+hv/jjb3/3f/ 0aa1yzRT/480//+4yWa/7xv//X/f11sahDT/77dfwPsnLwT9b8/eYvv/pUDfQs6WArvmr/8On3v/s//v yH3/3ht3/+5dJud6u90h7G//LZcz5/v7Kq5O//1b4v6v9glwplv4oK8KnfX3y9kLHwxsn1jze73KUfxd sL+f//yf3OqW+jHl/f//Z///0pcL7x24/kMy/hdl6e VvKm8t5e1yr31++/+sPFPi2d+v6C16hTw6oVG0rMk5JN727PN65871gDf6/u/JkpOqDw6A6qq3ct9Ktb yuGluGKkMJ9ZJS5og0MuIyF5VSXgm1QxJAysDLg3gJFpUFqkliWyf4JlibovB3Vuf7TfMxZdWTPqXqDn Ojt8YTBhNtZ6dRZkNgAxTAJuC4KzIEBoQtR6JkGhGJ IFBJ8MFUMsqeZbOaBgKVJ+ZcJiGG0vigjlYNHxh2LhWTorEPipSVYlU5J5mAxbJIMtE6MdmW17TUVeC8 BqkuO5JAG0EGPqLaZeIGTxiQDrJALkYOC+JlCzBN0aomfeVSAdh3EsQLnaDTA6uK9xMHnIDNDXLHnTRL vfQjL4f77vjpMXOMRuNOKsWO8XtrYhdBmrsdTboIOc KUT1MtBhKXB2RRriTFK3KPQQSABcCLSzODVkTMUnK1ZdgZupDRvZJDJMEUiSHQazEbQmz7L1PDJeraHM MObWYPcyBZLFCAIVAVW3UgC1KIHfQB3TsCHqWZD2OSsUHCWPDCjMWPkuFbVep7X6AOGrS7NsHLUdajUv VOEXJTakUdlxKQ9qcCsgtskmR5DelCScUEWOOBBeVA HaTJFfXDUjV2Ths5S8X5YjGOjXIJGPENzAQJzyCiI8u40gkvSSCELjMOJuLJ8+QL5ta1FlEc5QCVRgLH 3lpxr8JV7ObRNrKL7IFZxfnkNlO6frgfIfVeMeMPHDXN5jY7GjcU20JQM+NxHpVB0fegn4arFbVoKuBU PxSVLbLGJjPChgYIHnJJOaCZJgSJE7AHJ2NQVlPjGv LNHtDoN9TLKoFYTzDJNbxbLJJFQjIHM8XAEqJFCyRKMeUOHrUCjgRYEpRAK3WcuyPJMmERMqDD1uXeNw WHLlOYJmLAXwXhI8LiSoJlYKZFRdQJJpYJZcYoFtYYKvZIFyRHmnGZRbFQAvITj8YWReWHWjTW9sWxEb RRAdCLWrAHZyXHDfDGImbaWCNOUjGVNeVRC4JZTmAS AqSEOkYAxrTSErVTUmYSW0EHWqVKHiUY4zCvNfDHOkAHJ5WeQvWPQcUTEdflRLLXGtCZZbNHS9HFUkTP OzDDLnTLgoLPOaALXhSxU2IVEtADSdWC6xKqVaGTQbLAW2PSUuHRTrINWjzfYQPRIdSMSvGKb4QdVdCB ViZZCaLFouTGFpRACpEMsdEFDiECAgEF3eVsLbPRRa TDIwLGMeZASoLOUnceLRRGUrCPAgHKN2WtFbYJYvBVXjZTnmLOTqIZKhAKL0FSCkROTfOW4sJpPiPRFm OuCoLgNmSHJqQZDuprEPQYJcVJHcDPKdZHAqCOTtKLJtSQcjRXJeGZZrVjA3KOJfDDQbLY8yTfHcKIBt MCE8CTWiJBNfLTJvuuXJFLZxWBGsEQDhXYR8RTGfYA DsHNm6mzIktMLlNoo8Kz0ZlExlKAG2Nk7VsfRcWVCiPVLHGy6Ta819RXUmVOXCFkz+PgpzdGFydHhyZW KVStJ4AJEKXAQTX6A= ID Date Data Source [id number] 04/13/2020 06:54:21 AM EDT [facility] Name Value Range Interpretation Code Description Data Sophie rce(s) Supporting Document(s) Troponin T.cardiac [Mass/volume] in Serum or Plasma <0.01 [facility] ID Date Data Source [id number] 04/13/2020 07:03:10 AM EDT [facility] Name Value Range Interpretation Code Description Data Sophie rce(s) Supporting Document(s) Bicarbonate [Moles/volume] in Serum 25 mmol/L 22-29 [facility] Chloride [Moles/volume] in Serum or Plasma 102 mmol/L 98-107 [facility] Creatinine [Mass/volume] in Serum or Plasma 1.57 mg/dL 0.70-1.20 H [facility] Glucose [Mass/volume] in Serum or Plasma 105 mg/dL 70-140 [facility] Potassium [Moles/volume] in Serum or Plasma 3.4 mmol/L 3.4-5.1 [facility] Sodium [Moles/volume] in Serum or Plasma 139 mmol/L 136-145 [facility] Urea nitrogen [Mass/volume] in Serum or Plasma 16 mg/dL 6-20 [facility] Anion gap 3 in Serum or Plasma 13 mmol/L 8-15 [facility] Osmolality of Serum or Plasma by calculation 289 mosm/kg 275-300 [facility] Creatinine/Urea nitrogen [Mass Ratio] in Serum or Plasma 10 [facility] Calcium [Mass/volume] in Serum or Plasma 8.8 mg/dL 8.6-10.0 [facility] Glomerular filtration rate/1.73 sq M pre dicted among non-blacks [Volume Rate/Area] in Serum or Plasma by Creatinine-based formula (MDRD) 56 mL/min/1.73m2 >60 L [facility] Glomerular filtration rate/1.73 sq M pre dicted among blacks [Volume Rate/Area] in Serum or Plasma by Creatinine-based formula (MDRD) 64 mL/min/1.73m2 >60 [facility] ID Date Data Source [id number] 04/13/2020 08:37:14 AM [facility] Name Value Range Interpretation Code Description Data Sophie rce(s) Supporting Document(s) Magnesium [Mass/volume] in Serum or Plasma 2.4 mg/dL 1.6-2.6 [facility] ID Date Data Source [id number] 04/13/2020 08:37:14 AM [facility] Value Range Interpretation Code Description Data Sophie rce(s) Supporting Document(s) Phosphate [Mass/volume] in Serum or Plasma 2.5 mg/dL 2.5-4.5 [facility] ID Date Data Source [id number] 04/13/2020 04:53:09 AM [facility] Value Range Interpretation Code Description Data Sophie rce(s) Supporting Document(s) Leukocytes [#/volume] in Blood by Automated count 9.7 10*3/uL 4-10 [facility] Erythrocytes [#/volume] in Blood by Automated count 4.77 10*6/uL 4.6- 6.1 [facility] Hemoglobin [Mass/volume] in Blood 14.6 g/dL 13.5-18 [facility] Hematocrit [Volume Fraction] of Blood by Automated count 41.7 % 4 1-53 [facility] Erythrocyte mean corpuscular volume [Entitic volume] by Auto mated count 87.4 fL 80-96 [facility] Erythrocyte mean corpuscular hemoglobin [Entitic mass] by Automated count 30.5 pg 27-33 [facility] Erythrocyte mean corpuscular hemoglobin concentration [Mass/volume] by Automated count 34.9 g/dL 32.0-36.0 [facility] distribution width [Ratio] by Automated count 13.0 % 11.5-14.5 [facility] Platelets [#/volume] in Blood by Automated count 220 10*3/uL 150-400 [facility] ID Date Data Source [id number] 04/13/2020 05:01:14 AM [facility] Value Range Interpretation Code Description Data Sophie rce(s) Supporting Document(s) Prothrombin time (PT) 12.9 s 12.5-14.9 [facility] INR in Platelet poor plasma by Coagulation assay 0.97 [facility] Routine intensity oral anticoagulation I NR is typically 2.0-3.0. Target INR must be clinically individualized. ID Date Data Source [id number] 04/13/2020 05:06:38 AM EDT [facility] Name Value Range Interpretation Code Description Data Sophie rce(s) Supporting Document(s) Heparin unfractionated [Units/volume] in Platelet poor plasma by Chromogenic method 0.38 U/ml [facility] ID Date Data Source [id number] 04/13/2020 01:53:00 AM EDT [facility] Patient: CLINT ESTRELLA [facility].VisitID: [id number] [place] [address] [phone], MRegistration Date/Time: 04/12/2020 11:16 Weight:95.2 kg (S). Height/Length:73 inches (S). BMI:27.7 FAMILY HISTORYNo significant family medical history. (Electronically signed by Fernandez Gore PA 04/13/2020 01:49) Name Value Range Interpretation Code Description Data Sophie rce(s) Supporting Document(s) ID Date Data Source [id number] 04/13/2020 12:56:32 AM EDT [facility] Name Value Range Interpretation Code Description Data Sophie rce(s) Supporting Document(s) Troponin T.cardiac [Mass/volume] in Serum or Plasma <0.01 [facility] ID Date Data Source [id number] 04/12/2020 10:11:36 PM EDT [facility] XR CHEST FRONTAL ONLY [id number] RESULTI nterpreted by:Nannette Quick, MDPROCEDURE INFORMATION: Exam: [...] rce(s) Supporting Document(s) ID Date Data Source [id number] 04/12/2020 07:29:41 PM [facility] Name Value Range Interpretation Code Description Data Sophie rce(s) Supporting Document(s) Leukocytes [#/volume] in Blood by Automated count 7.2 10*3/uL 4-10 [facility] Erythrocytes [#/volume] in Blood by Automated count 4.71 10*6/uL 4.6- 6.1 [facility] Hemoglobin [Mass/volume] in Blood 14.1 g/dL 13.5-18 [facility] Hematocrit [Volume Fraction] of Blood by Automated count 41.0 % 4 1-53 [facility] Erythrocyte mean corpuscular volume [Entitic volume] by Auto mated count 87.2 fL 80-96 [facility] Erythrocyte mean corpuscular hemoglobin [Entitic mass] by Automated count 30.0 pg 27-33 [facility] Erythrocyte mean corpuscular hemoglobin concentration [Mass/volume] by Automated count 34.4 g/dL 32.0-36.0 [facility] distribution width [Ratio] by Automated count 12.8 % 11.5-14.5 [facility] Platelets [#/volume] in Blood by Automated count 200 10*3/uL 150-400 [facility] Differential cell count method - Blood [facility] Neutrophils/100 leukocytes in Blood by Automated count 52 % [facility] Lymphocytes/100 leukocytes in Blood by Automated count 37 % [facility] Monocytes/100 leukocytes in Blood by Automated count 9 % [facility] Eosinophils/100 leukocytes in Blood by Automated count 1 % [facility] Basophils/100 leukocytes in Blood by Automated count 1 % [facility] Neutrophils [#/volume] in Blood by Automated count 3.73 10*3/uL 1.8-7 .0 [facility] Lymphocytes [#/volume] in Blood by Automated count 2.67 10*3/uL 1.2-4 .0 [facility] Monocytes [#/volume] in Blood by Automated count 0.67 10*3/uL 0-0.8 [facility] Eosinophils [#/volume] in Blood by Automated count 0.09 10*3/uL 0-0.5 [facility] Basophils [#/volume] in Blood by Automated count 0.07 10*3/uL 0-0.2 [facility] Nucleated erythrocytes/100 leukocytes [Ratio] in Blood by Automated count 0 /100{WBCs} 0-0 [facility] ID Date Data Source [id number] 04/12/2020 07:47:34 PM [facility] Name Value Range Interpretation Code Description Data Sophie rce(s) Supporting Document(s) Prothrombin time (PT) 13.6 s 12.5-14.9 [facility] INR in Platelet poor plasma by Coagulation assay 1.03 [facility] Routine intensity oral anticoagulation I NR is typically 2.0-3.0. Target INR must be clinically individualized. ID Date Data Source [id number] 04/12/2020 07:53:11 PM [facility] Value Range Interpretation Code Description Data Sophie rce(s) Supporting Document(s) Albumin [Mass/volume] in Serum or Plasma by Bromocresol green (BCG) dye binding method 4.4 g/dL [facility].5[facility] Bilirubin.total [Mass/volume] in Serum or Plasma 2.1 mg/dL <1.2 H [facility] Calcium [Mass/volume] in Serum or Plasma 8.6 mg/dL 8.6-10.0 [facility] Chloride [Moles/volume] in Serum or Plasma 100 mmol/L 98-107 [facility] Creatinine [Mass/volume] in Serum or Plasma 1.60 mg/dL 0.70-1.20 H [facility] Glucose [Mass/volume] in Serum or Plasma 88 mg/dL 70-140 [facility] Alkaline phosphatase [Enzymatic activity/volume] in Serum or Plasma 89 U/L 40-129 [facility] Potassium [Moles/volume] in Serum or Plasma 3.8 mmol/L 3.4-5.1 [facility] Hemolyzed Protein [Mass/volume] in Serum or Plasma 7.4 g/dL 6.4-8.3 [facility] Sodium [Moles/volume] in Serum or Plasma 140 mmol/L 136-145 [facility] Aspartate aminotransferase [Enzymatic activity/volume] in Serum or Plasma 44 U/L <40 H [facility] Hemolyzed Urea nitrogen [Mass/volume] in Serum or Plasma 15 mg/dL 6-20 [facility] Osmolality of Serum or Plasma by calculation 290 mosm/kg 275-300 [facility] Creatinine/Urea nitrogen [Mass Ratio] in Serum or Plasma 9 [facility] Bicarbonate [Moles/volume] in Serum 25 mmol/L 22-29 [facility] Alanine aminotransferase [Enzymatic activity/volume] in Seru m or Plasma 31 U/L <41 [facility] Hemolyzed Anion gap 3 in Serum or Plasma 15 mmol/L 8-15 [facility] Albumin/Globulin [Mass Ratio] in Serum or Plasma 1.5 [facility] Glomerular filtration rate/1.73 sq M pre dicted among non-blacks [Volume Rate/Area] in Serum or Plasma by Creatinine-based formula (MDRD) 54 mL/min/1.73m2 >60 L [facility] Glomerular filtration rate/1.73 sq M pre dicted among blacks [Volume Rate/Area] in Serum or Plasma by Creatinine-based formula (MDRD) 63 mL/min/1.73m2 >60 [facility] ID Date Data Source [id number] 04/12/2020 07:53:11 PM [facility] Name Value Range Interpretation Code Description Data Sophie rce(s) Supporting Document(s) Magnesium [Mass/volume] in Serum or Plasma 2.2 mg/dL 1.6-2.6 [facility] ID Date Data Source [id number] 04/12/2020 07:53:11 PM [facility] Name Value Range Interpretation Code Description Data Sophie rce(s) Supporting Document(s) Troponin T.cardiac [Mass/volume] in Serum or Plasma <0.01 [facility] ID Date Data Source [id number] 04/12/2020 07:53:11 PM [facility] Value Range Interpretation Code Description Data Sophie rce(s) Supporting Document(s) Phosphate [Mass/volume] in Serum or Plasma 2.7 mg/dL 2.5-4.5 [facility] ID Date Data Source [id number] 04/12/2020 07:31:21 PM [facility] Name Value Range Interpretation Code Description Data Sophie rce(s) Supporting Document(s) Color of Urine [facility] Clarity of Urine [facility] Specific gravity of Urine by Refractometry automated 1.020 1.003 -1.030 [facility] pH of Urine by Automated test strip 6.0 5.0-8.0 [facility] Protein [Mass/volume] in Urine by Automated test strip 30 mg/dL Neg [facility] Glucose [Mass/volume] in Urine by Automated test strip Neg [facility] Ketones [Mass/volume] in Urine by Automated test strip 20 mg/dL Neg [facility] Bilirubin.total [Presence] in Urine by Automated test strip Negative [facility] Hemoglobin [Presence] in Urine by Automated test strip Neg [facility] Leukocyte esterase [Presence] in Urine by Automated test strip Negative [facility] Nitrite [Presence] in Urine by Automated test strip Negati [facility] Leukocytes [#/area] in Urine sediment by Automated count 0 /HPF 0 -5 [facility] Erythrocytes [#/area] in Urine sediment by Automated count 7 /HPF 0-3 H [facility] Service comment [facility] Epithelial cells.squamous [#/area] in Urine sediment by Automate d count None [facility] Mucus [#/area] in Urine sediment by Microscopy low power field None [facility] ID Date Data Source [id number] 04/12/2020 07:47:06 PM [facility] Name Value Range Interpretation Code Description Data Sophie rce(s) Supporting Document(s) Amphetamine [Presence] in Urine by Screen method Negative [facility] (NOTE)Positive results are presumptive a nd unconfirmed;confirmatorytesting [facility] be ordered [facility] at [phone] [facility] at [phone] within 5 days of collection. Benzodiazepines [Presence] in Urine by Screen method Negat [facility] Cannabinoids [Presence] in Urine by Screen method Negative [facility] Benzoylecgonine [Presence] in Urine by Screen method [facility] ([facility])Positive results are presumptive a nd unconfirmed;confirmatorytesting can be ordered at the [facility] at [address] [place] [address] at [phone] within 5 days of collection. Methadone [Presence] in Urine by Screen method Negative [facility] Opiates [Presence] in Urine by Screen method Negative [facility] (NOTE)Positive results are presumptive a nd unconfirmed;confirmatorytesting can be ordered at the [facility] at [address] [place] [address] at [phone] within 5 days of collection. Oxycodone [Presence] in Urine by Screen method Negative [facility] Fentanyl+Norfentanyl [Presence] in Urine by Screen method Negative [facility] (NOTE)Positive results are presumptive a nd unconfirmed;confirmatorytesting can be ordered at the [facility] at [address] [place] [address] at [phone] within 5 days of collection. Service comment [facility] Results below the indicated cutoff (ng/m L), are reported as"Negative." Note: for medical purposes only; not valid for legalor employment testing. ID Date Data Source [id number] 04/12/2020 06:33:23 PM EDT [facility] Name Value Range Interpretation Code Description Data Sophie rce(s) Supporting Document(s) Glucose [Mass/volume] in Capillary blood by Glucometer 90 mg/dL 70- 140 [facility] ID Date Data Source [id number] 04/12/2020 04:10:35 PM EDT [facility] Name Value Range Interpretation Code Description Data Sophie rce(s) Supporting Document(s) Progress Note [facility] [id number] lbm [file] [id number] ID Date Data Source [id number] 04/12/2020 03:43:00 PM EDT [facility] TSYSORDER [id number] Name Value Range Interpretation Code Description Data Sophie rce(s) Supporting Document(s) POTASSIUM 3.3 mmol/L 3.5-5.1 [facility] ID Date Data Source [id number] 04/12/2020 01:01:00 PM EDT [facility] [...] rce(s) Supporting Document(s) ID Date Data Source [id number] 04/12/2020 12:29:00 PM EDT [facility] TSYSORDER [id number] Name Value Range Interpretation Code Description Data Sophie rce(s) Supporting Document(s) URINE RBC 0-1 /hpf 0-3 [facility] ID Date Data Source [id number] 04/12/2020 12:15:00 PM EDT [facility] ital TSYSORDER [id number] Name Value Range Interpretation Code Description Data Sophie rce(s) Supporting Document(s) URINE COLOR. [facility] URINE APPEARANCE CLEAR [facility] SPECIFIC GRAVITY,URINE 1.010 1.001-1.035 [facility] URINE LEUKOCYTE ESTERASE NEGATIVE NEGATIVE [facility] URINE NITRATE NEGATIVE NEGATIVE [facility] PH,URINE 7.0 5.0-9.0 [facility] URINE PROTEIN NEGATIVE mg/dL NEGATIVE [facility] GLUCOSE (UA) NEGATIVE mg/dL NEGATIVE [facility] URINE KETONE NEGATIVE mg/dL NEGATIVE [facility] UROBILINOGEN NORMAL(0.2-1) mg/dL 0-1 R [facility] URINE BILIRUBIN NEGATIVE NEGATIVE [facility] URINE BLOOD TRACE NEGATIVE [facility] ID Date Data Source [id number] 04/12/2020 12:19:00 PM EDT [facility] TSYSORDER [id number] Name Value Range Interpretation Code Description Data Sophie rce(s) Supporting Document(s) URINE AMPHETAMINES NEGATIVE <1000 ng/mL [facility] pital THC,URINE NEGATIVE <50 ng/mL [facility] URINE BARBITURATES NEGATIVE <300 ng/mL [facility] ital PCP,URINE NEGATIVE <25 ng/mL [facility] COCAINE, URINE POSITIVE <300 ng/mL [facility] URINE,OPIATES NEGATIVE <300 ng/mL [facility] URINE,TCA NEGATIVE <1000 ng/mL [facility] IF A NEGATIVE RESULT IS OBTAINED AND ING ESTION OF TRICYCLICANTIDEPRESSANTS IS SUSPECTED, A SERUM SAMPLE SHOULD BEOBTAINED AND TESTED USING AN APPROPRIATE METHOD. URINE BENZODIAZEPINES NEGATIVE <300 ng/mL [facility] ospital THESE TESTS ARE PERFORMED USING AN IMMU NOASSAY FOR THEQUALITATIVE DETERMINATION OF THE PRESENCE OF THE MAJORMETABOLITES OF DRUGS OF ABUSE. THESE TESTS ARE ONLY ASCREENING AND NOT CONFIRMATORY. CLINICAL CONSIDERATION ANDPROFESSIONAL JUDGMENT MUST BE APPLIED TO ANY DRUG OF ABUSETEST RESULT. ID Date Data Source [id number] 04/12/2020 12:54:00 PM EDT [facility] CALLED K+ TO [place] 1231 Name Value Range Interpretation Code Description Data Sophie rce(s) Supporting Document(s) ETHYL ALCOHOL 0.00 % 0-0.01 [facility] ID Date Data Source [id number] 04/12/2020 12:54:00 PM EDT [facility] CALLED [place] [place] [address] Name Value Range Interpretation Code Description Data Sophie rce(s) Supporting Document(s) MAGNESIUM 2.3 mg/dL 1.8-2.4 [facility] ID Date Data Source [id number] 04/12/2020 12:54:00 PM EDT [facility] [place] [address] Name Value Range Interpretation Code Description Data Sophie rce(s) Supporting Document(s) TROPONIN I 0.289 ng/mL 0.0-0.056 *H [facility] ID Date Data Source [id number] 04/12/2020 12:54:00 PM EDT [facility] CALLED K+ TO [place] [address] Name Value Range Interpretation Code Description Data Sophie rce(s) Supporting Document(s) GLUCOSE 119 mg/dL 74-106 H [facility] BLOOD UREA NITROGEN 21 mg/dL 7-18 H [facility] ital CREATININE 1.9 mg/dL 0.7-1.3 H [facility] SODIUM 135 mmol/L 136-145 L [facility] POTASSIUM 2.8 mmol/L 3.5-5.1 L [facility] CHLORIDE 96 mmol/L 98-107 L [facility] CO2 28 mmol/L 21-32 [facility] CALCIUM 9.2 mg/dL 8.5-10.1 [facility] ANION GAP 11.0 mmol/L 5-12 [facility] GLOMERULAR FILTRATION RATE 41 mL/min [facility] GFR IS CALCULATED IN mL/min/1.73m2 BRITTA L FUNCTION: >90MILDLY DECREASED: 60-89MILDY TO MODERATELY DECREASED: 45-59 MODERATELY TO SEVERELY DECREASED: 30-44SEVERELY DECREASED: 15-29RENAL FAILURE: <15 AST 43 U/L 15-37 H [facility] ALT 45 U/L 12-78 [facility] ALKALINE PHOSPHATASE 107 U/L 46-116 [facility] pital TOTAL BILIRUBIN 1.5 mg/dL 0.2-1.0 H [facility] TOTAL PROTEIN 8.4 g/dl 6.4-8.2 H [facility] ALBUMIN 4.4 gm/dL 3.4-5.0 [facility] ID Date Data Source [id number] 04/12/2020 12:09:00 PM EDT [facility] [id number] Name Value Range Interpretation Code Description Data Sophie rce(s) Supporting Document(s) PROTHROMBIN TIME (PATIENT) 10.6 SECONDS 9.2-11.6 [facility] INR 1.02 0.87-1.06 [facility] ID Date Data Source [id number] 04/12/2020 11:54:00 AM EDT [facility] TSYSORDER [id number] Name Value Range Interpretation Code Description Data Sophie rce(s) Supporting Document(s) WHITE BLOOD COUNT 5.3 K/mm3 4.0-10.0 [facility] RED BLOOD COUNT 4.98 M/mm3 4.50-6.00 [facility] HEMOGLOBIN 14.9 gm/dL 14.0-18.0 [facility] HEMATOCRIT 41.2 % 42.0-54.0 L [facility] MEAN CELL VOLUME 82.7 fl 80-96 [facility] MEAN CORPUSCULAR HEMOGLOBIN 29.9 pg 27.0-31.0 [facility] MEAN CORPUSCULAR HGB CONC 36.2 g/dl 32.0-36.0 H [facility] RED CELL DISTRIBUTION WIDTH 11.9 % 10.0-14.5 [facility] PLATELET COUNT 231 K/mm3 172-450 [facility] MEAN PLATELET VOLUME 10.3 fl 9.0-13.0 [facility] pital GRAN % 51.6 % 50-80.0 [facility] IG% 0.2 % 0.0-0.2 [facility] LYMPH % 35.8 % 25.0-50.0 [facility] MONO % 11.8 % 2.0-10.0 H [facility] EOS % 0.2 % 0-5.0 [facility] BASO % 0.4 % 0.0-2.0 [facility] GRAN # 2.8 K/mm3 2.0-8.00 [facility] IG# 0.0 K/mm3 0.0-0.2 [facility] LYMPH # 1.9 K/mm3 1.0-5.0 [facility] MONO # 0.6 K/mm3 0.10-1.20 [facility] EOS # 0.0 K/mm3 0.0-0.5 [facility] BASO # 0.0 K/mm3 0.0-0.2 [facility] Procedure Social History Code Duration Value Status Description Data Source(s ) Alcohol intake 06/09/2020 12:00:00 AM EDT Yes completed [facility] Smoking 06/09/2020 12:00:00 AM EDT Never smoker completed Never [facility] Alcohol intake 05/25/2020 12:00:00 AM EDT Yes completed [facility] Smoking 05/25/2020 12:00:00 AM EDT Never smoker completed Never [facility] Alcohol intake 04/12/2020 12:00:00 AM EDT Current drinker of al cohol (finding) completed Current drinker of alcohol (finding) [facility] Smoking 04/12/2020 12:00:00 AM EDT Never smoker completed Never [facility] Vital Signs ID Date Data Source [id number] Name Value Range Interpretation Code Description Data Source(s) Oxygen saturation in Arterial blood by Pulse oximetry 98 % 98 % [facility] Respiratory rate 18 /min 18 /min [facility] Body temperature 36.17 Meg 36.17 Meg [facility] Heart rate 60 /min 60 /min [facility] Diastolic blood pressure 81 mm[Hg] 81 mm[Hg] [facility] Systolic blood pressure 129 mm[Hg] 129 mm[Hg] [facility] Body mass index (BMI) [Ratio] 27.69 kg/m2 27.69 kg/m2 [facility] Body weight 95.2 kg 95.2 kg [facility] Body height 185.4 cm 185.4 cm [facility] Oxygen saturation in Arterial blood by Pulse oximetry 100 % 100 % [facility] Body temperature 36.44 Meg 36.44 Meg [facility] Heart rate 60 /min 60 /min [facility] Diastolic blood pressure 68 mm[Hg] 68 mm[Hg] [facility] Systolic blood pressure 128 mm[Hg] 128 mm[Hg] [facility] Respiratory rate 18 /min 18 /min [facility] Body mass index (BMI) [Ratio] 27.71 kg/m2 27.71 kg/m2 [facility] Body weight 95.255 kg 95.255 kg [facility] Body height 185.4 cm 185.4 cm [facility] ID Date Data Source [id number] 04/17/2020 02:18:11 PM [facility] Name Value Range Interpretation Code Description Data Source(s) WEIGHT RECORDED 209 lb 209 lb [facility] Body height Measured 73 in 73 in [facility] Patient Treatment Plan of Care Planned Activity Planned Date Details Description Data Source (s) Spironolactone 25 MG Oral Tablet 06/12/2020 12:00:00 AM [facility] Hydrochlorothiazide 25 MG Oral Tablet 06/12/2020 12:00:00 AM [facility] Lisinopril 20 MG Oral Tablet 06/12/2020 12:00:00 AM [facility] Lisinopril 20 MG Oral Tablet 04/15/2020 09:00:00 AM [facility] Hydrochlorothiazide 25 MG Oral Tablet 04/15/2020 09:00:00 AM [facility] Lisinopril 20 MG Oral Tablet 04/15/2020 12:00:00 AM [facility] Hydrochlorothiazide 25 MG Oral Tablet 04/15/2020 12:00:00 AM [facility] Aspirin 81 MG Delayed Release Oral Tablet 04/15/2020 12:00:00 AM [facility] Spironolactone 25 MG Oral Tablet 04/14/2020 12:00:00 AM [facility] atorvastatin 40 MG Oral Tablet 04/14/2020 12:00:00 AM [facility] Famotidine 20 MG Oral Tablet 04/14/2020 12:00:00 AM [facility] Benazepril hydrochloride 40 MG Oral Tablet 04/07/2019 12:00:00 AM [facility] 24 HR Diltiazem Hydrochloride 120 MG Extended Release Oral Capsule 04/06/2019 12:00:00 AM [facility] ospital Docusate Sodium 50 MG / sennosides, LONG-TERM 8.6 MG Oral Ta blet 08/29/2017 12:00:00 AM EDT [facility] methylPREDNISolone (MEDROL) 4 MG tablet 08/29/2017 12:00:00 AM EDT [facility] Amoxicillin 250 MG Oral Capsule [facility] Famotidine 20 MG Oral Tablet [facility] Spironolactone 25 MG Oral Tablet [facility] Lisinopril 20 MG Oral Tablet [facility] Hydrochlorothiazide 25 MG Oral Tablet [facility] Amlodipine 10 MG / Benazepril hydrochloride 40 MG Oral Capsule [facility] Amitriptyline Hydrochloride 100 MG Oral Tablet [facility] zolmitriptan 5 MG/ACTUAT Nasal [place] [facility] Tamsulosin hydrochloride 0.4 MG Oral Capsule [facility] sildenafil 50 MG Oral Tablet [facility] 0.65 ML exenatide 3.08 MG/ML Pen Injector [facility] Bifidobacterium Infantis 4 MG Oral Capsule [Align] [facility] pregabalin 100 MG Oral Capsule [facility] POLYETHYLENE GLYCOL 3350 142 MG/ML Oral Solution [facility] 24 HR Metformin hydrochloride 500 MG Extended Release Oral Tablet [facility] Atenolol 25 MG Oral Tablet [facility] ammonium lactate 120 MG/ML Topical Lotion [facility] Zolpidem tartrate 10 MG Oral Tablet [facility] Ranitidine 150 MG Oral Tablet [facility]
[2020-12-24 12:33] LABS: ALT/SGPT 105 U/L (12-78); BLOOD UREA NITROGEN 16 MG/DL (7-18); CALCIUM LEVEL 9.9 MG/DL (8.5-10.1); CARBON DIOXIDE LEVEL 31 MEQ/L (21-32); CHLORIDE LEVEL 103 MEQ/L (98-107); CREATININE FOR GFR 1.61 MG/DL (0.70-1.30); GLOMERULAR FILTRATION RATE > 60.0 (>60); GLUCOSE, FASTING 98 MG/DL (70-100); POTASSIUM SERUM 4.4 MEQ/L (3.5-5.1); SODIUM LEVEL 138 MEQ/L (136-145)
[2020-12-24 12:34] LABS: ALBUMIN 4.4 GM/DL (3.2-5.2); AMYLASE 151 U/L (25-115); BILIRUBIN,DIRECT 0.2 MG/DL (0.0-0.2); LIPASE 131 U/L (73-393); TOTAL PROTEIN 8.3 GM/DL (6.4-8.2)
[2020-12-24] MEDS ORDERED: COLA100C5 PO (13:59)
[2020-12-24] MEDS ORDERED: ONDA4TAB6 PO (13:59)
[2020-12-24] MEDS ORDERED: SIME180C PO (13:59)
[2020-12-24 14:46] VITALS: BP 155/89
== END 2020-12-24 14:49 | disposition home or self-care (01) ==
LOC: M ED 10:47
DX: R11.2 Nausea with vomiting, unspecified (principal); K59.00 Constipation, unspecified; I12.9 Hypertensive chronic kidney disease with stage 1 through stage 4 chronic kidney disease, or unspecified chronic kidney disease; K76.0 Fatty (change of) liver, not elsewhere classified; R14.0 Abdominal distension (gaseous); E11.9 Type 2 diabetes mellitus without complications; Z88.6 Allergy status to analgesic agent; Z79.899 Other long term (current) drug therapy
CPT/HCPCS: 36415; 74018; 76705; 80048; 80076; 82150; 83690; 85025; 96361; 96374; 99284; J2405

== ENCOUNTER 2021-06-30 18:05 | Emergency (ER) | payer OTHER ==
[~2021-06-30] VITALS: Ht 185.4 cm; Wt 100.0 kg
[~2021-06-30 18:05] MED LIST changes: +COLA100C5 PO; +LISI30TA4; +NAPR220C14 PO; +ONDA4TAB6 PO; +SIME180C25 PO
[2021-06-30] MEDS ORDERED: NS 1,000 ML IV ONE ×2 (20:15→21:25)
[2021-06-30] MEDS ORDERED: GI COCKTAIL 50ML BTL(HYOSCYAMINE/MAALOX/LIDOCAINE VISCOUS)(1:3:1) PO ONE (20:15)
[2021-06-30 20:24] LABS: BASO # 0.1 10^3/uL (0.0-0.2); BASO % 0.9 % (0.0-1.0); EOS # 0.2 10^3/uL (0.0-0.5); EOS % 2.6 % (0.0-3.0); HEMATOCRIT 48.8 % (42.0-52.0); HEMOGLOBIN 16.4 g/dl (13.5-17.5); LYMPH # 3.3 10^3/uL (1.5-5.0); LYMPH % 48.7 % (24.0-44.0); MEAN CORPUSCULAR HEMOGLOBIN 29.8 pg (27.0-33.0); MEAN CORPUSCULAR HGB CONC 33.6 g/dl (32.0-36.5); MEAN CORPUSCULAR VOLUME 88.7 fl (80.0-96.0); MONO # 0.6 10^3/uL (0.0-0.8); MONO % 8.1 % (2.0-8.0); NEUTROPHILS # 2.7 10^3/uL (1.5-8.5); NEUTROPHILS % 39.7 % (36.0-66.0); PLATELET COUNT, AUTOMATED 223 10^3/uL (150-450); WHITE BLOOD COUNT 6.8 10^3/uL (4.0-10.0)
[2021-06-30 21:14] LABS: ALBUMIN 4.1 GM/DL (3.2-5.2); ALT/SGPT 75 U/L (12-78); BILIRUBIN,DIRECT 0.2 MG/DL (0.0-0.2); BILIRUBIN,TOTAL 0.9 MG/DL (0.2-1.0); BLOOD UREA NITROGEN 13 MG/DL (7-18); CALCIUM LEVEL 9.1 MG/DL (8.5-10.1); CARBON DIOXIDE LEVEL 28 MEQ/L (21-32); CHLORIDE LEVEL 105 MEQ/L (98-107); CPK CREATINE PHOSPHOKINASE 581 U/L (39-308); CREATININE FOR GFR 1.35 MG/DL (0.70-1.30); GLOMERULAR FILTRATION RATE > 60.0 (>60); GLUCOSE, FASTING 83 MG/DL (70-100); LIPASE 109 U/L (73-393); MB/CK RELATIVE INDEX 0.52 (< OR =4); NT-PRO BNP 22 PG/ML (<125); POTASSIUM SERUM 3.9 MEQ/L (3.5-5.1); SODIUM LEVEL 142 MEQ/L (136-145); THYROID STIMULATING HORMONE 0.893 uIU/ML (0.358-3.740); TOTAL PROTEIN 7.6 GM/DL (6.4-8.2); TROPONIN I 0.03 NG/ML (< 0.10)
[2021-06-30] MEDS ORDERED: KETOROLAC 30 MG/ML 1ML VIAL IV ONE (21:25)
--- NOTE | 2021-06-30 21:30 | REPVR ---
PROCEDURE INFORMATION: Exam: XR Chest Exam date and time: 06/30/2021 8:43 PM Age: 35 years old Clinical indication: Pain; Other: Un specified; Additional info: Chest pain TECHNIQUE: Imaging protocol: XR of the chest. Views: 1 view. COMPARISON: CR Chest, 2 view PA, Lat 04/14/2016 1:41 PM FINDINGS: Tubes, catheters and devices: Dual chamber cardiac pacer demonstrated with intact pacer wires. Lungs: Unremarkable. No consolidation. Pleural spaces: Unremarkable. No pleural effusion. No pneumothorax. Heart/Mediastinum: Unremarkable. No cardiomegaly. Bones/joints: Unremarkable. IMPRESSION: No acute findings. Electronically signed by: Tremaine Duarte On 06/30/2021 21:29:39 PM
[2021-06-30] MEDS ORDERED: ISOVUE-370 76% 100ML VIAL As Ordered ONE (21:40)
--- NOTE | 2021-06-30 22:05 | ECGEPIP ---
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
--- NOTE | 2021-06-30 22:12 | REPVR ---
PROCEDURE INFORMATION: Exam: CTA Chest With Contrast Exam date and time: 06/30/2021 9:56 PM Age: 35 years old Clinical indication: Pain; Chest pressure; Additional info: R/O pe, chest pain, prolonged travel TECHNIQUE: Imaging protocol: Computed tomographic angiography of the chest with contrast. 3D rendering (Not supervised by radiologist): MIP and/or 3D reconstructed images were created by the technologist. Radiation optimization: All CT scans at this facility use at least one of these dose optimization techniques: automated exposure control; mA and/or kV adjustment per patient size (includes targeted exams where dose is matched to clinical indication); or iterative reconstruction. Contrast material: ISOVUE 370; Contrast volume: 75 ml; Contrast route: INTRAVENOUS (IV); COMPARISON: CR PORTABLE CHEST X-RAY 06/30/2021 8:29 PM FINDINGS: Tubes, catheters and devices: Loop recorder demonstrated in the precordium. Pulmonary arteries: There are no pulmonary emboli. Aorta: There is fusiform dilatation of the ascending thoracic aorta which measures 3.7 cm. maximally. There is no dissection or saccular component. Lungs: 6 mm noncalcified flat fissural nodule in the right upper lobe abuts the minor fissure. Pleural spaces: Unremarkable. No pneumothorax. No pleural effusion. Heart: Unremarkable. No cardiomegaly. No pericardial effusion. Lymph nodes: Unremarkable. No enlarged lymph nodes. Bones/joints: Unremarkable. No acute fracture. Soft tissues: Unremarkable. IMPRESSION: 1. 6 mm noncalcified flat fissural nodule in the right upper lobe abuts the minor fissure. For patients at low risk (minimal or absent history of smoking and of other known risk factors), no routine follow-up is indicated. For patients at high risk (history of smoking or of other known risk factors), consider optional CT Chest at 12 months. (Reference: Samantha) References: Hildahoeli H, et al. Guidelines for Management of Incidental Pulmonary Nodules Detected on CT Images: From the Fleischner Society 2017. Radiology. 2017;284(1):228-243. 2. There is fusiform dilatation of the ascending thoracic aorta which measures 3.7 cm. maximally. There is no dissection or saccular component. 3. There are no pulmonary emboli. 4. No acute pulmonary parenchymal infiltrates. Electronically signed by: Tremaine Duarte On 06/30/2021 22:12:15 PM
[2021-06-30] MEDS ORDERED: ECOT81TA5 PO (22:15)
[2021-07-01 00:04] LABS: CK-MB VALUE MASS 2.8 NG/ML (<3.6); MB/CK RELATIVE INDEX 0.62 (< OR =4); TROPONIN I 0.04 NG/ML (< 0.10)
[2021-07-01 01:00] VITALS: BP 155/103
[2021-07-01] MEDS ORDERED: KETO10TAB PO (01:12)
--- NOTE | 2021-07-01 06:04 | ECGEPIP ---
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
--- NOTE | 2021-07-01 06:33 | ED PDOC ---
Post-Departure Follow-Up cta chest faxed to sirisha unger for fu Ysabel Westbrook MD Jul 01, 2021 06:33
== END 2021-07-01 01:21 | disposition home or self-care (01) ==
LOC: M ED 18:05
DX: R07.89 Other chest pain (principal); R11.0 Nausea; R91.8 Other nonspecific abnormal finding of lung field; I25.10 Atherosclerotic heart disease of native coronary artery without angina pectoris; E11.9 Type 2 diabetes mellitus without complications; I10 Essential (primary) hypertension; G43.909 Migraine, unspecified, not intractable, without status migrainosus; F43.10 Post-traumatic stress disorder, unspecified; F41.9 Anxiety disorder, unspecified; Z79.899 Other long term (current) drug therapy
CPT/HCPCS: 71045; 71275; 80048; 80076; 82550; 82553; 83690; 83880; 84443; 84484; 85025; 93005; 93041; 94760; 96361; 96374; 99285; J1885; Q9967

== ENCOUNTER → 2022-07-28 | Outpatient (REF) | payer OTHER ==
[~2022-07-28] MED LIST changes: +ECOT81TA5 PO; +KETO10TAB PO; -SUMA5SPR; +SUMA5SPR3
[2022-07-28 16:12] LABS: APPEARANCE, URINE MANUAL CLOUDY (CLEAR); COLOR, URINE MANUAL YELLOW (YELLOW)
[2022-07-28 16:13] LABS: PH,URINE MAN 7.5 UNITS (5.0 - 7.0); PROTEIN, URINE MANUAL TRACE mg/dL (NEGATIVE); SPECIFIC GRAVITY,URINE MANUAL 1.015 (1.002-1.035)
[2022-07-28 16:14] LABS: BILIRUBIN, URINE MANUAL NEGATIVE (NEGATIVE); BLOOD URINE MANUAL NEGATIVE (NEGATIVE); GLUCOSE, URINE (UA) MANUAL TRACE(50 MG/DL) mg/dL (NEGATIVE); KETONE, URINE MANUAL NEGATIVE (NEGATIVE); LEUKOCYTE ESTERASE, URINE MAN TRACE (NEGATIVE); NITRITE, URINE MANUAL NEGATIVE (NEGATIVE); UROBILINOGEN, URINE MANUAL NORMAL (NORMAL)
[2022-07-28 16:28] LABS: AMORPHOUS SEDIMENT, URINE LARGE AMOUNT (NEGATIVE); BACTERIA, URINE NONE SEEN; SQUAMOUS EPITHELIAL CELL URINE NONE SEEN /hpf (SMALL AMT)
[2022-07-28 16:29] LABS: HYALINE CAST, URINE NONE SEEN /lpf (0-1)
[2022-07-28 17:54] LABS: GC DNA AMPLIFICATION NEGATIVE (NEGATIVE)
== END ==
LOC: M LAB REF 15:59
PROVIDERS: ATTEND Physician Assistant
DX: N39.0 Urinary tract infection, site not specified (principal)

== ENCOUNTER → 2022-10-13 | Outpatient (REF) | payer OTHER ==
[2022-10-13 18:11] LABS: APPEARANCE, URINE MANUAL CLEAR (CLEAR); BILIRUBIN, URINE MANUAL NEGATIVE (NEGATIVE); BLOOD URINE MANUAL TRACE (NEGATIVE); COLOR, URINE MANUAL YELLOW (YELLOW); GLUCOSE, URINE (UA) MANUAL NEGATIVE (NEGATIVE); KETONE, URINE MANUAL NEGATIVE (NEGATIVE); LEUKOCYTE ESTERASE, URINE MAN NEGATIVE (NEGATIVE); NITRITE, URINE MANUAL NEGATIVE (NEGATIVE); PROTEIN, URINE MANUAL NEGATIVE (NEGATIVE); SPECIFIC GRAVITY,URINE MANUAL 1.015 (1.002-1.035); UROBILINOGEN, URINE MANUAL NORMAL (NORMAL)
[2022-10-13 18:42] LABS: BACTERIA, URINE NONE SEEN; HYALINE CAST, URINE NONE SEEN /lpf (0-1); RBC, URINE 0-1 /hpf (0-3); SQUAMOUS EPITHELIAL CELL URINE SMALL AMOUNT /hpf (SMALL AMT); WBC, URINE 0-1 /hpf (0-3)
== END ==
LOC: M SMT 16:42
PROVIDERS: ATTEND Nurse Practitioner Women's Health
DX: R31.0 Gross hematuria (principal)

== ENCOUNTER → 2022-10-29 | Outpatient (CLI) | payer OTHER ==
[2022-10-29 13:12] LABS: BLOOD UREA NITROGEN 18 MG/DL (9-23); CALCIUM LEVEL 9.6 MG/DL (8.5-10.1); CARBON DIOXIDE LEVEL 28 MMOL/L (20-31); CHLORIDE LEVEL 100 MMOL/L (98-107); CREATININE FOR GFR 1.43 MG/DL (0.70-1.30); GLOMERULAR FILTRATION RATE > 60.0 (>60); GLUCOSE, FASTING 102 MG/DL (60-100); POTASSIUM SERUM 4.6 MMOL/L (3.5-5.1); SODIUM LEVEL 135 MMOL/L (136-145)
== END ==
LOC: M LAB 10:44
PROVIDERS: ATTEND Nurse Practitioner Women's Health
DX: R31.0 Gross hematuria (principal)

== ENCOUNTER → 2022-10-29 | Outpatient (CLI) | payer OTHER ==
[~2022-10-29] MED LIST changes: +ISOVUE-370 76% 100ML VIAL As Ordered ONE
== END ==
LOC: M RAD 13:43
PROVIDERS: ATTEND Nurse Practitioner Women's Health
DX: R31.0 Gross hematuria (principal); K76.0 Fatty (change of) liver, not elsewhere classified; K44.9 Diaphragmatic hernia without obstruction or gangrene
CPT/HCPCS: 36415; 74178; 80048; Q9967

== ENCOUNTER → 2022-11-01 | Outpatient (REF) | payer OTHER ==
[~2022-11-01] MED LIST changes: -ISOVUE-370 76% 100ML VIAL As Ordered ONE
== END ==
LOC: M SMT 17:24
PROVIDERS: ATTEND Urology
DX: R31.0 Gross hematuria (principal)

== ENCOUNTER → 2023-01-27 | Outpatient (REF) | LOC: M LAB 10:05 | PROVIDERS: ATTEND Nurse Practitioner Adult Health | DX: Z02.1 Encounter for pre-employment examination (principal) ==

== ENCOUNTER → 2023-02-24 | Outpatient (REF) | payer OTHER ==
[2023-02-24 14:42] LABS: BASO % 0.7 % (0.0-1.0); EOS # 0.1 10^3/uL (0.0-0.5); HEMOGLOBIN 16.2 g/dl (13.5-17.5); LYMPH # 2.9 10^3/uL (1.5-5.0); LYMPH % 52.6 % (24.0-44.0); MEAN CORPUSCULAR HEMOGLOBIN 29.7 pg (27.0-33.0); MEAN CORPUSCULAR HGB CONC 33.8 g/dl (32.0-36.5); MEAN CORPUSCULAR VOLUME 88.1 fl (80.0-96.0); MONO # 0.4 10^3/uL (0.0-0.8); MONO % 6.7 % (2.0-8.0); NEUTROPHILS # 2.1 10^3/uL (1.5-8.5); PLATELET COUNT, AUTOMATED 242 10^3/uL (150-450); RED BLOOD COUNT 5.45 10^6/uL (4.30-6.10); WHITE BLOOD COUNT 5.5 10^3/uL (4.0-10.0)
[2023-02-24 14:48] LABS: APPEARANCE, URINE HAZY (CLEAR); BACTERIA, URINE AUTO NEGATIVE (NEGATIVE); BILIRUBIN, URINE AUTO NEGATIVE (NEGATIVE); BLOOD, URINE BLOOD NEGATIVE (NEGATIVE); COLOR, URINE YELLOW (YELLOW); GLUCOSE, URINE (UA) AUTO NEGATIVE (NEGATIVE); KETONE, URINE AUTO NEGATIVE (NEGATIVE); LEUKOCYTE ESTERASE, URINE AUTO NEGATIVE (NEGATIVE); MUCUS, URINE SMALL (NEGATIVE); NITRITE, URINE AUTO NEGATIVE (NEGATIVE); PROTEIN, URINE AUTO 1+ mg/dL (NEGATIVE); RBC, URINE AUTO 4 /HPF (0-3); SPECIFIC GRAVITY URINE AUTO 1.025 (1.002-1.035); SQUAMOUS EPITHELIAL CELL UR AU 0 /HPF (0-6); UROBILINOGEN, URINE AUTO 0.2 mg/dL (0.0-2.0); WBC, URINE AUTO 0 /HPF (0-3)
[2023-02-24 14:54] LABS: HEMOGLOBIN A1c 6.6 % (4.0-6.0)
[2023-02-24 15:09] LABS: TOTAL IRON BINDING CAPACITY 310 UG/DL (250-425)
[2023-02-24 15:10] LABS: IRON (FE) 99 UG/DL (65-175); PERCENT SATURATION 31.9 % (19.7-50.0)
[2023-02-24 15:14] LABS: ALBUMIN 4.3 G/DL (3.2-5.2); ALKALINE PHOSPHATASE 115 U/L (46-116); ALT/SGPT 174 U/L (7.0-40); AST/SGOT 79 U/L (<34); BLOOD UREA NITROGEN 14 MG/DL (9-23); CALCIUM LEVEL 10.2 MG/DL (8.5-10.1); CARBON DIOXIDE LEVEL 28 MMOL/L (20-31); CHLORIDE LEVEL 104 MMOL/L (98-107); CHOLESTEROL LEVEL 198 MG/DL (<200); CHOLESTEROL RISK RATIO 4.09 (<5); CREATININE FOR GFR 1.46 MG/DL (0.70-1.30); GLOMERULAR FILTRATION RATE > 60.0 (>60); GLUCOSE, FASTING 119 MG/DL (60-100); HDL CHOLESTEROL 48.3 MG/DL (>40); LDL CHOLESTEROL 91.3 MG/DL (<100); NON-HDL-C 149.7 MG/DL; POTASSIUM SERUM 4.4 MMOL/L (3.5-5.1); SODIUM LEVEL 136 MMOL/L (136-145); TOTAL 25(OH) VITAMIN D 38.9 NG/ML (20.0-100.0); TOTAL PROTEIN 7.7 G/DL (5.7-8.2); TRIGLYCERIDES LEVEL 292 MG/DL (<150)
[2023-02-24 15:50] LABS: HEPATITIS C VIRUS ABY INDEX 0.1 INDEX (<0.8)
== END ==
LOC: M LAB REF 13:32
PROVIDERS: ATTEND Internal Medicine
DX: E55.9 Vitamin D deficiency, unspecified (principal); R69 Illness, unspecified; I10 Essential (primary) hypertension; E11.9 Type 2 diabetes mellitus without complications; R94.5 Abnormal results of liver function studies
CPT/HCPCS: 80053; 80061; 81001; 82306; 83036; 83550; 85025; 86803; G0103

== ENCOUNTER → 2023-06-07 | Outpatient (CLI) | payer OTHER ==
[2023-06-07 17:31] LABS: HEMOGLOBIN A1c 6.2 % (4.0-6.0)
[2023-06-07 17:39] LABS: BASO # 0.1 10^3/uL (0.0-0.2); BASO % 0.8 % (0.0-1.0); EOS # 0.1 10^3/uL (0.0-0.5); EOS % 1.6 % (0.0-3.0); HEMATOCRIT 51.4 % (42.0-52.0); HEMOGLOBIN 17.3 g/dl (13.5-17.5); LYMPH # 3.3 10^3/uL (1.5-5.0); LYMPH % 43.8 % (24.0-44.0); MEAN CORPUSCULAR HEMOGLOBIN 30.1 pg (27.0-33.0); MEAN CORPUSCULAR HGB CONC 33.7 g/dl (32.0-36.5); MEAN CORPUSCULAR VOLUME 89.5 fl (80.0-96.0); MONO # 0.7 10^3/uL (0.0-0.8); MONO % 9.8 % (2.0-8.0); NEUTROPHILS # 3.3 10^3/uL (1.5-8.5); NEUTROPHILS % 43.7 % (36.0-66.0); PLATELET COUNT, AUTOMATED 235 10^3/uL (150-450); RED BLOOD COUNT 5.74 10^6/uL (4.30-6.10); WHITE BLOOD COUNT 7.6 10^3/uL (4.0-10.0)
[2023-06-07 17:45] LABS: ALBUMIN 4.4 G/DL (3.2-5.2); ALKALINE PHOSPHATASE 114 U/L (46-116); ALT/SGPT 168 U/L (7.0-40); AST/SGOT 88 U/L (<34); BLOOD UREA NITROGEN 17 MG/DL (9-23); CALCIUM LEVEL 10.2 MG/DL (8.5-10.1); CARBON DIOXIDE LEVEL 33 MMOL/L (20-31); CHLORIDE LEVEL 102 MMOL/L (98-107); CHOLESTEROL LEVEL 186 MG/DL (<200); CHOLESTEROL RISK RATIO 3.73 (<5); GLOMERULAR FILTRATION RATE > 60.0 (>60); GLUCOSE, FASTING 70 MG/DL (60-100); HDL CHOLESTEROL 49.8 MG/DL (>40); LDL CHOLESTEROL 108.2 MG/DL (<100); NON-HDL-C 136.2 MG/DL; POTASSIUM SERUM 4.1 MMOL/L (3.5-5.1); SODIUM LEVEL 138 MMOL/L (136-145); TRIGLYCERIDES LEVEL 140 MG/DL (<150)
[2023-06-07 17:46] LABS: FREE T4 1.33 NG/DL (0.89-1.76)
[2023-06-07 17:47] LABS: THYROID STIMULATING HORMONE 0.759 uIU/ML (0.55-4.78)
[2023-06-07 17:53] LABS: CREATININE, URINE 277.6 MG/DL; MAU/CREAT RATIO 4.6 MCG/MG (0.0-30.0)
== END ==
LOC: M LAB 16:34
PROVIDERS: ATTEND Nurse Practitioner Family
DX: E11.9 Type 2 diabetes mellitus without complications (principal); I10 Essential (primary) hypertension; N40.0 Benign prostatic hyperplasia without lower urinary tract symptoms; F17.220 Nicotine dependence, chewing tobacco, uncomplicated; R79.89 Other specified abnormal findings of blood chemistry; Z20.2 Contact with and (suspected) exposure to infections with a predominantly sexual mode of transmission

== ENCOUNTER 2023-10-14 07:05 | Emergency (ER) | payer OTHER ==
[~2023-10-14] VITALS: Ht 185.4 cm; Wt 109.1 kg
[~2023-10-14 07:05] MED LIST changes: +CLON0.5T2 PO; +FAMO20TA5 PO; +LISI20TA33 PO; +MAGN400C PO; +MULT-90 PO; +TAMS1CAP17 PO; +TRAZ-252 PO
[2023-10-14 07:37] LABS: APPEARANCE, URINE CLEAR (CLEAR); BACTERIA, URINE AUTO NEGATIVE (NEGATIVE); BILIRUBIN, URINE AUTO NEGATIVE (NEGATIVE); BLOOD, URINE BLOOD NEGATIVE (NEGATIVE); COLOR, URINE YELLOW (YELLOW); GLUCOSE, URINE (UA) AUTO 1+ mg/dL (NEGATIVE); KETONE, URINE AUTO NEGATIVE (NEGATIVE); LEUKOCYTE ESTERASE, URINE AUTO NEGATIVE (NEGATIVE); NITRITE, URINE AUTO NEGATIVE (NEGATIVE); PROTEIN, URINE AUTO NEGATIVE (NEGATIVE); RBC, URINE AUTO 0 /HPF (0-3); SPECIFIC GRAVITY URINE AUTO 1.021 (1.002-1.035); SQUAMOUS EPITHELIAL CELL UR AU 0 /HPF (0-6); UROBILINOGEN, URINE AUTO 0.2 mg/dL (0.0-2.0); WBC, URINE AUTO 1 /HPF (0-3)
[2023-10-14 07:55] LABS: HEMATOCRIT 44.5 % (42.0-52.0); HEMOGLOBIN 15.4 g/dl (13.5-17.5); MEAN CORPUSCULAR HEMOGLOBIN 30.9 pg (27.0-33.0); MEAN CORPUSCULAR HGB CONC 34.6 g/dl (32.0-36.5); MEAN CORPUSCULAR VOLUME 89.4 fl (80.0-96.0); PLATELET COUNT, AUTOMATED 203 10^3/uL (150-450); RED BLOOD COUNT 4.98 10^6/uL (4.30-6.10); WHITE BLOOD COUNT 4.8 10^3/uL (4.0-10.0)
[2023-10-14 08:19] LABS: ALBUMIN 3.9 G/DL (3.2-5.2); ALKALINE PHOSPHATASE 131 U/L (46-116); ALT/SGPT 221 U/L (7.0-40); AST/SGOT 100 U/L (<34); BILIRUBIN,TOTAL 0.7 MG/DL (0.3-1.2); BLOOD UREA NITROGEN 14 MG/DL (9-23); CALCIUM LEVEL 8.9 MG/DL (8.5-10.1); CARBON DIOXIDE LEVEL 28 MMOL/L (20-31); CHLORIDE LEVEL 103 MMOL/L (98-107); CREATININE FOR GFR 1.36 MG/DL (0.70-1.30); GLOMERULAR FILTRATION RATE > 60.0 (>60); GLUCOSE, FASTING 216 MG/DL (60-100); POTASSIUM SERUM 4.4 MMOL/L (3.5-5.1); SODIUM LEVEL 138 MMOL/L (136-145); TOTAL PROTEIN 7.1 G/DL (5.7-8.2)
[2023-10-14 08:21] LABS: URIC ACID 6.6 MG/DL (3.7-9.2)
[2023-10-14] MEDS ORDERED: GABA-282 PO (08:48)
[2023-10-14 09:00] LABS: HEMOGLOBIN A1c 6.8 % (4.0-6.0)
[2023-10-14 09:01] VITALS: BP 163/111; TEMP 97.3; O2SAT 99
== END 2023-10-14 09:04 | disposition home or self-care (01) ==
LOC: M ED 07:05
DX: E11.21 Type 2 diabetes mellitus with diabetic nephropathy (principal); M54.9 Dorsalgia, unspecified; F32.A Depression, unspecified; F41.9 Anxiety disorder, unspecified; Z88.6 Allergy status to analgesic agent; G47.33 Obstructive sleep apnea (adult) (pediatric); Z79.899 Other long term (current) drug therapy

== ENCOUNTER → 2023-10-27 | Day surgery (SDC) | payer OTHER ==
[~2023-10-27] VITALS: Ht 185.4 cm; Wt 111.3 kg
[~2023-10-27] MED LIST changes: +GABA-282 PO; +LIDOCAINE 2% 100MG/5ML SDV (FOR ANES.) As Ordered ONE; +NS 1,000 ML IV ONE; +propofoL 200 MG/20 ML VIAL As Ordered ONE
[2023-10-27 09:39] VITALS: TEMP 97.2
[2023-10-27 10:06] VITALS: BP 132/72; O2SAT 96
== END | disposition home or self-care (01) ==
LOC: M OPP 07:55
PROVIDERS: ATTEND Surgery
DX: Z12.11 Encounter for screening for malignant neoplasm of colon (principal); Z86.010 Personal history of colon polyps; E11.9 Type 2 diabetes mellitus without complications; I10 Essential (primary) hypertension; Z95.0 Presence of cardiac pacemaker; G47.30 Sleep apnea, unspecified; Z79.899 Other long term (current) drug therapy; Z79.82 Long term (current) use of aspirin; Z79.84 Long term (current) use of oral hypoglycemic drugs; Z88.6 Allergy status to analgesic agent

== ENCOUNTER → 2023-11-02 | Outpatient (CLI) | payer OTHER ==
[~2023-11-02] MED LIST changes: -LIDOCAINE 2% 100MG/5ML SDV (FOR ANES.) As Ordered ONE; -NS 1,000 ML IV ONE; -propofoL 200 MG/20 ML VIAL As Ordered ONE
== END ==
LOC: M RAD 07:12
PROVIDERS: ATTEND Nurse Practitioner Family
DX: M79.671 Pain in right foot (principal); M79.672 Pain in left foot

== ENCOUNTER → 2024-06-12 | Outpatient (CLI) | payer OTHER ==
[~2024-06-12] MED LIST changes: +ONDA-282 PO; -ONDA4TAB6 PO
[2024-06-12 08:42] LABS: HEMOGLOBIN A1c 7.1 % (4.0-6.0)
[2024-06-12 08:45] LABS: ALBUMIN 4.1 G/DL (3.2-5.2); ALKALINE PHOSPHATASE 150 U/L (46-116); ALT/SGPT 174 U/L (7.0-40); AST/SGOT 77 U/L (<34); BILIRUBIN,TOTAL 1.2 MG/DL (0.3-1.2); BLOOD UREA NITROGEN 13 MG/DL (9-23); CALCIUM LEVEL 9.6 MG/DL (8.5-10.1); CARBON DIOXIDE LEVEL 30 MMOL/L (20-31); CHLORIDE LEVEL 102 MMOL/L (98-107); GLOMERULAR FILTRATION RATE > 60.0 (>60); GLUCOSE, FASTING 121 MG/DL (60-100); POTASSIUM SERUM 4.2 MMOL/L (3.5-5.1); SODIUM LEVEL 137 MMOL/L (136-145); TOTAL PROTEIN 7.8 G/DL (5.7-8.2)
== END ==
LOC: M LAB 07:46
PROVIDERS: ATTEND Nurse Practitioner Family
DX: E11.9 Type 2 diabetes mellitus without complications (principal)

== ENCOUNTER 2024-07-27 19:28 | Emergency (ER) | payer OTHER ==
[~2024-07-27] VITALS: Ht 185.4 cm; Wt 111.1 kg
[2024-07-27] MEDS ORDERED: ELIQ5TAB PO (20:02)
[2024-07-27] MEDS ORDERED: JARD1TAB3 PO (20:02)
[2024-07-27] MEDS ORDERED: VITAMIN D PO (20:03)
[2024-07-27] MEDS: ONDANSETRON 4MG ORAL DISINTEGRATING TAB PO ONE (20:26)
[2024-07-27 20:39] VITALS: BP 180/90; TEMP 97.6; O2SAT 96
== END 2024-07-27 20:41 | disposition home or self-care (01) ==
LOC: M ED 19:28
DX: S09.90XA Unspecified injury of head, initial encounter (principal); W22.01XA Walked into wall, initial encounter; I10 Essential (primary) hypertension; F10.10 Alcohol abuse, uncomplicated; Y92.009 Unspecified place in unspecified non-institutional (private) residence as the place of occurrence of the external cause; Y93.89 Activity, other specified; Y99.9 Unspecified external cause status; Z86.79 Personal history of other diseases of the circulatory system; Z88.6 Allergy status to analgesic agent; Z79.01 Long term (current) use of anticoagulants; Z79.811 Long term (current) use of aromatase inhibitors; Z79.899 Other long term (current) drug therapy

== ENCOUNTER → 2025-04-04 | Outpatient (REF) | payer OTHER ==
[~2025-04-04] MED LIST changes: -AMBI10TA PO; +ELIQ5TAB PO; -FLOM0.4C39 PO; +GABA-1172 PO; -GABA-282 PO; +JARD1TAB3 PO; -SIME180C25 PO; +SIME1CAP4 PO; +TAMS-18 PO; +VITAMIN D PO; +ZOLP-533 PO
== END ==
LOC: M SFHCCLAY 14:39
PROVIDERS: ATTEND Nurse Practitioner Family
DX: E11.9 Type 2 diabetes mellitus without complications (principal); I48.0 Paroxysmal atrial fibrillation